=== PATIENT | male | born 1930 | race Caucasian/White ===

== ENCOUNTER 2016-05-01 13:09 | Inpatient (IN) | payer MEDICARE ==
[~2016-05-01] VITALS: Ht 170.2 cm; Wt 75.4 kg
[2016-05-09] MEDS ORDERED: PLAV75TA29 PO (14:13)
[2016-05-09] MEDS ORDERED: ROLLER WALKER1 MI1 (14:13)
[2016-05-09] MEDS ORDERED: LEVO100T5 PO (14:13)
[2016-05-09] MEDS ORDERED: LATA0.002 EACH EYE (14:13)
[2016-05-09] MEDS ORDERED: LISI-515 PO (14:13)
[2016-05-10] MEDS ORDERED: GENTAMICIN SULFATE 80 MG/2 ML VIAL ONE (07:52)
[2016-05-10] MEDS: LACTATED RINGER'S 1000 ML IV SCH (08:00)
[2016-05-10 08:09] VITALS: BP 140/69; PULSE 60; RESP 20; TEMP 97.8; O2SAT 99
[2016-05-10] MEDS ORDERED: ceFAZolin 2 GM PREMIX 50 ML ONE (08:09)
[2016-05-10] MEDS ORDERED: VANCOMYCIN HCL 1000 MG VIAL ONE (08:09)
[2016-05-10] MEDS ORDERED: DEXAMETHASONE SOD PHOS 20 MG/5 ML VIAL ONE (08:09)
[2016-05-10] MEDS ORDERED: SODIUM CHLOR 0.9% 250 ML INJ 250 ML ONE (08:09)
[2016-05-10] MEDS ORDERED: CITA10TA4 PO (08:20)
[2016-05-10] MEDS ORDERED: ROPI5TAB PO (08:20)
[2016-05-10] MEDS ORDERED: VANCOMYCIN 1000 MG/NS 250 ML (for <70 kg) IV SCH ×2 (08:30)
[2016-05-10] MEDS ORDERED: INSULIN HUMAN REGULAR 1,000 UNITS/10 ML VIAL SQ PRN (08:30)
[2016-05-10] MEDS ORDERED: METOPROLOL TARTRATE 25 MG TAB PO PRN (08:30)
[2016-05-10] MEDS: SODIUM CHLORID 0.9% 500 ML IV SCH (08:30)
[2016-05-10] MEDS ORDERED: ceFAZolin 2 GM PREMIX 50 ML IV SCH (08:30)
[2016-05-10] MEDS: POVIDONE IODINE 7.5% SCRUB 118 ML BOTTLE TOP SCH (08:30)
[2016-05-10] MEDS: TRANEXAMIC ACID IV SCH ×2 (09:00→09:52)
[2016-05-10] MEDS ORDERED: DEXAMETHASONE SOD PHOS 20 MG/5 ML VIAL IV ONE (09:00)
[2016-05-10] MEDS: SODIUM CHLORIDE 0.9% IV SCH ×2 (09:00→09:52)
[2016-05-10] MEDS: ROPIVACAINE PERI-ARTICULAR INJECTION. PERIART SCH ×10 (09:00→10:12)
[2016-05-10] MEDS ORDERED: MIDAZOLAM HCL 5 MG/5 ML VIAL ONE (09:17)
[2016-05-10] MEDS ORDERED: ACETAMINOPHEN 1000 MG/100 ML VIAL IV ONE (10:44)
[2016-05-10] MEDS ORDERED: traMADol HCL 50 MG TAB PO PRN (11:15)
[2016-05-10] MEDS ORDERED: NALOXONE HCL 0.4 MG/ML AMP IV PRN (11:15)
[2016-05-10] MEDS ORDERED: ZOLPIDEM TARTRATE 5 MG TAB PO PRN (11:15)
[2016-05-10] MEDS ORDERED: BISACODYL 10 MG SUPP PR PRN (11:15)
[2016-05-10] MEDS ORDERED: ALUMINUM/MAGNESIUM/SIMETH 30 ML CUP PO PRN (11:15)
[2016-05-10] MEDS ORDERED: diphenhydrAMINE HCL 50 MG/ML VIAL IV PRN (11:15)
[2016-05-10] MEDS ORDERED: HYDROmorphone HCL PF 1 MG/ML VIAL IV PRN (11:15)
[2016-05-10] MEDS ORDERED: Post-op Orders (for Pharmacy) MISC XX ONE (11:15)
[2016-05-10] MEDS ORDERED: ONDANSETRON HCL 4 MG/2 ML VIAL IVP PRN (11:15)
[2016-05-10] MEDS ORDERED: SODIUM CHLORIDE 0.9% FLUSH 5 ML FLUSH IVF PRN (11:15)
[2016-05-10] MEDS ORDERED: MAGNESIUM HYDROXIDE SUSP 30 ML CUP PO PRN (11:15)
--- NOTE | 2016-05-10 11:15 | PD.OP ---
cc: Saad Pino MD Operative Report Date of Surgery: May 10, 2016 Preoperative Diagnosis: Left knee severe osteoarthritis Postoperative Diagnosis: Same Procedure: Left total knee arthroplasty Anesthesia: Adductor canal block and spinal Surgeon: Saad Pino Police Artist(s): SHANTAL Cummins The surgical procedure was assisted by my Advanced Registered Nurse Practitioner. My PROCESS MOLD TECHNICIAN presence was necessary throughout this case for the manipulation and positioning of the surgical extremity. My PROCESS MOLD TECHNICIAN was assisting me throughout the duration of this procedure. The skill set of an Advance Registered Nurse Practitioner was medically necessary to complete this procedure. During the surgical case, the surgical garment assembly supervisor was working at the back table and the Advance Registered Nurse Practitioner was directly assisting me. Operation and Findings: IMPLANTS: DePuy Attune: Patella: size 38. Femur, posterior stabilized size 8. Tibia, rotating platform size 7. Tibial insert, rotating platform, posterior stabilized size 10 mm thickness. ESTIMATED BLOOD LOSS: 150 cc TOURNIQUET TIME: 38 minutes at 250 mmHg pressure. JUSTIFICATION FOR PROCEDURE: The patient has end-stage osteoarthritis to the knee. There is an attached conservative measures pathway form in the chart that describes the nonoperative measures that were undertaken prior to consideration of surgical management. The patient understood the risks and benefits of surgical management. See my office notes for further details PROCEDURE: The patient was brought back to the operative theatre. Adequate anesthesia was obtained. The patient received intravenous vancomycin and Ancef. The lower extremity was prepped and draped in the usual sterile fashion.The leg was exsanguinated, the tourniquet was raised. A standard anterior incision was performed followed by medial parapatellar arthrotomy was performed. End-stage arthritis was identified. Osteotomy of the patella was performed. We drilled holes for the patella. We trialed the patella component. We placed an intramedullary guide into the distal femur. We ultimately resected 12 mm off of the distal femur in 5 degrees of valgus. The remnants of the ACL and PCL were resected. Osteotomy of the proximal tibia was performed, resecting 5 mm off of the medial side. This was done with 3 degrees of posterior slope using an extramedullary guide. The distal end of the guide was placed in the mid aspect of the ankle. The femur was sized, and four chamfer cuts were completed in 3 of external rotation. We then cut the central box in the distal femur to replace the PCL. We resected the remnants of the menisci and removed osteophytes off of the femur and tibia. We then trialed the knee. We punched the tibia for the keel, and then used standard technique to cement in components. Excess cement was removed. We trialed the knee again and the final polyethylene thickness was chosen to provide extension to 0 degrees, and flexion of 140 degrees to gravity. The ligaments were appropriately balanced. Lateral release was necessary to obtain excellent patellofemoral tracking. The tourniquet was released and adequate hemostasis was obtained. An intra- articular injection of a ropivacaine cocktail was injected. The posterior knee was inspected for excess cement, which was removed. The final polyethylene was put into position after thorough irrigation. We then closed deep fascia with a #2 Stratafix followed by skin with 2-0 Vicryl followed by jennifer. Postop plan is to weight-bear as tolerated. DVT prophylaxis will be performed with Cely, JOURDAN rodriguez, early mobilization, and Lovenox followed by Plavix. Saad Pino MD May 10, 2016 11:15
[2016-05-10] MEDS ORDERED: ULTR50TA5 PO (11:17)
[2016-05-10] MEDS ORDERED: ENOX40P SQ (11:17)
[2016-05-10] MEDS ORDERED: BUPIVACAINE LIPOSOME PF 1.3% 20 ML VIAL ONE (11:33)
[2016-05-10] MEDS: SODIUM CHLOR 0.9% 1000 ML INJ 1,000 ML IV SCH ×2 (11:48→21:10)
[2016-05-10] MEDS ORDERED: DO NOT ADM ANY ANTICOAGULANT DRUGS XX PRN (12:00)
--- NOTE | 2016-05-10 12:01 | RADRPT ---
EXAM DATE/TIME: 05/10/2016 11:45 [facility] COMPARISON: No previous studies available for comparison. INDICATIONS : Total left knee replacement. MEDICAL HISTORY : Osteoarthritis. SURGICAL HISTORY : ENCOUNTER: Initial ACUITY: 1 day PAIN SCORE: Non-responsive. LOCATION: Left knee FINDINGS: There is placement of total knee prosthesis well seated with anterior dorsal superficial surgical sta ples small amount of air in soft tissues and extensive vascular calcifications. CONCLUSION: Total knee prosthesis well seated Donny Conrad MD on May 10, 2016 at 11:59 Board Certified Radiologist. This report was verified electronically.
[2016-05-10] MEDS ORDERED: SODIUM CHLORIDE 0.9% IV SCH (12:30)
[2016-05-10] MEDS ORDERED: TRANEXAMIC ACID IV SCH (12:30)
[2016-05-10] MEDS ORDERED: *morphine SULFATE 8 MG/ML PERIprocedure ONLY ONE (13:05)
[2016-05-10 13:45] VITALS: BP 115/61; PULSE 76; RESP 16; TEMP 95.5; O2SAT 97
[2016-05-10] MEDS ORDERED: PROPOFOL 200 MG/20 ML AMP IV ONE (14:06)
[2016-05-10] MEDS ORDERED: LACTATED RINGER'S 1000 ML INJ 1,000 ML IV ONE (14:06)
[2016-05-10] MEDS ORDERED: ePHEDrine/NS 25 MG/5 ML SYR IV ONE (14:06)
[2016-05-10] MEDS: traMADol HCL 50 MG TAB PO PRN (14:11)
--- NOTE | 2016-05-10 14:12 | PD.CONS ---
HPI Service [facility] Hospitalists Consult Requested By Dr. Pino Reason for Consult Medical management Primary Care Physician Brendan Valdovinos DO Diagnoses: (1) Knee pain, chronic (2) Hypothyroidism (3) Hypertension History of Present Illness The patient is an 85-year-old male seen following left total knee arthroplasty. Hospitalist consultation was requested for medical management. Patient has history of hypertension and hypothyroidism. States that he is starting to have some pain in the left knee. No cough, shortness of breath, or chest pain. He states that his blood pressure has been well controlled with lisinopril. Review of Systems Constitutional: DENIES: Fever, Chills, Night Sweats Eyes: DENIES: Blurred vision, Vision loss Ears, nose, mouth, throat: DENIES: Hearing loss Respiratory: DENIES: Cough, Wheezing, Sputum production, Shortness of breath Cardiovascular: DENIES: Chest pain, Palpitations, Dyspnea on Exertion, Lower Extremity Edema Gastrointestinal: DENIES: Abdominal pain, Constipation, Diarrhea, Nausea, Vomiting Genitourinary: DENIES: Urinary frequency, Urinary incontinence, Urgency, Hematuria, Dysuria, Nocturia Musculoskeletal: COMPLAINS OF: Joint pain, DENIES: Muscle aches Integumentary: DENIES: Pruritus, Rash Hematologic/lymphatic: DENIES: Bruising Neurologic: DENIES: Headache Past Family Social History Allergies: Coded Allergies: Lortab (Verified Adverse Reaction, Unknown, Irritability/Anxiety, 05/10/16) Morphine (Verified Adverse Reaction, Unknown, Irritability/Anxiety, ) Past Medical History Osteoarthritis Hypertension Hypothyroidism History of CVA Spinal stenosis Past Surgical History Thoracic and cervical spine surgery Tonsillectomy Bilateral cataract surgery Cardiac catheterization (no stent placement per patient report) Reported Medications Lisinopril 20 mg daily Requip 25 mg daily at bedtime as needed Plavix 75 mg daily Latanoprost eyedrops daily at bedtime Levothyroxine 100 g daily Family History Denies significant family history. States that his father at 96 and his mother at 91. Social History Quit smoking in 1964. Denies alcohol or illicit drug use. Physical Exam Vital Signs Vital Signs Date Time Temp Pulse Resp B/P Pulse Ox O2 Delivery O2 Flow Rate FiO2 05/10/16 13:15 97.8 72 16 125/71 97 Room Air 05/10/16 13:00 74 14 119/73 97 Room Air 05/10/16 12:45 72 16 118/64 99 Room Air 05/10/16 12:30 69 16 117/65 99 Room Air 05/10/16 12:15 74 16 111/59 99 Nasal Cannula 2 05/10/16 12:00 74 16 110/60 100 Nasal Cannula 2 05/10/16 11:45 81 16 107/41 99 Nasal Cannula 2 05/10/16 11:36 96.4 87 16 110/63 98 Nasal Cannula 2 05/10/16 08:09 97.8 60 20 140/69 99 Physical Exam GENERAL: Elderly male in no acute distress. HEENT: Normocephalic, atraumatic. Pupils equal, round and reactive. Extraocular movements intact. No scleral icterus. No injection or drainage. CARDIOVASCULAR: Regular rate and rhythm without murmurs, gallops, or rubs. RESPIRATORY: Clear to auscultation. No wheezes, rales, or rhonchi. Breathing is non-labored. GASTROINTESTINAL: Abdomen soft, non-tender, nondistended. EXTREMITIES: No lower extremity edema. No calf tenderness. SCDs. LLE in CPM machine. PSYCH: Alert and oriented x 3. Laboratory Laboratory Tests Test 05/10/16 08:00 Blood Type A POSITIVE Antibody Screen NEGATIVE Imaging Last Impressions Knee X-Ray 05/10/16 1110 Signed Impressions: Service Date/Time: Tuesday, May 10, 2016 11:45 - CONCLUSION: Total knee prosthesis well seated Donny Conrad MD Assessment and Plan Assessment and Plan 1. Osteoarthritis, left knee: Status post left total knee arthroplasty, POD #0. Management per orthopedic surgery. Continue physical therapy, pain control, bowel regimen. 2. Hypertension: Blood pressure is well controlled. Continue lisinopril. 3. Hypothyroidism: Continue Synthroid. 4. DVT prophylaxis: Lovenox. Jamel Michel MD May 10, 2016 14:12
--- NOTE | 2016-05-10 14:59 | HHI.DCPOC ---
Discharge Care Plan Diagnosis: (1) Primary localized osteoarthrosis, lower leg (2) Status post total knee replacement, left Your Health Problems Are: Difficulty with ADL Goals to Promote Your Health * To prevent worsening of your condition and complications * To maintain your health at the optimal level Directions to Meet Your Goals Take your medications as prescribed Follow your dietary instruction Follow activity as directed Keep your appointments as scheduled Take your immunizations and boosters as scheduled If your symptoms worsen call your PCP, if no PCP go to Urgent Care Center or Emergency Room Smoking is Dangerous to Your Health. Avoid second hand smoke Call the 24-hour hour crisis hotline for domestic abuse at Kalpesh Kumar May 10, 2016 14:58
--- NOTE | 2016-05-10 15:00 | HHI.FF ---
Face to Face Verification Diagnosis: (1) Primary localized osteoarthrosis, lower leg (2) Status post total knee replacement, left Physical Therapy Gait training, Transfer training, bed to chair Knee: Total knee Left LE Weight Bearing: WB as tolerated Left LE Range of Motion: Active ROM Nursing Nursing: Fannie teaching, Dressing changes Dressing Changes: Daily dressing change I have seen patient Dallin Ball on 05/10/16. My clinical findings support the need for the requested home health care services because: Limited ability to care for self High risk of falls I certify that my clinical findings support that this patient is homebound because: Post-op weakness Unsteady gait/balance Kalpesh Kumar May 10, 2016 15:00
[2016-05-10] MEDS ORDERED: CPMMACHINE (15:02)
[2016-05-10] MEDS ORDERED: WALKER WHEELS/F1 MIS (15:02)
[2016-05-10] MEDS ORDERED: COMMODE 3-IN-11 MIS (15:02)
[2016-05-10 20:06] VITALS: BP 94/50; PULSE 66; RESP 18; TEMP 96.1; O2SAT 98
[2016-05-10] MEDS: SODIUM CHLORIDE 0.9% FLUSH 5 ML FLUSH IVF SCH (21:00)
[2016-05-10] MEDS: LATANOPROST 0.005% OPHT SOLN 2.5 ML BTL EACH EYE SCH (22:59)
[2016-05-11] VITALS (7 sets, daily range): BP systolic 115–129; BP diastolic 56–62; PULSE 57–71; RESP 16–22; TEMP 95.6–97.4; O2SAT 96–99
[2016-05-11] MEDS: SODIUM CHLOR 0.9% 1000 ML INJ 1,000 ML IV SCH ×2 (00:58→17:10)
[2016-05-11] MEDS: SODIUM CHLORID 0.9% 500 ML IV SCH (00:59)
[2016-05-11 07:01] LABS: HEMATOCRIT 31.5 % (39.0-51.0); MEAN CELL VOLUME 95.1 FL (80.0-100.0); MEAN CORPUSCULAR HEMOGLOBIN 33.1 PG (27.0-34.0); MEAN CORPUSCULAR HGB CONC 34.8 % (32.0-36.0); PLATELET COUNT 214 TH/MM3 (150-450); RED BLOOD COUNT 3.31 MIL/MM3 (4.50-5.90); RED CELL DISTRIBUTION WIDTH 12.5 % (11.6-17.2); REVIEW FLAG FINAL; WHITE BLOOD COUNT 16.8 TH/MM3 (4.0-11.0)
[2016-05-11] MEDS ORDERED: DEXAMETHASONE SOD PHOS 20 MG/5 ML VIAL IV ONE (07:45)
[2016-05-11] MEDS: CITALOPRAM HYDROBROMIDE 20 MG TAB PO SCH (08:15)
[2016-05-11] MEDS: LEVOTHYROXINE SODIUM 100 MCG TAB PO SCH (08:15)
[2016-05-11] MEDS: LISINOPRIL 20 MG TAB PO SCH (08:15)
[2016-05-11] MEDS: LACTATED RINGER'S 1000 ML IV SCH (08:30)
[2016-05-11] MEDS: POVIDONE IODINE 7.5% SCRUB 118 ML BOTTLE TOP SCH (08:30)
[2016-05-11] MEDS: traMADol HCL 50 MG TAB PO PRN ×3 (08:54→20:37)
[2016-05-11] MEDS: SODIUM CHLORIDE 0.9% FLUSH 5 ML FLUSH IVF SCH ×2 (09:00→20:37)
[2016-05-11] MEDS ORDERED: PNEUMOCOCCAL POLYVALENT INJ 25 MCG/0.5 ML SYR IM ONE (10:00)
[2016-05-11] MEDS: ENOXAPARIN SODIUM 40 MG/0.4 ML SYRINGE SQ SCH (12:03)
--- NOTE | 2016-05-11 12:38 | PD.ORT.PN ---
Subjective Post Op Day #: 1 Subjective Remarks The patient is OOB in chair with no pain. The patient is voiding and ambulatory. Objective Vitals Vital Signs Date Time Temp Pulse Resp B/P Pulse Ox O2 Delivery O2 Flow Rate FiO2 05/11/16 08:00 95.6 63 18 128/60 99 05/11/16 04:01 95.6 57 19 129/62 97 05/11/16 00:01 96.2 64 19 121/58 99 05/10/16 20:06 96.1 66 18 94/50 98 05/10/16 19:24 Room Air 05/10/16 13:45 95.5 76 16 115/61 97 05/10/16 13:15 97.8 72 16 125/71 97 Room Air 05/10/16 13:00 74 14 119/73 97 Room Air 05/10/16 12:45 72 16 118/64 99 Room Air 05/10/16 12:30 69 16 117/65 99 Room Air I/O 05/10/16 05/10/16 05/10/16 05/11/16 05/11/16 05/11/16 07:00 15:00 23:00 07:00 15:00 23:00 Intake Total 1170 ml 890 ml 1022 ml Output Total 850 ml 250 ml 350 ml Balance 320 ml 640 ml 672 ml Intake Oral 30 ml 480 ml 240 ml IV Total 240 ml 410 ml 782 ml Other 900 ml Output Urine Total 750 ml 250 ml 350 ml Estimated Blood Loss 100 ml # Bowel Movements 0 0 Result Diagram: 05/11/16 0614 Procedures Left TKA Objective Remarks The patient's dressing is C/D/I. No calf tenderness or swelling. + SILT. EHL/ TA/G intact. 2+ pedal pulse. Assessment & Plan Ortho Post Op Day #: 1 Problem List: Assessment and Plan POD #1: Left TKA 1. WBAT LLE 2. Lovenox followed by Plavix for DVT prophylaxis 3. Ice to the left knee PRN 4. Anticipatory discharge to SNF on Sunday. Kalpesh Kumar May 11, 2016 12:38
[2016-05-11] MEDS: MAGNESIUM HYDROXIDE SUSP 30 ML CUP PO SCH ×2 (16:16→20:37)
[2016-05-11] MEDS: MULTIVITAMINS/MINERALS THERAPEUTIC TAB PO SCH (20:37)
[2016-05-11] MEDS: SENNOSIDES 8.6 MG TAB PO SCH (20:37)
[2016-05-11] MEDS: DOCUSATE SODIUM 100 MG CAP PO SCH (20:37)
[2016-05-11] MEDS: LATANOPROST 0.005% OPHT SOLN 2.5 ML BTL EACH EYE SCH (20:38)
[2016-05-12] VITALS (8 sets, daily range): BP systolic 101–121; BP diastolic 52–63; PULSE 63–79; RESP 16–20; TEMP 96.1–98; O2SAT 95–99
[2016-05-12] MEDS: SODIUM CHLOR 0.9% 1000 ML INJ 1,000 ML IV SCH ×2 (03:10→23:10)
[2016-05-12] MEDS: traMADol HCL 50 MG TAB PO PRN ×4 (05:25→20:02)
[2016-05-12 06:07] LABS: AUTOMATED NEUTROPHIL # 10.1 TH/MM3 (1.8-7.7); BASOPHIL % 0.2 % (0.0-2.0); EOSINOPHIL % 0.1 % (0.0-4.0); HEMATOCRIT 30.8 % (39.0-51.0); HEMO FLAGS DIFF FINAL; LYMPH % 13.1 % (9.0-44.0); LYMPHOCYTE # 1.8 TH/MM3 (1.0-4.8); MEAN CELL VOLUME 95.9 FL (80.0-100.0); MEAN CORPUSCULAR HEMOGLOBIN 32.1 PG (27.0-34.0); MEAN CORPUSCULAR HGB CONC 33.5 % (32.0-36.0); NEUT % 75.6 % (16.0-70.0); PLATELET COUNT 212 TH/MM3 (150-450); RED BLOOD COUNT 3.21 MIL/MM3 (4.50-5.90); RED CELL DISTRIBUTION WIDTH 12.9 % (11.6-17.2); WHITE BLOOD COUNT 13.4 TH/MM3 (4.0-11.0)
[2016-05-12 06:27] LABS: BICARBONATE 25.5 MEQ/L (21.0-32.0); POTASSIUM 4.5 MEQ/L (3.5-5.1)
[2016-05-12] MEDS: POVIDONE IODINE 7.5% SCRUB 118 ML BOTTLE TOP SCH (08:30)
[2016-05-12] MEDS: LACTATED RINGER'S 1000 ML IV SCH (08:30)
[2016-05-12] MEDS: SODIUM CHLORIDE 0.9% FLUSH 5 ML FLUSH IVF SCH ×2 (09:00→20:00)
[2016-05-12] MEDS: MAGNESIUM HYDROXIDE SUSP 30 ML CUP PO SCH ×2 (09:15→20:00)
[2016-05-12] MEDS: DOCUSATE SODIUM 100 MG CAP PO SCH ×2 (09:15→20:00)
[2016-05-12] MEDS: CITALOPRAM HYDROBROMIDE 20 MG TAB PO SCH (09:16)
[2016-05-12] MEDS: LEVOTHYROXINE SODIUM 100 MCG TAB PO SCH (09:16)
[2016-05-12] MEDS: MULTIVITAMINS/MINERALS THERAPEUTIC TAB PO SCH ×2 (09:16→20:00)
[2016-05-12] MEDS: LISINOPRIL 20 MG TAB PO SCH (09:16)
[2016-05-12] MEDS: ENOXAPARIN SODIUM 40 MG/0.4 ML SYRINGE SQ SCH (10:35)
--- NOTE | 2016-05-12 13:30 | PD.ORT.PN ---
Subjective Subjective Remarks no pain Objective Vitals Vital Signs Date Time Temp Pulse Resp B/P Pulse Ox O2 Delivery O2 Flow Rate FiO2 05/12/16 08:00 96.2 63 16 110/57 99 05/12/16 04:00 96.1 67 18 121/63 95 05/12/16 00:00 96.3 65 20 114/60 96 05/11/16 20:00 96.2 71 22 117/56 97 05/11/16 20:00 97 Room Air 05/11/16 16:05 97.4 67 16 115/58 99 I/O 05/11/16 05/11/16 05/11/16 05/12/16 05/12/16 05/12/16 07:00 15:00 23:00 07:00 15:00 23:00 Intake Total 1022 ml 240 ml 720 ml 240 ml Output Total 350 ml 500 ml Balance 672 ml 240 ml 720 ml -260 ml Intake Oral 240 ml 240 ml 720 ml 240 ml IV Total 782 ml Output Urine Total 350 ml 500 ml # Voids 0 2 # Bowel Movements 0 0 0 0 Result Diagram: 05/12/16 0532 05/12/16 0532 Procedures Left TKA Objective Remarks The patient's incision is C/D/I. min hyperemia lateral wound. No calf tenderness or swelling. + SILT. EHL/TA/G intact. 2+ pedal pulse. Assessment & Plan Assessment and Plan POD #2: Left TKA 1. WBAT LLE 2. Lovenox (10 days) followed by Plavix (as outpt) for DVT prophylaxis 3. Ice to the left knee PRN 4. Anticipatory discharge to SNF on Sunday. Saad Pino MD May 12, 2016 13:30
--- NOTE | 2016-05-12 16:58 | HHI.PR ---
Subjective Remarks Doing well no acute wing, afebrile no chest pain or short of breath Objective Vitals Vital Signs Date Time Temp Pulse Resp B/P Pulse Ox O2 Delivery O2 Flow Rate FiO2 05/12/16 14:24 96 21 05/12/16 12:00 97.0 67 16 101/52 99 05/12/16 08:00 96.2 63 16 110/57 99 05/12/16 04:00 96.1 67 18 121/63 95 05/12/16 00:00 96.3 65 20 114/60 96 05/11/16 20:00 96.2 71 22 117/56 97 05/11/16 20:00 97 Room Air I/O 05/11/16 05/11/16 05/11/16 05/12/16 05/12/16 05/12/16 07:00 15:00 23:00 07:00 15:00 23:00 Intake Total 1022 ml 240 ml 720 ml 240 ml Output Total 350 ml 500 ml Balance 672 ml 240 ml 720 ml -260 ml Intake Oral 240 ml 240 ml 720 ml 240 ml IV Total 782 ml Output Urine Total 350 ml 500 ml # Voids 0 2 # Bowel Movements 0 0 0 0 Result Diagram: 05/12/16 0532 05/12/16 0532 Objective Remarks GENERAL: This is a well-nourished, well-developed patient, in no apparent distress. SKIN: No rashes, warm and dry HEAD: Atraumatic. Normocephalic. EYES: Pupils equal round and reactive. Extraocular motions intact. No scleral icterus. ENT: Nose without bleeding, or drainage, Airway patent. NECK: Trachea midline. Supple CARDIOVASCULAR: Regular rate and rhythm without murmurs, gallops, or rubs. RESPIRATORY: Fair air entry bilaterally. No wheezes, rales, or rhonchi. GASTROINTESTINAL: Abdomen soft, non-tender, nondistended. Positive bowel sounds MUSCULOSKELETAL: Extremities without clubbing, cyanosis, or edema. Pedal pulses appreciated NEUROLOGICAL: Awake and alert. Moves all extremity. Normal speech.no focal neurological deficit A/P Problem List: (1) Knee pain, chronic ICD Code: G89.29 Status: Chronic (2) Hypothyroidism ICD Code: E03.9 Status: Chronic (3) Hypertension ICD Code: I10 Status: Chronic Assessment and Plan 1. Osteoarthritis, left knee: Status post left total knee arthroplasty, . Management per orthopedic surgery. Continue physical therapy, pain control, bowel regimen. 2. Hypertension: Blood pressure is well controlled. Continue lisinopril. 3. Hypothyroidism: Continue Synthroid. 4. DVT prophylaxis: Lovenox. BMP reviewed within normal limits CBC showed trending down leukocytosis most likely postop Cain Torres MD May 12, 2016 16:58
[2016-05-12] MEDS: SENNOSIDES 8.6 MG TAB PO SCH (20:00)
[2016-05-12] MEDS: LATANOPROST 0.005% OPHT SOLN 2.5 ML BTL EACH EYE SCH (20:02)
[2016-05-13] VITALS: BP 103/56; PULSE 79; RESP 20; TEMP 97.3; O2SAT 95
[2016-05-13] MEDS: traMADol HCL 50 MG TAB PO PRN ×3 (00:32→17:05)
[2016-05-13 05:50] LABS: HEMATOCRIT 28.3 % (39.0-51.0); MEAN CELL VOLUME 95.6 FL (80.0-100.0); MEAN CORPUSCULAR HEMOGLOBIN 32.4 PG (27.0-34.0); MEAN CORPUSCULAR HGB CONC 33.9 % (32.0-36.0); PLATELET COUNT 201 TH/MM3 (150-450); RED BLOOD COUNT 2.96 MIL/MM3 (4.50-5.90); RED CELL DISTRIBUTION WIDTH 12.7 % (11.6-17.2); REVIEW FLAG FINAL; WHITE BLOOD COUNT 11.1 TH/MM3 (4.0-11.0)
[2016-05-13 08:00] VITALS: BP 115/56; PULSE 74; RESP 19; TEMP 96.6; O2SAT 99
[2016-05-13] MEDS: LACTATED RINGER'S 1000 ML IV SCH (08:30)
[2016-05-13] MEDS: SODIUM CHLORIDE 0.9% FLUSH 5 ML FLUSH IVF SCH (08:35)
[2016-05-13] MEDS: LEVOTHYROXINE SODIUM 100 MCG TAB PO SCH (08:36)
[2016-05-13] MEDS: MAGNESIUM HYDROXIDE SUSP 30 ML CUP PO SCH (08:36)
[2016-05-13] MEDS: DOCUSATE SODIUM 100 MG CAP PO SCH (08:36)
[2016-05-13] MEDS: MULTIVITAMINS/MINERALS THERAPEUTIC TAB PO SCH (08:36)
[2016-05-13] MEDS: LISINOPRIL 20 MG TAB PO SCH (08:36)
[2016-05-13] MEDS: CITALOPRAM HYDROBROMIDE 20 MG TAB PO SCH (08:36)
[2016-05-13] MEDS: SODIUM CHLOR 0.9% 1000 ML INJ 1,000 ML IV SCH (08:37)
--- NOTE | 2016-05-13 08:51 | PD.ORT.PN ---
Subjective Subjective Remarks Patient comfortable. Pain controlled. Objective Vitals Vital Signs Date Time Temp Pulse Resp B/P Pulse Ox O2 Delivery O2 Flow Rate FiO2 05/13/16 00:00 97.3 79 20 103/56 95 05/12/16 20:00 97.3 79 20 116/62 96 05/12/16 20:00 96 Room Air 05/12/16 18:17 97 21 05/12/16 16:00 98.0 73 16 112/60 97 05/12/16 14:24 96 21 05/12/16 12:00 97.0 67 16 101/52 99 I/O 05/12/16 05/12/16 05/12/16 05/13/16 05/13/16 05/13/16 07:00 15:00 23:00 07:00 15:00 23:00 Intake Total 240 ml 960 ml 240 ml Output Total 500 ml 150 ml 400 ml Balance -260 ml 810 ml -160 ml Intake Oral 240 ml 960 ml 240 ml Output Urine Total 500 ml 150 ml 400 ml # Voids 4 # Bowel Movements 0 0 0 Result Diagram: 05/13/16 0440 05/12/16 0532 Procedures Left TKA Objective Remarks Dressing minimal drainage No calf tenderness or swelling 2+ pedal pulse. Negative Homans NVI Assessment & Plan Assessment and Plan POD #3: Left TKA 1. WBAT LLE 2. Lovenox (10 days) followed by Plavix (as outpt) for DVT prophylaxis 3. Ice to the left knee PRN 4. Anticipatory discharge to SNF on Sunday. Orthopedically stable for discharge. 5. F/U in [address] Pino in office Dr. Lloyd present during the assessment of patient. Marv Trejo May 13, 2016 08:51
--- NOTE | 2016-05-13 10:00 | HHI.PR ---
Subjective Remarks in no acute distress. complaining of some pain to the left hand which he relates to his arthritis. pain to the left knee is fairly controlled. Objective Vitals Vital Signs Date Time Temp Pulse Resp B/P Pulse Ox O2 Delivery O2 Flow Rate FiO2 05/13/16 08:45 Nasal Cannula 2.00 05/13/16 08:00 96.6 74 19 115/56 99 05/13/16 00:00 97.3 79 20 103/56 95 05/12/16 20:00 97.3 79 20 116/62 96 05/12/16 20:00 96 Room Air 05/12/16 18:17 97 21 05/12/16 16:00 98.0 73 16 112/60 97 05/12/16 14:24 96 21 05/12/16 12:00 97.0 67 16 101/52 99 I/O 05/12/16 05/12/16 05/12/16 05/13/16 05/13/16 05/13/16 07:00 15:00 23:00 07:00 15:00 23:00 Intake Total 240 ml 960 ml 240 ml Output Total 500 ml 150 ml 400 ml Balance -260 ml 810 ml -160 ml Intake Oral 240 ml 960 ml 240 ml Output Urine Total 500 ml 150 ml 400 ml # Voids 4 # Bowel Movements 0 0 0 Result Diagram: 05/13/16 0440 05/12/16 0532 Imaging Last Impressions Knee X-Ray 05/10/16 1110 Signed Impressions: Service Date/Time: Tuesday, May 10, 2016 11:45 - CONCLUSION: Total knee prosthesis well seated Donny Conrad MD Objective Remarks GENERAL: This is a well-nourished, well-developed patient, in no apparent distress. CARDIOVASCULAR: Regular rate and regular rhythm without murmurs, gallops, or rubs. RESPIRATORY: Clear to auscultation. Breath sounds equal bilaterally. No wheezes , rales, or rhonchi. GASTROINTESTINAL: Abdomen soft, non-tender, nondistended. Normal, active bowel sounds MUSCULOSKELETAL:left knee covered with clean dressing. NEURO: Alert & Oriented x4 to person, place, time, situation. Moves all ext x4 Medications and IVs Current Medications Gentamicin Sulfate (Gentamicin Inj) 240 mg STK-MED ONCE .ROUTE Last administered on 05/10/16t 10:12; Start 05/10/16 at 07:52; Stop 05/10/16 at 07:53 ; Status DC Dexamethasone Sodium Phosphate 20 mg 20 mg STK-MED ONCE .ROUTE ; Start 05/10/16 at 08:09; Stop 05/10/16 at 08:10; Status DC Cefazolin Sodium/ Dextrose 50 ml @ As Directed STK-MED ONCE .ROUTE ; Start 05/10 at 08:09; Stop 05/10/16 at 08:10; Status DC Sodium Chloride (NS 250 ml Inj) 250 ml @ As Directed STK-MED ONCE .ROUTE ; Start 05/10/16 at 08:09; Stop 05/10/16 at 08:10; Status DC Vancomycin HCl (Vancomycin Inj) 1,000 mg STK-MED ONCE .ROUTE ; Start 05/10/16 at 08:09; Stop 05/10/16 at 08:10; Status DC Povidone Iodine 1 applic 1 applic ONCE TOP ; Start 05/10/16 at 08:30; Stop 05/13 at 08:29; Status DC Cefazolin Sodium/ Dextrose 50 ml @ 100 mls/hr CELLAR WORKER IV Last administered on 05/10/16 08:18; Start 05/10/16 at 08:30; Stop 05/13/16 at 08:29; Status DC Vancomycin HCl 1000 mg/Sodium Chloride 250 ml @ 250 mls/hr CELLAR WORKER IV Last administered on 05/10/16 08:25; Start 05/10/16 at 08:30; Stop 05/13/16 at 08:29 ; Status DC Tranexamic Acid 693 mg/Sodium Chloride 106.93 ml @ 200 mls/ hr ONCE IV Last administered on 05/10/16 09:52; Start 05/10/16 at 09:00; Stop 05/10/16 at 13:00 ; Status DC Ropivacaine/ Ketorolac Tromethamine/ Epinephrine HCl/ Clonidine/Sodium Chloride (Naropin 0.5% Pf Inj/Toradol Inj/ Adrenalin (1:1000) Inj/ Duraclon Inj/NS Inj) 100 ml @ 200 mls/hr ONCE PERIART Last administered on 05/10/16 10:12; Start 05/10/16 at 09:00; Stop 05/10/16 at 13:00; Status DC Dexamethasone Sodium Phosphate 10 mg 10 mg ONCE ONCE IV Last administered on 08:15; Start 05/10/16 at 09:00; Stop 05/10/16 at 09:01; Status DC Lactated Ringer's 1,000 ml @ 30 mls/hr Q24H IV Last administered on 05/10/16 08:00; Start 05/10/16 at 08:30 Sodium Chloride (NS 500 ml Inj) 500 ml @ 30 mls/hr [id number] IV ; Start 05/10/16 at 08:30; Stop 05/11/16 at 08:29; Status DC Insulin Human Regular (NovoLIN R INJ) See Protocol Table ... UNSCH X1 PRN SQ SEE PROTOCOL; Start 05/10/16 at 08:30; Stop 05/11/16 at 08:29; Status DC Metoprolol Tartrate (Lopressor) 25 mg UNSCH X1 PRN PO SEE LABEL COMMENTS; Start 05/10/16 at 08:30; Stop 05/11/16 at 08:29; Status DC Midazolam HCl (Versed Inj) 5 mg STK-MED ONCE .ROUTE Last administered on 09:19; Start 05/10/16 at 09:17; Stop 05/10/16 at 09:18; Status DC Acetaminophen (Ofirmev Inj) 1,000 mg STK-MED ONCE IV ; Start 05/10/16 at 10:44; Stop 05/10/16 at 10:45; Status DC Citalopram Hydrobromide (CeleXA) 10 mg DAILY PO Last administered on 05/13/16 08:36; Start 05/11/16 at 09:00 Latanoprost (Xalatan 0.005% Opt Soln) 1 drop HS EACH EYE Last administered on 05/12/16 20:02; Start 05/10/16 at 21:00 Levothyroxine Sodium (Synthroid) 100 mcg DAILY PO Last administered on 08:36; Start 05/11/16 at 09:00 Lisinopril (Prinivil) 20 mg DAILY PO Last administered on 05/13/16 08:36; Start 05/11/16 at 09:00 Ropinirole HCl 25 mg 25 mg HS PRN PO RESTLESSNESS; Start 05/10/16 at 11:15; Status Cancel Sodium Chloride (NS 1000 ml Inj) 1,000 ml @ 100 mls/hr Q10H IV Last administered on 05/11/16 00:58; Start 05/10/16 at 11:10 IV Flush (NS Flush) 2 ml UNSCH PRN IVF FLUSH AFTER USING IV ACCESS; Start 05/10 at 11:15 IV Flush 2 ml 2 ml BID IVF Last administered on 05/13/16 08:35; Start at 21:00 Cefazolin Sodium/ Sodium Chloride (Ancef Inj/NS Inj) 100 ml @ 200 mls/hr Q6H IV Last administered on 05/11/16 00:59; Start 05/10/16 at 13:00; Stop at 01:29; Status DC Miscellaneous Information (Post-op Orders (for Pharmacy)) STAT ONCE XX ; Start 05/10/16 at 11:15; Stop 05/10/16 at 12:20; Status DC Dexamethasone Sodium Phosphate (Decadron Inj) 10 mg ONCE ONCE IV Last administered on 05/11/16 07:45; Start 05/11/16 at 07:45; Stop 05/11/16 at 07:46 ; Status DC Enoxaparin Sodium (Lovenox Inj) 40 mg Q24H SQ Last administered on 05/12/16 10 :35; Start 05/11/16 at 11:00; Stop 05/20/16 at 11:01 Tramadol HCl (Ultram) 50 mg Q4H PRN PO PAIN LESS THAN 5 ON SCALE Last administered on 05/13/16 05:16; Start 05/10/16 at 11:15 Tramadol HCl 100 mg 100 mg Q4H PRN PO PAIN SCALE 5 TO 10; Start 05/10/16 at 11: 15 Tranexamic Acid/ Sodium Chloride (Cyklokapron Inj/ NS Inj) 106.93 ml @ 200 mls / hr UNSCH IV Last administered on 05/10/16 12:45; Start 05/10/16 at 12:30; Stop 05/10/16 at 18:30; Status DC Multivitamins/ Minerals Therapeutic (Theragran M Tab) 1 tab BID PO Last administered on 05/13/16 08:36; Start 05/11/16 at 21:00; Stop 07/10/16 at 20:59 Ondansetron HCl (Zofran Inj) 4 mg Q6H PRN IVP NAUSEA OR VOMITING; Start at 11:15 Docusate Sodium (Colace) 100 mg BID PO Last administered on 05/13/16t 08:36; Start 05/11/16 at 21:00 Al Hydrox/Mg Hydrox/Simethicone (Mag-Al Plus Susp Liq) 30 ml Q6H PRN PO INDIGESTION; Start 05/10/16 at 11:15 Zolpidem Tartrate (Ambien) 5 mg HS PRN PO SLEEP; Start 05/10/16 at 11:15 Bisacodyl (Dulcolax Supp) 10 mg DAILY PRN WI CONSTIPATION; Start 05/10/16 at 11 :15 Magnesium Hydroxide (Milk Of Magnesia Liq) 30 ml DAILY PRN PO CONSTIPATION; Start 05/10/16 at 11:15; Stop 05/11/16 at 09:51; Status DC Naloxone HCl (Narcan Inj) 0.4 mg UNSCH PRN IV RESPIRATORY RATE LESS THAN 10; Start 05/10/16 at 11:15 Diphenhydramine HCl (Benadryl Inj) 25 mg Q6H PRN IV ITCHING; Start 05/10/16 at 11:15 Hydromorphone HCl (Dilaudid Pf Inj) 1 mg Q3H PRN IV BREAKTHROUGH PAIN; Start at 11:15 Bupivacaine Liposome (Exparel Pf 1.3% Inj) 20 ml STK-MED ONCE .XX ; Start at 11:33; Stop 05/10/16 at 11:34; Status DC Miscellaneous Information ALL NURSING DEPARTME... UNSCH PRN XX SEE LABEL COMMENTS; Start 05/10/16 at 12:00; Stop 05/11/16 at 11:59; Status DC Morphine Sulfate (*morphine INJ PERIprocedure ONLY) 8 mg STK-MED ONCE .ROUTE ; Start 05/10/16 at 13:05; Stop 05/10/16 at 13:06; Status DC Pneumococcal Polyvalent Vaccine (Pneumovax-23 Inj) 25 mcg ONCE ONCE IM Last administered on 05/11/16t 08:56; Start 05/11/16 at 10:00; Stop 05/11/16 at 10:01 ; Status DC Ropinirole HCl (Requip) 2.5 mg HS PRN PO RESTLESS LEG SYNDROME; Start 05/10/16 at 21:30 Magnesium Hydroxide (Milk Of Magnloy Liq) 30 ml BID PO Last administered on 08:36; Start 05/11/16 at 10:00 Sennosides (Senokot) 17.2 mg HS PO Last administered on 05/12/16 20:00; Start 05/11/16 at 21:00 Propofol (Diprivan 200 Mg/20 ml Inj) 600 mg STK-MED ONCE IV ; Start 05/10/16 at 14:06; Stop 05/11/16 at 14:07; Status DC Ephedrine Sulfate 25 mg 25 mg STK-MED ONCE IV ; Start 05/10/16 at 14:06; Stop at 14:07; Status DC Lactated Ringer's (Lr 1000 ml Inj) 1,000 ml @ As Directed STK-MED ONCE IV ; Start 05/10/16 at 14:06; Stop 05/11/16 at 14:07; Status DC A/P Assessment and Plan A/P 1. Osteoarthritis, left knee: Status post left total knee arthroplasty, . Management per orthopedic surgery. Continue physical therapy, pain control, bowel regimen. 2. Hypertension: Blood pressure is well controlled. Continue lisinopril. 3. Hypothyroidism: Continue Synthroid. 4. DVT prophylaxis: Lovenox. Discharge Planning dc planning per ortho. Alan Choi MD May 13, 2016 10:00
[2016-05-13] MEDS: ENOXAPARIN SODIUM 40 MG/0.4 ML SYRINGE SQ SCH (11:30)
[2016-05-13 12:00] VITALS: BP 90/52; PULSE 80; RESP 17; TEMP 97.2; O2SAT 99
[2016-05-13 14:00] VITALS: BP 115/55; PULSE 80
[2016-05-13 16:00] VITALS: BP 125/61; PULSE 78; RESP 18; TEMP 96.2; O2SAT 100
--- NOTE | 2016-05-14 21:27 | HHI.DS ---
Discharge Summary Admission Date May 10, 2016 at 07:04 Discharge Date: May 13, 2016 Admitting Diagnosis Primary localized OA, lower leg Status post total knee arthroplasty, left Diagnosis: (1) Primary localized osteoarthrosis, lower leg Diagnosis: Principal (2) Status post total knee replacement, left Diagnosis: Principal Procedures Left TKA Brief History This is a 85 year old male patient with severe OA of the left knee CBC/BMP: 05/13/16 0440 05/12/16 0532 Significant Findings Laboratory Tests Test 05/12/16 05/13/16 05:32 04:40 White Blood Count 13.4 TH/MM3 11.1 TH/MM3 (4.0-11.0) (4.0-11.0) Red Blood Count 3.21 MIL/MM3 2.96 MIL/MM3 (4.50-5.90) (4.50-5.90) Hemoglobin 10.3 GM/DL 9.6 GM/DL (13.0-17.0) (13.0-17.0) Hematocrit 30.8 % 28.3 % (39.0-51.0) (39.0-51.0) Neutrophils (%) (Auto) 75.6 % (16.0-70.0) Monocytes (%) (Auto) 11.0 % (0.0-8.0) Neutrophils # (Auto) 10.1 TH/MM3 (1.8-7.7) Monocytes # (Auto) 1.5 TH/MM3 (0-0.9) Blood Urea Nitrogen 24 MG/DL (7-18) Estimat Glomerular Filtration 64 ML/MIN (>89) Rate PE at Discharge Dressing minimal drainage No calf tenderness or swelling 2+ pedal pulse. Negative [facility] Hospital Course The patient was admitted to the hospital for severe OA of the left knee to have a left total knee arthroplasty. The patient's surgery went well without complication. The patient had good pain management with oral medication. The patient was WBAT. The patient tolerated a normal diet. The patient was discharged to a SNF and will f/u with Dr. Pino in 1-2 weeks. Pt Condition on Discharge: Stable Discharge Disposition: Discharge to SNF Discharge Instructions Diet Instructions: As Tolerated, No Restrictions Activities You Can Perform: Weight Bearing as Disha Activities to Avoid: Strenuous Activity Follow up Referrals: Orthopedics with Saad Pino MD New Medications: Commode 3-in-1 (Commode 3-in-1) 1 Mis Mis 1 EA .ROUTE DIRECTED #1 Ref 0 EA CPM-Continuous Passive Motion Machine (CPM-Continuous Passive Motion Machine) 1 Ea Device 1 EA .ROUTE DIRECTED #1 Ref 0 EA Enoxaparin Inj (Lovenox Inj) 40 Mg/0.4 Ml Syr 40 MG SQ DAILY Start Plavix (per outpt dose) after Lovenox is completed. Blood Clot Prevention #8 Ref 0 SYRINGE Tramadol (Ultram) 50 Mg Tab 50 MG PO Q4H Ok to take 1 or 2 pills every four hours as needed for pain PRN PAIN #60 Ref 0 TAB Walker with Front Wheels (Walker with Front Wheels) 1 Mis Mis 1 EA .ROUTE DIRECTED #1 Ref 0 EA Continued Medications: Citalopram (Citalopram) 10 Mg Tab 10 MG PO DAILY Control Depression #30 Ref 0 TAB Latanoprost Opth Drops (Latanoprost Opth Drops) 0.005% Drops 1 DROP EACH EYE HS Refrigerate until opened. Glaucoma #2.5 Ref 0 ML Levothyroxine (Levothyroxine) 100 Mcg Tab 100 MCG PO DAILY Thyroid #30 Ref 0 TAB Lisinopril (Lisinopril) 20 Mg Tab 20 MG PO DAILY #30 Ref 0 TAB Ropinirole (Ropinirole) 5 Mg Tab 25 MG PO HS PRN RESTLESSNESS #30 Ref 0 TAB Discontinued Medications: Clopidogrel (Plavix) 75 Mg Tab 75 MG PO DAILY Blood Clot Prevention #30 Ref 0 TAB Kalpesh Kumar May 14, 2016 21:27
== END 2016-05-13 17:15 | DRG 470 ==
LOC: HSDI 05-10 07:04 → N06B 05-10 13:49
PROVIDERS: ADMIT Orthopaedic Surgery; ATTEND Orthopaedic Surgery
PROC: 0QRF0JZ Replacement of Left Patella with Synthetic Substitute, Open Approach (ICD-10-PCS; 2016-05-10)
PROC: 3E0T3CZ (ICD-10-PCS; 2016-05-10)
PROC: 0SRD0J9 Replacement of Left Knee Joint with Synthetic Substitute, Cemented, Open Approach (ICD-10-PCS; principal; 2016-05-10 09:27)
DX: M17.12 Unilateral primary osteoarthritis, left knee (principal); I12.9 Hypertensive chronic kidney disease with stage 1 through stage 4 chronic kidney disease, or unspecified chronic kidney disease; E03.9 Hypothyroidism, unspecified; M48.00 Spinal stenosis, site unspecified; N18.9 Chronic kidney disease, unspecified; F32.9 Major depressive disorder, single episode, unspecified; Z87.891 Personal history of nicotine dependence; Z88.5 Allergy status to narcotic agent; Z98.1 Arthrodesis status
CPT/HCPCS: 73560; 80048; 85025; 85027; 86850; 86900; 86901; 90471; 90732; 94150; C1776; C9290; G0009; J0131; J0171; J0690; J0735; J1100; J1580; J1650; J1885; J2250; J2270; J2795; J3370; J7030; J7050; J7120; L1830

== ENCOUNTER 2017-04-11 01:15 | Inpatient (IN) | payer MEDICARE ==
[~2017-04-11] VITALS: Ht 175.3 cm; Wt 79.3 kg
[~2017-04-11 01:15] MED LIST: CITA10TA4 PO; COMMODE 3-IN-11 MIS; CPMMACHINE; ENOX40P SQ; LATA0.002 EACH EYE; LEVO100T5 PO; LISI-515 PO; ROLLER WALKER1 MI1; ROPI5TAB PO; TRAM50 PO; WALKER WHEELS/F1 MIS
[2017-04-11 02:15] VITALS: BP 113/61; PULSE 86; RESP 18; TEMP 96.4; O2SAT 97
[2017-04-11] MEDS ORDERED: LACTATED RINGER'S 1000 ML INJ 1,000 ML IV SCH (02:45)
[2017-04-11] MEDS ORDERED: MORPHINE SULFATE 4 MG/ML INJ IV PUSH PRN (02:45)
[2017-04-11] MEDS ORDERED: POVIDONE IODINE 5% (ANTISEPSIS KIT) 4 APPLICATIONS EACH NARE PRN (03:00)
[2017-04-11] MEDS ORDERED: LACTATED RINGER'S 1000 ML IV PRN (03:00)
[2017-04-11] MEDS ORDERED: SODIUM CHLORID 0.9% 500 ML IV PRN (03:00)
[2017-04-11] MEDS ORDERED: INSULIN HUMAN REGULAR 1,000 UNITS/10 ML VIAL SQ PRN (03:00)
[2017-04-11] MEDS ORDERED: CHLORHEXIDINE GLUCONATE 2 % 1 PACK (2 CLOTHS) TOPICAL PRN (03:00)
[2017-04-11] MEDS ORDERED: METOPROLOL TARTRATE 25 MG TAB PO PRN (03:00)
[2017-04-11 03:59] VITALS: BP 117/62; PULSE 89; RESP 18; TEMP 96.7; O2SAT 96
[2017-04-11 05:34] LABS: AUTOMATED NEUTROPHIL # 8.8 TH/MM3 (1.8-7.7); BASOPHIL % 0.4 % (0.0-2.0); EOSINOPHIL # 0.1 TH/MM3 (0-0.4); EOSINOPHIL % 0.6 % (0.0-4.0); HEMATOCRIT 35.4 % (39.0-51.0); HEMOGLOBIN 11.7 GM/DL (13.0-17.0); LYMPH % 13.2 % (9.0-44.0); LYMPHOCYTE # 1.5 TH/MM3 (1.0-4.8); MEAN CELL VOLUME 95.7 FL (80.0-100.0); MEAN CORPUSCULAR HEMOGLOBIN 31.7 PG (27.0-34.0); MEAN CORPUSCULAR HGB CONC 33.1 % (32.0-36.0); MEAN PLATELET VOLUME 8.3 FL (7.0-11.0); MONO % 8.1 % (0.0-8.0); MONOCYTE # 0.9 TH/MM3 (0-0.9); NEUT % 77.7 % (16.0-70.0); PLATELET COUNT 274 TH/MM3 (150-450); RED BLOOD COUNT 3.69 MIL/MM3 (4.50-5.90); RED CELL DISTRIBUTION WIDTH 13.4 % (11.6-17.2); WHITE BLOOD COUNT 11.3 TH/MM3 (4.0-11.0)
[2017-04-11 05:39] LABS: PROTHROMBIN TIME - PATIENT 10.5 SEC (9.8-11.6)
[2017-04-11 05:55] LABS: ALBUMIN 3.2 GM/DL (3.4-5.0); ALT (GPT) 25 U/L (12-78); AST (GOT) 30 U/L (15-37); BICARBONATE 24.1 MEQ/L (21.0-32.0); BLOOD UREA NITROGEN 31 MG/DL (7-18); CALCIUM 9.1 MG/DL (8.5-10.1); CHLORIDE 107 MEQ/L (98-107); CREATININE 1.65 MG/DL (0.60-1.30); GLOMERULAR FILTRATION RATE 40 ML/MIN (>89); GLUCOSE,RANDOM 117 MG/DL (74-106); SODIUM (NA) 138 MEQ/L (136-145)
[2017-04-11 05:57] LABS: ALKALINE PHOSPHATASE 76 U/L (45-117); TOTAL BILIRUBIN ADULT 0.4 MG/DL (0.2-1.0); TOTAL PROTEIN 6.4 GM/DL (6.4-8.2); TROPONIN I 0.18 NG/ML (0.02-0.05)
--- NOTE | 2017-04-11 06:56 | PD.ORT.PN ---
Subjective Subjective Remarks s/p fall at home left knee pain. history of left knee replacement last year by Dr Pino transferred from [facility] Objective Vitals Vital Signs Date Time Temp Pulse Resp B/P (MAP) Pulse Ox O2 Delivery O2 Flow Rate FiO2 04/11/17 03:59 96.7 89 18 117/62 (80) 96 04/11/17 02:15 96.4 86 18 113/61 (78) 97 I/O 04/10/17 04/10/17 04/10/17 04/11/17 04/11/17 04/11/17 07:00 15:00 23:00 07:00 15:00 23:00 Intake Total 0 ml Balance 0 ml Intake Oral 0 ml # Voids 0 # Bowel Movements 0 Result Diagram: 04/11/17 0456 04/11/17 0456 Other Results Laboratory Tests Test 04/11/17 04:56 Prothromb Time International Ratio 1.0 RATIO Prothrombin Time 10.5 SEC (9.8-11.6) Objective Remarks LLE: +knee brace. it is on backwards. nvi distally Assessment & Plan Assessment and Plan 1) Left Periprosthetic Distal Femur Fx -npo -sign consents -awaiting medical clearance -possible surgery today Lyndon Copeland/Resident Services Coordinator PA Apr 11, 2017 06:56
[2017-04-11] MEDS ORDERED: traMADol HCL 50 MG TAB PO PRN (07:00)
[2017-04-11 08:00] VITALS: BP 121/61; PULSE 68; RESP 18; TEMP 96.5; O2SAT 97
--- NOTE | 2017-04-11 11:59 | EKG ---
Date Performed: 04/11/2017 Time Performed: 05:41:36 PTAGE: 86 years EKG: Sinus rhythm with 1st degree A-V block. Left axis deviation RBBB with left anterior fascicular block Possible ext ensive infarct - age undetermined Abnormal ECG PREVIOUS TRACING : 09/28/2015 02.12 Since the prior tracing, there has been no significant laurent DOCTOR: Faina Boswell Interpretating Date/Time 04/11/2017 11:59:31
[2017-04-11 12:00] VITALS: BP 97/54; PULSE 70; RESP 18; TEMP 96.6; O2SAT 96
[2017-04-11 16:00] VITALS: BP 135/65; PULSE 73; RESP 18; TEMP 96.2; O2SAT 96
--- NOTE | 2017-04-11 16:27 | MB ---
cc: FAINA BOSWELL DATE OF CONSULTATION 04/11/2017 HISTORY An 86-year-old white male with a history of coronary artery disease, fell and broke his femur. He is supposed to undergo left surgery for left periprosthetic distal femur fracture. He has not had any chest pain or shortness of breath. He had cardiac catheterization last year at [facility] which showed 65% stenosis. No coronary intervention was felt to be necessary at that time. PAST MEDICAL HISTORY Positive for: 1. Coronary artery disease as above. 2. Hypertension. 3. Hypothyroidism. 4. Cerebrovascular accident. 5. Spinal stenosis. 6. Chronic gait disorder. 7. History of thoracic and cervical spine surgery. 8. Tonsillectomy. MEDICATIONS Include: 1. Lovenox. 2. Lisinopril. 3. Tramadol. 4. Citalopram. 5. Ropinerol. 6. Latanoprost. 7. Levothyroxine. 8. Requip. 9. Plavix. ALLERGIES LORTAB, MORPHINE, TYLENOL, HYDROCODONE. SOCIAL HISTORY The patient quit smoking in 1964. He does not drink alcohol. FAMILY HISTORY Negative for heart disease. REVIEW OF SYSTEMS Otherwise negative. PHYSICAL EXAMINATION VITAL SIGNS: Blood pressure 97/54, pulse 70 and regular. HEENT: Negative. 2+ carotid upstrokes. No bruits. LUNGS: Clear. HEART: Regular with 1/6 systolic murmur. No gallop. ABDOMEN: Soft. No bruits. EXTREMITIES: Without edema. 1-2+ distal pulses. NEUROLOGIC: Grossly nonfocal. EKG was reviewed and showed sinus rhythm, first-degree AV block, left axis, right bundle-branch block, left anterior fascicular block, abnormal R-wave progression in pericardial leads. LABORATORY DATA Hemoglobin 11.7. Potassium 4.6, creatinine 1.65. AST and ALT normal. DIAGNOSES 1. Left femur fracture. 2. Moderate coronary artery disease. 3. Hypertension. 4. History of cerebrovascular accident. 5. Hypothyroidism. PHYSICIAN Mr. Ball has had no angina or heart failure symptoms. We will obtain echocardiogram to evaluate his left ventricular systolic function. We will obtain his cardiac catheterization records from [facility] from last year. His risk of cardiac perioperative complications is increased. This was discussed with the patient and his family. They understand the risks are increased due to his comorbidities, coronary artery disease and advanced age. I will follow him for cardiology during his hospitalization. ADDENDUM: Echo shows overall preserved LV systolic function. The patient currently has no angina or CHF symptoms. RECORDS FROM [facility] HOSPITALIZATIONS REVIEWED. THE PATIENT HAS SIGNIFICANTLY INCREASED RISK OF PERIOPERATIVE CARDIAC COMPLICATIONS. THE RISK IS NOT PROHIBITIVE, IT IS UNLIKELY THE PATIENT WILL HAVE SUCCESSFUL RECOVERY WITHOUT SURGERY. THIS WAS DISCUSSED WITH THE PATIENT AND HIS FAMILY EARLIER; THEY UNDERSTAND THE SITUATION. I RECOMMEND TO PROCEED WITH THE SURGERY PLANNED. Faina Boswell MD OQ/KK /2:35 PM /3:42 PM MTDRoyal
--- NOTE | 2017-04-11 17:56 | ECHRPT ---
Indication: Pre op clearance CONCLUSIONS The left ventricular systolic function is normal with an estimated ejection fraction in the range of 55-60%. There is mild tricuspid valve regurgitation. The estimated pulmonary arterial pressure is 34 mmHg. BP: 121 / 61 HR: 68 Rhythm: Other MEASUREMENTS (Male / Female) Normal Values Technical Quality:Fair 2D ECHO LV Diastolic Diameter PLAX 3.9 cm 4.2 - 5.9 / 3.9 - 5.3 cm LV Systolic Diameter PLAX 3.0 cm IVS Diastolic Thickness 1.4 cm 0.6 - 1.0 / 0.6 - 0.9 cm LVPW Diastolic Thickness 1.4 cm 0.6 - 1.0 / 0.6 - 0.9 cm LV Relative Wall Thickness 0.7 LVOT Diameter 2.0 cm M-MODE Aortic Root Diameter MM 3.3 cm LA Systolic Diameter MM 3.7 cm LA Ao Ratio MM 1.1 AV Cusp Separation MM 1.6 cm DOPPLER AV Peak Velocity 164.0 cm/s AV Peak Gradient 10.8 mmHg LVOT Peak Velocity 98.2 cm/s LVOT Peak Gradient 3.9 mmHg AV Area Cont Eq pk 1.9 cm Mitral E Point Velocity 99.2 cm/s Mitral A Point Velocity 121.0 cm/s Mitral E to A Ratio 0.8 TR Peak Velocity 243.0 cm/s TR Peak Gradient 23.6 mmHg Right Atrial Pressure 10.0 mmHg Pulmonary Artery Systolic Pressu 33.6 mmHg Right Ventricular Systolic Press 33.6 mmHg PV Peak Velocity 95.0 cm/s PV Peak Gradient 3.6 mmHg FINDINGS LEFT VENTRICLE The left ventricular systolic function is normal with an estimated ejection fraction in the range of 55-60%. RIGHT VENTRICLE Normal right ventricular size and systolic function. LEFT ATRIUM The left atrial size is normal. RIGHT ATRIUM The right atrial size is normal. ATRIAL SEPTUM Normal atrial septal thickness without atrial level shunting by limited color doppler interrogation. AORTA The aortic root and proximal ascending aorta are normal in size on limited imaging. MITRAL VALVE Structurally normal mitral valve. No mitral valve stenosis or regurgitation. AORTIC VALVE Trileaflet aortic valve. No aortic valve stenosis or regurgitation. TRICUSPID VALVE There is mild tricuspid valve regurgitation. The estimated pulmonary arterial pressure is 33.6 mmHg. PULMONARY VALVE No pulmonary valve regurgitation or stenosis. VESSELS The inferior vena cava is normal in size. PERICARDIUM No pericardial effusion. Faina Boswell MD, FACC (Electronically Signed) Final Date:11 April 2017 17:55
[2017-04-11 20:00] VITALS: BP 158/81; PULSE 102; RESP 15; TEMP 98.6; O2SAT 97
[2017-04-12] VITALS (9 sets, daily range): BP systolic 87–146; BP diastolic 51–80; PULSE 87–103; RESP 16–24; TEMP 96–98.7; O2SAT 95–97
[2017-04-12] MEDS ORDERED: PILL SPLITTER OTHER PRN (03:00)
[2017-04-12] MEDS ORDERED: ROPI5TAB PO (03:36)
--- NOTE | 2017-04-12 04:26 | PD.CONS ---
HPI Service [facility] Hospitalists . Consult Requested By SHANTAL Oshea . Reason for Consult Medical management for patient hospitalized with left periprosthetic femur fracture . Primary Care Physician Brendan Valdovinos DO Diagnoses: (1) Rosa-prosthetic femoral shaft fracture History of Present Illness Mr. 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 He was transferred to [facility] for management by Dr. Pino, his orthopedic surgeon. [facility] were consulted to manage the patient's medical problems and we were notified of the consultation at 3 a.m. on 04/12. The patient is to have ORIF in a.m. with Dr. Bowen. The patient is seen in his room. He is fixated on his need to urinate and says he cannot use the urinal. He attempts to get out of bed several times during my visit and requires multiple reminders about his fractured leg and need for bedrest. He is able to recall some of his medical history but denies any history of cardiac disease. According to Dr. Boswell's consultation note, he had a cardiac catheterization last year at [facility] and has a 65% stenosis requiring medical management and no coronary intervention was deemed necessary at the time of the catheterization. The patient reports that he is a and lives at home alone. He states that he was in his usual state of health when he tripped and fell at his home. He denies syncope, LOC, or head injury with fall. He had immediate left leg pain and went to the ER. He reports pain relief with medications provided here. Review of records suggest BPH and I have discussed with the charge nurse that he may need bladder scan. I suspect he may have some urinary retention given his perseveration with urge to urinate at the time of my visit. He denies any recent fever, chills, cold or flu symptoms, nausea, vomiting, or diarrhea. Review of Systems Except as stated in HPI: all other systems reviewed are Neg Past Family Social History Allergies: Coded Allergies: acetaminophen (Unverified Adverse Reaction, Unknown, Irritability/Anxiety , 11/01/16) hydrocodone (Unverified Adverse Reaction, Unknown, Irritability/Anxiety, ) morphine (Unverified Adverse Reaction, Unknown, Irritability/Anxiety, 11/01) Past Medical History Coronary artery disease Hypertension Hypothyroidism CVA with left residual weakness Spinal stenosis Chronic gait disorder BPH . Past Surgical History Thoracic and cervical spine surgery Tonsillectomy Cataract surgery . Reported Medications Reported Meds & Active Scripts Active Walker with Front Wheels (Device) 1 Mis Mis 1 Ea .ROUTE DIRECTED CPM-Continuous Passive Motion Machine 1 Ea Device 1 Ea .ROUTE DIRECTED Commode 3-in-1 (Device) 1 Mis Mis 1 Ea .ROUTE DIRECTED Lovenox Inj (Enoxaparin Sodium) 40 Mg/0.4 Ml Syr 40 Mg SQ DAILY Start Plavix (per outpt dose) after Lovenox is completed. Ultram (Tramadol HCl) 50 Mg Tab 50 Mg PO Q4H PRN Ok to take 1 or 2 pills every four hours as needed for pain Reported Ropinirole 5 Mg Tab 2.5 Mg PO HS PRN Citalopram (Citalopram Hydrobromide) 10 Mg Tab 10 Mg PO DAILY Roller Walker (Misc. Devices) 1 Mis Mis 1 Ea .ROUTE NOW Levothyroxine (Levothyroxine Sodium) 100 Mcg Tab 100 Mcg PO DAILY Latanoprost Opth Drops (Latanoprost) 0.005% Drops 1 Drop EACH EYE HS Refrigerate until opened. Lisinopril 20 Mg Tab 20 Mg PO DAILY . Active Ordered Medications Current Medications Lactated Ringer's 1,000 ml @ 50 mls/hr Q20H IV Last administered on 04/11/17at 02:45; Start 04/11/17 at 02:45 Morphine Sulfate (Morphine Inj) 2 mg Q4H PRN IV PUSH PAIN; Start 04/11/17 at 02 :45; Stop 04/11/17 at 06:53; Status DC Lactated Ringer's 1,000 ml @ 30 mls/hr Q24H PRN IV SEE LABEL COMMENTS; Start at 03:00; Stop 04/14/17 at 02:59 Sodium Chloride 500 ml @ 30 mls/hr [id number] PRN IV SEE LABEL COMMENTS; Start at 03:00; Stop 04/14/17 at 02:59 Metoprolol Tartrate (Lopressor) 25 mg KENNEL HAND PRN PO SEE LABEL COMMENTS; Start 04/11/17 at 03:00; Stop 04/14/17 at 02:59 Povidone Iodine (Betadine 5% Antisepsis Kit) 1 applic KENNEL HAND PRN EACH NARE SEE LABEL COMMENTS; Start 04/11/17 at 03:00; Stop 04/14/17 at 02:59 Chlorhexidine Gluconate (Chlorhexidine 2% Cloth) 3 pack KENNEL HAND PRN TOPICAL SEE LABEL COMMENTS; Start 04/11/17 at 03:00; Stop 04/14/17 at 02:59 Insulin Human Regular (NovoLIN R INJ) See Protocol Table ... KENNEL HAND PRN SQ SEE PROTOCOL TABLE; Start 04/11/17 at 03:00; Stop 04/14/17 at 02:59 Tramadol HCl (Ultram) 50 mg Q6H PRN PO PAIN 1-10 Last administered on at 01:13; Start 04/11/17 at 07:00 Lisinopril (Prinivil) 20 mg DAILY PO ; Start 04/12/17 at 09:00 Citalopram Hydrobromide (CeleXA) 10 mg DAILY PO ; Start 04/12/17 at 09:00 Miscellaneous (Pill Splitter) 1 ea UNSCH PRN OTHER SEE LABEL COMMENTS; Start at 03:00 Ropinirole HCl (Requip) 2 MG GIVE WITH 0.5MG TAB HS PRN PO RESTLESSNESS; Start 04/12/17 at 03:15 Ropinirole HCl (Requip) 0.5MG [ GIVE WITH 2MG TAB] HS PRN PO RESTLESSNESS Last administered on 04/12/17at 03:16; Start 04/12/17 at 03:15 Citalopram Hydrobromide (CeleXA) 10 mg DAILY PO ; Start 04/12/17 at 09:00 Latanoprost (Xalatan 0.005% Opt Soln) 1 drop HS EACH EYE ; Start 04/12/17 at 21 :00 Levothyroxine Sodium (Synthroid) 100 mcg DAILY@0600 PO ; Start 04/12/17 at 06:00 Ropinirole HCl (Requip) 2.5 mg HS PRN PO RESTLESSNESS; Start 04/12/17 at 04:00 . Family History Denies any family history of anesthesia adverse reactions / Social History Tobacco: Quit smoking 1965 Alcohol: Denies . Physical Exam Vital Signs Vital Signs Date Time Temp Pulse Resp B/P (MAP) Pulse Ox O2 Delivery O2 Flow Rate FiO2 04/11/17 20:00 98.6 102 15 158/81 (106) 97 04/11/17 16:00 96.2 73 18 135/65 (88) 96 04/11/17 12:00 96.6 70 18 97/54 (68) 96 04/11/17 08:00 96.5 68 18 121/61 (81) 97 Physical Exam TEMPLATE: GENERAL: This is a well-nourished, well-developed patient, in no apparent distress. SKIN: No rashes, ecchymoses or lesions. Cool and dry. HEAD: Atraumatic. Normocephalic. EYES: No scleral icterus. No injection or drainage. ENT: Nose without bleeding, purulent drainage. NECK: Trachea midline. No JVD or lymphadenopathy. CARDIOVASCULAR: Regular rate and rhythm without murmurs, gallops, or rubs. RESPIRATORY: Clear to auscultation. Breath sounds equal bilaterally. No wheezes , rales, or rhonchi. GASTROINTESTINAL: Abdomen soft, non-tender, nondistended. No guarding. MUSCULOSKELETAL: Extremities without clubbing, cyanosis, or edema. No calf tenderness. NEUROLOGICAL: Awake and alert. Motor and sensory grossly within normal limits. Normal speech. . Laboratory Laboratory Tests Test 04/11/17 04:56 White Blood Count 11.3 Red Blood Count 3.69 Hemoglobin 11.7 Hematocrit 35.4 Mean Corpuscular Volume 95.7 Mean Corpuscular Hemoglobin 31.7 Mean Corpuscular Hemoglobin Concent 33.1 Red Cell Distribution Width 13.4 Platelet Count 274 Mean Platelet Volume 8.3 Neutrophils (%) (Auto) 77.7 Lymphocytes (%) (Auto) 13.2 Monocytes (%) (Auto) 8.1 Eosinophils (%) (Auto) 0.6 Basophils (%) (Auto) 0.4 Neutrophils # (Auto) 8.8 Lymphocytes # (Auto) 1.5 Monocytes # (Auto) 0.9 Eosinophils # (Auto) 0.1 Basophils # (Auto) 0.0 CBC Comment DIFF FINAL Differential Comment Prothrombin Time 10.5 Prothromb Time International Ratio 1.0 Activated Partial Thromboplast Time 25.5 Blood Urea Nitrogen 31 Creatinine 1.65 Random Glucose 117 Total Protein 6.4 Albumin 3.2 Calcium Level 9.1 Alkaline Phosphatase 76 Aspartate Amino Transf (AST/SGOT) 30 Alanine Aminotransferase (ALT/SGPT) 25 Total Bilirubin 0.4 Sodium Level 138 Potassium Level 4.6 Chloride Level 107 Carbon Dioxide Level 24.1 Anion Gap 7 Estimat Glomerular Filtration Rate 40 Troponin I 0.18 Result Diagram: 04/11/17 0456 04/11/17 0456 Assessment and Plan Problem List: (1) Rosa-prosthetic femoral shaft fracture ICD Code: M97.8XXA - Periprosthetic fracture around other internal prosthetic joint, initial encounter; Z96.649 - Presence of unspecified artificial hip joint (2) Hypothyroidism ICD Code: E03.9 - Hypothyroidism Status: Chronic (3) BPH (benign prostatic hyperplasia) ICD Code: N40.0 - BPH (benign prostatic hyperplasia) Status: Chronic (4) Hypertension ICD Code: I10 - Hypertension Status: Chronic (5) Restless leg syndrome ICD Code: G25.81 - Restless legs syndrome Status: Chronic (6) CAD (coronary artery disease) ICD Code: I25.10 - Atherosclerotic heart disease of [place] coronary artery without angina pectoris Status: Chronic Assessment and Plan Mr. 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 He was transferred to [facility] for management by Dr. Pino, his orthopedic surgeon. [facility] were consulted to manage the patient's medical problems and we were notified of the consultation at 3 a.m. on 04/12. The patient is to have ORIF in a.m. with Dr. Bowen. Periprosthetic femoral shaft fracture - management per orthopedic surgeon Acute on chronic renal insufficiency - BUN 31, Creatinine 1.65, eGFR 40 - avoid nephrotoxins - receiving IVF hydration at the time of my visit - recheck BMP and follow results in renal indices CAD - Cardiology clearance per Dr. Boswell - echocardiogram 04/11/2017 shows preserved left ventricular systolic function with an EF estimated at 55-60%, mild tricuspid valve regurgitation, and PA peak pressure of 34 mmHg. - continuous cardiac telemetry ordered to monitor for cardiac arrhythmias Hypertension - hold lisinopril due to kidney function - add PRN clonidine for BP > 160/100 BPH - bladder scan PRN - catheterize if needed Hypothyroidism - resume home Synthroid Restless leg syndrome - resume home Requip I placed the patient on fall precautions for high risk as he was trying to get out of bed during my visit and discussed this with the chargeback specialist. DVT prophylaxis - SCDs/TEDs Discussed Condition With RN, charge nurse, patient, and Dr. Mary . Leslye Wise Apr 12, 2017 04:26
[2017-04-12] MEDS ORDERED: cloNIDine HCL 0.1 MG TAB PO PRN (04:30)
[2017-04-12] MEDS: LEVOTHYROXINE SODIUM 100 MCG TAB PO SCH (06:00)
[2017-04-12 06:12] LABS: AUTOMATED NEUTROPHIL # 23.7 TH/MM3 (1.8-7.7); BASOPHIL % 0.2 % (0.0-2.0); HEMATOCRIT 38.2 % (39.0-51.0); HEMOGLOBIN 13.1 GM/DL (13.0-17.0); LYMPHOCYTE # 0.8 TH/MM3 (1.0-4.8); MEAN CELL VOLUME 94.6 FL (80.0-100.0); MEAN CORPUSCULAR HEMOGLOBIN 32.4 PG (27.0-34.0); MEAN CORPUSCULAR HGB CONC 34.3 % (32.0-36.0); MEAN PLATELET VOLUME 8.4 FL (7.0-11.0); MONO % 6.5 % (0.0-8.0); MONOCYTE # 1.7 TH/MM3 (0-0.9); NEUT % 90.3 % (16.0-70.0); PLATELET COUNT 264 TH/MM3 (150-450); RED BLOOD COUNT 4.04 MIL/MM3 (4.50-5.90); RED CELL DISTRIBUTION WIDTH 13.3 % (11.6-17.2); WHITE BLOOD COUNT 26.2 TH/MM3 (4.0-11.0)
[2017-04-12 06:33] LABS: BICARBONATE 21.8 MEQ/L (21.0-32.0); CALCIUM 9.4 MG/DL (8.5-10.1); CREATININE 1.4 MG/DL (0.60-1.30)
--- NOTE | 2017-04-12 06:36 | PD.ORT.PN ---
Subjective Subjective Remarks pain controlled Objective Vitals Vital Signs Date Time Temp Pulse Resp B/P (MAP) Pulse Ox O2 Delivery O2 Flow Rate FiO2 04/11/17 20:00 98.6 102 15 158/81 (106) 97 04/11/17 16:00 96.2 73 18 135/65 (88) 96 04/11/17 12:00 96.6 70 18 97/54 (68) 96 04/11/17 08:00 96.5 68 18 121/61 (81) 97 I/O 04/11/17 04/11/17 04/11/17 04/12/17 04/12/17 04/12/17 07:00 15:00 23:00 07:00 15:00 23:00 Intake Total 0 ml 960 ml Balance 0 ml 960 ml Intake Oral 0 ml 960 ml # Voids 0 4 # Bowel Movements 0 1 Result Diagram: 04/12/17 0550 04/12/17 0550 Objective Remarks LLE: +knee brace. reapplied. nvi distally Assessment & Plan Assessment and Plan 1) Left Periprosthetic Distal Femur Fx -npo -sign consents - surgery today Gilmer Steen Jr. Apr 12, 2017 06:35
[2017-04-12] MEDS ORDERED: ceFAZolin 2 GM PREMIX 50 ML ONE (07:06)
[2017-04-12] MEDS ORDERED: VANCOMYCIN HCL 1000 MG VIAL ONE (07:06)
[2017-04-12] MEDS ORDERED: GENTAMICIN SULFATE 80 MG/2 ML VIAL ONE (07:07)
[2017-04-12] MEDS ORDERED: METOPROLOL TARTRATE 25 MG TAB PO PRN (08:15)
[2017-04-12] MEDS ORDERED: LACTATED RINGER'S 1000 ML IV PRN (08:15)
[2017-04-12] MEDS ORDERED: SODIUM CHLORID 0.9% 500 ML IV PRN (08:15)
[2017-04-12] MEDS ORDERED: POVIDONE IODINE 5% (ANTISEPSIS KIT) 4 APPLICATIONS EACH NARE PRN (08:15)
[2017-04-12] MEDS ORDERED: CHLORHEXIDINE GLUCONATE 2 % 1 PACK (2 CLOTHS) TOPICAL PRN (08:15)
[2017-04-12] MEDS ORDERED: LISINOPRIL 20 MG TAB PO SCH (09:00)
[2017-04-12] MEDS: CITALOPRAM HYDROBROMIDE 20 MG TAB PO SCH (09:00)
[2017-04-12] MEDS ORDERED: CITALOPRAM HYDROBROMIDE 20 MG TAB PO SCH (09:00)
--- NOTE | 2017-04-12 09:11 | MH ---
cc: DIANNE WHALEN DATE OF ADMISSION: 04/11/2017 REASON FOR ADMISSION Left distal femur periprosthetic fracture. HISTORY Mr. Ball is an 86-year-old male who has multiple medical problems including coronary artery disease, hypothyroidism, hypertension, spinal stenosis, osteoarthritis and history of CVA. The patient had a total knee replacement done by Dr. Saad Pino approximately one year ago. The patient had a fall on 04/10/2017. Initially he presented to [facility]. The patient had x-rays revealing a left distal femur fracture. He was transferred to [place] for definitive treatment. He is currently awake and alert. He describes mechanical fall. He denies dizziness, syncope or loss of consciousness. He states that he has had previous cardiac workup within the last year. The pain is worse with movement and is improved with rest. PAST MEDICAL HISTORY ILLNESSES 1. Coronary artery disease. 2. Hypertension. 3. Hypothyroidism. 4. History of CVA. 5. Spinal stenosis. 6. BPH. SURGERIES 1. Cervical and thoracic spine surgery. 2. Tonsillectomy. 3. Left total knee replacement. 4. Cataract surgery. MEDICATIONS 1. Ultram. 2. Citalopram. 3. Levothyroxine. 4. Latanoprost. 5. Lisinopril. SOCIAL HISTORY The patient denies alcohol, tobacco or drug use. FAMILY HISTORY Noncontributory. He denies any previous problems with anesthesia. He denies any familial history of blood clots.. REVIEW OF SYSTEMS The patient denies headache, visual changes, neck pain, chest pain, shortness of breath, abdominal pain, nausea, vomiting or recent weight loss, fevers, chills, numbness or tingling of extremities or bowel or bladder incontinence. He complains of left thigh and knee pain. PHYSICAL EXAMINATION GENERAL: The patient is a pleasant 86-year-old male. He is awake and alert. He is alert and oriented x3. He appears well-developed, well-nourished. VITAL SIGNS: Temperature 98.5, pulse 102, respirations 16, blood pressure 138/74, O2 sat 97% on room air. HEAD: The patient is normocephalic. EYES: Pupils are equal. NECK: Soft, nontender. Trachea is midline. ABDOMEN: Soft, nontender, nondistended. EXTREMITIES: Examination of bilateral upper extremities reveals no significant pain with shoulder, elbow or wrist motion. He has intact sensation in all fingers. Radial pulses are palpable bilaterally. Skin is intact to both hands. Examination of the right leg reveals no pain with hip, knee or ankle motion. Skin is intact. Dorsalis pedis pulse is palpable. Sensation is intact. Examination of the left leg reveals no tenderness around his hip or ankle. He is diffusely tender around the knee and distal femur. He has pain with any motion. Skin is intact. Calf and thigh compartments are soft. X-RAYS X-rays of left knee were reviewed. X-rays reveal a mildly displaced left distal femur periprosthetic fracture. LABORATORY DATA The patient's INR is 1.0. White blood cell count is 11.3, hematocrit is 35.4 and hemoglobin is 11.7. BUN is 31 and creatinine is 1.65. IMPRESSION 1. Coronary artery disease. 2. Hypothyroidism. 3. Hypertension. 4. Left distal femur periprosthetic fracture. PLAN The treatment options were discussed with the patient. At this point the patient will need open reduction, internal fixation of left distal femur. The risks of surgery include bleeding, infection, injury to arteries, nerves, blood vessels, nonunion, malunion, painful hardware as well as medical complications including blood clot, stroke, heart attack and . The patient's x-rays were independently reviewed and the lab results were also reviewed. I will plan on surgery once the patient has been medically cleared. All of his questions were answered. A mid-level provider in my office, nurse practitioner or PA, may see this patient on a follow-up basis and continue to implement the objective of this plan including: Starting or adjusting medications, injections of muscle, tendon, bursa or joints, cast application, orthotic or brace application, physical therapy, further radiographic studies including x-ray, MRI, CT, ultrasounds or bone scan, vascular studies, neurologic studies, or other specialist consultations, and proceeding with surgical management as appropriate. MD RIVAS Wallace/WERO /8:46 AM 8:55 AM
[2017-04-12] MEDS ORDERED: NALOXONE HCL 0.4 MG/ML AMP IV PUSH PRN (10:15)
[2017-04-12] MEDS ORDERED: Post-op Orders (for Pharmacy) XX ONE (10:15)
[2017-04-12] MEDS ORDERED: MISCELLANEOUS NURSING INFORMATION XX PRN (10:15)
--- NOTE | 2017-04-12 10:23 | PD.OP ---
cc: Devon Millan MD Operative Report Date of Surgery: Apr 12, 2017 Preoperative Diagnosis: Displaced left distal femur periprosthetic fracture Postoperative Diagnosis: Procedure: Open reduction total fixation left distal femur Anesthesia: Gen. Surgeon: Devon Millan Legal Records Clerk(s): VILLA Maldonado PA-C The surgical procedure was assisted by my physician endodontic assistant. My P.A. presence was necessary throughout this case for the manipulation and positioning of the surgical extremity. My P.A. was assisting me throughout the duration of this procedure. The skill set of a physician endodontic assistant was medically necessary to complete this procedure. During the surgical case the surgical assist was working at the back table and the physician endodontic assistant was directly assisting me. Operation and Findings: Plan of activity: Nonweightbearing Implants used: TYREE Zamarripa was seen and evaluated preoperatively. Informed consent was obtained for open reduction total fixation of left distal femur. Patient was cleared by cardiology for surgery. Operative site was marked. Patient was brought to the OR, placed on OR table, and given IV sedation with GETA. IV antibiotics were administered and timeout procedure was performed. The operative leg was prepped with alcohol, followed with Hibiclens, draped in usual sterile fashion. A timeout procedure was performed. The procedure began with a 4-inch incision over the lateral aspect of the distal femur. Subcutaneous tissue was dissected with Bovie. Iliotibial band was split in line with fibers. At this point the fracture was visualized. Traction was applied. Fracture was manipulated. The fracture reduced into excellent alignment. Steinmann pins were used to hold provisional fixation. At this point attention was turned to plate placement. A ITS lateral condylar plate was selected and attached to the insertion handle jig. The plate was placed underneath the vastus lateralis. Steinmann pins were used to hold the plate to bone. Multiplanar fluoroscopy confirmed appropriate placement of plate. Multiple 4.5 cortical screws were now placed in percutaneous fashion through the plate. The plate was compressed to bone. Multiple locking screws were now placed in the distal segment of the distal femur. Additional locking screws were placed into the femoral shaft. All screws were predrilled and premeasured for appropriate length. Final fluoroscopy revealed excellent alignment of fracture with well-placed hardware. Wound was thoroughly irrigated. Fascia was closed with #1 Vicryl. Subcutaneous tissue was closed with 3-0 Vicryl. Skin was closed with jennifer. Sterile dressings were applied. The patient was placed into a knee immobilizer and transferred to recovery in stable condition. Needle and sponge counts were correct. Devon Millan MD Apr 12, 2017 10:23
[2017-04-12] MEDS ORDERED: DO NOT ADM ANY ANTICOAGULANT DRUGS PRN (10:33)
[2017-04-12] MEDS ORDERED: *MEPERIDINE 25 MG INJ VIAL PERIprocedural Use ONLY ONE (10:38)
[2017-04-12] MEDS: LACTATED RINGER'S 1000 ML INJ 1,000 ML IV SCH ×2 (11:00→21:10)
[2017-04-12] MEDS ORDERED: LIDOCAINE HCL 1% PF 5 ML SYRINGE OTHER ONE (12:00)
[2017-04-12] MEDS ORDERED: ONDANSETRON HCL 4 MG/2 ML VIAL IV ONE (12:00)
[2017-04-12] MEDS ORDERED: PROPOFOL 200 MG/20 ML AMP IV ONE (12:00)
[2017-04-12] MEDS ORDERED: PHENYLEPH/NS 1000 MCG/10 ML SYR IV ONE (12:00)
[2017-04-12] MEDS ORDERED: SUCCINYLCHOLINE CHLORIDE 200 MG/10 ML VIAL IV ONE (12:00)
[2017-04-12] MEDS ORDERED: PHENYLEPHRINE HCL 10 MG/ML VIAL IV ONE (12:00)
--- NOTE | 2017-04-12 13:51 | PD.CARD.PN ---
Subjective Subjective Remarks No CP or SOB, tolerated surgery well, just waking up from anesthesia Objective Medications Current Medications Medications (Trade) Dose Ordered Sig/[place] Route Start Time Stop Time Status Last Admin Lactated Ringer's 1,000 ml @ 30 mls/hr Q24H PRN IV 04/11/17 03:00 04/14/17 02:59 Sodium Chloride 500 ml @ 30 mls/hr [id number] PRN IV 04/11/17 03:00 04/14/17 02:59 (Lopressor) 25 mg LITHODUPLICATOR OPERATOR PRN PO 04/11/17 03:00 04/14/17 02:59 (Betadine 5% Antisepsis Kit) 1 applic LITHODUPLICATOR OPERATOR PRN EACH NARE 04/11/17 03:00 04/14/17 02:59 (Chlorhexidine 2% Cloth) 3 pack LITHODUPLICATOR OPERATOR PRN TOPICAL 04/11/17 03:00 04/14/17 02:59 (NovoLIN R INJ) See Protocol Table ... LITHODUPLICATOR OPERATOR PRN SQ 04/11/17 03:00 04/14/17 02:59 (Prinivil) 20 mg DAILY PO 04/12/17 09:00 Future Hold (Pill Splitter) 1 ea UNSCH PRN OTHER 04/12/17 03:00 (CeleXA) 10 mg DAILY PO 04/12/17 09:00 (Xalatan 0.005% Opth Soln) 1 drop HS EACH EYE 04/12/17 21:00 (Synthroid) 100 mcg DAILY@0600 PO 04/12/17 06:00 (Requip) 2.5 mg HS PRN PO 04/12/17 04:00 (Catapres) 0.1 mg Q6H PRN PO 04/12/17 04:30 Lactated Ringer's 1,000 ml @ 30 mls/hr Q24H PRN IV 04/12/17 08:15 04/15/17 08:14 Sodium Chloride 500 ml @ 30 mls/hr [id number] PRN IV 04/12/17 08:15 04/15/17 08:14 (Lopressor) 25 mg LITHODUPLICATOR OPERATOR PRN PO 04/12/17 08:15 04/15/17 08:14 (Betadine 5% Antisepsis Kit) 1 applic LITHODUPLICATOR OPERATOR PRN EACH NARE 04/12/17 08:15 04/15/17 08:14 (Chlorhexidine 2% Cloth) 3 pack LITHODUPLICATOR OPERATOR PRN TOPICAL 04/12/17 08:15 04/15/17 08:14 Lactated Ringer's 1,000 ml @ 80 mls/hr [id number] IV 04/12/17 10:13 04/12/17 11:00 (Lovenox Inj) 30 mg Q24H SQ 04/13/17 09:30 (Rosa-Colace) 1 tab BID PO 04/12/17 21:00 Cefazolin Sodium/ Dextrose 50 ml @ 100 mls/hr Q8H IV 04/12/17 17:00 04/14/17 09:29 Vancomycin HCl 1000 mg/Sodium Chloride 250 ml @ 250 mls/hr Q12H IV 04/12/17 21:00 04/13/17 21:59 Miscellaneous Information UNSCH PRN XX 04/12/17 10:15 (Oscal-D 250-125) 250 mg TID PO 04/12/17 13:00 (Benadryl) 25 mg Q6H PRN PO 04/12/17 10:15 (Narcan Inj) 0.4 mg UNSCH PRN IV PUSH 04/12/17 10:15 (Vitamin D3) 1,000 units DAILY PO 04/13/17 09:00 (Drisdol) 50,000 units Q7D PO 04/12/17 11:00 (Tylenol) 500 mg Q6H PRN PO 04/12/17 10:30 Miscellaneous Information ALL NURSING DEPARTME... UNSCH PRN .XX 04/12/17 10:33 04/13/17 10:32 (Dilaudid Pf Inj) 0.5 mg Q3H PRN IV 04/12/17 11:15 Vital Signs / I&O Vital Signs Date Time Temp Pulse Resp B/P (MAP) Pulse Ox O2 Delivery O2 Flow Rate FiO2 04/12/17 12:00 98.7 97 18 87/51 (63) 96 04/12/17 08:00 96.0 97 24 146/72 (96) 96 04/12/17 04:00 98.5 102 16 138/74 (95) 97 04/12/17 00:00 98.5 103 16 141/77 (98) 96 1/24/18 20:00 98.6 102 15 158/81 (106) 97 04/11/17 16:00 96.2 73 18 135/65 (88) 96 I/O 04/11/17 04/11/17 04/11/17 04/12/17 04/12/17 04/12/17 07:00 15:00 23:00 07:00 15:00 23:00 Intake Total 0 ml 1560 ml 1200 ml Output Total 400 ml 1380 ml Balance 0 ml 1160 ml -180 ml Intake Oral 0 ml 1560 ml Other 1200 ml Output Urine Total 400 ml 1130 ml Estimated Blood Loss 250 ml # Voids 0 4 # Bowel Movements 0 1 Physical Exam GENERAL: In NAD SKIN: Warm and dry. HEAD: Normocephalic. EYES: No scleral icterus. No injection or drainage. NECK: Supple, trachea midline. No JVD or lymphadenopathy. CARDIOVASCULAR: Regular rate and rhythm without murmurs, gallops, or rubs. RESPIRATORY: Breath sounds equal bilaterally. No accessory muscle use. GASTROINTESTINAL: Abdomen soft, non-tender, nondistended. MUSCULOSKELETAL: No cyanosis, or edema. Laboratory Laboratory Tests Test 04/12/17 05:50 04/12/17 11:45 White Blood Count 26.2 TH/MM3 Red Blood Count 4.04 MIL/MM3 Hemoglobin 13.1 GM/DL Hematocrit 38.2 % Mean Corpuscular Volume 94.6 FL Mean Corpuscular Hemoglobin 32.4 PG Mean Corpuscular Hemoglobin Concent 34.3 % Red Cell Distribution Width 13.3 % Platelet Count 264 TH/MM3 Mean Platelet Volume 8.4 FL Neutrophils (%) (Auto) 90.3 % Lymphocytes (%) (Auto) 3.0 % Monocytes (%) (Auto) 6.5 % Eosinophils (%) (Auto) 0.0 % Basophils (%) (Auto) 0.2 % Neutrophils # (Auto) 23.7 TH/MM3 Lymphocytes # (Auto) 0.8 TH/MM3 Monocytes # (Auto) 1.7 TH/MM3 Eosinophils # (Auto) 0.0 TH/MM3 Basophils # (Auto) 0.0 TH/MM3 CBC Comment DIFF FINAL Differential Comment Blood Urea Nitrogen 22 MG/DL Creatinine 1.40 MG/DL Random Glucose 130 MG/DL Calcium Level 9.4 MG/DL Sodium Level 134 MEQ/L Potassium Level 4.1 MEQ/L Chloride Level 104 MEQ/L Carbon Dioxide Level 21.8 MEQ/L Anion Gap 8 MEQ/L Estimat Glomerular Filtration Rate 48 ML/MIN Assessment and Plan Problem List: (1) femur fx (2) CAD (coronary artery disease) ICD Codes: I25.10 - Atherosclerotic heart disease of [place] coronary artery without angina pectoris Status: Chronic (3) HTN (hypertension) ICD Codes: I10 - Essential (primary) hypertension Status: Acute (4) Hx-TIA (transient ischemic attack) ICD Codes: Z86.73 - Hx-TIA (transient ischemic attack) Status: Chronic Assessment and Plan Tolerated surgery well. No ischemia or arrhythmias. Continue close monitoring on tele. Continue current program with aggressive risk factor modification. Increase activity. D/w pt's family. Faina Boswell MD Apr 12, 2017 13:51
[2017-04-12] MEDS: ERGOCALCIFEROL (VIT D2) 50,000 UNIT CAP PO SCH (14:01)
[2017-04-12] MEDS: CALCIUM/VITAMIN D 250 MG/125 U TAB PO SCH ×2 (14:01→17:40)
--- NOTE | 2017-04-12 15:54 | HHI.PR ---
Subjective Remarks Follow-up renal insufficiency, hypertension. The patient had surgery today. He is still quite drowsy. He states that his pain is well controlled. Objective Vitals Vital Signs Date Time Temp Pulse Resp B/P (MAP) Pulse Ox O2 Delivery O2 Flow Rate FiO2 04/12/17 15:00 130/80 (97) 04/12/17 12:00 98.7 97 18 87/51 (63) 96 04/12/17 08:00 96.0 97 24 146/72 (96) 96 04/12/17 04:00 98.5 102 16 138/74 (95) 97 04/12/17 00:00 98.5 103 16 141/77 (98) 96 04/11/17 20:00 98.6 102 15 158/81 (106) 97 04/11/17 16:00 96.2 73 18 135/65 (88) 96 I/O 04/11/17 04/11/17 04/11/17 04/12/17 04/12/17 04/12/17 07:00 15:00 23:00 07:00 15:00 23:00 Intake Total 0 ml 1560 ml 1456 ml Output Total 400 ml 1380 ml Balance 0 ml 1160 ml 76 ml Intake Oral 0 ml 1560 ml IV Total 256 ml Other 1200 ml Output Urine Total 400 ml 1130 ml Estimated Blood Loss 250 ml # Voids 0 4 # Bowel Movements 0 1 Result Diagram: 04/12/17 0550 04/12/17 0550 Objective Remarks General: Elderly male in no acute distress. Heart: Regular rate and rhythm. No murmur. Lungs: Clear to auscultation bilaterally. No wheezes, rales, or rhonchi. Breathing is nonlabored. Abdomen: Soft, nontender, nondistended. Extremities: No lower extremity edema. JOURDAN hose. Psych: Alert, drowsy, somewhat confused. Vascular Central Line Catheter: No A/P Problem List: (1) Rosa-prosthetic femoral shaft fracture ICD Code: M97.8XXA - Periprosthetic fracture around other internal prosthetic joint, initial encounter; Z96.649 - Presence of unspecified artificial hip joint (2) Hypothyroidism ICD Code: E03.9 - Hypothyroidism Status: Chronic (3) BPH (benign prostatic hyperplasia) ICD Code: N40.0 - BPH (benign prostatic hyperplasia) Status: Chronic (4) Hypertension ICD Code: I10 - Hypertension Status: Chronic (5) Restless leg syndrome ICD Code: G25.81 - Restless legs syndrome Status: Chronic (6) CAD (coronary artery disease) ICD Code: I25.10 - Atherosclerotic heart disease of [place] coronary artery without angina pectoris Status: Chronic Assessment and Plan 1. Periprosthetic femoral shaft fracture: Status post surgical repair. Management per orthopedic surgery. Continue pain control. 2. Acute on chronic renal insufficiency: Avoid nephrotoxins. Monitor labs. 3. Coronary artery disease: Appreciate cardiology recommendations. Echocardiogram 04/11/17 shows preserved left ventricular systolic function with an EF estimated at 55-60%. Monitor on telemetry. 4. Hypertension: Lisinopril on hold secondary to renal insufficiency. Clonidine as needed. 5. Hypothyroidism: Continue Synthroid. 6. Restless leg syndrome: Continue Requip. 7. DVT prophylaxis: Lovenox, SCDs, JOURDAN hose. 8. Hypotension: Patient had low blood pressure following surgery. On recheck blood pressure was 130/80. Jamel Michel MD Apr 12, 2017 15:54
--- NOTE | 2017-04-12 16:13 | RADRPT ---
EXAM DATE/TIME: 04/12/2017 09:58 [facility] COMPARISON: No previous studies available for comparison. INDICATIONS : Left femur open reduction internal fixation. MEDICAL HISTORY : Osteoarthritis. SURGICAL HISTORY : None. ENCOUNTER: Initial ACUITY: 1 day PAIN SCORE: Non-responsive. LOCATION: Left femur FINDINGS: 10 magnified C-arm spot views are centered over the distal femur and labeled left. These show a total knee prosthesis in good position. A lateral cortical orthopedic plate is seen extending from the pro ximal diaphysis through the metaphyseal level. Multiple anchoring screws throughout. A solitary threa ded orthopedic screw involving the distal metadiaphysis traversing in an anterior to posterior dimens ion. Good alignment of the fracture sites. CONCLUSION: Images as detailed above. Domingo Salinas Jr., MD on April 12, 2017 at 16:10 Board Certified Radiologist. This report was verified electronically.
[2017-04-12] MEDS ORDERED: LACTULOSE SYRUP 20 GM/30 ML CUP PO PRN (16:45)
[2017-04-12] MEDS ORDERED: MAGNESIUM HYDROXIDE SUSP 30 ML CUP PO PRN (16:45)
[2017-04-12] MEDS ORDERED: SENNOSIDES 8.6 MG TAB PO PRN (16:45)
[2017-04-12] MEDS ORDERED: BISACODYL 10 MG SUPP RECTAL PRN (16:45)
[2017-04-12] MEDS: ceFAZolin 2 GM PREMIX 50 ML IV SCH (17:40)
[2017-04-12] MEDS: VANCOMYCIN INJ 1,000 MG in SODIUM CHLOR 0.9% 250 ML INJ 250 ML IV SCH (21:12)
[2017-04-12] MEDS: DOCUSATE SODIUM 50 MG/SENNA 8.6 MG TAB PO SCH (21:12)
[2017-04-12] MEDS: LATANOPROST 0.005% OPHT SOLN 2.5 ML BTL EACH EYE SCH (21:12)
[2017-04-12] MEDS: ACETAMINOPHEN 500 MG CPLT PO PRN (21:24)
[2017-04-13] MEDS: ceFAZolin 2 GM PREMIX 50 ML IV SCH ×3 (00:51→17:50)
[2017-04-13] MEDS: HYDROmorphone HCL PF 2 MG/ML VIAL IV PRN (02:23)
[2017-04-13 04:17] LABS: BILIRUBIN, URINE NEG (NEG); BLOOD, URINE LARGE (NEG); GLUCOSE,URINE NEG (NEG); KETONE, URINE NEG (NEG); NITRITE,URINE NEG (NEG); PH, URINE 5.5 (5.0-8.5); URINE LEUKOCYTE ESTERASE LARGE (NEG); WHITE BLOOD CELL CLUMPS MANY
[2017-04-13 04:18] LABS: URINE COLOR RED (YELLW/STRAW)
[2017-04-13] MEDS: LEVOTHYROXINE SODIUM 100 MCG TAB PO SCH (05:19)
[2017-04-13] MEDS: ACETAMINOPHEN 500 MG CPLT PO PRN ×3 (05:19→21:48)
[2017-04-13 05:53] LABS: BICARBONATE 21.5 MEQ/L (21.0-32.0); CALCIUM 8.2 MG/DL (8.5-10.1); CREATININE 1.59 MG/DL (0.60-1.30)
[2017-04-13 06:15] LABS: AUTOMATED NEUTROPHIL # 20.3 TH/MM3 (1.8-7.7); BASOPHIL # 0.1 TH/MM3 (0-0.2); BASOPHIL % 0.2 % (0.0-2.0); EOSINOPHIL % 0.1 % (0.0-4.0); HEMATOCRIT 29.7 % (39.0-51.0); HEMOGLOBIN 9.9 GM/DL (13.0-17.0); LYMPH % 2.5 % (9.0-44.0); LYMPHOCYTE # 0.6 TH/MM3 (1.0-4.8); MEAN CELL VOLUME 95.5 FL (80.0-100.0); MEAN CORPUSCULAR HEMOGLOBIN 31.9 PG (27.0-34.0); MEAN CORPUSCULAR HGB CONC 33.4 % (32.0-36.0); MEAN PLATELET VOLUME 9.2 FL (7.0-11.0); MONO % 6.3 % (0.0-8.0); MONOCYTE # 1.4 TH/MM3 (0-0.9); NEUT % 90.9 % (16.0-70.0); PLATELET COUNT 188 TH/MM3 (150-450); RED BLOOD COUNT 3.11 MIL/MM3 (4.50-5.90); RED CELL DISTRIBUTION WIDTH 13.7 % (11.6-17.2); WHITE BLOOD COUNT 22.4 TH/MM3 (4.0-11.0)
--- NOTE | 2017-04-13 06:35 | PD.ORT.PN ---
Subjective Subjective Remarks POD 1 s/p ORIF left periprosthetic distal femur fx doing well. slightly confused. pain controlled Objective Vitals Vital Signs Date Time Temp Pulse Resp B/P (MAP) Pulse Ox O2 Delivery O2 Flow Rate FiO2 04/12/17 21:19 95 Nasal Cannula 3.00 04/12/17 19:51 98.3 93 16 118/60 (79) 97 04/12/17 19:12 Nasal Cannula 3.00 04/12/17 17:59 92 04/12/17 16:00 98.7 87 18 97/53 (68) 97 04/12/17 15:00 130/80 (97) 04/12/17 12:00 98.7 97 18 87/51 (63) 96 04/12/17 08:00 96.0 97 24 146/72 (96) 96 I/O 04/12/17 04/12/17 04/12/17 04/13/17 04/13/17 04/13/17 07:00 15:00 23:00 07:00 15:00 23:00 Intake Total 1576 ml 1510 ml Output Total 1380 ml Balance 196 ml 1510 ml Intake Oral 120 ml IV Total 256 ml 1510 ml Other 1200 ml Output Urine Total 1130 ml Estimated Blood Loss 250 ml # Bowel Movements 1 Result Diagram: 04/13/17 0339 04/13/17 0339 Objective Remarks LLE: +knee brace. dressings intact. clean and dry. nvi Assessment & Plan Assessment and Plan 1) Left Periprosthetic Distal Femur Fx s/p ORIF - POD 1 -NWB -daily dressing changes POD 2 -CKS except for passive motion -no quad sets or leg lifts -CM for rehab placement -plan for rehab tomorrow -f/u wt Andrés or ADARSH in 2 weeks Lyndon Copeland/Armament Repairer PA Apr 13, 2017 06:35
[2017-04-13] MEDS ORDERED: XARE10TA PO (06:37)
[2017-04-13] MEDS ORDERED: HYDR-3583 PO (06:37)
[2017-04-13] MEDS ORDERED: VITA2000 PO (06:37)
[2017-04-13] MEDS ORDERED: VITA500012 PO (06:37)
[2017-04-13] MEDS ORDERED: CALCTAB19 PO (06:37)
[2017-04-13] MEDS ORDERED: WHEEMIS3 (06:38)
[2017-04-13] MEDS ORDERED: WALKER/ADULT/FO1 MIS (06:38)
[2017-04-13 08:00] VITALS: BP 99/55; PULSE 95; RESP 18; TEMP 97.5; O2SAT 98
[2017-04-13 08:12] LABS: BANDS 13 % (0-6); LYMPHOCYTES 6 % (9-44); MONOCYTES 7 % (0-8); NEUTROPHIL # MANUAL DIFF 19.5 TH/MM3 (1.8-7.7); POLYS (SEG NEUTROPHILS) 74 % (16-70)
[2017-04-13] MEDS: CITALOPRAM HYDROBROMIDE 20 MG TAB PO SCH (10:10)
[2017-04-13] MEDS: ENOXAPARIN SODIUM 30 MG/0.3 ML SYRINGE SQ SCH (10:10)
[2017-04-13] MEDS: CHOLECALCIFEROL (VIT D3) 1000 UNIT TAB PO SCH (10:10)
[2017-04-13] MEDS: CALCIUM/VITAMIN D 250 MG/125 U TAB PO SCH ×3 (10:10→17:50)
[2017-04-13] MEDS: DOCUSATE SODIUM 50 MG/SENNA 8.6 MG TAB PO SCH ×2 (10:10→21:48)
[2017-04-13] MEDS: VANCOMYCIN INJ 1,000 MG in SODIUM CHLOR 0.9% 250 ML INJ 250 ML IV SCH ×2 (10:11→21:49)
--- NOTE | 2017-04-13 10:12 | HHI.PR ---
Subjective Remarks Follow up UTI, confusion. Patient states "get this morphine out of my system". He is confused. Denies pain, but states that he needs help. Objective Vitals Vital Signs Date Time Temp Pulse Resp B/P (MAP) Pulse Ox O2 Delivery O2 Flow Rate FiO2 04/12/17 21:19 95 Nasal Cannula 3.00 04/12/17 19:51 98.3 93 16 118/60 (79) 97 04/12/17 19:12 Nasal Cannula 3.00 04/12/17 17:59 92 04/12/17 16:00 98.7 87 18 97/53 (68) 97 04/12/17 15:00 130/80 (97) 04/12/17 12:00 98.7 97 18 87/51 (63) 96 I/O 04/12/17 04/12/17 04/12/17 04/13/17 04/13/17 04/13/17 07:00 15:00 23:00 07:00 15:00 23:00 Intake Total 1576 ml 1510 ml Output Total 1380 ml Balance 196 ml 1510 ml Intake Oral 120 ml IV Total 256 ml 1510 ml Other 1200 ml Output Urine Total 1130 ml Estimated Blood Loss 250 ml # Bowel Movements 1 Result Diagram: 04/13/17 0339 04/13/17 0339 Imaging Last Impressions Femur X-Ray 04/12/17 0000 Signed Impressions: Service Date/Time: March 09:58 - CONCLUSION: Images as detailed above. Domingo Salinas Jr., MD Objective Remarks General: Elderly male in no acute distress. Heart: Regular rate and rhythm. No murmur. Lungs: Clear to auscultation bilaterally. No wheezes, rales, or rhonchi. Breathing is nonlabored. Abdomen: Soft, nontender, nondistended. Extremities: No lower extremity edema. JOURDAN rodriguez. Psych: Alert, confused. Oriented only to self, year. Procedures 04/12/17 ORIF left distal femur Urinary Catheter: Yes Assessment to: Remove Vascular Central Line Catheter: No A/P Problem List: (1) Rosa-prosthetic femoral shaft fracture ICD Code: M97.8XXA - Periprosthetic fracture around other internal prosthetic joint, initial encounter; Z96.649 - Presence of unspecified artificial hip joint (2) Hypothyroidism ICD Code: E03.9 - Hypothyroidism Status: Chronic (3) BPH (benign prostatic hyperplasia) ICD Code: N40.0 - BPH (benign prostatic hyperplasia) Status: Chronic (4) Hypertension ICD Code: I10 - Hypertension Status: Chronic (5) Restless leg syndrome ICD Code: G25.81 - Restless legs syndrome Status: Chronic (6) CAD (coronary artery disease) ICD Code: I25.10 - Atherosclerotic heart disease of [place] coronary artery without angina pectoris Status: Chronic Assessment and Plan 1. Periprosthetic femoral shaft fracture: Status post ORIF. Management per orthopedic surgery. Continue pain control. 2. Acute on chronic renal insufficiency: Avoid nephrotoxins. Monitor labs. 3. Coronary artery disease: Appreciate cardiology recommendations. Echocardiogram 04/11/17 shows preserved left ventricular systolic function with an EF estimated at 55-60%. Monitor on telemetry. 4. Hypertension: Lisinopril on hold secondary to renal insufficiency. Clonidine as needed. 5. Hypothyroidism: Continue Synthroid. 6. Restless leg syndrome: Continue Requip. 7. DVT prophylaxis: Lovenox, SCDs, JOURDAN hose. 8. Hypotension: Patient had low blood pressure following surgery. BP now improved. 9. Postoperative confusion: May be related to anesthesia vs UTI. 10. UTI: Continue antibiotics. Urine culture is pending. Remove Colvin catheter. Jamel Michel MD Apr 13, 2017 10:12
[2017-04-13] MEDS: SODIUM CHLOR 0.9% 1000 ML INJ 1,000 ML IV SCH (10:23)
[2017-04-13 11:45] VITALS: O2SAT 98
[2017-04-13 12:00] VITALS: BP 102/54; PULSE 90; RESP 18; TEMP 97; O2SAT 95
--- NOTE | 2017-04-13 19:04 | PD.CARD.PN ---
Subjective Subjective Remarks No CP or SOB, confused Objective Medications Current Medications Medications (Trade) Dose Ordered Sig/[place] Route Start Time Stop Time Status Last Admin (Lopressor) 25 mg BERRY PLANTER PRN PO 04/11/17 03:00 04/14/17 02:59 (Betadine 5% Antisepsis Kit) 1 applic BERRY PLANTER PRN EACH NARE 04/11/17 03:00 04/14/17 02:59 (Chlorhexidine 2% Cloth) 3 pack BERRY PLANTER PRN TOPICAL 04/11/17 03:00 04/14/17 02:59 (NovoLIN R INJ) See Protocol Table ... BERRY PLANTER PRN SQ 04/11/17 03:00 04/14/17 02:59 (Prinivil) 20 mg DAILY PO 04/12/17 09:00 Future Hold (Pill Splitter) 1 ea UNSCH PRN OTHER 04/12/17 03:00 (CeleXA) 10 mg DAILY PO 04/12/17 09:00 04/13/17 10:10 (Xalatan 0.005% Opth Soln) 1 drop HS EACH EYE 04/12/17 21:00 04/12/17 21:12 (Synthroid) 100 mcg DAILY@0600 PO 04/12/17 06:00 04/13/17 05:19 (Requip) 2.5 mg HS PRN PO 04/12/17 04:00 (Catapres) 0.1 mg Q6H PRN PO 04/12/17 04:30 (Lopressor) 25 mg BERRY PLANTER PRN PO 04/12/17 08:15 04/15/17 08:14 (Betadine 5% Antisepsis Kit) 1 applic BERRY PLANTER PRN EACH NARE 04/12/17 08:15 04/15/17 08:14 (Chlorhexidine 2% Cloth) 3 pack BERRY PLANTER PRN TOPICAL 04/12/17 08:15 04/15/17 08:14 (Lovenox Inj) 30 mg Q24H SQ 04/13/17 09:30 04/13/17 10:10 (Rosa-Colace) 1 tab BID PO 04/12/17 21:00 04/13/17 10:10 Cefazolin Sodium/ Dextrose 50 ml @ 100 mls/hr Q8H IV 04/12/17 17:00 04/14/17 09:29 04/13/17 17:50 Vancomycin HCl 1000 mg/Sodium Chloride 250 ml @ 250 mls/hr Q12H IV 04/12/17 21:00 04/13/17 21:59 04/13/17 10:11 Miscellaneous Information UNSCH PRN XX 04/12/17 10:15 (Oscal-D 250-125) 250 mg TID PO 04/12/17 13:00 04/13/17 17:50 (Benadryl) 25 mg Q6H PRN PO 04/12/17 10:15 (Narcan Inj) 0.4 mg UNSCH PRN IV PUSH 04/12/17 10:15 (Vitamin D3) 1,000 units DAILY PO 04/13/17 09:00 04/13/17 10:10 (Drisdol) 50,000 units Q7D PO 04/12/17 11:00 04/12/17 14:01 (Tylenol) 500 mg Q6H PRN PO 04/12/17 10:30 04/13/17 13:50 (Dilaudid Pf Inj) 0.5 mg Q3H PRN IV 04/12/17 11:15 04/13/17 02:23 (Milk Of Magnesia Liq) 30 ml Q12H PRN PO 04/12/17 16:45 (Senokot) 17.2 mg Q12H PRN PO 04/12/17 16:45 (Dulcolax Supp) 10 mg DAILY PRN RECTAL 04/12/17 16:45 (Lactulose Liq) 30 ml DAILY PRN PO 04/12/17 16:45 Sodium Chloride 1,000 ml @ 70 mls/hr [id number] IV 04/13/17 10:00 04/13/17 10:23 Vital Signs / I&O Vital Signs Date Time Temp Pulse Resp B/P (MAP) Pulse Ox O2 Delivery O2 Flow Rate FiO2 04/13/17 14:50 16 04/13/17 12:00 97.0 90 18 102/54 (70) 95 04/13/17 11:45 98 Nasal Cannula 3.00 04/13/17 08:00 97.5 95 18 99/55 (70) 98 04/12/17 21:19 95 Nasal Cannula 3.00 04/12/17 19:51 98.3 93 16 118/60 (79) 97 04/12/17 19:12 Nasal Cannula 3.00 I/O 04/12/17 04/12/17 04/12/17 04/13/17 04/13/17 04/13/17 07:00 15:00 23:00 07:00 15:00 23:00 Intake Total 1576 ml 1510 ml Output Total 1380 ml Balance 196 ml 1510 ml Intake Oral 120 ml IV Total 256 ml 1510 ml Other 1200 ml Output Urine Total 1130 ml Estimated Blood Loss 250 ml # Bowel Movements 1 Physical Exam GENERAL: In NAD SKIN: Warm and dry. HEAD: Normocephalic. EYES: No scleral icterus. No injection or drainage. NECK: Supple, trachea midline. No JVD or lymphadenopathy. CARDIOVASCULAR: Regular rate and rhythm without murmurs, gallops, or rubs. RESPIRATORY: Breath sounds equal bilaterally. No accessory muscle use. GASTROINTESTINAL: Abdomen soft, non-tender, nondistended. MUSCULOSKELETAL: No cyanosis, or edema. Laboratory Laboratory Tests Test 04/13/17 03:05 04/13/17 03:39 Urine Color RED Urine Turbidity CLOUDY Urine pH 5.5 Urine Specific [place] 1.020 Urine Protein 30 mg/dL Urine Glucose (UA) NEG mg/dL Urine Ketones NEG mg/dL Urine Occult Blood LARGE Urine Nitrite NEG Urine Bilirubin NEG Urine Urobilinogen LESS THAN 2.0 MG/DL Urine Leukocyte Esterase LARGE Urine RBC /hpf Urine WBC /hpf Urine WBC Clumps MANY Microscopic Urinalysis Comment CULTURE INDICATED White Blood Count 22.4 TH/MM3 Red Blood Count 3.11 MIL/MM3 Hemoglobin 9.9 GM/DL Hematocrit 29.7 % Mean Corpuscular Volume 95.5 FL Mean Corpuscular Hemoglobin 31.9 PG Mean Corpuscular Hemoglobin Concent 33.4 % Red Cell Distribution Width 13.7 % Platelet Count 188 TH/MM3 Mean Platelet Volume 9.2 FL Neutrophils (%) (Auto) 90.9 % Lymphocytes (%) (Auto) 2.5 % Monocytes (%) (Auto) 6.3 % Eosinophils (%) (Auto) 0.1 % Basophils (%) (Auto) 0.2 % Neutrophils # (Auto) 20.3 TH/MM3 Lymphocytes # (Auto) 0.6 TH/MM3 Monocytes # (Auto) 1.4 TH/MM3 Eosinophils # (Auto) 0.0 TH/MM3 Basophils # (Auto) 0.1 TH/MM3 CBC Comment AUTO DIFF Differential Total Cells Counted 100 Neutrophils % (Manual) 74 % Band Neutrophils % 13 % Lymphocytes % 6 % Monocytes % 7 % Neutrophils # (Manual) 19.5 TH/MM3 Differential Comment FINAL DIFF MANUAL Platelet Estimate NORMAL Platelet Morphology Comment NORMAL Basophilic Stippling FAINT Blood Urea Nitrogen 28 MG/DL Creatinine 1.59 MG/DL Random Glucose 128 MG/DL Calcium Level 8.2 MG/DL Sodium Level 136 MEQ/L Potassium Level 4.6 MEQ/L Chloride Level 105 MEQ/L Carbon Dioxide Level 21.5 MEQ/L Anion Gap 10 MEQ/L Estimat Glomerular Filtration Rate 41 ML/MIN Assessment and Plan Problem List: (1) femur fx (2) CAD (coronary artery disease) ICD Codes: I25.10 - Atherosclerotic heart disease of [place] coronary artery without angina pectoris Status: Chronic (3) HTN (hypertension) ICD Codes: I10 - Essential (primary) hypertension Status: Acute (4) Hx-TIA (transient ischemic attack) ICD Codes: Z86.73 - Hx-TIA (transient ischemic attack) Status: Chronic Assessment and Plan No new cardiac issues. Mildly confused. No ischemia or arrhythmias. Continue close monitoring on tele. Continue current program with aggressive risk factor modification. Increase activity, PT. Faina Boswell MD Apr 13, 2017 19:04
[2017-04-13 20:00] VITALS: BP 118/59; PULSE 97; RESP 18; TEMP 97.8; O2SAT 96
[2017-04-13 20:25] VITALS: O2SAT 95
[2017-04-13] MEDS: LATANOPROST 0.005% OPHT SOLN 2.5 ML BTL EACH EYE SCH (21:48)
[2017-04-14] VITALS (8 sets, daily range): BP systolic 108–120; BP diastolic 50–69; PULSE 88–102; RESP 17–18; TEMP 97–99; O2SAT 92–97
[2017-04-14] MEDS: HYDROmorphone HCL PF 2 MG/ML VIAL IV PRN (00:08)
[2017-04-14] MEDS: ceFAZolin 2 GM PREMIX 50 ML IV SCH ×2 (00:08→08:46)
[2017-04-14] MEDS: SODIUM CHLOR 0.9% 1000 ML INJ 1,000 ML IV SCH ×2 (00:18→14:36)
[2017-04-14] MEDS: LEVOTHYROXINE SODIUM 100 MCG TAB PO SCH (05:53)
[2017-04-14] MEDS: ACETAMINOPHEN 500 MG CPLT PO PRN ×3 (05:54→23:36)
--- NOTE | 2017-04-14 06:34 | PD.ORT.PN ---
Subjective Subjective Remarks Patient is awake but confused. Appears to be comfortable. Urinary analysis positive for UTI. Objective Vitals Vital Signs Date Time Temp Pulse Resp B/P (MAP) Pulse Ox O2 Delivery O2 Flow Rate FiO2 04/14/17 04:00 98.4 95 18 111/50 (70) 95 04/14/17 00:00 98.1 88 17 108/56 (73) 95 04/13/17 20:25 95 21 04/13/17 20:00 97.8 97 18 118/59 (78) 96 04/13/17 19:21 Nasal Cannula 2.00 04/13/17 14:50 16 04/13/17 12:00 97.0 90 18 102/54 (70) 95 04/13/17 11:45 98 Nasal Cannula 3.00 04/13/17 08:00 97.5 95 18 99/55 (70) 98 I/O 04/13/17 04/13/17 04/13/17 04/14/17 04/14/17 04/14/17 07:00 15:00 23:00 07:00 15:00 23:00 Intake Total 1510 ml 770 ml 540 ml Output Total 650 ml 300 ml Balance 1510 ml 120 ml 240 ml Intake Oral 720 ml 240 ml IV Total 1510 ml 50 ml 300 ml Output Urine Total 650 ml 300 ml Result Diagram: 04/13/17 0339 04/13/17 0339 Objective Remarks Patient is awake but confused., No acute distress LLE: +knee brace. dressings intact. clean and dry. nvi Assessment & Plan Assessment and Plan 1) Left Periprosthetic Distal Femur Fx s/p ORIF - POD 2 -NWB-- -daily dressing changes -CKS except for passive motion -no quad sets or leg lifts -CM for rehab placement -plan for rehab tomorrow -f/u wtih Andrés or ADARSH in 2 weeks 2) UTI--culture pending, continue antibiotics Devon Bowen MD Apr 14, 2017 06:34
[2017-04-14 08:31] LABS: AUTOMATED NEUTROPHIL # 21.4 TH/MM3 (1.8-7.7); BASOPHIL # 0.1 TH/MM3 (0-0.2); BASOPHIL % 0.3 % (0.0-2.0); EOSINOPHIL % 0.2 % (0.0-4.0); HEMATOCRIT 26.4 % (39.0-51.0); HEMOGLOBIN 9.1 GM/DL (13.0-17.0); LYMPH % 2.9 % (9.0-44.0); LYMPHOCYTE # 0.7 TH/MM3 (1.0-4.8); MEAN CORPUSCULAR HEMOGLOBIN 32.3 PG (27.0-34.0); MEAN CORPUSCULAR HGB CONC 34.4 % (32.0-36.0); MEAN PLATELET VOLUME 9.4 FL (7.0-11.0); MONO % 6.1 % (0.0-8.0); MONOCYTE # 1.4 TH/MM3 (0-0.9); NEUT % 90.5 % (16.0-70.0); PLATELET COUNT 166 TH/MM3 (150-450); RED BLOOD COUNT 2.81 MIL/MM3 (4.50-5.90); RED CELL DISTRIBUTION WIDTH 13.3 % (11.6-17.2); WHITE BLOOD COUNT 23.6 TH/MM3 (4.0-11.0)
[2017-04-14 08:38] LABS: BICARBONATE 22.1 MEQ/L (21.0-32.0); CALCIUM 8.9 MG/DL (8.5-10.1); CREATININE 1.25 MG/DL (0.60-1.30)
[2017-04-14] MEDS: CALCIUM/VITAMIN D 250 MG/125 U TAB PO SCH ×3 (08:46→18:18)
[2017-04-14] MEDS: DOCUSATE SODIUM 50 MG/SENNA 8.6 MG TAB PO SCH ×2 (08:46→19:54)
[2017-04-14] MEDS: ENOXAPARIN SODIUM 30 MG/0.3 ML SYRINGE SQ SCH (08:46)
[2017-04-14] MEDS: CHOLECALCIFEROL (VIT D3) 1000 UNIT TAB PO SCH (08:46)
[2017-04-14] MEDS: CITALOPRAM HYDROBROMIDE 20 MG TAB PO SCH (08:46)
[2017-04-14] MEDS: CIPROFLOXACIN 400 MG PREMIX 200 ML IV SCH ×2 (08:47→19:55)
[2017-04-14] MEDS: BACITRACIN TOP OINT 15 GM TUBE TOPICAL SCH (09:00)
--- NOTE | 2017-04-14 10:32 | HHI.PR ---
Subjective Remarks Follow-up confusion, urinary tract infection. The patient remains confused. He reports that he is in a lot of pain and that we need to "get this morphine out of my system". Objective Vitals Vital Signs Date Time Temp Pulse Resp B/P (MAP) Pulse Ox O2 Delivery O2 Flow Rate FiO2 04/14/17 08:00 97.0 88 18 111/69 (83) 92 04/14/17 04:00 98.4 95 18 111/50 (70) 95 04/14/17 00:00 98.1 88 17 108/56 (73) 95 04/13/17 20:25 95 21 04/13/17 20:00 97.8 97 18 118/59 (78) 96 04/13/17 19:21 Nasal Cannula 2.00 04/13/17 14:50 16 04/13/17 12:00 97.0 90 18 102/54 (70) 95 04/13/17 11:45 98 Nasal Cannula 3.00 I/O 04/13/17 04/13/17 04/13/17 04/14/17 04/14/17 04/14/17 07:00 15:00 23:00 07:00 15:00 23:00 Intake Total 1510 ml 770 ml 1500 ml Output Total 650 ml 300 ml Balance 1510 ml 120 ml 1200 ml Intake Oral 720 ml 240 ml IV Total 1510 ml 50 ml 1260 ml Output Urine Total 650 ml 300 ml Result Diagram: 04/14/17 0750 04/14/17 0750 Imaging Last Impressions Femur X-Ray 04/12/17 0000 Signed Impressions: Service Date/Time: March 09:58 - CONCLUSION: Images as detailed above. Domingo Salinas Jr., MD Objective Remarks General: Elderly male in no acute distress. Heart: Regular rate and rhythm. No murmur. Lungs: Clear to auscultation bilaterally. No wheezes, rales, or rhonchi. Breathing is nonlabored. Abdomen: Soft, nontender, nondistended. Extremities: No lower extremity edema. JOURDAN hose. Psych: Alert, confused. Oriented to year, city. Not oriented to month. Procedures 04/12/17 ORIF left distal femur Urinary Catheter: Yes Assessment to: Continue Colvin insert reason: Obstruction/Retention Vascular Central Line Catheter: No A/P Problem List: (1) Rosa-prosthetic femoral shaft fracture ICD Code: M97.8XXA - Periprosthetic fracture around other internal prosthetic joint, initial encounter; Z96.649 - Presence of unspecified artificial hip joint (2) Hypothyroidism ICD Code: E03.9 - Hypothyroidism Status: Chronic (3) BPH (benign prostatic hyperplasia) ICD Code: N40.0 - BPH (benign prostatic hyperplasia) Status: Chronic (4) Hypertension ICD Code: I10 - Hypertension Status: Chronic (5) Restless leg syndrome ICD Code: G25.81 - Restless legs syndrome Status: Chronic (6) CAD (coronary artery disease) ICD Code: I25.10 - Atherosclerotic heart disease of [place] coronary artery without angina pectoris Status: Chronic Assessment and Plan 1. Periprosthetic femoral shaft fracture: Status post ORIF. Management per orthopedic surgery. Continue pain control, avoiding narcotics. 2. Acute on chronic renal insufficiency: Avoid nephrotoxins. Monitor labs. 3. Coronary artery disease: Appreciate cardiology recommendations. Echocardiogram 04/11/17 shows preserved left ventricular systolic function with an EF estimated at 55-60%. Monitor on telemetry. 4. Hypertension: Lisinopril on hold secondary to renal insufficiency. Clonidine as needed. 5. Hypothyroidism: Continue Synthroid. 6. Restless leg syndrome: Continue Requip. 7. DVT prophylaxis: Lovenox, SCDs, JOURDAN hose. 8. Hypotension: Patient had low blood pressure following surgery. BP now improved. 9. Postoperative confusion: May be related to anesthesia vs UTI. We'll avoid narcotic pain medications as much as possible. 10. UTI: Continue antibiotics. Urine culture is pending. 11. Urinary obstruction: Patient is reportedly scheduled for a procedure with urology as an outpatient on Sunday. Urinary catheter was placed in the OR. Urology consult is pending. Remove Colvin catheter if okay with urology. Jamel Michel MD Apr 14, 2017 10:32
[2017-04-14] MEDS: TAMSULOSIN HCL 0.4 MG CAP PO SCH (14:09)
--- NOTE | 2017-04-14 15:51 | PD.CARD.PN ---
Subjective Subjective Remarks No CP or SOB, remains confused Objective Medications Current Medications Medications (Trade) Dose Ordered Sig/[place] Route Start Time Stop Time Status Last Admin (Prinivil) 20 mg DAILY PO 04/12/17 09:00 Future Hold (Pill Splitter) 1 ea UNSCH PRN OTHER 04/12/17 03:00 (CeleXA) 10 mg DAILY PO 04/12/17 09:00 04/14/17 08:46 (Xalatan 0.005% Opth Soln) 1 drop HS EACH EYE 04/12/17 21:00 04/13/17 21:48 (Synthroid) 100 mcg DAILY@0600 PO 04/12/17 06:00 04/14/17 05:53 (Requip) 2.5 mg HS PRN PO 04/12/17 04:00 (Catapres) 0.1 mg Q6H PRN PO 04/12/17 04:30 (Lopressor) 25 mg [employer]ES [employer] MARKETING MANAGER PRN PO 04/12/17 08:15 04/15/17 08:14 (Betadine 5% Antisepsis Kit) 1 applic [employer]ES [employer] MARKETING MANAGER PRN EACH NARE 04/12/17 08:15 04/15/17 08:14 (Chlorhexidine 2% Cloth) 3 pack [employer]ES [employer] MARKETING MANAGER PRN TOPICAL 04/12/17 08:15 04/15/17 08:14 (Lovenox Inj) 30 mg Q24H SQ 04/13/17 09:30 04/14/17 08:46 (Rosa-Colace) 1 tab BID PO 04/12/17 21:00 04/14/17 08:46 Miscellaneous Information UNSCH PRN XX 04/12/17 10:15 (Oscal-D 250-125) 250 mg TID PO 04/12/17 13:00 04/14/17 14:10 (Benadryl) 25 mg Q6H PRN PO 04/12/17 10:15 (Narcan Inj) 0.4 mg UNSCH PRN IV PUSH 04/12/17 10:15 (Vitamin D3) 1,000 units DAILY PO 04/13/17 09:00 04/14/17 08:46 (Drisdol) 50,000 units Q7D PO 04/12/17 11:00 04/12/17 14:01 (Tylenol) 500 mg Q6H PRN PO 04/12/17 10:30 04/14/17 14:09 (Milk Of Magnesia Liq) 30 ml Q12H PRN PO 04/12/17 16:45 (Senokot) 17.2 mg Q12H PRN PO 04/12/17 16:45 (Dulcolax Supp) 10 mg DAILY PRN RECTAL 04/12/17 16:45 (Lactulose Liq) 30 ml DAILY PRN PO 04/12/17 16:45 Sodium Chloride 1,000 ml @ 70 mls/hr [id number] IV 04/13/17 10:00 04/13/17 10:23 (Baciguent Oint) 1 applic DAILY TOPICAL 04/14/17 09:00 Ciprofloxacin/ Dextrose 200 ml @ 200 mls/hr Q12H IV 04/14/17 08:00 04/14/17 08:47 (Flomax) 0.4 mg DAILY PO 04/14/17 14:00 04/14/17 14:09 Vital Signs / I&O Vital Signs Date Time Temp Pulse Resp B/P (MAP) Pulse Ox O2 Delivery O2 Flow Rate FiO2 04/14/17 12:51 94 04/14/17 12:00 99.0 102 17 120/64 (82) 94 04/14/17 08:00 97.0 88 18 111/69 (83) 92 04/14/17 04:00 98.4 95 18 111/50 (70) 95 04/14/17 00:00 98.1 88 17 108/56 (73) 95 04/13/17 20:25 95 21 04/13/17 20:00 97.8 97 18 118/59 (78) 96 04/13/17 19:21 Nasal Cannula 2.00 I/O 04/13/17 04/13/17 04/13/17 04/14/17 04/14/17 04/14/17 07:00 15:00 23:00 07:00 15:00 23:00 Intake Total 1510 ml 770 ml 1500 ml Output Total 650 ml 300 ml Balance 1510 ml 120 ml 1200 ml Intake Oral 720 ml 240 ml IV Total 1510 ml 50 ml 1260 ml Output Urine Total 650 ml 300 ml Physical Exam GENERAL: In NAD SKIN: Warm and dry. HEAD: Normocephalic. EYES: No scleral icterus. No injection or drainage. NECK: Supple, trachea midline. No JVD or lymphadenopathy. CARDIOVASCULAR: Regular rate and rhythm without murmurs, gallops, or rubs. RESPIRATORY: Breath sounds equal bilaterally. No accessory muscle use. GASTROINTESTINAL: Abdomen soft, non-tender, nondistended. MUSCULOSKELETAL: No cyanosis, or edema. Laboratory Laboratory Tests Test 04/14/17 07:41 04/14/17 07:50 Ammonia 20 MCMOL/L White Blood Count 23.6 TH/MM3 Red Blood Count 2.81 MIL/MM3 Hemoglobin 9.1 GM/DL Hematocrit 26.4 % Mean Corpuscular Volume 94.0 FL Mean Corpuscular Hemoglobin 32.3 PG Mean Corpuscular Hemoglobin Concent 34.4 % Red Cell Distribution Width 13.3 % Platelet Count 166 TH/MM3 Mean Platelet Volume 9.4 FL Neutrophils (%) (Auto) 90.5 % Lymphocytes (%) (Auto) 2.9 % Monocytes (%) (Auto) 6.1 % Eosinophils (%) (Auto) 0.2 % Basophils (%) (Auto) 0.3 % Neutrophils # (Auto) 21.4 TH/MM3 Lymphocytes # (Auto) 0.7 TH/MM3 Monocytes # (Auto) 1.4 TH/MM3 Eosinophils # (Auto) 0.0 TH/MM3 Basophils # (Auto) 0.1 TH/MM3 CBC Comment DIFF FINAL Differential Comment Hematology Comments Blood Urea Nitrogen 26 MG/DL Creatinine 1.25 MG/DL Random Glucose 109 MG/DL Calcium Level 8.9 MG/DL Sodium Level 135 MEQ/L Potassium Level 4.2 MEQ/L Chloride Level 104 MEQ/L Carbon Dioxide Level 22.1 MEQ/L Anion Gap 9 MEQ/L Estimat Glomerular Filtration Rate 55 ML/MIN Assessment and Plan Problem List: (1) femur fx (2) CAD (coronary artery disease) ICD Codes: I25.10 - Atherosclerotic heart disease of [place] coronary artery without angina pectoris Status: Chronic (3) HTN (hypertension) ICD Codes: I10 - Essential (primary) hypertension Status: Acute (4) 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 Tele w NSVT. No angina or CHF. Continue close monitoring on tele. Continue current program with aggressive risk factor modification. Increase activity, PT. D/w pt's family. Faina Boswell MD Apr 14, 2017 15:50
--- NOTE | 2017-04-14 18:00 | MB ---
cc: CLEM SCHREIBER DATE OF CONSULTATION: 04/14/2017. REASON FOR CONSULTATION: HISTORY OF PRESENT ILLNESS: Mr. Ball is a pleasant 86-year-old male who fell and sustained a fracture to his left femur requiring surgical repair by Dr. Bowen. He does have a history of benign prostate hypertrophy and he is followed by Dr. Barnett. According to the patient's relative, she stated that he was scheduled for a recent TURP but due to his fall he was unable to undergo that surgery. He does have a history of incomplete emptying with benign prostate hypertrophy with obstruction with nocturia x2. He recently had a urinary tract infection with sepsis requiring hospitalization and IV antibiotic therapy, which is the decision for him to undergo a TURP by Dr. Barnett. He failed his void trial recently and required replacement of the Colvin catheter during his admission. The patient is somewhat confused and this history and physical is taken from the chart. ALLERGIES: He is allergic to: 1. TYLENOL. 2. HYDROCODONE. 3. MORPHINE. PAST MEDICAL HISTORY: 1. Coronary artery disease. 2. Hypertension. 3. Hypothyroidism. 4. CVA. 5. Spinal stenosis. 6. Benign prostate hypertrophy with obstruction. PAST SURGICAL HISTORY: 1. Thoracic and cervical spine surgery. 2. Recent left femur surgery. 3. Tonsillectomy. 4. Cataract surgery. MEDICATIONS: For medications please refer to the chart. FAMILY HISTORY: No history of prostate cancer. SOCIAL HISTORY: Prior smoker, quit in 1964. Denies any alcohol usage. REVIEW OF SYSTEMS: Unable obtain a review of systems due to his confusion. PHYSICAL EXAMINATION: VITAL SIGNS: Temperature is 99, heart rate 102, respiratory rate is 17, blood pressure 120/64. 02 saturation is 94%. GENERAL: He is a well-developed well-nourished 86-year-old male alert but not oriented times three. HEAD, EYES, EARS, NOSE, THROAT: Normocephalic and atraumatic. Pupils equal, round and regular and reactive to light. Extraocular movements intact. NECK: The neck is supple. HEART: Regular rate and rhythm. LUNGS: Clear. ABDOMEN: The abdomen is soft, nontender and nondistended. GENITOURINARY: Normal phallus. Testes are descended. EXTREMITIES: Left lower extremity with stent in place. There has been no evidence of cyanosis, clubbing or edema. NEUROLOGIC: Cranial nerves II through XII are intact. PSYCHIATRIC: Generalized mood. LABORATORY STUDIES: White count 23.6, hemoglobin 9.1, hematocrit 26.4, platelet count of 166,000. Sodium 135, potassium 4.2, chloride 104, carbon dioxide 22.1, BUN of 26, creatinine 1.25, glucose of 109. PT is 10.5, INR 1.0, PTT is 25.5. Urinalysis shows large leukocyte esterase with numerous red and white cells. Urine culture is presently pending. ASSESSMENT: An 86-year-old male status post fall with left femur fracture status post repair with urinary retention and recent urinary tract infection with sepsis with a history of benign prostate hypertrophy and obstruction. 1. Would maintain the Colvin catheter. 2. Will check urine culture results. 3. Will start Flomax 0.4 milligrams p.o. at bedtime and after one week go to two pills at night and then in the future once he is up and ambulating, would recommend a void trial. 4. Avoid constipation and treat as appropriate. 5. Wean from narcotics as appropriate. Thank you for the consult, and for allowing me to participate in the care of this patient. Clem ALEXANDER /1:23 PM /5:40 PM
[2017-04-14] MEDS: LATANOPROST 0.005% OPHT SOLN 2.5 ML BTL EACH EYE SCH (19:54)
[2017-04-15] VITALS (7 sets, daily range): BP systolic 102–117; BP diastolic 53–76; PULSE 72–90; RESP 16–18; TEMP 96–98; O2SAT 96–100
[2017-04-15] MEDS: SODIUM CHLOR 0.9% 1000 ML INJ 1,000 ML IV SCH ×2 (04:35→19:12)
[2017-04-15] MEDS: ACETAMINOPHEN 500 MG CPLT PO PRN ×2 (05:45→17:43)
[2017-04-15] MEDS: LEVOTHYROXINE SODIUM 100 MCG TAB PO SCH (05:45)
--- NOTE | 2017-04-15 07:06 | PD.ORT.PN ---
Subjective Subjective Remarks POD 3 s/p ORIF left periprosthetic distal femur fx doing well. slightly confused. pain controlled Objective Vitals Vital Signs Date Time Temp Pulse Resp B/P (MAP) Pulse Ox O2 Delivery O2 Flow Rate FiO2 04/15/17 03:48 98.0 88 18 107/56 (73) 98 04/15/17 00:00 97.9 90 16 103/76 (85) 98 04/14/17 20:51 92 04/14/17 20:00 97.6 95 18 113/68 (83) 97 04/14/17 16:00 98.7 90 17 108/63 (78) 95 04/14/17 15:09 18 04/14/17 12:51 94 04/14/17 12:00 99.0 102 17 120/64 (82) 94 04/14/17 08:00 97.0 88 18 111/69 (83) 92 I/O 04/14/17 04/14/17 04/14/17 04/15/17 04/15/17 04/15/17 07:00 15:00 23:00 07:00 15:00 23:00 Intake Total 1500 ml 480 ml 360 ml 560 ml Output Total 300 ml 550 ml 800 ml 1200 ml Balance 1200 ml -70 ml -440 ml -640 ml Intake Oral 240 ml 480 ml 360 ml 360 ml IV Total 1260 ml 200 ml Output Urine Total 300 ml 550 ml 800 ml 1200 ml # Bowel Movements 1 2 1 Result Diagram: 04/14/17 0750 04/14/17 0750 Objective Remarks Patient is awake but confused., No acute distress LLE: +knee brace. dressings intact. clean and dry. nvi Assessment & Plan Assessment and Plan 1) Left Periprosthetic Distal Femur Fx s/p ORIF - POD 3 -NWB-- -daily dressing changes -CKS except for passive motion -no quad sets or leg lifts -CM for rehab placement -plan for rehab -f/u wtih Andrés or ADARSH in 2 weeks 2) UTI--culture pending, continue antibiotics Lyndon Copeland/Logistics And Planning Manager ADARSH Apr 15, 2017 07:06
[2017-04-15 07:26] LABS: AUTOMATED NEUTROPHIL # 18.1 TH/MM3 (1.8-7.7); BASOPHIL % 0.2 % (0.0-2.0); EOSINOPHIL # 0.1 TH/MM3 (0-0.4); EOSINOPHIL % 0.5 % (0.0-4.0); HEMATOCRIT 26.2 % (39.0-51.0); HEMOGLOBIN 8.9 GM/DL (13.0-17.0); LYMPH % 4.8 % (9.0-44.0); MEAN CORPUSCULAR HEMOGLOBIN 32.4 PG (27.0-34.0); MEAN CORPUSCULAR HGB CONC 34.1 % (32.0-36.0); MEAN PLATELET VOLUME 8.9 FL (7.0-11.0); MONO % 5.7 % (0.0-8.0); MONOCYTE # 1.2 TH/MM3 (0-0.9); NEUT % 88.8 % (16.0-70.0); PLATELET COUNT 226 TH/MM3 (150-450); RED BLOOD COUNT 2.75 MIL/MM3 (4.50-5.90); RED CELL DISTRIBUTION WIDTH 13.2 % (11.6-17.2); WHITE BLOOD COUNT 20.4 TH/MM3 (4.0-11.0)
[2017-04-15 07:46] LABS: BICARBONATE 23.5 MEQ/L (21.0-32.0); CALCIUM 8.6 MG/DL (8.5-10.1); CREATININE 1.18 MG/DL (0.60-1.30)
[2017-04-15] MEDS: CHOLECALCIFEROL (VIT D3) 1000 UNIT TAB PO SCH (08:27)
[2017-04-15] MEDS: CIPROFLOXACIN 400 MG PREMIX 200 ML IV SCH (08:27)
[2017-04-15] MEDS: ENOXAPARIN SODIUM 30 MG/0.3 ML SYRINGE SQ SCH (08:27)
[2017-04-15] MEDS: BACITRACIN TOP OINT 15 GM TUBE TOPICAL SCH (08:28)
[2017-04-15] MEDS: TAMSULOSIN HCL 0.4 MG CAP PO SCH (08:28)
[2017-04-15] MEDS: CITALOPRAM HYDROBROMIDE 20 MG TAB PO SCH (08:28)
[2017-04-15] MEDS: CALCIUM/VITAMIN D 250 MG/125 U TAB PO SCH ×3 (08:28→17:42)
[2017-04-15] MEDS: DOCUSATE SODIUM 50 MG/SENNA 8.6 MG TAB PO SCH ×2 (08:28→19:39)
--- NOTE | 2017-04-15 10:03 | HHI.PR ---
Subjective Remarks Follow-up encephalopathy, UTI. The patient's confusion is improving. He denies pain currently. No complaints at this time. Objective Vitals Vital Signs Date Time Temp Pulse Resp B/P (MAP) Pulse Ox O2 Delivery O2 Flow Rate FiO2 04/15/17 08:00 96.0 78 18 102/53 (69) 100 04/15/17 03:48 98.0 88 18 107/56 (73) 98 04/15/17 00:00 97.9 90 16 103/76 (85) 98 04/14/17 20:51 92 04/14/17 20:00 97.6 95 18 113/68 (83) 97 04/14/17 16:00 98.7 90 17 108/63 (78) 95 04/14/17 15:09 18 04/14/17 12:51 94 04/14/17 12:00 99.0 102 17 120/64 (82) 94 I/O 04/14/17 04/14/17 04/14/17 04/15/17 04/15/17 04/15/17 07:00 15:00 23:00 07:00 15:00 23:00 Intake Total 1500 ml 480 ml 360 ml 560 ml Output Total 300 ml 550 ml 800 ml 1200 ml Balance 1200 ml -70 ml -440 ml -640 ml Intake Oral 240 ml 480 ml 360 ml 360 ml IV Total 1260 ml 200 ml Output Urine Total 300 ml 550 ml 800 ml 1200 ml # Bowel Movements 1 2 1 Result Diagram: 04/15/17 0657 04/15/17 0657 Imaging Last Impressions Femur X-Ray 04/12/17 0000 Signed Impressions: Service Date/Time: March 09:58 - CONCLUSION: Images as detailed above. Domingo Salinas Jr., MD Objective Remarks General: Elderly male in no acute distress. Heart: Regular rate and rhythm. No murmur. Lungs: Clear to auscultation bilaterally. No wheezes, rales, or rhonchi. Breathing is nonlabored. Abdomen: Soft, nontender, nondistended. Extremities: No lower extremity edema. JOURDAN rodriguez. Psych: Alert, mildly confused. Oriented to self, city, year. Procedures 04/12/17 ORIF left distal femur Urinary Catheter: Yes Assessment to: Continue Colvin insert reason: Obstruction/Retention Vascular Central Line Catheter: No A/P Problem List: (1) Rosa-prosthetic femoral shaft fracture ICD Code: M97.8XXA - Periprosthetic fracture around other internal prosthetic joint, initial encounter; Z96.649 - Presence of unspecified artificial hip joint (2) Hypothyroidism ICD Code: E03.9 - Hypothyroidism Status: Chronic (3) BPH (benign prostatic hyperplasia) ICD Code: N40.0 - BPH (benign prostatic hyperplasia) Status: Chronic (4) Hypertension ICD Code: I10 - Hypertension Status: Chronic (5) Restless leg syndrome ICD Code: G25.81 - Restless legs syndrome Status: Chronic (6) CAD (coronary artery disease) ICD Code: I25.10 - Atherosclerotic heart disease of [place] coronary artery without angina pectoris Status: Chronic Assessment and Plan 1. Periprosthetic femoral shaft fracture: Status post ORIF. Management per orthopedic surgery. Continue pain control, avoiding narcotics. Cleared for discharge by orthopedic surgery. 2. Acute on chronic renal insufficiency: Avoid nephrotoxins. Monitor labs. 3. Coronary artery disease: Appreciate cardiology recommendations. Echocardiogram 04/11/17 shows preserved left ventricular systolic function with an EF estimated at 55-60%. Monitor on telemetry. 4. Hypertension: Lisinopril on hold secondary to renal insufficiency. Clonidine as needed. 5. Hypothyroidism: Continue Synthroid. 6. Restless leg syndrome: Continue Requip. 7. DVT prophylaxis: Lovenox, SCDs, JOURDAN jennifer. 8. Hypotension: Patient had low blood pressure following surgery. BP now improved. 9. Encephalopathy: May be related to anesthesia vs UTI. We'll avoid narcotic pain medications as much as possible. Confusion has improved. 10. UTI: Continue antibiotics. Urine culture is growing Pseudomonas. 11. Urinary obstruction: Patient is reportedly scheduled for a procedure with urology as an outpatient tomorrow. Urinary catheter was placed in the OR. Appreciate urology recommendations. Colvin catheter to remain in place at discharge. Will replace Colvin today due to UTI. Jamel Michel MD Apr 15, 2017 10:03
[2017-04-15] MEDS ORDERED: TAMS5CAP PO (10:04)
--- NOTE | 2017-04-15 17:20 | PD.CARD.PN ---
Subjective Subjective Remarks No CP or SOB, still confused Objective Medications Current Medications Medications (Trade) Dose Ordered Sig/[place] Route Start Time Stop Time Status Last Admin (Prinivil) 20 mg DAILY PO 04/12/17 09:00 Future Hold (Pill Splitter) 1 ea UNSCH PRN OTHER 04/12/17 03:00 (CeleXA) 10 mg DAILY PO 04/12/17 09:00 04/15/17 08:28 (Xalatan 0.005% Opth Soln) 1 drop HS EACH EYE 04/12/17 21:00 04/14/17 19:54 (Synthroid) 100 mcg DAILY@0600 PO 04/12/17 06:00 04/15/17 05:45 (Requip) 2.5 mg HS PRN PO 04/12/17 04:00 (Catapres) 0.1 mg Q6H PRN PO 04/12/17 04:30 (Lovenox Inj) 30 mg Q24H SQ 04/13/17 09:30 04/15/17 08:27 (Rosa-Colace) 1 tab BID PO 04/12/17 21:00 04/14/17 19:54 Miscellaneous Information UNSCH PRN XX 04/12/17 10:15 (Oscal-D 250-125) 250 mg TID PO 04/12/17 13:00 04/15/17 12:34 (Benadryl) 25 mg Q6H PRN PO 04/12/17 10:15 (Narcan Inj) 0.4 mg UNSCH PRN IV PUSH 04/12/17 10:15 (Vitamin D3) 1,000 units DAILY PO 04/13/17 09:00 04/15/17 08:27 (Drisdol) 50,000 units Q7D PO 04/12/17 11:00 04/12/17 14:01 (Tylenol) 500 mg Q6H PRN PO 04/12/17 10:30 04/15/17 05:45 (Milk Of Magnesia Liq) 30 ml Q12H PRN PO 04/12/17 16:45 (Senokot) 17.2 mg Q12H PRN PO 04/12/17 16:45 (Dulcolax Supp) 10 mg DAILY PRN RECTAL 04/12/17 16:45 (Lactulose Liq) 30 ml DAILY PRN PO 04/12/17 16:45 Sodium Chloride 1,000 ml @ 70 mls/hr [id number] IV 04/13/17 10:00 04/15/17 04:35 (Baciguent Oint) 1 applic DAILY TOPICAL 04/14/17 09:00 04/15/17 08:28 (Flomax) 0.4 mg DAILY PO 04/14/17 14:00 04/15/17 08:28 (Cipro) 750 mg Q12HR PO 04/15/17 21:00 Vital Signs / I&O Vital Signs Date Time Temp Pulse Resp B/P (MAP) Pulse Ox O2 Delivery O2 Flow Rate FiO2 04/15/17 12:00 96.5 73 18 107/58 (74) 98 04/15/17 08:00 96.0 78 18 102/53 (69) 100 04/15/17 03:48 98.0 88 18 107/56 (73) 98 04/15/17 00:00 97.9 90 16 103/76 (85) 98 04/14/17 20:51 92 04/14/17 20:00 97.6 95 18 113/68 (83) 97 I/O 04/14/17 04/14/17 04/14/17 04/15/17 04/15/17 04/15/17 06:59 14:59 22:59 06:59 14:59 22:59 Intake Total 1500 ml 480 ml 360 ml 560 ml Output Total 300 ml 550 ml 800 ml 1200 ml Balance 1200 ml -70 ml -440 ml -640 ml Intake Oral 240 ml 480 ml 360 ml 360 ml IV Total 1260 ml 200 ml Output Urine Total 300 ml 550 ml 800 ml 1200 ml # Bowel Movements 1 2 1 Physical Exam GENERAL: In NAD SKIN: Warm and dry. HEAD: Normocephalic. EYES: No scleral icterus. No injection or drainage. NECK: Supple, trachea midline. No JVD or lymphadenopathy. CARDIOVASCULAR: Regular rate and rhythm without murmurs, gallops, or rubs. RESPIRATORY: Breath sounds equal bilaterally. No accessory muscle use. GASTROINTESTINAL: Abdomen soft, non-tender, nondistended. MUSCULOSKELETAL: No cyanosis, or edema. Laboratory Laboratory Tests Test 04/15/17 06:57 White Blood Count 20.4 TH/MM3 Red Blood Count 2.75 MIL/MM3 Hemoglobin 8.9 GM/DL Hematocrit 26.2 % Mean Corpuscular Volume 95.0 FL Mean Corpuscular Hemoglobin 32.4 PG Mean Corpuscular Hemoglobin Concent 34.1 % Red Cell Distribution Width 13.2 % Platelet Count 226 TH/MM3 Mean Platelet Volume 8.9 FL Neutrophils (%) (Auto) 88.8 % Lymphocytes (%) (Auto) 4.8 % Monocytes (%) (Auto) 5.7 % Eosinophils (%) (Auto) 0.5 % Basophils (%) (Auto) 0.2 % Neutrophils # (Auto) 18.1 TH/MM3 Lymphocytes # (Auto) 1.0 TH/MM3 Monocytes # (Auto) 1.2 TH/MM3 Eosinophils # (Auto) 0.1 TH/MM3 Basophils # (Auto) 0.0 TH/MM3 CBC Comment DIFF FINAL Differential Comment Blood Urea Nitrogen 24 MG/DL Creatinine 1.18 MG/DL Random Glucose 105 MG/DL Calcium Level 8.6 MG/DL Sodium Level 137 MEQ/L Potassium Level 4.0 MEQ/L Chloride Level 106 MEQ/L Carbon Dioxide Level 23.5 MEQ/L Anion Gap 8 MEQ/L Estimat Glomerular Filtration Rate 58 ML/MIN Assessment and Plan Problem List: (1) femur fx (2) CAD (coronary artery disease) ICD Codes: I25.10 - Atherosclerotic heart disease of [place] coronary artery without angina pectoris Status: Chronic (3) HTN (hypertension) ICD Codes: I10 - Essential (primary) hypertension Status: Acute (4) Hx-TIA (transient ischemic attack) ICD Codes: Z86.73 - Hx-TIA (transient ischemic attack) Status: Chronic Assessment and Plan Remains confused, but denies any symptoms. No angina or CHF. Continue close monitoring on tele. Continue current program with aggressive risk factor modification. Increase activity, PT. QuadratFaina MD Apr 15, 2017 17:20
[2017-04-15] MEDS: CIPROFLOXACIN 750 MG TAB PO SCH (19:47)
[2017-04-15] MEDS: LATANOPROST 0.005% OPHT SOLN 2.5 ML BTL EACH EYE SCH (20:45)
[2017-04-16] VITALS (7 sets, daily range): BP systolic 133–153; BP diastolic 75–84; PULSE 81–101; RESP 17–19; TEMP 96.7–98.2; O2SAT 93–99
[2017-04-16] MEDS: LEVOTHYROXINE SODIUM 100 MCG TAB PO SCH (06:05)
[2017-04-16] MEDS: ACETAMINOPHEN 500 MG CPLT PO PRN ×2 (06:05→14:45)
--- NOTE | 2017-04-16 06:49 | PD.ORT.PN ---
Subjective Subjective Remarks Patient is confused and is trying to get out of bed. He thinks he is at a hotel. Objective Vitals Vital Signs Date Time Temp Pulse Resp B/P (MAP) Pulse Ox O2 Delivery O2 Flow Rate FiO2 04/15/17 23:35 97.9 88 17 114/64 (81) 97 04/15/17 21:05 Room Air 04/15/17 19:41 97.9 87 18 112/62 (79) 96 04/15/17 17:27 2.00 04/15/17 16:00 82 04/15/17 16:00 97.6 78 18 117/66 (83) 97 04/15/17 12:00 96.5 73 18 107/58 (74) 98 04/15/17 08:00 96.0 78 18 102/53 (69) 100 04/15/17 08:00 72 I/O 04/15/17 04/15/17 04/15/17 04/16/17 04/16/17 04/16/17 07:00 15:00 23:00 07:00 15:00 23:00 Intake Total 560 ml 600 ml 360 ml 480 ml Output Total 1200 ml 1350 ml 450 ml 800 ml Balance -640 ml -750 ml -90 ml -320 ml Intake Oral 360 ml 600 ml 360 ml 480 ml IV Total 200 ml Output Urine Total 1200 ml 1350 ml 450 ml 800 ml # Bowel Movements 1 2 2 Result Diagram: 04/15/17 0657 04/15/17 0657 Objective Remarks Patient is awake but confused., No acute distress LLE: +knee brace. dressings intact. clean and dry. nvi Assessment & Plan Assessment and Plan 1) Left Periprosthetic Distal Femur Fx s/p ORIF - POD 4 -NWB-- -daily dressing changes -CKS except for passive motion -no quad sets or leg lifts -CM for rehab placement -plan for rehab - orthopedically cleared for discharge -f/u wtdeniz Bowen or ADARSH in 2 weeks 2) UTI--culture pending, continue antibiotics Gilmer Steen Jr. Apr 16, 2017 06:49
[2017-04-16] MEDS: BACITRACIN TOP OINT 15 GM TUBE TOPICAL SCH (09:00)
[2017-04-16] MEDS: RESP: ALBUTEROL 2.5 MG/3 ML NEB (PRN) NEB ×3 (09:32→20:24)
--- NOTE | 2017-04-16 10:00 | HHI.PR ---
Subjective Remarks Follow up UTI, encephalopathy. Patient has been short of breath this morning. Denies chest pain. Has continued to have tachycardia intermittently. Objective Vitals Vital Signs Date Time Temp Pulse Resp B/P (MAP) Pulse Ox O2 Delivery O2 Flow Rate FiO2 04/16/17 09:34 97 Nasal Cannula 2.00 04/16/17 08:45 Nasal Cannula 2.00 04/16/17 08:00 96.9 96 17 133/83 (100) 93 04/15/17 23:35 97.9 88 17 114/64 (81) 97 04/15/17 21:05 Room Air 04/15/17 19:41 97.9 87 18 112/62 (79) 96 04/15/17 17:27 2.00 04/15/17 16:00 82 04/15/17 16:00 97.6 78 18 117/66 (83) 97 04/15/17 12:00 96.5 73 18 107/58 (74) 98 I/O 04/15/17 04/15/17 04/15/17 04/16/17 04/16/17 04/16/17 07:00 15:00 23:00 07:00 15:00 23:00 Intake Total 560 ml 600 ml 360 ml 480 ml Output Total 1200 ml 1350 ml 450 ml 800 ml Balance -640 ml -750 ml -90 ml -320 ml Intake Oral 360 ml 600 ml 360 ml 480 ml IV Total 200 ml Output Urine Total 1200 ml 1350 ml 450 ml 800 ml # Bowel Movements 1 2 2 Result Diagram: 04/15/17 0657 04/15/17 0657 Imaging Last Impressions Femur X-Ray 04/12/17 0000 Signed Impressions: Service Date/Time: March 09:58 - CONCLUSION: Images as detailed above. Domingo Salinas Jr., MD Objective Remarks General: Elderly male in no acute distress. Heart: Tachycardic. No murmur. Lungs: Clear to auscultation bilaterally. No wheezes, rales, or rhonchi. Breathing is nonlabored. Abdomen: Soft, nontender, nondistended. Extremities: No lower extremity edema. JOURDAN hose. Psych: Alert, mildly confused. Oriented to self, city, year. Procedures 04/12/17 ORIF left distal femur Urinary Catheter: Yes Assessment to: Continue Colvin insert reason: Obstruction/Retention Vascular Central Line Catheter: No A/P Problem List: (1) Rosa-prosthetic femoral shaft fracture ICD Code: M97.8XXA - Periprosthetic fracture around other internal prosthetic joint, initial encounter; Z96.649 - Presence of unspecified artificial hip joint (2) Hypothyroidism ICD Code: E03.9 - Hypothyroidism Status: Chronic (3) BPH (benign prostatic hyperplasia) ICD Code: N40.0 - BPH (benign prostatic hyperplasia) Status: Chronic (4) Hypertension ICD Code: I10 - Hypertension Status: Chronic (5) Restless leg syndrome ICD Code: G25.81 - Restless legs syndrome Status: Chronic (6) CAD (coronary artery disease) ICD Code: I25.10 - Atherosclerotic heart disease of [place] coronary artery without angina pectoris Status: Chronic Assessment and Plan 1. Periprosthetic femoral shaft fracture: Status post ORIF. Management per orthopedic surgery. Continue pain control, avoiding narcotics. Cleared for discharge by orthopedic surgery. 2. Acute on chronic renal insufficiency: Avoid nephrotoxins. Monitor labs. 3. Coronary artery disease: Appreciate cardiology recommendations. Echocardiogram 04/11/17 shows preserved left ventricular systolic function with an EF estimated at 55-60%. Monitor on telemetry. 4. Hypertension: Lisinopril on hold secondary to renal insufficiency. Clonidine as needed. 5. Hypothyroidism: Continue Synthroid. 6. Restless leg syndrome: Continue Requip. 7. DVT prophylaxis: Lovenox, SCDs, JOURDAN hose. 8. Hypotension: Patient had low blood pressure following surgery. BP now improved. 9. Encephalopathy: May be related to anesthesia vs UTI. We'll avoid narcotic pain medications as much as possible. Confusion has improved. 10. UTI: Continue antibiotics. Urine culture is growing Pseudomonas. 11. Urinary obstruction: Patient is reportedly scheduled for a procedure with urology as an outpatient tomorrow. Urinary catheter was placed in the OR. Appreciate urology recommendations. Colvin catheter to remain in place at discharge. 12. Dyspnea: Add albuterol nebs. Discharge Planning Per orthopedic surgery. Planning for discharge to SNF. I would recommend holding discharge today as patient is having increased dyspnea and continues to have tachycardia. Jamel Michel MD Apr 16, 2017 10:00
[2017-04-16] MEDS: CHOLECALCIFEROL (VIT D3) 1000 UNIT TAB PO SCH (10:19)
[2017-04-16] MEDS: CITALOPRAM HYDROBROMIDE 20 MG TAB PO SCH (10:19)
[2017-04-16] MEDS: CALCIUM/VITAMIN D 250 MG/125 U TAB PO SCH ×3 (10:19→17:42)
[2017-04-16] MEDS: ENOXAPARIN SODIUM 30 MG/0.3 ML SYRINGE SQ SCH (10:19)
[2017-04-16] MEDS: TAMSULOSIN HCL 0.4 MG CAP PO SCH (10:19)
[2017-04-16] MEDS: CIPROFLOXACIN 750 MG TAB PO SCH ×2 (10:19→20:24)
[2017-04-16] MEDS: DOCUSATE SODIUM 50 MG/SENNA 8.6 MG TAB PO SCH ×2 (10:19→20:24)
[2017-04-16] MEDS: SODIUM CHLOR 0.9% 1000 ML INJ 1,000 ML IV SCH (10:20)
--- NOTE | 2017-04-16 13:22 | PD.CARD.PN ---
Subjective Subjective Remarks No CP or SOB, c/o cough, still confused Objective Medications Current Medications Medications (Trade) Dose Ordered Sig/[place] Route Start Time Stop Time Status Last Admin (Prinivil) 20 mg DAILY PO 04/12/17 09:00 Future Hold (Pill Splitter) 1 ea UNSCH PRN OTHER 04/12/17 03:00 04/15/17 23:41 (CeleXA) 10 mg DAILY PO 04/12/17 09:00 04/16/17 10:19 (Xalatan 0.005% Opth Soln) 1 drop HS EACH EYE 04/12/17 21:00 04/15/17 20:45 (Synthroid) 100 mcg DAILY@0600 PO 04/12/17 06:00 04/16/17 06:05 (Requip) 2.5 mg HS PRN PO 04/12/17 04:00 04/15/17 23:40 (Catapres) 0.1 mg Q6H PRN PO 04/12/17 04:30 (Lovenox Inj) 30 mg Q24H SQ 04/13/17 09:30 04/16/17 10:19 (Rosa-Colace) 1 tab BID PO 04/12/17 21:00 04/16/17 10:19 Miscellaneous Information UNSCH PRN XX 04/12/17 10:15 (Oscal-D 250-125) 250 mg TID PO 04/12/17 13:00 04/16/17 10:19 (Benadryl) 25 mg Q6H PRN PO 04/12/17 10:15 (Narcan Inj) 0.4 mg UNSCH PRN IV PUSH 04/12/17 10:15 (Vitamin D3) 1,000 units DAILY PO 04/13/17 09:00 04/16/17 10:19 (Drisdol) 50,000 units Q7D PO 04/12/17 11:00 04/12/17 14:01 (Tylenol) 500 mg Q6H PRN PO 04/12/17 10:30 04/16/17 06:05 (Milk Of Magnesia Liq) 30 ml Q12H PRN PO 04/12/17 16:45 (Senokot) 17.2 mg Q12H PRN PO 04/12/17 16:45 (Dulcolax Supp) 10 mg DAILY PRN RECTAL 04/12/17 16:45 (Lactulose Liq) 30 ml DAILY PRN PO 04/12/17 16:45 Sodium Chloride 1,000 ml @ 70 mls/hr [id number] IV 04/13/17 10:00 04/16/17 10:20 (Baciguent Oint) 1 applic DAILY TOPICAL 04/14/17 09:00 04/15/17 08:28 (Flomax) 0.4 mg DAILY PO 04/14/17 14:00 04/16/17 10:19 (Cipro) 750 mg Q12HR PO 04/15/17 21:00 04/16/17 10:19 (Albuterol Neb) 2.5 mg Q2HR NEB PRN NEB 04/16/17 09:00 04/16/17 09:32 Vital Signs / I&O Vital Signs Date Time Temp Pulse Resp B/P (MAP) Pulse Ox O2 Delivery O2 Flow Rate FiO2 04/16/17 12:00 96.7 81 17 139/75 (96) 96 04/16/17 09:34 97 Nasal Cannula 2.00 04/16/17 08:45 Nasal Cannula 2.00 04/16/17 08:00 96.9 96 17 133/83 (100) 93 04/15/17 23:35 97.9 88 17 114/64 (81) 97 04/15/17 21:05 Room Air 04/15/17 19:41 97.9 87 18 112/62 (79) 96 04/15/17 17:27 2.00 04/15/17 16:00 82 04/15/17 16:00 97.6 78 18 117/66 (83) 97 I/O 04/15/17 04/15/17 04/15/17 04/16/17 04/16/17 04/16/17 07:00 15:00 23:00 07:00 15:00 23:00 Intake Total 560 ml 600 ml 360 ml 480 ml Output Total 1200 ml 1350 ml 450 ml 800 ml Balance -640 ml -750 ml -90 ml -320 ml Intake Oral 360 ml 600 ml 360 ml 480 ml IV Total 200 ml Output Urine Total 1200 ml 1350 ml 450 ml 800 ml # Bowel Movements 1 2 2 Physical Exam GENERAL: In NAD SKIN: Warm and dry. HEAD: Normocephalic. EYES: No scleral icterus. No injection or drainage. NECK: Supple, trachea midline. No JVD or lymphadenopathy. CARDIOVASCULAR: Regular rate and rhythm without murmurs, gallops, or rubs. RESPIRATORY: Breath sounds equal bilaterally. No accessory muscle use. GASTROINTESTINAL: Abdomen soft, non-tender, nondistended. MUSCULOSKELETAL: No cyanosis, or edema. Assessment and Plan Problem List: (1) femur fx (2) CAD (coronary artery disease) ICD Codes: I25.10 - Atherosclerotic heart disease of [place] coronary artery without angina pectoris Status: Chronic (3) HTN (hypertension) ICD Codes: I10 - Essential (primary) hypertension Status: Acute (4) 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 No new cardiac issues. No angina or CHF. Continue close monitoring on tele. Continue current program with aggressive risk factor modification. Increase activity, PT. D/w pt's . Faina Boswell MD Apr 16, 2017 13:22
[2017-04-16 16:54] LABS: AUTOMATED NEUTROPHIL # 13.8 TH/MM3 (1.8-7.7); BASOPHIL % 0.2 % (0.0-2.0); EOSINOPHIL # 0.2 TH/MM3 (0-0.4); EOSINOPHIL % 1.4 % (0.0-4.0); HEMATOCRIT 27.1 % (39.0-51.0); HEMOGLOBIN 9.1 GM/DL (13.0-17.0); LYMPH % 5.8 % (9.0-44.0); LYMPHOCYTE # 0.9 TH/MM3 (1.0-4.8); MEAN CORPUSCULAR HEMOGLOBIN 31.8 PG (27.0-34.0); MEAN CORPUSCULAR HGB CONC 33.5 % (32.0-36.0); MEAN PLATELET VOLUME 8.1 FL (7.0-11.0); MONO % 7.7 % (0.0-8.0); MONOCYTE # 1.2 TH/MM3 (0-0.9); NEUT % 84.9 % (16.0-70.0); PLATELET COUNT 309 TH/MM3 (150-450); RED BLOOD COUNT 2.85 MIL/MM3 (4.50-5.90); RED CELL DISTRIBUTION WIDTH 13.7 % (11.6-17.2); WHITE BLOOD COUNT 16.2 TH/MM3 (4.0-11.0)
[2017-04-16] MEDS: LATANOPROST 0.005% OPHT SOLN 2.5 ML BTL EACH EYE SCH (20:33)
[2017-04-17] VITALS (16 sets, daily range): BP systolic 109–146; BP diastolic 61–80; PULSE 84–122; RESP 21–36; TEMP 95.5–98.9; O2SAT 93–100
[2017-04-17] MEDS: SODIUM CHLOR 0.9% 1000 ML INJ 1,000 ML IV SCH (01:25)
[2017-04-17] MEDS: RESP: ALBUTEROL 2.5 MG/3 ML NEB (PRN) NEB ×3 (01:27→12:22)
[2017-04-17] MEDS ORDERED: LORazepam 2 MG/ML VIAL IV PUSH ONE (01:30)
[2017-04-17] MEDS ORDERED: METOPROLOL TARTRATE 25 MG TAB PO ONE (04:00)
[2017-04-17] MEDS: LEVOTHYROXINE SODIUM 100 MCG TAB PO SCH (04:47)
--- NOTE | 2017-04-17 06:29 | PD.ORT.PN ---
Subjective Subjective Remarks POD 5 s/p ORIF left periprosthetic distal femur fx confused. does not answer questions appropriately Objective Vitals Vital Signs Date Time Temp Pulse Resp B/P (MAP) Pulse Ox O2 Delivery O2 Flow Rate FiO2 04/17/17 04:45 98.6 112 27 132/77 (95) 97 04/17/17 01:27 93 Nasal Cannula 2.50 04/17/17 01:04 98.9 122 25 135/76 (95) 95 04/16/17 21:08 98.2 101 19 153/84 (107) 98 04/16/17 20:25 95 Nasal Cannula 3.00 04/16/17 15:20 82 04/16/17 14:50 97.1 87 17 133/76 (95) 99 04/16/17 12:00 96.7 81 17 139/75 (96) 96 04/16/17 09:34 97 Nasal Cannula 2.00 04/16/17 08:45 Nasal Cannula 2.00 04/16/17 08:00 96.9 96 17 133/83 (100) 93 I/O 04/16/17 04/16/17 04/16/17 04/17/17 04/17/17 04/17/17 07:00 15:00 23:00 07:00 15:00 23:00 Intake Total 480 ml 350 ml 240 ml Output Total 800 ml 775 ml 475 ml Balance -320 ml -425 ml -235 ml Intake Oral 480 ml 350 ml 240 ml Output Urine Total 800 ml 775 ml 475 ml # Bowel Movements 2 0 2 Result Diagram: 04/16/17 1629 04/15/17 0657 Objective Remarks Patient is awake but confused., No acute distress LLE: +knee brace. dressings intact. clean and dry. nvi Assessment & Plan Assessment and Plan 1) Left Periprosthetic Distal Femur Fx s/p ORIF - POD 5 -NWB-- -daily dressing changes -CKS except for passive motion -no quad sets or leg lifts -CM for rehab placement -plan for rehab - orthopedically cleared for discharge -f/u wtih Andrés or [facility]ARSH in 2 weeks 2) UTI--culture pending, continue antibiotics Lyndon Copeland/Transfer Engineer PA Apr 17, 2017 06:29
[2017-04-17 07:13] LABS: AUTOMATED NEUTROPHIL # 16.3 TH/MM3 (1.8-7.7); BASOPHIL # 0.1 TH/MM3 (0-0.2); BASOPHIL % 0.4 % (0.0-2.0); EOSINOPHIL % 0.1 % (0.0-4.0); HEMATOCRIT 26.3 % (39.0-51.0); HEMOGLOBIN 8.8 GM/DL (13.0-17.0); LYMPH % 4.7 % (9.0-44.0); LYMPHOCYTE # 0.9 TH/MM3 (1.0-4.8); MEAN CELL VOLUME 95.7 FL (80.0-100.0); MEAN CORPUSCULAR HEMOGLOBIN 32.1 PG (27.0-34.0); MEAN CORPUSCULAR HGB CONC 33.6 % (32.0-36.0); MEAN PLATELET VOLUME 8.3 FL (7.0-11.0); MONOCYTE # 1.5 TH/MM3 (0-0.9); NEUT % 86.8 % (16.0-70.0); PLATELET COUNT 332 TH/MM3 (150-450); RED BLOOD COUNT 2.75 MIL/MM3 (4.50-5.90); WHITE BLOOD COUNT 18.8 TH/MM3 (4.0-11.0)
[2017-04-17 07:35] LABS: BICARBONATE 21.3 MEQ/L (21.0-32.0); CALCIUM 9.1 MG/DL (8.5-10.1); CREATININE 1.25 MG/DL (0.60-1.30)
--- NOTE | 2017-04-17 08:03 | PD.CARD.PN ---
Subjective Subjective Remarks No CP, mild SOB, cough, less confused Objective Medications Current Medications Medications (Trade) Dose Ordered Sig/[place] Route Start Time Stop Time Status Last Admin (Prinivil) 20 mg DAILY PO 04/12/17 09:00 Future Hold (Pill Splitter) 1 ea UNSCH PRN OTHER 04/12/17 03:00 04/15/17 23:41 (CeleXA) 10 mg DAILY PO 04/12/17 09:00 04/16/17 10:19 (Xalatan 0.005% Opth Soln) 1 drop HS EACH EYE 04/12/17 21:00 04/16/17 20:33 (Synthroid) 100 mcg DAILY@0600 PO 04/12/17 06:00 04/17/17 04:47 (Requip) 2.5 mg HS PRN PO 04/12/17 04:00 04/15/17 23:40 (Catapres) 0.1 mg Q6H PRN PO 04/12/17 04:30 (Lovenox Inj) 30 mg Q24H SQ 04/13/17 09:30 04/16/17 10:19 (Rosa-Colace) 1 tab BID PO 04/12/17 21:00 04/16/17 20:24 Miscellaneous Information UNSCH PRN XX 04/12/17 10:15 (Oscal-D 250-125) 250 mg TID PO 04/12/17 13:00 04/16/17 14:45 (Benadryl) 25 mg Q6H PRN PO 04/12/17 10:15 (Narcan Inj) 0.4 mg UNSCH PRN IV PUSH 04/12/17 10:15 (Vitamin D3) 1,000 units DAILY PO 04/13/17 09:00 04/16/17 10:19 (Drisdol) 50,000 units Q7D PO 04/12/17 11:00 04/12/17 14:01 (Tylenol) 500 mg Q6H PRN PO 04/12/17 10:30 04/16/17 14:45 (Milk Of Magnesia Liq) 30 ml Q12H PRN PO 04/12/17 16:45 (Senokot) 17.2 mg Q12H PRN PO 04/12/17 16:45 (Dulcolax Supp) 10 mg DAILY PRN RECTAL 04/12/17 16:45 (Lactulose Liq) 30 ml DAILY PRN PO 04/12/17 16:45 Sodium Chloride 1,000 ml @ 70 mls/hr [id number] IV 04/13/17 10:00 04/17/17 01:25 (Baciguent Oint) 1 applic DAILY TOPICAL 04/14/17 09:00 04/15/17 08:28 (Flomax) 0.4 mg DAILY PO 04/14/17 14:00 04/16/17 10:19 (Cipro) 750 mg Q12HR PO 04/15/17 21:00 04/16/17 20:24 (Albuterol Neb) 2.5 mg Q2HR NEB PRN NEB 04/16/17 09:00 04/17/17 01:27 Vital Signs / I&O Vital Signs Date Time Temp Pulse Resp B/P (MAP) Pulse Ox O2 Delivery O2 Flow Rate FiO2 04/17/17 07:50 95.9 99 21 109/61 (77) 94 04/17/17 07:15 Nasal Cannula 2.00 04/17/17 07:15 89 04/17/17 04:45 98.6 112 27 132/77 (95) 97 04/17/17 01:27 93 Nasal Cannula 2.50 04/17/17 01:04 98.9 122 25 135/76 (95) 95 04/16/17 21:08 98.2 101 19 153/84 (107) 98 04/16/17 20:25 95 Nasal Cannula 3.00 04/16/17 15:20 82 04/16/17 14:50 97.1 87 17 133/76 (95) 99 04/16/17 12:00 96.7 81 17 139/75 (96) 96 04/16/17 09:34 97 Nasal Cannula 2.00 04/16/17 08:45 Nasal Cannula 2.00 I/O 04/16/17 04/16/17 04/16/17 04/17/17 04/17/17 04/17/17 07:00 15:00 23:00 07:00 15:00 23:00 Intake Total 480 ml 350 ml 240 ml 240 ml Output Total 800 ml 775 ml 475 ml 350 ml Balance -320 ml -425 ml -235 ml -110 ml Intake Oral 480 ml 350 ml 240 ml 240 ml Output Urine Total 800 ml 775 ml 475 ml 350 ml # Bowel Movements 2 0 2 1 Physical Exam GENERAL: In NAD SKIN: Warm and dry. HEAD: Normocephalic. EYES: No scleral icterus. No injection or drainage. NECK: Supple, trachea midline. No JVD or lymphadenopathy. CARDIOVASCULAR: Regular rate and rhythm without murmurs, gallops, or rubs. RESPIRATORY: Breath sounds equal bilaterally. No accessory muscle use. GASTROINTESTINAL: Abdomen soft, non-tender, nondistended. MUSCULOSKELETAL: No cyanosis, or edema. Laboratory Laboratory Tests Test 04/16/17 16:29 04/17/17 06:50 White Blood Count 16.2 TH/MM3 18.8 TH/MM3 Red Blood Count 2.85 MIL/MM3 2.75 MIL/MM3 Hemoglobin 9.1 GM/DL 8.8 GM/DL Hematocrit 27.1 % 26.3 % Mean Corpuscular Volume 95.0 FL 95.7 FL Mean Corpuscular Hemoglobin 31.8 PG 32.1 PG Mean Corpuscular Hemoglobin Concent 33.5 % 33.6 % Red Cell Distribution Width 13.7 % 14.0 % Platelet Count 309 TH/MM3 332 TH/MM3 Mean Platelet Volume 8.1 FL 8.3 FL Neutrophils (%) (Auto) 84.9 % 86.8 % Lymphocytes (%) (Auto) 5.8 % 4.7 % Monocytes (%) (Auto) 7.7 % 8.0 % Eosinophils (%) (Auto) 1.4 % 0.1 % Basophils (%) (Auto) 0.2 % 0.4 % Neutrophils # (Auto) 13.8 TH/MM3 16.3 TH/MM3 Lymphocytes # (Auto) 0.9 TH/MM3 0.9 TH/MM3 Monocytes # (Auto) 1.2 TH/MM3 1.5 TH/MM3 Eosinophils # (Auto) 0.2 TH/MM3 0.0 TH/MM3 Basophils # (Auto) 0.0 TH/MM3 0.1 TH/MM3 CBC Comment DIFF FINAL DIFF FINAL Differential Comment Blood Urea Nitrogen 23 MG/DL Creatinine 1.25 MG/DL Random Glucose 140 MG/DL Calcium Level 9.1 MG/DL Sodium Level 136 MEQ/L Potassium Level 4.1 MEQ/L Chloride Level 105 MEQ/L Carbon Dioxide Level 21.3 MEQ/L Anion Gap 10 MEQ/L Estimat Glomerular Filtration Rate 55 ML/MIN Assessment and Plan Problem List: (1) femur fx (2) CAD (coronary artery disease) ICD Codes: I25.10 - Atherosclerotic heart disease of [place] coronary artery without angina pectoris Status: Chronic (3) HTN (hypertension) ICD Codes: I10 - Essential (primary) hypertension Status: Acute (4) Hx-TIA (transient ischemic attack) ICD Codes: Z86.73 - Hx-TIA (transient ischemic attack) Status: Chronic Assessment and Plan No new cardiac issues. MS improving. No angina or CHF. Continue close monitoring on tele, no recent arrhythmias. Continue current program with aggressive risk factor modification. Increase activity, PT. Quadrat,Faina ALMEIDA Apr 17, 2017 08:03
[2017-04-17] MEDS: BACITRACIN TOP OINT 15 GM TUBE TOPICAL SCH (09:00)
[2017-04-17] MEDS: DOCUSATE SODIUM 50 MG/SENNA 8.6 MG TAB PO SCH ×2 (09:00→21:56)
[2017-04-17] MEDS: CITALOPRAM HYDROBROMIDE 20 MG TAB PO SCH (09:17)
[2017-04-17] MEDS: TAMSULOSIN HCL 0.4 MG CAP PO SCH (09:17)
[2017-04-17] MEDS: CALCIUM/VITAMIN D 250 MG/125 U TAB PO SCH ×3 (09:17→18:00)
[2017-04-17] MEDS: CHOLECALCIFEROL (VIT D3) 1000 UNIT TAB PO SCH (09:17)
[2017-04-17] MEDS: CIPROFLOXACIN 750 MG TAB PO SCH ×2 (09:17→21:56)
[2017-04-17] MEDS: ENOXAPARIN SODIUM 30 MG/0.3 ML SYRINGE SQ SCH (09:18)
--- NOTE | 2017-04-17 12:59 | HHI.PR ---
Subjective Remarks Follow-up UTI/encephalopathy/dyspnea with respiratory failure 04/17/17-patient seen and examined, although oriented to self however not oriented to place and date. +Short of breath however afebrile Objective Vitals Vital Signs Date Time Temp Pulse Resp B/P (MAP) Pulse Ox O2 Delivery O2 Flow Rate FiO2 04/17/17 11:49 96.7 100 21 131/76 (94) 98 04/17/17 09:48 93 Nasal Cannula 3.00 04/17/17 07:50 95.9 99 21 109/61 (77) 94 04/17/17 07:15 Nasal Cannula 2.00 04/17/17 07:15 89 04/17/17 04:45 98.6 112 27 132/77 (95) 97 04/17/17 01:27 93 Nasal Cannula 2.50 04/17/17 01:04 98.9 122 25 135/76 (95) 95 04/16/17 21:08 98.2 101 19 153/84 (107) 98 04/16/17 20:25 95 Nasal Cannula 3.00 04/16/17 15:20 82 04/16/17 14:50 97.1 87 17 133/76 (95) 99 I/O 04/16/17 04/16/17 04/16/17 04/17/17 04/17/17 04/17/17 07:00 15:00 23:00 07:00 15:00 23:00 Intake Total 480 ml 350 ml 240 ml 240 ml Output Total 800 ml 775 ml 475 ml 350 ml Balance -320 ml -425 ml -235 ml -110 ml Intake Oral 480 ml 350 ml 240 ml 240 ml Output Urine Total 800 ml 775 ml 475 ml 350 ml # Bowel Movements 2 0 2 1 Result Diagram: 04/17/17 0650 04/17/17 0650 Imaging Last Impressions Femur X-Ray 04/12/17 0000 Signed Impressions: Service Date/Time: March 09:58 - CONCLUSION: Images as detailed above. Domingo Salinas Jr., MD Objective Remarks GENERAL: NAD SKIN: Warm and dry. HEAD: Normocephalic. EYES: No scleral icterus. No injection or drainage. NECK: Supple, trachea midline. No JVD or lymphadenopathy. CARDIOVASCULAR: Regular rate and rhythm without murmurs, gallops, or rubs. RESPIRATORY: Breath sounds decrease bilaterally. +wheezing. No accessory muscle use. GASTROINTESTINAL: Abdomen soft, non-tender, nondistended. MUSCULOSKELETAL: No cyanosis, or edema. splint over Left knee-neurovascular intact BACK: Nontender without obvious deformity. No CVA tenderness. Procedures 04/12/17 ORIF left distal femur A/P Problem List: (1) Rosa-prosthetic femoral shaft fracture ICD Code: M97.8XXA - Periprosthetic fracture around other internal prosthetic joint, initial encounter; Z96.649 - Presence of unspecified artificial hip joint (2) Hypothyroidism ICD Code: E03.9 - Hypothyroidism Status: Chronic (3) BPH (benign prostatic hyperplasia) ICD Code: N40.0 - BPH (benign prostatic hyperplasia) Status: Chronic (4) Hypertension ICD Code: I10 - Hypertension Status: Chronic (5) Restless leg syndrome ICD Code: G25.81 - Restless legs syndrome Status: Chronic (6) CAD (coronary artery disease) ICD Code: I25.10 - Atherosclerotic heart disease of [place] coronary artery without angina pectoris Status: Chronic Assessment and Plan 86 year-old man with 1. Periprosthetic femoral shaft fracture: Status post ORIF. Management per orthopedic surgery. Continue pain control, avoiding narcotics. Cleared for discharge by orthopedic surgery. 2. Acute on chronic renal insufficiency-Resolved Avoid nephrotoxins. HLIV 3. Coronary artery disease: Appreciate cardiology recommendations. Echocardiogram 04/11/17 shows preserved left ventricular systolic function with an EF estimated at 55-60%. 4. Hypertension: Lisinopril on hold secondary to renal insufficiency. However may now resume lisinopril as renal function improved Clonidine as needed. 5. Hypothyroidism: Continue Synthroid. 6. Restless leg syndrome: Continue Requip. 7. DVT prophylaxis: Lovenox, SCDs, JOURDAN hose. 8. Hypotension: BP now improved. 9. Encephalopathy: May be related to anesthesia vs UTI. We'll avoid narcotic pain medications as much as possible. 10. UTI-Pseudomonas Currently on Cipro by mouth twice a day 11. Urinary obstruction: Patient is reportedly scheduled for a procedure with urology as an outpatient tomorrow. Urinary catheter was placed in the OR. Appreciate urology recommendations. Colvin catheter to remain in place at discharge. 12. Dyspnea Check chest x-ray, BNP and treat accordingly Start Solu-Medrol IV 40 mg every 12 hours and continue with DuoNeb Start Mucinex scheduled and Tessalon PRN Adam Yu MD Apr 17, 2017 12:58
[2017-04-17] MEDS ORDERED: methylPREDNISolone SOD SUCC 40 MG/1 ML VIAL IV PUSH SCH (13:00)
[2017-04-17] MEDS: BENZONATATE 100 MG CAP PO PRN (13:15)
--- NOTE | 2017-04-17 13:47 | RADRPT ---
EXAM DATE/TIME: 04/17/2017 13:11 [facility] COMPARISON: No previous studies available for comparison. INDICATIONS : Respiratory failure. Patient has a cough and shortness of breath. MEDICAL HISTORY : Osteoarthritis. SURGICAL HISTORY : None. ENCOUNTER: Subsequent ACUITY: 4 - 6 days PAIN SCORE: 0/10 LOCATION: Bilateral chest FINDINGS: The bony structures are intact with normal soft tissues. There is compensated left ventricular cardio megaly with distinct vascularity. There is opacity in the right lung base indeterminate significance whether this represents elevation of the hemidiaphragm with a loop of bowel beneath this or parenchym al infiltrate or consolidation in the left base cannot be distinguished CONCLUSION: Compensated left acute cardiomegaly. Abnormal right lung base as described above which may represe nt parenchymal process infiltrate or atelectasis as opposed to elevation right hemidiaphragm Donny Conrad MD on April 17, 2017 at 13:42 Board Certified Radiologist. This report was verified electronically.
[2017-04-17] MEDS: RESP: ALBUTEROL 2.5 MG/IPRATROPIUM 0.5 MG NEB (SCH) NEB ×2 (16:45→18:26)
[2017-04-17] MEDS ORDERED: FUROSEMIDE 40 MG/4 ML VIAL ONE (19:19)
[2017-04-17] MEDS ORDERED: FUROSEMIDE 40 MG/4 ML VIAL IV PUSH ONE (19:30)
--- NOTE | 2017-04-17 20:10 | RADRPT ---
EXAM DATE/TIME: 04/17/2017 19:49 [facility] COMPARISON: CHEST SINGLE AP, April 17, 2017, 13:11. INDICATIONS : Respiratory distress. MEDICAL HISTORY : None. SURGICAL HISTORY : None. ENCOUNTER: Subsequent ACUITY: 1 day PAIN SCORE: 0/10 LOCATION: Bilateral chest FINDINGS: The heart is enlarged. There is elevation of the right hemidiaphragm. Right basilar atelectasis and/o r infiltrate is noted. Minimal central pulmonary vascular congestion is noted. CONCLUSION: Stable right basilar atelectasis and/or infiltrate. Stable cardiomegaly. Minimal central pulmonary va scular congestion. Persistent elevation of right hemidiaphragm. Manfred Gallego MD on April 17, 2017 at 20:06 Board Certified Radiologist. This report was verified electronically.
--- NOTE | 2017-04-17 20:17 | HHI.FPPN ---
Addendum to progress note ADDENDUM Reason for addendum: Additonal documentation Additional information [facility] called on patient due to development of shortness of breath. RN reported the patient has seemed to be short of breath for much of earlier today until noted to be worsening prior to calling the [facility]. Patient had been on 2L of O2 via NC at the beginning of the day and maintaining O2 sats. Patient had within the past hour been increased to 4L and now to 5L O2 to maintain O2 sats > 93%. Patient also noted to be slightly tachycardic into the low 100s. No fevers or confusion. Patient reports feeling short of breath, but otherwise denies any chest pain, cough, fevers, abdominal pain, pain elsewhere. A portable AP CXR had been ordered earlier in the day by the primary hospitalist at 13:00 which showed cardiomegaly with left basilar congestion and abnormal right lung base. P/E: BP 134/74 HR 107 RR ~20 Temp 96.0 POx 98% on 5L O2 via NC GEN: Appearing in moderate distress secondary to increased WOB, lying in bed HOB to 30 degrees NEURO: Alert. Oriented to self. Normal speech. paint spray tender grossly intact. Motor grossly normal. SKIN: Warm and dry. No rashes or erythema. HEENT: Normocephalic. Atraumatic. EOMI. No scleral icterus. No injection or drainage. Mucous membranes slightly dry. NECK: Supple, trachea midline. No visible JVD. CARDIOVASCULAR: Tachycardic rate, regular rhythm without murmurs, rubs, or gallops. Peripheral pulses 2+. Capillary refill ~ 2 seconds. RESPIRATORY: Bibasilar harsh rales, no rhonchi or significant wheezing, equal breath sounds. Slight increased use of accessory muscles. GASTROINTESTINAL: Abdomen soft, nontender, nondistended, normal BS. No rebound tenderness. No guarding. MUSCULOSKELETAL: 2+ lower extremity edema up to distal tibias bilaterally. A/P: The patient is an 86 year old man with h/o CAD, HTN, previous CVA in 2012 admitted with a left distal femur fracture now POD 5 s/p ORIF by ortho, also found to have pseudomonas UTI and receiving cipro, now with worsening dyspnea, tachycardia, and hypoxia. BNP noted to be 1484 this AM. DDX concerning for pulmonary embolism, CHF exacerbation, pneumonia, pneumothorax. - Lasix 40 mg IV x1 given now - Stat ABG showing respiratory alkalosis with metabolic compensation - Check stat labs to include d-dimer, BNP, CBC, CMP - Ordered stat portable AP cxr - Will transfer the patient to ICU for BiPAP which may help with pulmonary edema Shelton Calle MD Apr 17, 2017 20:17
[2017-04-17] MEDS ORDERED: CHLORHEXIDINE GLUCONATE 2 % 1 PACK (2 CLOTHS)(extra cloths) TOPICAL PRN (20:30)
[2017-04-17] MEDS: BUDESONIDE-FORMOTEROL 160/4.5 MCG INHALER INH SCH (21:00)
[2017-04-17] MEDS: LATANOPROST 0.005% OPHT SOLN 2.5 ML BTL EACH EYE SCH (21:00)
[2017-04-17 21:43] LABS: AUTOMATED NEUTROPHIL # 11.2 TH/MM3 (1.8-7.7); BASOPHIL % 0.3 % (0.0-2.0); HEMATOCRIT 24.5 % (39.0-51.0); HEMOGLOBIN 8.3 GM/DL (13.0-17.0); LYMPH % 3.3 % (9.0-44.0); LYMPHOCYTE # 0.4 TH/MM3 (1.0-4.8); MEAN CELL VOLUME 95.1 FL (80.0-100.0); MEAN CORPUSCULAR HEMOGLOBIN 32.1 PG (27.0-34.0); MEAN CORPUSCULAR HGB CONC 33.7 % (32.0-36.0); MEAN PLATELET VOLUME 7.6 FL (7.0-11.0); MONO % 3.8 % (0.0-8.0); MONOCYTE # 0.5 TH/MM3 (0-0.9); NEUT % 92.6 % (16.0-70.0); PLATELET COUNT 346 TH/MM3 (150-450); RED BLOOD COUNT 2.58 MIL/MM3 (4.50-5.90); RED CELL DISTRIBUTION WIDTH 13.5 % (11.6-17.2)
[2017-04-17] MEDS: guaiFENesin E.R. 600 MG TAB PO SCH (21:56)
[2017-04-17] MEDS: methylPREDNISolone SOD SUCC 40 MG/1 ML VIAL IV PUSH SCH (21:56)
[2017-04-17 21:58] LABS: ALBUMIN 2.5 GM/DL (3.4-5.0); AST (GOT) 46 U/L (15-37); BICARBONATE 22.1 MEQ/L (21.0-32.0); BLOOD UREA NITROGEN 28 MG/DL (7-18); CALCIUM 9.2 MG/DL (8.5-10.1); CHLORIDE 102 MEQ/L (98-107); CREATININE 1.36 MG/DL (0.60-1.30); GLOMERULAR FILTRATION RATE 49 ML/MIN (>89); GLUCOSE,RANDOM 142 MG/DL (74-106); SODIUM (NA) 135 MEQ/L (136-145)
[2017-04-17 21:59] LABS: ALT (GPT) 15 U/L (12-78)
[2017-04-17 22:01] LABS: ALKALINE PHOSPHATASE 66 U/L (45-117); TOTAL BILIRUBIN ADULT 0.7 MG/DL (0.2-1.0); TOTAL PROTEIN 6.3 GM/DL (6.4-8.2)
[2017-04-18] VITALS (17 sets, daily range): BP systolic 107–143; BP diastolic 58–79; PULSE 77–103; RESP 20–35; TEMP 84–98.9; O2SAT 96–100
[2017-04-18] MEDS: CHLORHEXIDINE GLUCONATE 2 % 1 PACK (2 CLOTHS)(taper/protocol) TOPICAL SCH (04:00)
[2017-04-18 06:09] LABS: AUTOMATED NEUTROPHIL # 10.1 TH/MM3 (1.8-7.7); BASOPHIL % 0.3 % (0.0-2.0); HEMATOCRIT 25.5 % (39.0-51.0); HEMOGLOBIN 8.6 GM/DL (13.0-17.0); LYMPHOCYTE # 0.7 TH/MM3 (1.0-4.8); MEAN CELL VOLUME 94.8 FL (80.0-100.0); MEAN CORPUSCULAR HEMOGLOBIN 32.1 PG (27.0-34.0); MEAN CORPUSCULAR HGB CONC 33.8 % (32.0-36.0); MONO % 4.1 % (0.0-8.0); MONOCYTE # 0.5 TH/MM3 (0-0.9); NEUT % 89.6 % (16.0-70.0); PLATELET COUNT 385 TH/MM3 (150-450); RED BLOOD COUNT 2.69 MIL/MM3 (4.50-5.90); RED CELL DISTRIBUTION WIDTH 13.5 % (11.6-17.2); WHITE BLOOD COUNT 11.2 TH/MM3 (4.0-11.0)
[2017-04-18] MEDS: LEVOTHYROXINE SODIUM 100 MCG TAB PO SCH (06:11)
[2017-04-18] MEDS: methylPREDNISolone SOD SUCC 40 MG/1 ML VIAL IV PUSH SCH ×3 (06:11→20:12)
[2017-04-18 06:40] LABS: BICARBONATE 21.2 MEQ/L (21.0-32.0); CALCIUM 8.6 MG/DL (8.5-10.1); CREATININE 1.3 MG/DL (0.60-1.30)
[2017-04-18] MEDS: RESP: ALBUTEROL 2.5 MG/IPRATROPIUM 0.5 MG NEB (SCH) NEB ×4 (07:58→21:33)
[2017-04-18] MEDS: CITALOPRAM HYDROBROMIDE 20 MG TAB PO SCH (08:13)
[2017-04-18] MEDS: DOCUSATE SODIUM 50 MG/SENNA 8.6 MG TAB PO SCH ×2 (08:14→20:12)
[2017-04-18] MEDS: TAMSULOSIN HCL 0.4 MG CAP PO SCH (08:14)
[2017-04-18] MEDS: BACITRACIN TOP OINT 15 GM TUBE TOPICAL SCH (08:15)
[2017-04-18] MEDS: CHOLECALCIFEROL (VIT D3) 1000 UNIT TAB PO SCH (08:15)
[2017-04-18] MEDS: guaiFENesin E.R. 600 MG TAB PO SCH ×2 (08:15→20:12)
[2017-04-18] MEDS: FUROSEMIDE 40 MG/4 ML VIAL IV PUSH SCH ×2 (08:16→17:33)
[2017-04-18] MEDS: BUDESONIDE-FORMOTEROL 160/4.5 MCG INHALER INH SCH ×2 (08:16→20:13)
[2017-04-18] MEDS: CIPROFLOXACIN 750 MG TAB PO SCH ×2 (08:22→20:12)
[2017-04-18] MEDS: POTASSIUM CHLORIDE 20 MEQ CONTROLLED RELEASE TAB PO SCH (08:23)
[2017-04-18] MEDS: CALCIUM/VITAMIN D 250 MG/125 U TAB PO SCH ×3 (08:23→17:33)
[2017-04-18] MEDS: ENOXAPARIN SODIUM 30 MG/0.3 ML SYRINGE SQ SCH (09:39)
--- NOTE | 2017-04-18 10:53 | HHI.PR ---
Subjective Remarks Follow-up UTI/encephalopathy/dyspnea with respiratory failure 04/17/17-patient seen and examined, although oriented to self however not oriented to place and date. +Short of breath however afebrile 04/18/17-patient seen and examined, transferred to [facility] yesterday secondary to severe dyspnea and patient was found to be in congestive heart failure exacerbation. Treated with Lasix IV 40 mg 1. Was placed on BiPAP overnight for several hours. Objective Vitals Vital Signs Date Time Temp Pulse Resp B/P (MAP) Pulse Ox O2 Delivery O2 Flow Rate FiO2 04/18/17 10:00 100 04/18/17 08:11 98 Nasal Cannula 4.00 04/18/17 08:00 84 04/18/17 07:58 100 30 04/18/17 07:00 Bi-Pap 5.00 30 04/18/17 06:00 77 04/18/17 04:06 98 30 04/18/17 04:00 83 04/18/17 04:00 98.1 83 22 137/70 (92) 98 04/18/17 02:01 89 04/18/17 01:08 98 30 04/18/17 00:00 80 04/18/17 00:00 98.0 80 25 107/59 (75) 99 04/17/17 22:00 84 04/17/17 21:15 89 04/17/17 20:00 97.8 97 26 123/63 (83) 100 04/17/17 19:50 100 35 04/17/17 19:21 97.1 106 36 134/74 (94) 98 04/17/17 19:14 Nasal Cannula 5.00 04/17/17 19:14 96.7 113 32 146/80 (102) 93 04/17/17 19:10 96 5.00 04/17/17 18:28 95 Nasal Cannula 4.00 04/17/17 15:36 95.5 102 22 138/69 (92) 97 04/17/17 11:49 96.7 100 21 131/76 (94) 98 I/O 04/17/17 04/17/17 04/17/17 04/18/17 04/18/17 04/18/17 07:00 15:00 23:00 07:00 15:00 23:00 Intake Total 240 ml 450 ml 0 ml 0 ml Output Total 350 ml 250 ml 1650 ml 1250 ml Balance -110 ml 200 ml -1650 ml -1250 ml Intake Oral 240 ml 450 ml 0 ml 0 ml Output Urine Total 350 ml 250 ml 1650 ml 1250 ml # Bowel Movements 1 1 0 0 Result Diagram: 04/18/17 0530 04/18/17 0530 Imaging Last Impressions Chest X-Ray 04/17/17 0000 Signed Impressions: Service Date/Time: Monday, April 17, 2017 19:49 - CONCLUSION: Stable right basilar atelectasis and/or infiltrate. Stable cardiomegaly. Minimal central pulmonary vascular congestion. Persistent elevation of right hemidiaphragm. Manfred Gallego MD Femur X-Ray 04/12/17 0000 Signed Impressions: Service Date/Time: March 09:58 - CONCLUSION: Images as detailed above. Domingo Salinas Jr., MD Objective Remarks GENERAL: NAD SKIN: Warm and dry. HEAD: Normocephalic. EYES: No scleral icterus. No injection or drainage. NECK: Supple, trachea midline. No JVD or lymphadenopathy. CARDIOVASCULAR: Regular rate and rhythm without murmurs, gallops, or rubs. RESPIRATORY: Breath sounds decrease bilaterally. +wheezing. No accessory muscle use. GASTROINTESTINAL: Abdomen soft, non-tender, nondistended. MUSCULOSKELETAL: No cyanosis, or edema. splint over Left knee-neurovascular intact BACK: Nontender without obvious deformity. No CVA tenderness. Procedures 04/12/17 ORIF left distal femur A/P Problem List: (1) Rosa-prosthetic femoral shaft fracture ICD Code: M97.8XXA - Periprosthetic fracture around other internal prosthetic joint, initial encounter; Z96.649 - Presence of unspecified artificial hip joint (2) Hypothyroidism ICD Code: E03.9 - Hypothyroidism Status: Chronic (3) BPH (benign prostatic hyperplasia) ICD Code: N40.0 - BPH (benign prostatic hyperplasia) Status: Chronic (4) Hypertension ICD Code: I10 - Hypertension Status: Chronic (5) Restless leg syndrome ICD Code: G25.81 - Restless legs syndrome Status: Chronic (6) CAD (coronary artery disease) ICD Code: I25.10 - Atherosclerotic heart disease of [place] coronary artery without angina pectoris Status: Chronic Assessment and Plan 86 year-old man with 1. Periprosthetic femoral shaft fracture: Status post ORIF. Management per orthopedic surgery. Continue pain control, avoiding narcotics. Cleared for discharge by orthopedic surgery. 2. Acute on chronic renal insufficiency-Resolved Avoid nephrotoxins. HLIV 3. Coronary artery disease: Appreciate cardiology recommendations. Echocardiogram 04/11/17 shows preserved left ventricular systolic function with an EF estimated at 55-60%. 4. Hypertension: Lisinopril on hold secondary to renal insufficiency. However may now resume lisinopril as renal function improved Clonidine as needed. 5. Hypothyroidism: Continue Synthroid. 6. Restless leg syndrome: Continue Requip. 7. DVT prophylaxis: Lovenox, SCDs, JOURDAN hose. 8. Hypotension: BP now improved. 9. Encephalopathy: Improving. Avoid narcotic pain medications as much as possible. 10. UTI-Pseudomonas Currently on Cipro by mouth twice a day 11. Urinary obstruction: Patient is reportedly scheduled for a procedure with urology as an outpatient tomorrow. Urinary catheter was placed in the OR. Appreciate urology recommendations. Colvin catheter to remain in place at discharge. 12. Congestive heart failure of unknown type Start Lasix 40 mg IV twice a day Check 2-D echo 13. Respiratory failure with hypoxia BIPAP when necessary Continue with Solu-Medrol ,DuoNeb Maintain oxygen saturation above 92% Adam Yu MD Apr 18, 2017 10:53
--- NOTE | 2017-04-18 17:00 | PD.CARD.PN ---
Subjective Subjective Remarks No CP, transferred to ICU due to resp distress yest, less SOB today, still has cough, mild confusion Objective Medications Current Medications Medications (Trade) Dose Ordered Sig/[place] Route Start Time Stop Time Status Last Admin (Prinivil) 20 mg DAILY PO 04/12/17 09:00 Future Hold (Pill Splitter) 1 ea UNSCH PRN OTHER 04/12/17 03:00 04/15/17 23:41 (CeleXA) 10 mg DAILY PO 04/12/17 09:00 04/18/17 08:13 (Xalatan 0.005% Opth Soln) 1 drop HS EACH EYE 04/12/17 21:00 04/16/17 20:33 (Synthroid) 100 mcg DAILY@0600 PO 04/12/17 06:00 04/18/17 06:11 (Requip) 2.5 mg HS PRN PO 04/12/17 04:00 04/15/17 23:40 (Catapres) 0.1 mg Q6H PRN PO 04/12/17 04:30 (Lovenox Inj) 30 mg Q24H SQ 04/13/17 09:30 04/18/17 09:39 (Rosa-Colace) 1 tab BID PO 04/12/17 21:00 04/18/17 08:14 Miscellaneous Information UNSCH PRN XX 04/12/17 10:15 (Oscal-D 250-125) 250 mg TID PO 04/12/17 13:00 04/18/17 12:15 (Benadryl) 25 mg Q6H PRN PO 04/12/17 10:15 (Narcan Inj) 0.4 mg UNSCH PRN IV PUSH 04/12/17 10:15 (Vitamin D3) 1,000 units DAILY PO 04/13/17 09:00 04/18/17 08:15 (Drisdol) 50,000 units Q7D PO 04/12/17 11:00 04/12/17 14:01 (Tylenol) 500 mg Q6H PRN PO 04/12/17 10:30 04/16/17 14:45 (Milk Of Magnesia Liq) 30 ml Q12H PRN PO 04/12/17 16:45 (Senokot) 17.2 mg Q12H PRN PO 04/12/17 16:45 (Dulcolax Supp) 10 mg DAILY PRN RECTAL 04/12/17 16:45 (Lactulose Liq) 30 ml DAILY PRN PO 04/12/17 16:45 (Baciguent Oint) 1 applic DAILY TOPICAL 04/14/17 09:00 04/18/17 08:15 (Flomax) 0.4 mg DAILY PO 04/14/17 14:00 04/18/17 08:14 (Cipro) 750 mg Q12HR PO 04/15/17 21:00 04/18/17 08:22 (Albuterol Neb) 2.5 mg Q2HR NEB PRN NEB 04/16/17 09:00 04/17/17 12:22 (Tessalon) 200 mg Q8H PRN PO 04/17/17 12:30 04/17/17 13:15 (Mucinex Er) 600 mg BID PO 04/17/17 21:00 04/18/17 08:15 (SoluMEDROL INJ) 40 mg Q8H IV PUSH 04/17/17 21:00 04/18/17 12:15 (Duoneb Neb) 1 ampule Q4HR WHILE AWAKE NEB NEB 04/17/17 16:45 04/18/17 15:25 (Symbicort 160-4.5 Mcg Inh) 2 puff Q12HR INH 04/17/17 21:00 04/18/17 08:16 Miscellaneous Information Patient in critical care unit? Ass... Q361D .XX 04/17/17 20:30 04/17/17 20:30 (Chlorhexidine 2% Cloth) 3 pack DAILY@04 TOPICAL 04/18/17 04:00 04/22/17 04:01 04/18/17 04:00 (Chlorhexidine 2% Cloth) 3 pack UNSCH PRN TOPICAL 04/17/17 20:30 04/22/17 20:28 (Lasix Inj) 40 mg BID@ IV PUSH 04/18/17 09:00 04/18/17 08:16 (KCl) 20 meq DAILY PO 04/18/17 09:00 04/18/17 08:23 Vital Signs / I&O Vital Signs Date Time Temp Pulse Resp B/P (MAP) Pulse Ox O2 Delivery O2 Flow Rate FiO2 04/18/17 14:00 96 04/18/17 12:00 96 04/18/17 12:00 98.8 96 35 119/59 (79) 98 04/18/17 10:00 100 04/18/17 08:11 98 Nasal Cannula 4.00 04/18/17 08:00 84.0 84 20 143/79 (100) 100 04/18/17 08:00 84 04/18/17 07:58 100 30 04/18/17 07:00 Bi-Pap 5.00 30 04/18/17 06:00 77 04/18/17 04:06 98 30 04/18/17 04:00 83 04/18/17 04:00 98.1 83 22 137/70 (92) 98 04/18/17 02:01 89 04/18/17 01:08 98 30 04/18/17 00:00 80 04/18/17 00:00 98.0 80 25 107/59 (75) 99 04/17/17 22:00 84 04/17/17 21:15 89 04/17/17 20:00 97.8 97 26 123/63 (83) 100 04/17/17 19:50 100 35 04/17/17 19:21 97.1 106 36 134/74 (94) 98 04/17/17 19:14 Nasal Cannula 5.00 04/17/17 19:14 96.7 113 32 146/80 (102) 93 04/17/17 19:10 96 5.00 04/17/17 18:28 95 Nasal Cannula 4.00 I/O 04/17/17 04/17/17 04/17/17 04/18/17 04/18/17 04/18/17 07:00 15:00 23:00 07:00 15:00 23:00 Intake Total 240 ml 450 ml 0 ml 0 ml Output Total 350 ml 250 ml 1650 ml 1250 ml Balance -110 ml 200 ml -1650 ml -1250 ml Intake Oral 240 ml 450 ml 0 ml 0 ml Output Urine Total 350 ml 250 ml 1650 ml 1250 ml # Bowel Movements 1 1 0 0 Physical Exam GENERAL: In NAD SKIN: Warm and dry. HEAD: Normocephalic. EYES: No scleral icterus. No injection or drainage. NECK: Supple, trachea midline. No JVD or lymphadenopathy. CARDIOVASCULAR: Regular rate and rhythm without murmurs, gallops, or rubs. RESPIRATORY: Breath sounds equal bilaterally. No accessory muscle use. Few rhonchi. GASTROINTESTINAL: Abdomen soft, non-tender, nondistended. MUSCULOSKELETAL: No cyanosis, or edema. Laboratory Laboratory Tests Test 04/17/17 19:16 04/17/17 20:00 04/17/17 21:28 04/18/17 04:58 Blood Gas Puncture Site RT BRACHIAL RT RADIAL Blood Gas Patient Temperature 98.6 98.6 Blood Gas HCO3 16 mmol/L 20 mmol/L Blood Gas Base Excess -7.4 mmol/L -2.6 mmol/L Blood Gas Oxygen Saturation 93 % 96 % Arterial Blood pH 7.43 7.54 Arterial Blood Partial Pressure CO2 24 mmHg 23 mmHg Arterial Blood Partial Pressure O2 80 mmHg 96 mmHg Arterial Blood Oxygen Content 15.5 Vol % 11.8 Vol % Arterial Blood Carboxyhemoglobin 1.4 % 1.2 % Arterial Blood Methemoglobin 0.8 % 1.1 % Blood Gas Hemoglobin 11.8 G/DL 8.7 G/DL Oxygen Delivery Device NASAL CANNULA BiPAP Blood Gas Liter Flow 5 L/M Nasal Screen MRSA (PCR) MRSA NOT DETECTED White Blood Count 12.0 TH/MM3 Red Blood Count 2.58 MIL/MM3 Hemoglobin 8.3 GM/DL Hematocrit 24.5 % Mean Corpuscular Volume 95.1 FL Mean Corpuscular Hemoglobin 32.1 PG Mean Corpuscular Hemoglobin Concent 33.7 % Red Cell Distribution Width 13.5 % Platelet Count 346 TH/MM3 Mean Platelet Volume 7.6 FL Neutrophils (%) (Auto) 92.6 % Lymphocytes (%) (Auto) 3.3 % Monocytes (%) (Auto) 3.8 % Eosinophils (%) (Auto) 0.0 % Basophils (%) (Auto) 0.3 % Neutrophils # (Auto) 11.2 TH/MM3 Lymphocytes # (Auto) 0.4 TH/MM3 Monocytes # (Auto) 0.5 TH/MM3 Eosinophils # (Auto) 0.0 TH/MM3 Basophils # (Auto) 0.0 TH/MM3 CBC Comment AUTO DIFF Differential Comment AUTO DIFF CONFIRMED D-Dimer Quantitative (PE/DVT) 3.74 MG/L FEU Blood Urea Nitrogen 28 MG/DL Creatinine 1.36 MG/DL Random Glucose 142 MG/DL Total Protein 6.3 GM/DL Albumin 2.5 GM/DL Calcium Level 9.2 MG/DL Alkaline Phosphatase 66 U/L Aspartate Amino Transf (AST/SGOT) 46 U/L Alanine Aminotransferase (ALT/SGPT) 15 U/L Total Bilirubin 0.7 MG/DL Sodium Level 135 MEQ/L Potassium Level 4.1 MEQ/L Chloride Level 102 MEQ/L Carbon Dioxide Level 22.1 MEQ/L Anion Gap 11 MEQ/L Estimat Glomerular Filtration Rate 49 ML/MIN B-Type Natriuretic Peptide 1585 PG/ML Blood Gas Ventilator Setting [id number]/[id number] Blood Gas Inspired Oxygen 30 % Test 04/18/17 05:30 White Blood Count 11.2 TH/MM3 Red Blood Count 2.69 MIL/MM3 Hemoglobin 8.6 GM/DL Hematocrit 25.5 % Mean Corpuscular Volume 94.8 FL Mean Corpuscular Hemoglobin 32.1 PG Mean Corpuscular Hemoglobin Concent 33.8 % Red Cell Distribution Width 13.5 % Platelet Count 385 TH/MM3 Mean Platelet Volume 8.0 FL Neutrophils (%) (Auto) 89.6 % Lymphocytes (%) (Auto) 6.0 % Monocytes (%) (Auto) 4.1 % Eosinophils (%) (Auto) 0.0 % Basophils (%) (Auto) 0.3 % Neutrophils # (Auto) 10.1 TH/MM3 Lymphocytes # (Auto) 0.7 TH/MM3 Monocytes # (Auto) 0.5 TH/MM3 Eosinophils # (Auto) 0.0 TH/MM3 Basophils # (Auto) 0.0 TH/MM3 CBC Comment AUTO DIFF Differential Comment AUTO DIFF CONFIRMED Blood Urea Nitrogen 30 MG/DL Creatinine 1.30 MG/DL Random Glucose 144 MG/DL Calcium Level 8.6 MG/DL Sodium Level 138 MEQ/L Potassium Level 3.6 MEQ/L Chloride Level 104 MEQ/L Carbon Dioxide Level 21.2 MEQ/L Anion Gap 13 MEQ/L Estimat Glomerular Filtration Rate 52 ML/MIN Assessment and Plan Problem List: (1) femur fx (2) CAD (coronary artery disease) ICD Codes: I25.10 - Atherosclerotic heart disease of [place] coronary artery without angina pectoris Status: Chronic (3) HTN (hypertension) ICD Codes: I10 - Essential (primary) hypertension Status: Acute (4) Hx-TIA (transient ischemic attack) ICD Codes: Z86.73 - Hx-TIA (transient ischemic attack) Status: Chronic Assessment and Plan No angina or CHF. Resp status improving. OK to transfer out of ICU from card standpoint. Continue close monitoring on tele, no recent arrhythmias. Continue current program with aggressive risk factor modification. Increase activity, PT. Faina Boswell MD Apr 18, 2017 17:00
[2017-04-18] MEDS: LATANOPROST 0.005% OPHT SOLN 2.5 ML BTL EACH EYE SCH (20:12)
[2017-04-19] VITALS (14 sets, daily range): BP systolic 122–136; BP diastolic 62–75; PULSE 89–109; RESP 24–32; TEMP 97.8–99.2; O2SAT 96–100
[2017-04-19] MEDS: BENZONATATE 100 MG CAP PO PRN (01:50)
[2017-04-19] MEDS: CHLORHEXIDINE GLUCONATE 2 % 1 PACK (2 CLOTHS)(taper/protocol) TOPICAL SCH (04:00)
[2017-04-19] MEDS: methylPREDNISolone SOD SUCC 40 MG/1 ML VIAL IV PUSH SCH ×2 (05:26→17:02)
[2017-04-19] MEDS: LEVOTHYROXINE SODIUM 100 MCG TAB PO SCH (05:26)
[2017-04-19 06:11] LABS: AUTOMATED NEUTROPHIL # 18.1 TH/MM3 (1.8-7.7); HEMATOCRIT 26.4 % (39.0-51.0); LYMPH % 3.4 % (9.0-44.0); LYMPHOCYTE # 0.7 TH/MM3 (1.0-4.8); MEAN CELL VOLUME 94.5 FL (80.0-100.0); MEAN CORPUSCULAR HEMOGLOBIN 32.1 PG (27.0-34.0); MEAN PLATELET VOLUME 7.8 FL (7.0-11.0); MONO % 6.6 % (0.0-8.0); MONOCYTE # 1.3 TH/MM3 (0-0.9); PLATELET COUNT 501 TH/MM3 (150-450); RED CELL DISTRIBUTION WIDTH 13.7 % (11.6-17.2); WHITE BLOOD COUNT 20.2 TH/MM3 (4.0-11.0)
[2017-04-19 06:35] LABS: BICARBONATE 23.7 MEQ/L (21.0-32.0); CALCIUM 9.1 MG/DL (8.5-10.1); CREATININE 1.45 MG/DL (0.60-1.30)
[2017-04-19] MEDS: RESP: ALBUTEROL 2.5 MG/IPRATROPIUM 0.5 MG NEB (SCH) NEB ×4 (08:22→21:46)
[2017-04-19] MEDS: POTASSIUM CHLORIDE 20 MEQ CONTROLLED RELEASE TAB PO SCH (08:43)
[2017-04-19] MEDS: CIPROFLOXACIN 750 MG TAB PO SCH (08:44)
[2017-04-19] MEDS: TAMSULOSIN HCL 0.4 MG CAP PO SCH (08:44)
[2017-04-19] MEDS: guaiFENesin E.R. 600 MG TAB PO SCH ×2 (08:44→19:31)
[2017-04-19] MEDS: FUROSEMIDE 40 MG/4 ML VIAL IV PUSH SCH ×2 (08:44→17:02)
[2017-04-19] MEDS: CITALOPRAM HYDROBROMIDE 20 MG TAB PO SCH (08:44)
[2017-04-19] MEDS: CHOLECALCIFEROL (VIT D3) 1000 UNIT TAB PO SCH (08:44)
[2017-04-19] MEDS: CALCIUM/VITAMIN D 250 MG/125 U TAB PO SCH ×3 (08:44→17:02)
[2017-04-19] MEDS: DOCUSATE SODIUM 50 MG/SENNA 8.6 MG TAB PO SCH ×2 (08:44→19:58)
[2017-04-19] MEDS: ENOXAPARIN SODIUM 30 MG/0.3 ML SYRINGE SQ SCH (08:45)
[2017-04-19] MEDS: BACITRACIN TOP OINT 15 GM TUBE TOPICAL SCH (08:45)
[2017-04-19] MEDS: BUDESONIDE-FORMOTEROL 160/4.5 MCG INHALER INH SCH ×2 (08:46→19:32)
[2017-04-19] MEDS: ERGOCALCIFEROL (VIT D2) 50,000 UNIT CAP PO SCH (11:04)
--- NOTE | 2017-04-19 11:18 | ECHRPT ---
Indication: Heart failure, unspecified CONCLUSIONS The left ventricular systolic function is normal with an estimated ejection fraction in the range of 55-60%. Moderate concentric left ventricular hypertrophy. The left atrial size is upper limits of normal. Normal atrial septal thickness. The aortic root and proximal ascending aorta are not well visualized. Trace mitral valve regurgitation. Trace aortic valve regurgitation. Aortic valve sclerosis is present. No tricuspid regurgitation. The pulmonary valve is not well visualized. BP: 143 / 79 HR: 100 Rhythm: MEASUREMENTS (Male / Female) Normal Values Technical Quality: 2D ECHO LV Diastolic Diameter PLAX 4.0 cm 4.2 - 5.9 / 3.9 - 5.3 cm LV Systolic Diameter PLAX 3.0 cm IVS Diastolic Thickness 1.9 cm 0.6 - 1.0 / 0.6 - 0.9 cm LVPW Diastolic Thickness 1.6 cm 0.6 - 1.0 / 0.6 - 0.9 cm LV Relative Wall Thickness 0.9 RV Internal Dim ED PLAX 2.5 cm M-MODE Aortic Root Diameter MM 3.5 cm LA Systolic Diameter MM 4.3 cm LA Ao Ratio MM 1.2 AV Cusp Separation MM 1.9 cm DOPPLER Mitral E Point Velocity 179.0 cm/s Mitral A Point Velocity 68.6 cm/s Mitral E to A Ratio 2.6 FINDINGS LEFT VENTRICLE The left ventricular systolic function is normal with an estimated ejection fraction in the range of 55-60%. Moderate concentric left ventricular hypertrophy. RIGHT VENTRICLE Normal right ventricular size and systolic function. LEFT ATRIUM The left atrial size is upper limits of normal. RIGHT ATRIUM The right atrial size is normal. ATRIAL SEPTUM Normal atrial septal thickness. AORTA The aortic root and proximal ascending aorta are not well visualized. MITRAL VALVE Trace mitral valve regurgitation. AORTIC VALVE Trace aortic valve regurgitation. Aortic valve sclerosis is present. TRICUSPID VALVE Structurally normal tricuspid valve. No tricuspid regurgitation. PULMONARY VALVE The pulmonary valve is not well visualized. VESSELS The inferior vena cava is normal in size. PERICARDIUM No pericardial effusion. Andriy Petersen MD, FACC (Electronically Signed) Final Date:19 April 2017 11:17
--- NOTE | 2017-04-19 12:19 | HHI.PR ---
Subjective Remarks Follow-up UTI/encephalopathy/dyspnea with respiratory failure 04/17/17-patient seen and examined, although oriented to self however not oriented to place and date. +Short of breath however afebrile 04/18/17-patient seen and examined, transferred to [facility] yesterday secondary to severe dyspnea and patient was found to be in congestive heart failure exacerbation. Treated with Lasix IV 40 mg 1. Was placed on BiPAP overnight for several hours. 04/19/17-patient seen and examined, Initially per Nurse report patient was confused, however during my exam he appears alert and oriented x 2 and answered most of my questions appropriately. Afebrile, WBC trending up. Shortness of breath improving. Objective Vitals Vital Signs Date Time Temp Pulse Resp B/P (MAP) Pulse Ox O2 Delivery O2 Flow Rate FiO2 04/19/17 08:22 98 Nasal Cannula 2.00 04/19/17 06:00 106 04/19/17 04:00 92 04/19/17 04:00 98.9 92 24 125/62 (83) 97 04/19/17 02:00 102 04/19/17 00:00 100 04/19/17 00:00 98.6 100 25 129/64 (85) 98 04/18/17 22:00 103 04/18/17 21:33 96 Nasal Cannula 3.00 04/18/17 20:00 98.9 91 26 124/58 (80) 98 04/18/17 20:00 91 04/18/17 19:00 Nasal Cannula 5.00 04/18/17 18:00 96 04/18/17 16:00 95 04/18/17 16:00 98.4 95 25 118/60 (79) 96 04/18/17 14:00 96 I/O 04/18/17 04/18/17 04/18/17 04/19/17 04/19/17 04/19/17 07:00 15:00 23:00 07:00 15:00 23:00 Intake Total 0 ml 960 ml 620 ml Output Total 1250 ml 1875 ml 1550 ml Balance -1250 ml -915 ml -930 ml Intake Oral 0 ml 960 ml 620 ml Output Urine Total 1250 ml 1875 ml 1550 ml # Bowel Movements 0 0 Result Diagram: 04/19/17 0545 04/19/17 0540 Objective Remarks GENERAL: NAD SKIN: Warm and dry. HEAD: Normocephalic. EYES: No scleral icterus. No injection or drainage. NECK: Supple, trachea midline. No JVD or lymphadenopathy. CARDIOVASCULAR: Regular rate and rhythm without murmurs, gallops, or rubs. RESPIRATORY: Breath sounds decrease bilaterally. +wheezing. No accessory muscle use. GASTROINTESTINAL: Abdomen soft, non-tender, nondistended. MUSCULOSKELETAL: No cyanosis, or edema. splint over Left knee-neurovascular intact BACK: Nontender without obvious deformity. No CVA tenderness. Procedures 04/12/17 ORIF left distal femur A/P Problem List: (1) Rosa-prosthetic femoral shaft fracture ICD Code: M97.8XXA - Periprosthetic fracture around other internal prosthetic joint, initial encounter; Z96.649 - Presence of unspecified artificial hip joint (2) Hypothyroidism ICD Code: E03.9 - Hypothyroidism Status: Chronic (3) BPH (benign prostatic hyperplasia) ICD Code: N40.0 - BPH (benign prostatic hyperplasia) Status: Chronic (4) Hypertension ICD Code: I10 - Hypertension Status: Chronic (5) Restless leg syndrome ICD Code: G25.81 - Restless legs syndrome Status: Chronic (6) CAD (coronary artery disease) ICD Code: I25.10 - Atherosclerotic heart disease of [place] coronary artery without angina pectoris Status: Chronic Assessment and Plan 86 year-old man with 1. Periprosthetic femoral shaft fracture: Status post ORIF. Management per orthopedic surgery. Continue pain control, avoiding narcotics. Cleared for discharge by orthopedic surgery. 2. Acute on chronic renal insufficiency-Resolved Avoid nephrotoxins. HLIV 3. Coronary artery disease: Appreciate cardiology recommendations. Echocardiogram 04/11/17 shows preserved left ventricular systolic function with an EF estimated at 55-60%. 4. Hypertension: Lisinopril on hold secondary to renal insufficiency. However may now resume lisinopril as renal function improved Clonidine as needed. 5. Hypothyroidism: Continue Synthroid. 6. Restless leg syndrome: Continue Requip. 7. DVT prophylaxis: Lovenox, SCDs, JOURDAN hose. 8. Hypotension: BP now improved. 9. Encephalopathy: Improving. Avoid narcotic pain medications as much as possible. 10. UTI-Pseudomonas Currently on Cipro by mouth twice a day 11. Urinary obstruction: Patient is reportedly scheduled for a procedure with urology as an outpatient tomorrow. Urinary catheter was placed in the OR. Appreciate urology recommendations. Colvin catheter to remain in place at discharge. 12. Congestive heart failure of unknown type continue Lasix 40 mg IV twice a day Check limited 2-D echo 13. Respiratory failure with hypoxia BIPAP when necessary Continue with Solu-Medrol however decrease to 20mg Q12H,DuoNeb Maintain oxygen saturation above 92% Adam Yu MD Apr 19, 2017 12:19
[2017-04-19] MEDS: POTASSIUM CHLORIDE 10 MEQ CONTROLLED RELEASE TAB PO ONE ×2 (13:11→13:19)
--- NOTE | 2017-04-19 13:13 | PD.CARD.PN ---
Subjective Subjective Remarks No CP, still has cough, also SOB, increased confusion Objective Medications Current Medications Medications (Trade) Dose Ordered Sig/[place] Route Start Time Stop Time Status Last Admin (Prinivil) 20 mg DAILY PO 04/12/17 09:00 Future Hold (Pill Splitter) 1 ea UNSCH PRN OTHER 04/12/17 03:00 04/15/17 23:41 (CeleXA) 10 mg DAILY PO 04/12/17 09:00 04/19/17 08:44 (Xalatan 0.005% Opth Soln) 1 drop HS EACH EYE 04/12/17 21:00 04/18/17 20:12 (Synthroid) 100 mcg DAILY@0600 PO 04/12/17 06:00 04/19/17 05:26 (Requip) 2.5 mg HS PRN PO 04/12/17 04:00 04/19/17 00:59 (Catapres) 0.1 mg Q6H PRN PO 04/12/17 04:30 (Lovenox Inj) 30 mg Q24H SQ 04/13/17 09:30 04/19/17 08:45 (Rosa-Colace) 1 tab BID PO 04/12/17 21:00 04/19/17 08:44 Miscellaneous Information UNSCH PRN XX 04/12/17 10:15 (Oscal-D 250-125) 250 mg TID PO 04/12/17 13:00 04/19/17 12:51 (Benadryl) 25 mg Q6H PRN PO 04/12/17 10:15 (Narcan Inj) 0.4 mg UNSCH PRN IV PUSH 04/12/17 10:15 (Vitamin D3) 1,000 units DAILY PO 04/13/17 09:00 04/19/17 08:44 (Drisdol) 50,000 units Q7D PO 04/12/17 11:00 04/19/17 11:04 (Tylenol) 500 mg Q6H PRN PO 04/12/17 10:30 04/16/17 14:45 (Milk Of Magnesia Liq) 30 ml Q12H PRN PO 04/12/17 16:45 (Senokot) 17.2 mg Q12H PRN PO 04/12/17 16:45 (Dulcolax Supp) 10 mg DAILY PRN RECTAL 04/12/17 16:45 (Lactulose Liq) 30 ml DAILY PRN PO 04/12/17 16:45 (Baciguent Oint) 1 applic DAILY TOPICAL 04/14/17 09:00 04/19/17 08:45 (Flomax) 0.4 mg DAILY PO 04/14/17 14:00 04/19/17 08:44 (Cipro) 750 mg Q12HR PO 04/15/17 21:00 04/19/17 08:44 (Albuterol Neb) 2.5 mg Q2HR NEB PRN NEB 04/16/17 09:00 04/17/17 12:22 (Tessalon) 200 mg Q8H PRN PO 04/17/17 12:30 04/19/17 01:50 (Mucinex Er) 600 mg BID PO 04/17/17 21:00 04/19/17 08:44 (Duoneb Neb) 1 ampule Q4HR WHILE AWAKE NEB NEB 04/17/17 16:45 04/19/17 11:47 (Symbicort 160-4.5 Mcg Inh) 2 puff Q12HR INH 04/17/17 21:00 04/19/17 08:46 Miscellaneous Information Patient in critical care unit? Ass... Q361D .XX 04/17/17 20:30 04/17/17 20:30 (Chlorhexidine 2% Cloth) 3 pack DAILY@04 TOPICAL 04/18/17 04:00 04/22/17 04:01 04/18/17 04:00 (Chlorhexidine 2% Cloth) 3 pack UNSCH PRN TOPICAL 04/17/17 20:30 04/22/17 20:28 (Lasix Inj) 40 mg BID@ IV PUSH 04/18/17 09:00 04/19/17 08:44 (KCl) 20 meq DAILY PO 04/18/17 09:00 04/19/17 08:43 (SoluMEDROL INJ) 20 mg Q12H IV PUSH 04/19/17 17:00 Vital Signs / I&O Vital Signs Date Time Temp Pulse Resp B/P (MAP) Pulse Ox O2 Delivery O2 Flow Rate FiO2 04/19/17 12:00 101 04/19/17 12:00 98.4 101 31 122/63 (82) 100 04/19/17 10:00 109 04/19/17 08:22 98 Nasal Cannula 2.00 04/19/17 08:00 97.8 103 30 136/75 (95) 98 04/19/17 08:00 103 04/19/17 07:00 Nasal Cannula 2.00 04/19/17 06:00 106 04/19/17 04:00 92 04/19/17 04:00 98.9 92 24 125/62 (83) 97 04/19/17 02:00 102 04/19/17 00:00 100 04/19/17 00:00 98.6 100 25 129/64 (85) 98 04/18/17 22:00 103 04/18/17 21:33 96 Nasal Cannula 3.00 04/18/17 20:00 98.9 91 26 124/58 (80) 98 04/18/17 20:00 91 04/18/17 19:00 Nasal Cannula 5.00 04/18/17 18:00 96 04/18/17 16:00 95 04/18/17 16:00 98.4 95 25 118/60 (79) 96 04/18/17 14:00 96 I/O 04/18/17 04/18/17 04/18/17 04/19/17 04/19/17 04/19/17 07:00 15:00 23:00 07:00 15:00 23:00 Intake Total 0 ml 960 ml 620 ml Output Total 1250 ml 1875 ml 1550 ml Balance -1250 ml -915 ml -930 ml Intake Oral 0 ml 960 ml 620 ml Output Urine Total 1250 ml 1875 ml 1550 ml # Bowel Movements 0 0 Physical Exam GENERAL: In NAD, confused SKIN: Warm and dry. HEAD: Normocephalic. EYES: No scleral icterus. No injection or drainage. NECK: Supple, trachea midline. No JVD or lymphadenopathy. CARDIOVASCULAR: Regular rate and rhythm without murmurs, gallops, or rubs. RESPIRATORY: Breath sounds equal bilaterally. No accessory muscle use. Few rhonchi. GASTROINTESTINAL: Abdomen soft, non-tender, nondistended. MUSCULOSKELETAL: No cyanosis, or edema. Laboratory Laboratory Tests Test 04/19/17 05:40 04/19/17 05:45 Blood Urea Nitrogen 40 MG/DL Creatinine 1.45 MG/DL Random Glucose 143 MG/DL Calcium Level 9.1 MG/DL Sodium Level 136 MEQ/L Potassium Level 3.2 MEQ/L Chloride Level 100 MEQ/L Carbon Dioxide Level 23.7 MEQ/L Anion Gap 12 MEQ/L Estimat Glomerular Filtration Rate 46 ML/MIN White Blood Count 20.2 TH/MM3 Red Blood Count 2.80 MIL/MM3 Hemoglobin 9.0 GM/DL Hematocrit 26.4 % Mean Corpuscular Volume 94.5 FL Mean Corpuscular Hemoglobin 32.1 PG Mean Corpuscular Hemoglobin Concent 34.0 % Red Cell Distribution Width 13.7 % Platelet Count 501 TH/MM3 Mean Platelet Volume 7.8 FL Neutrophils (%) (Auto) 90.0 % Lymphocytes (%) (Auto) 3.4 % Monocytes (%) (Auto) 6.6 % Eosinophils (%) (Auto) 0.0 % Basophils (%) (Auto) 0.0 % Neutrophils # (Auto) 18.1 TH/MM3 Lymphocytes # (Auto) 0.7 TH/MM3 Monocytes # (Auto) 1.3 TH/MM3 Eosinophils # (Auto) 0.0 TH/MM3 Basophils # (Auto) 0.0 TH/MM3 CBC Comment DIFF FINAL Differential Comment Assessment and Plan Problem List: (1) femur fx (2) CAD (coronary artery disease) ICD Codes: I25.10 - Atherosclerotic heart disease of [place] coronary artery without angina pectoris Status: Chronic (3) HTN (hypertension) ICD Codes: I10 - Essential (primary) hypertension Status: Acute (4) Hx-TIA (transient ischemic attack) ICD Codes: Z86.73 - Hx-TIA (transient ischemic attack) Status: Chronic Assessment and Plan No angina. Continuing cough and SOB. Increased confusion today. WBC count increased, will obtain cxs. Continue close monitoring on tele, no recent arrhythmias. Continue current program with aggressive risk factor modification. Increase activity, PT. D/w family. Faina Boswell MD Apr 19, 2017 13:13
--- NOTE | 2017-04-19 15:14 | RADRPT ---
EXAM DATE/TIME: 04/19/2017 14:05 [facility] COMPARISON: CHEST SINGLE AP, April 17, 2017, 19:49. INDICATIONS : Cough. MEDICAL HISTORY : Hypertension. Stroke. Arthritis. SURGICAL HISTORY : Fusion, cervical. ENCOUNTER: Subsequent ACUITY: 4 - 6 days PAIN SCORE: 0/10 LOCATION: Bilateral chest FINDINGS: A single AP erect portable view of the chest was obtained and again demonstrates abnormal patchy opac ity at the right lung base with blunting of the costophrenic angle. The heart size remains mildly pro minent with no perihilar edema. The left lung appears clear. The bony thorax is intact with multiple overlying electrocardiogram leads. CONCLUSION: Stable appearance with abnormal opacity and apparent airspace disease remaining at th e right lung base as well as probable small effusion. Gilmer Adkins MD on April 19, 2017 at 15:10 Board Certified Radiologist. This report was verified electronically.
[2017-04-19] MEDS: ACETAMINOPHEN 500 MG CPLT PO PRN (17:02)
[2017-04-19] MEDS: CIPROFLOXACIN 500 MG TAB PO SCH (19:32)
[2017-04-19] MEDS: LATANOPROST 0.005% OPHT SOLN 2.5 ML BTL EACH EYE SCH (19:34)
[2017-04-19] MEDS: diphenhydrAMINE HCL 25 MG CAP PO PRN (22:56)
[2017-04-20] VITALS (12 sets, daily range): BP systolic 124–139; BP diastolic 62–73; PULSE 78–99; RESP 17–33; TEMP 96.3–99.2; O2SAT 96–99
[2017-04-20] MEDS: CHLORHEXIDINE GLUCONATE 2 % 1 PACK (2 CLOTHS)(taper/protocol) TOPICAL SCH ×2 (04:00→20:19)
[2017-04-20] MEDS: LEVOTHYROXINE SODIUM 100 MCG TAB PO SCH (05:11)
[2017-04-20] MEDS: methylPREDNISolone SOD SUCC 40 MG/1 ML VIAL IV PUSH SCH ×2 (05:12→17:00)
[2017-04-20] MEDS: BENZONATATE 100 MG CAP PO PRN ×2 (05:22→20:19)
[2017-04-20 06:11] LABS: AUTOMATED NEUTROPHIL # 18.1 TH/MM3 (1.8-7.7); BASOPHIL % 0.2 % (0.0-2.0); HEMATOCRIT 27.8 % (39.0-51.0); HEMOGLOBIN 9.4 GM/DL (13.0-17.0); LYMPHOCYTE # 0.8 TH/MM3 (1.0-4.8); MEAN CELL VOLUME 94.2 FL (80.0-100.0); MEAN PLATELET VOLUME 7.7 FL (7.0-11.0); MONO % 7.7 % (0.0-8.0); MONOCYTE # 1.6 TH/MM3 (0-0.9); NEUT % 88.1 % (16.0-70.0); PLATELET COUNT 578 TH/MM3 (150-450); RED BLOOD COUNT 2.95 MIL/MM3 (4.50-5.90); RED CELL DISTRIBUTION WIDTH 14.4 % (11.6-17.2); WHITE BLOOD COUNT 20.6 TH/MM3 (4.0-11.0)
[2017-04-20 06:24] LABS: BICARBONATE 24.2 MEQ/L (21.0-32.0); CALCIUM 8.5 MG/DL (8.5-10.1); CREATININE 1.49 MG/DL (0.60-1.30)
[2017-04-20] MEDS: BUDESONIDE-FORMOTEROL 160/4.5 MCG INHALER INH SCH ×2 (08:21→20:19)
[2017-04-20] MEDS: CHOLECALCIFEROL (VIT D3) 1000 UNIT TAB PO SCH (08:23)
[2017-04-20] MEDS: CITALOPRAM HYDROBROMIDE 20 MG TAB PO SCH (08:24)
[2017-04-20] MEDS: guaiFENesin E.R. 600 MG TAB PO SCH ×2 (08:24→20:19)
[2017-04-20] MEDS: POTASSIUM CHLORIDE 20 MEQ CONTROLLED RELEASE TAB PO SCH (08:24)
[2017-04-20] MEDS: CALCIUM/VITAMIN D 250 MG/125 U TAB PO SCH ×3 (08:24→18:00)
[2017-04-20] MEDS: CIPROFLOXACIN 500 MG TAB PO SCH ×2 (08:25→20:19)
[2017-04-20] MEDS: FUROSEMIDE 40 MG/4 ML VIAL IV PUSH SCH ×2 (08:25→18:00)
[2017-04-20] MEDS: TAMSULOSIN HCL 0.4 MG CAP PO SCH (08:26)
[2017-04-20] MEDS: ENOXAPARIN SODIUM 30 MG/0.3 ML SYRINGE SQ SCH (08:26)
[2017-04-20] MEDS: BACITRACIN TOP OINT 15 GM TUBE TOPICAL SCH (08:28)
[2017-04-20] MEDS: DOCUSATE SODIUM 50 MG/SENNA 8.6 MG TAB PO SCH ×2 (08:28→20:20)
[2017-04-20] MEDS: RESP: ALBUTEROL 2.5 MG/IPRATROPIUM 0.5 MG NEB (SCH) NEB ×4 (08:56→19:30)
--- NOTE | 2017-04-20 09:06 | HHI.PR ---
Subjective Remarks Follow-up UTI/encephalopathy/dyspnea with respiratory failure 04/17/17-patient seen and examined, although oriented to self however not oriented to place and date. +Short of breath however afebrile 04/18/17-patient seen and examined, [place] [facility] [place] to severe dyspnea and patient was found to be in congestive heart failure exacerbation. Treated with Lasix IV 40 mg 1. Was placed on BiPAP overnight for several hours. 04/19/17-patient seen and examined, Initially per Nurse report patient was confused, however during my exam he appears alert and oriented x 2 and answered most of my questions appropriately. Afebrile, WBC trending up. Shortness of breath improving. 04/20/17-patient seen and examined, port improvement or shortness of breath and did not use BiPAP overnight sleep. Son by the bedside and reports improvement of patient's condition Objective Vitals Vital Signs Date Time Temp Pulse Resp B/P (MAP) Pulse Ox O2 Delivery O2 Flow Rate FiO2 04/20/17 07:00 97 Nasal Cannula 2.00 04/20/17 06:00 91 04/20/17 04:00 99.1 95 29 124/66 (85) 97 04/20/17 04:00 95 04/20/17 02:00 99 04/20/17 00:00 99.0 93 27 126/62 (83) 96 04/20/17 00:00 93 04/19/17 22:00 102 04/19/17 21:46 97 Nasal Cannula 2.00 04/19/17 20:00 101 04/19/17 20:00 98.8 101 32 135/74 (94) 99 04/19/17 19:00 99 Nasal Cannula 2.00 04/19/17 18:00 93 04/19/17 16:00 99.2 89 28 127/66 (86) 96 04/19/17 16:00 89 04/19/17 14:00 98 04/19/17 12:00 101 04/19/17 12:00 98.4 101 31 122/63 (82) 100 04/19/17 10:00 109 I/O 04/19/17 04/19/17 04/19/17 04/20/17 04/20/17 04/20/17 07:00 15:00 23:00 07:00 15:00 23:00 Intake Total 620 ml 940 ml 480 ml Output Total 1550 ml 2350 ml 1200 ml Balance -930 ml -1410 ml -720 ml Intake Oral 620 ml 940 ml 480 ml Output Urine Total 1550 ml 2350 ml 1200 ml # Voids 1 # Bowel Movements 0 0 Result Diagram: 04/20/17 0440 04/20/17 0440 Imaging Last Impressions Chest X-Ray 04/19/17 0000 Signed Impressions: Service Date/Time: April 14:05 - CONCLUSION: Stable appearance with abnormal opacity and apparent airspace disease remaining at the right lung base as well as probable small effusion. Gilmer Adkins MD Femur X-Ray 04/12/17 0000 Signed Impressions: Service Date/Time: March 09:58 - CONCLUSION: Images as detailed above. Domingo Salinas Jr., MD Objective Remarks GENERAL: NAD SKIN: Warm and dry. HEAD: Normocephalic. EYES: No scleral icterus. No injection or drainage. NECK: Supple, trachea midline. No JVD or lymphadenopathy. CARDIOVASCULAR: Regular rate and rhythm without murmurs, gallops, or rubs. RESPIRATORY: Breath sounds decrease bilaterally. +wheezing. No accessory muscle use. GASTROINTESTINAL: Abdomen soft, non-tender, nondistended. MUSCULOSKELETAL: No cyanosis, or edema. splint over Left knee-neurovascular intact BACK: Nontender without obvious deformity. No CVA tenderness. Procedures 04/12/17 ORIF left distal femur A/P Problem List: (1) Rosa-prosthetic femoral shaft fracture ICD Code: M97.8XXA - Periprosthetic fracture around other internal prosthetic joint, initial encounter; Z96.649 - Presence of unspecified artificial hip joint (2) Hypothyroidism ICD Code: E03.9 - Hypothyroidism Status: Chronic (3) BPH (benign prostatic hyperplasia) ICD Code: N40.0 - BPH (benign prostatic hyperplasia) Status: Chronic (4) Hypertension ICD Code: I10 - Hypertension Status: Chronic (5) Restless leg syndrome ICD Code: G25.81 - Restless legs syndrome Status: Chronic (6) CAD (coronary artery disease) ICD Code: I25.10 - Atherosclerotic heart disease of [place] coronary artery without angina pectoris Status: Chronic Assessment and Plan 86 year-old man with 1. Periprosthetic femoral shaft fracture: Status post ORIF. Management per orthopedic surgery. Continue pain control, avoiding narcotics. Cleared for discharge by orthopedic surgery. 2. Acute on chronic renal insufficiency-Resolved Avoid nephrotoxins. HLIV 3. Coronary artery disease: Appreciate cardiology recommendations. Echocardiogram 04/11/17 shows preserved left ventricular systolic function with an EF estimated at 55-60%. 4. Hypertension: Lisinopril on hold secondary to renal insufficiency. However may now resume lisinopril as renal function improved Clonidine as needed. 5. Hypothyroidism: Continue Synthroid. 6. Restless leg syndrome: Continue Requip. 7. DVT prophylaxis: Lovenox, SCDs, JOURDAN hose. 8. Hypotension: BP now improved. 9. Encephalopathy: Improving. Avoid narcotic pain medications as much as possible. 10. UTI-Pseudomonas Currently on Cipro by mouth twice a day 11. Urinary obstruction: Patient is reportedly scheduled for a procedure with urology as an outpatient tomorrow. Urinary catheter was placed in the OR. Appreciate urology recommendations. Colvin catheter to remain in place at discharge. 12. Acute diastolic Congestive heart failure continue Lasix 40 mg IV twice a day Limited 2-D echo (04/19/17) with EF 55-60% 13. Respiratory failure with hypoxia-resolved BIPAP when necessary Discontinue Solu-Medrol 20mg Q12H and start by mouth prednisone, continue DuoNeb Maintain oxygen saturation above 92% 14. Leukocytosis 2/2 steroid CXR stable, Blood culture pending Adam Yu MD Apr 20, 2017 09:06
[2017-04-20] MEDS: LATANOPROST 0.005% OPHT SOLN 2.5 ML BTL EACH EYE SCH (20:19)
[2017-04-20] MEDS: diphenhydrAMINE HCL 25 MG CAP PO PRN (20:19)
[2017-04-21] VITALS (9 sets, daily range): BP systolic 108–137; BP diastolic 55–71; PULSE 76–98; RESP 17–20; TEMP 95.9–98.1; O2SAT 93–98
[2017-04-21] MEDS: RESP: ALBUTEROL 2.5 MG/3 ML NEB (PRN) NEB (00:39)
[2017-04-21 03:59] LABS: AUTOMATED NEUTROPHIL # 13.9 TH/MM3 (1.8-7.7); BASOPHIL % 0.2 % (0.0-2.0); EOSINOPHIL # 0.2 TH/MM3 (0-0.4); EOSINOPHIL % 0.9 % (0.0-4.0); HEMATOCRIT 30.5 % (39.0-51.0); HEMOGLOBIN 10.1 GM/DL (13.0-17.0); LYMPH % 11.3 % (9.0-44.0); MEAN CELL VOLUME 94.9 FL (80.0-100.0); MEAN CORPUSCULAR HEMOGLOBIN 31.4 PG (27.0-34.0); MEAN CORPUSCULAR HGB CONC 33.1 % (32.0-36.0); MEAN PLATELET VOLUME 7.3 FL (7.0-11.0); MONO % 7.8 % (0.0-8.0); MONOCYTE # 1.4 TH/MM3 (0-0.9); NEUT % 79.8 % (16.0-70.0); PLATELET COUNT 580 TH/MM3 (150-450); RED BLOOD COUNT 3.21 MIL/MM3 (4.50-5.90); RED CELL DISTRIBUTION WIDTH 14.2 % (11.6-17.2); WHITE BLOOD COUNT 17.5 TH/MM3 (4.0-11.0)
[2017-04-21 04:54] LABS: BICARBONATE 28.7 MEQ/L (21.0-32.0); CALCIUM 8.6 MG/DL (8.5-10.1); CREATININE 1.48 MG/DL (0.60-1.30)
[2017-04-21] MEDS: LEVOTHYROXINE SODIUM 100 MCG TAB PO SCH (05:38)
[2017-04-21 06:02] LABS: CORRECTED NUCLEATED RBC 1 /100 WBC (0-0); LYMPHOCYTES 13 % (9-44); MONOCYTES 12 % (0-8); MYELOCYTES 2 % (0-0); NEUTROPHIL # MANUAL DIFF 13.1 TH/MM3 (1.8-7.7); NUCLEATED RED BLOOD CELL 1 (0-0); POLYS (SEG NEUTROPHILS) 73 % (16-70)
[2017-04-21] MEDS: ACETAMINOPHEN 500 MG CPLT PO PRN ×4 (06:48→23:34)
[2017-04-21] MEDS: RESP: ALBUTEROL 2.5 MG/IPRATROPIUM 0.5 MG NEB (SCH) NEB ×3 (08:05→15:43)
[2017-04-21] MEDS: POTASSIUM CHLORIDE 20 MEQ CONTROLLED RELEASE TAB PO SCH (09:00)
[2017-04-21] MEDS: CITALOPRAM HYDROBROMIDE 20 MG TAB PO SCH (09:11)
[2017-04-21] MEDS: CIPROFLOXACIN 500 MG TAB PO SCH ×2 (09:12→20:23)
[2017-04-21] MEDS: CHOLECALCIFEROL (VIT D3) 1000 UNIT TAB PO SCH (09:12)
[2017-04-21] MEDS: predniSONE 20 MG TAB PO SCH (09:12)
[2017-04-21] MEDS: guaiFENesin E.R. 600 MG TAB PO SCH ×2 (09:12→20:23)
[2017-04-21] MEDS: FUROSEMIDE 40 MG/4 ML VIAL IV PUSH SCH (09:12)
[2017-04-21] MEDS: TAMSULOSIN HCL 0.4 MG CAP PO SCH (09:12)
[2017-04-21] MEDS: CALCIUM/VITAMIN D 250 MG/125 U TAB PO SCH ×3 (09:12→17:50)
[2017-04-21] MEDS: DOCUSATE SODIUM 50 MG/SENNA 8.6 MG TAB PO SCH ×2 (09:12→20:23)
[2017-04-21] MEDS: BUDESONIDE-FORMOTEROL 160/4.5 MCG INHALER INH SCH ×2 (09:14→20:18)
[2017-04-21] MEDS: BACITRACIN TOP OINT 15 GM TUBE TOPICAL SCH (09:14)
[2017-04-21] MEDS: ENOXAPARIN SODIUM 30 MG/0.3 ML SYRINGE SQ SCH (09:27)
--- NOTE | 2017-04-21 10:53 | HHI.PR ---
Subjective Remarks Follow-up UTI/encephalopathy/dyspnea with respiratory failure 04/17/17-patient seen and examined, although oriented to self however not oriented to place and date. +Short of breath however afebrile 04/18/17-patient seen and examined, transferred to [facility] yesterday secondary to severe dyspnea and patient was found to be in congestive heart failure exacerbation. Treated with Lasix IV 40 mg 1. Was placed on BiPAP overnight for several hours. 04/19/17-patient seen and examined, Initially per Nurse report patient was confused, however during my exam he appears alert and oriented x 2 and answered most of my questions appropriately. Afebrile, WBC trending up. Shortness of breath improving. 04/20/17-patient seen and examined, port improvement or shortness of breath and did not use BiPAP overnight sleep. Son by the bedside and reports improvement of patient's condition 04/21/17-patient seen and examined, complains of dry cough, Shortness of breath improved Objective Vitals Vital Signs Date Time Temp Pulse Resp B/P (MAP) Pulse Ox O2 Delivery O2 Flow Rate FiO2 04/21/17 08:05 97 Nasal Cannula 2.00 04/21/17 08:00 97.3 80 17 113/64 (80) 93 04/21/17 04:00 98.1 76 18 125/62 (83) 98 04/21/17 00:00 97.3 93 18 125/67 (86) 97 04/20/17 20:10 Nasal Cannula 2.00 04/20/17 20:00 99.2 84 20 132/69 (90) 96 04/20/17 19:30 98 Nasal Cannula 1.00 04/20/17 17:41 96.3 81 17 139/65 (89) 98 04/20/17 16:00 78 04/20/17 14:00 81 04/20/17 12:00 98.2 86 26 138/68 (91) 98 04/20/17 12:00 86 I/O 04/20/17 04/20/17 04/20/17 04/21/17 04/21/17 04/21/17 07:00 15:00 23:00 07:00 15:00 23:00 Intake Total 480 ml 480 ml Output Total 1200 ml 1550 ml Balance -720 ml -1070 ml Intake Oral 480 ml 480 ml Output Urine Total 1200 ml 1550 ml # Voids 1 # Bowel Movements 0 Result Diagram: 04/21/17 0320 04/21/17 0320 Objective Remarks GENERAL: NAD SKIN: Warm and dry. HEAD: Normocephalic. EYES: No scleral icterus. No injection or drainage. NECK: Supple, trachea midline. No JVD or lymphadenopathy. CARDIOVASCULAR: Regular rate and rhythm without murmurs, gallops, or rubs. RESPIRATORY: Breath sounds decrease bilaterally. No accessory muscle use. GASTROINTESTINAL: Abdomen soft, non-tender, nondistended. MUSCULOSKELETAL: No cyanosis, or edema. splint over Left knee-neurovascular intact BACK: Nontender without obvious deformity. No CVA tenderness. Procedures 04/12/17 ORIF left distal femur A/P Problem List: (1) Rosa-prosthetic femoral shaft fracture ICD Code: M97.8XXA - Periprosthetic fracture around other internal prosthetic joint, initial encounter; Z96.649 - Presence of unspecified artificial hip joint (2) Hypothyroidism ICD Code: E03.9 - Hypothyroidism Status: Chronic (3) BPH (benign prostatic hyperplasia) ICD Code: N40.0 - BPH (benign prostatic hyperplasia) Status: Chronic (4) Hypertension ICD Code: I10 - Hypertension Status: Chronic (5) Restless leg syndrome ICD Code: G25.81 - Restless legs syndrome Status: Chronic (6) CAD (coronary artery disease) ICD Code: I25.10 - Atherosclerotic heart disease of [place] coronary artery without angina pectoris Status: Chronic Assessment and Plan 86 year-old man with 1. Periprosthetic femoral shaft fracture: Status post ORIF. Management per orthopedic surgery. Continue pain control, avoiding narcotics. Cleared for discharge by orthopedic surgery. 2. Acute on chronic renal insufficiency-Resolved Avoid nephrotoxins. HLIV 3. Coronary artery disease: Appreciate cardiology recommendations. Echocardiogram 04/11/17 shows preserved left ventricular systolic function with an EF estimated at 55-60%. 4. Hypertension: Lisinopril on hold secondary to renal insufficiency. However may now resume lisinopril as renal function improved Clonidine as needed. 5. Hypothyroidism: Continue Synthroid. 6. Restless leg syndrome: Continue Requip. 7. DVT prophylaxis: Lovenox, SCDs, JOURDAN hose. 8. Hypotension: BP now improved. 9. Encephalopathy: Improving. Avoid narcotic pain medications as much as possible. 10. UTI-Pseudomonas Currently on Cipro by mouth twice a day 11. Urinary obstruction: Patient is reportedly scheduled for a procedure with urology as an outpatient when discharged Urinary catheter was placed in the OR. Appreciate urology recommendations. Colvin catheter to remain in place at discharge. 12. Acute diastolic Congestive heart failure change Lasix to 40 mg PO daily Limited 2-D echo (04/19/17) with EF 55-60% 13. Respiratory failure with hypoxia-resolved s/p Solu-Medrol 20mg Q12H and start by mouth prednisone, continue DuoNeb Maintain oxygen saturation above 92% Acapella and Incentive spirometry 14. Leukocytosis-Improving 2/2 steroid CXR stable, Blood culture pending Adam Yu MD Apr 21, 2017 10:53
[2017-04-21] MEDS: BENZONATATE 100 MG CAP PO PRN ×2 (12:20→20:55)
--- NOTE | 2017-04-21 12:50 | RADRPT ---
EXAM DATE/TIME: 04/21/2017 12:00 [place] COMPARISON: CHEST SINGLE AP, April 19, 2017, 14:05. INDICATIONS : Shortness of breath MEDICAL HISTORY : Hypertension. Stroke. Arthritis SURGICAL HISTORY : Fusion, cervical. ENCOUNTER: Initial ACUITY: 1 day PAIN SCORE: 0/10 LOCATION: Bilateral chest FINDINGS: A single view of the chest demonstrates right basilar density. Elevation right hemidiaphragm again se en. The cardiomediastinal contours are unremarkable. Osseous structures are intact. CONCLUSION: 1. Stable right basilar density and elevation right hemidiaphragm. 2. Left lung remains clear. Adam Griffin MD on April 21, 2017 at 12:45 Board Certified Radiologist. This report was verified electronically.
[2017-04-21] MEDS: LATANOPROST 0.005% OPHT SOLN 2.5 ML BTL EACH EYE SCH (20:20)
[2017-04-22] VITALS (10 sets, daily range): BP systolic 102–135; BP diastolic 56–67; PULSE 77–93; RESP 18; TEMP 96–97.4; O2SAT 93–98
[2017-04-22] MEDS: CHLORHEXIDINE GLUCONATE 2 % 1 PACK (2 CLOTHS)(taper/protocol) TOPICAL SCH (04:00)
[2017-04-22] MEDS: LEVOTHYROXINE SODIUM 100 MCG TAB PO SCH (06:22)
[2017-04-22 07:06] LABS: AUTOMATED NEUTROPHIL # 17.4 TH/MM3 (1.8-7.7); BASOPHIL % 0.1 % (0.0-2.0); EOSINOPHIL # 0.2 TH/MM3 (0-0.4); HEMATOCRIT 32.9 % (39.0-51.0); HEMOGLOBIN 10.9 GM/DL (13.0-17.0); LYMPHOCYTE # 1.8 TH/MM3 (1.0-4.8); MEAN CELL VOLUME 96.1 FL (80.0-100.0); MEAN CORPUSCULAR HEMOGLOBIN 31.8 PG (27.0-34.0); MEAN CORPUSCULAR HGB CONC 33.1 % (32.0-36.0); MEAN PLATELET VOLUME 7.1 FL (7.0-11.0); MONO % 4.3 % (0.0-8.0); MONOCYTE # 0.9 TH/MM3 (0-0.9); NEUT % 85.6 % (16.0-70.0); PLATELET COUNT 518 TH/MM3 (150-450); RED BLOOD COUNT 3.42 MIL/MM3 (4.50-5.90); RED CELL DISTRIBUTION WIDTH 14.2 % (11.6-17.2); WHITE BLOOD COUNT 20.3 TH/MM3 (4.0-11.0)
[2017-04-22 07:25] LABS: BICARBONATE 25.3 MEQ/L (21.0-32.0); CALCIUM 8.5 MG/DL (8.5-10.1); CREATININE 1.24 MG/DL (0.60-1.30)
[2017-04-22] MEDS: predniSONE 20 MG TAB PO SCH ×2 (09:00→09:14)
[2017-04-22] MEDS: BACITRACIN TOP OINT 15 GM TUBE TOPICAL SCH (09:00)
[2017-04-22] MEDS: guaiFENesin E.R. 600 MG TAB PO SCH ×2 (09:11→20:45)
[2017-04-22] MEDS: CITALOPRAM HYDROBROMIDE 20 MG TAB PO SCH (09:12)
[2017-04-22] MEDS: DOCUSATE SODIUM 50 MG/SENNA 8.6 MG TAB PO SCH ×2 (09:12→20:46)
[2017-04-22] MEDS: TAMSULOSIN HCL 0.4 MG CAP PO SCH (09:12)
[2017-04-22] MEDS: FUROSEMIDE 40 MG TAB PO SCH (09:12)
[2017-04-22] MEDS: CIPROFLOXACIN 500 MG TAB PO SCH ×2 (09:12→20:45)
[2017-04-22] MEDS: POTASSIUM CHLORIDE 20 MEQ CONTROLLED RELEASE TAB PO SCH (09:12)
[2017-04-22] MEDS: CALCIUM/VITAMIN D 250 MG/125 U TAB PO SCH ×3 (09:12→18:00)
[2017-04-22] MEDS: CHOLECALCIFEROL (VIT D3) 1000 UNIT TAB PO SCH (09:14)
[2017-04-22] MEDS: BUDESONIDE-FORMOTEROL 160/4.5 MCG INHALER INH SCH ×2 (09:14→20:41)
[2017-04-22] MEDS: ACETAMINOPHEN 500 MG CPLT PO PRN ×2 (09:14→14:59)
[2017-04-22] MEDS: ENOXAPARIN SODIUM 30 MG/0.3 ML SYRINGE SQ SCH (09:15)
[2017-04-22 10:02] LABS: LYMPHOCYTES 11 % (9-44); MONOCYTES 3 % (0-8); MYELOCYTES 2 % (0-0); NEUTROPHIL # MANUAL DIFF 17.1 TH/MM3 (1.8-7.7); POLYS (SEG NEUTROPHILS) 82 % (16-70)
--- NOTE | 2017-04-22 10:41 | HHI.PR ---
Subjective Remarks Follow-up UTI/encephalopathy/dyspnea with respiratory failure 04/17/17-patient seen and examined, although oriented to self however not oriented to place and date. +Short of breath however afebrile 04/18/17-patient seen and examined, transferred to [facility] [place] yesterday secondary to severe dyspnea and patient was found to be in congestive heart failure exacerbation. Treated with Lasix IV 40 mg 1. Was placed on BiPAP overnight for several hours. 04/19/17-patient seen and examined, Initially per Nurse report patient was confused, however during my exam he appears alert and oriented x 2 and answered most of my questions appropriately. Afebrile, WBC trending up. Shortness of breath improving. 04/20/17-patient seen and examined, port improvement or shortness of breath and did not use BiPAP overnight sleep. Son by the bedside and reports improvement of patient's condition 04/21/17-patient seen and examined, complains of dry cough, Shortness of breath improved 04/22/17-patient seen and examined, states he had severe coughing spells overnight however not improved. Afebrile Objective Vitals Vital Signs Date Time Temp Pulse Resp B/P (MAP) Pulse Ox O2 Delivery O2 Flow Rate FiO2 04/22/17 08:00 96.9 77 18 135/67 (89) 97 04/22/17 07:19 95 Nasal Cannula 1.00 04/22/17 04:00 97.4 83 18 124/63 (83) 97 04/22/17 04:00 79 04/22/17 00:05 90 04/21/17 23:56 98.1 88 20 128/69 (88) 98 04/21/17 20:32 Nasal Cannula 2.00 04/21/17 20:08 92 04/21/17 20:00 96.3 93 18 108/55 (72) 98 04/21/17 16:00 96.9 98 17 137/71 (93) 97 04/21/17 12:00 95.9 92 17 111/62 (78) 97 I/O 04/21/17 04/21/17 04/21/17 04/22/17 04/22/17 04/22/17 07:00 15:00 23:00 07:00 15:00 23:00 Intake Total 480 ml 420 ml 720 ml Output Total 1550 ml 1000 ml 1100 ml Balance -1070 ml -580 ml -380 ml Intake Oral 480 ml 420 ml 720 ml Output Urine Total 1550 ml 1000 ml 1100 ml # Bowel Movements 0 0 Result Diagram: 04/22/17 0600 04/22/17 0600 Imaging Last Impressions Chest X-Ray 04/21/17 0000 Signed Impressions: Service Date/Time: Friday, April 21, 2017 12:00 - CONCLUSION: 1. Stable right basilar density and elevation right hemidiaphragm. 2. Left lung remains clear. Adam Griffin MD Femur X-Ray 04/12/17 0000 Signed Impressions: Service Date/Time: March 09:58 - CONCLUSION: Images as detailed above. Domingo Salinas Jr., MD Objective Remarks GENERAL: NAD SKIN: Warm and dry. HEAD: Normocephalic. EYES: No scleral icterus. No injection or drainage. NECK: Supple, trachea midline. No JVD or lymphadenopathy. CARDIOVASCULAR: Regular rate and rhythm without murmurs, gallops, or rubs. RESPIRATORY: Breath sounds decrease bilaterally. No accessory muscle use. GASTROINTESTINAL: Abdomen soft, non-tender, nondistended. MUSCULOSKELETAL: No cyanosis, or edema. splint over Left knee-neurovascular intact BACK: Nontender without obvious deformity. No CVA tenderness. Procedures 04/12/17 ORIF left distal femur A/P Problem List: (1) Rosa-prosthetic femoral shaft fracture ICD Code: M97.8XXA - Periprosthetic fracture around other internal prosthetic joint, initial encounter; Z96.649 - Presence of unspecified artificial hip joint (2) Hypothyroidism ICD Code: E03.9 - Hypothyroidism Status: Chronic (3) BPH (benign prostatic hyperplasia) ICD Code: N40.0 - BPH (benign prostatic hyperplasia) Status: Chronic (4) Hypertension ICD Code: I10 - Hypertension Status: Chronic (5) Restless leg syndrome ICD Code: G25.81 - Restless legs syndrome Status: Chronic (6) CAD (coronary artery disease) ICD Code: I25.10 - Atherosclerotic heart disease of [place] coronary artery without angina pectoris Status: Chronic Assessment and Plan 86 year-old man with 1. Periprosthetic femoral shaft fracture: Status post ORIF. Management per orthopedic surgery. Continue pain control, avoiding narcotics. Cleared for discharge by orthopedic surgery. 2. Acute on chronic renal insufficiency-Resolved Avoid nephrotoxins. HLIV 3. Coronary artery disease: Appreciate cardiology recommendations. Echocardiogram 04/11/17 shows preserved left ventricular systolic function with an EF estimated at 55-60%. 4. Hypertension: Lisinopril on hold secondary to renal insufficiency. However may now resume lisinopril as renal function improved Clonidine as needed. 5. Hypothyroidism: Continue Synthroid. 6. Restless leg syndrome: Continue Requip. 7. DVT prophylaxis: Lovenox, SCDs, JOURDAN hose. 8. Hypotension: BP now improved. 9. Encephalopathy: Improving. Avoid narcotic pain medications as much as possible. 10. UTI-Pseudomonas Currently on Cipro by mouth twice a day 11. Urinary obstruction: Patient is reportedly scheduled for a procedure with urology as an outpatient when discharged Urinary catheter was placed in the OR. Appreciate urology recommendations. Colvin catheter to remain in place at discharge. 12. Acute diastolic Congestive heart failure Continue Lasix 40 mg PO daily Limited 2-D echo (04/19/17) with EF 55-60% 13. Respiratory failure with hypoxia-resolved s/p Solu-Medrol 20mg Q12H and continue prednisone, Mucinex, DuoNeb Maintain oxygen saturation above 92% Acapella and Incentive spirometry 14. Leukocytosis-worsening 2/2 steroid CXR stable, Blood culture negative to date Discharge Planning Likely discharge in 1 day Adam Yu MD Apr 22, 2017 10:41
[2017-04-22] MEDS: LATANOPROST 0.005% OPHT SOLN 2.5 ML BTL EACH EYE SCH (20:43)
[2017-04-22] MEDS: BENZONATATE 100 MG CAP PO PRN (20:45)
[2017-04-23] VITALS (9 sets, daily range): BP systolic 105–133; BP diastolic 61–68; PULSE 84–95; RESP 18–20; TEMP 95.7–97.2; O2SAT 94–97
[2017-04-23] MEDS: diphenhydrAMINE HCL 25 MG CAP PO PRN (00:28)
[2017-04-23] MEDS: ACETAMINOPHEN 500 MG CPLT PO PRN (02:44)
[2017-04-23] MEDS: BENZONATATE 100 MG CAP PO PRN (06:31)
[2017-04-23] MEDS: LEVOTHYROXINE SODIUM 100 MCG TAB PO SCH (06:31)
[2017-04-23 07:42] LABS: AUTOMATED NEUTROPHIL # 24.5 TH/MM3 (1.8-7.7); BASOPHIL % 0.1 % (0.0-2.0); EOSINOPHIL # 0.2 TH/MM3 (0-0.4); EOSINOPHIL % 0.7 % (0.0-4.0); HEMATOCRIT 34.6 % (39.0-51.0); HEMOGLOBIN 11.8 GM/DL (13.0-17.0); LYMPH % 5.8 % (9.0-44.0); LYMPHOCYTE # 1.6 TH/MM3 (1.0-4.8); MEAN CELL VOLUME 94.9 FL (80.0-100.0); MEAN CORPUSCULAR HEMOGLOBIN 32.2 PG (27.0-34.0); MEAN PLATELET VOLUME 7.1 FL (7.0-11.0); MONOCYTE # 1.1 TH/MM3 (0-0.9); NEUT % 89.4 % (16.0-70.0); PLATELET COUNT 560 TH/MM3 (150-450); RED BLOOD COUNT 3.65 MIL/MM3 (4.50-5.90); RED CELL DISTRIBUTION WIDTH 14.3 % (11.6-17.2); WHITE BLOOD COUNT 27.4 TH/MM3 (4.0-11.0)
[2017-04-23] MEDS: CITALOPRAM HYDROBROMIDE 20 MG TAB PO SCH (08:07)
[2017-04-23] MEDS: ENOXAPARIN SODIUM 30 MG/0.3 ML SYRINGE SQ SCH (08:07)
[2017-04-23] MEDS: CIPROFLOXACIN 500 MG TAB PO SCH ×2 (08:07→22:22)
[2017-04-23] MEDS: guaiFENesin E.R. 600 MG TAB PO SCH ×2 (08:07→22:22)
[2017-04-23] MEDS: FUROSEMIDE 40 MG TAB PO SCH (08:07)
[2017-04-23] MEDS: DOCUSATE SODIUM 50 MG/SENNA 8.6 MG TAB PO SCH ×2 (08:07→21:00)
[2017-04-23] MEDS: CHOLECALCIFEROL (VIT D3) 1000 UNIT TAB PO SCH (08:07)
[2017-04-23] MEDS: predniSONE 20 MG TAB PO SCH ×2 (08:07→08:08)
[2017-04-23] MEDS: TAMSULOSIN HCL 0.4 MG CAP PO SCH (08:08)
[2017-04-23] MEDS: POTASSIUM CHLORIDE 20 MEQ CONTROLLED RELEASE TAB PO SCH (08:08)
[2017-04-23] MEDS: BUDESONIDE-FORMOTEROL 160/4.5 MCG INHALER INH SCH ×2 (08:09→22:25)
[2017-04-23] MEDS: CALCIUM/VITAMIN D 250 MG/125 U TAB PO SCH ×3 (08:10→17:38)
[2017-04-23] MEDS: BACITRACIN TOP OINT 15 GM TUBE TOPICAL SCH (08:15)
[2017-04-23 09:02] LABS: BILIRUBIN, URINE NEG (NEG); BLOOD, URINE NEG (NEG); GLUCOSE,URINE NEG (NEG); HYALINE CAST, URINE 1 /lpf (RARE); KETONE, URINE NEG (NEG); NITRITE,URINE NEG (NEG); URINE COLOR YELLOW (YELLW/STRAW); URINE LEUKOCYTE ESTERASE SMALL (NEG)
[2017-04-23] MEDS: RESP: ALBUTEROL 2.5 MG/3 ML NEB (PRN) NEB (09:27)
[2017-04-23] MEDS ORDERED: ALUMINUM/MAGNESIUM/SIMETH 30 ML CUP PO PRN (12:15)
--- NOTE | 2017-04-23 12:24 | HHI.PR ---
Subjective Remarks Follow-up UTI/encephalopathy/dyspnea with respiratory failure 04/17/17-patient seen and examined, although oriented to self however not oriented to place and date. +Short of breath however afebrile 04/18/17-patient seen and examined, transferred to [facility] [place] yesterday secondary to severe dyspnea and patient was found to be in congestive heart failure exacerbation. Treated with Lasix IV 40 mg 1. Was placed on BiPAP overnight for several hours. 04/19/17-patient seen and examined, Initially per Nurse report patient was confused, however during my exam he appears alert and oriented x 2 and answered most of my questions appropriately. Afebrile, WBC trending up. Shortness of breath improving. 04/20/17-patient seen and examined, port improvement or shortness of breath and did not use BiPAP overnight sleep. Son by the bedside and reports improvement of patient's condition 04/21/17-patient seen and examined, complains of dry cough, Shortness of breath improved 04/22/17-patient seen and examined, states he had severe coughing spells overnight however not improved. Afebrile 04/23/17-patient seen and examined, obesity worsening however patient currently afebrile. Reports some improvement of cough Objective Vitals Vital Signs Date Time Temp Pulse Resp B/P (MAP) Pulse Ox O2 Delivery O2 Flow Rate FiO2 04/23/17 11:41 93 04/23/17 11:19 97.2 95 20 118/65 (82) 96 04/23/17 09:31 Nasal Cannula 3.00 04/23/17 08:15 Nasal Cannula 2.00 04/23/17 07:35 96.5 92 20 133/68 (89) 97 04/23/17 03:46 88 04/23/17 00:10 96.9 91 18 105/61 (76) 97 04/22/17 23:50 86 04/22/17 20:45 Nasal Cannula 2.00 04/22/17 20:10 96.8 89 18 106/56 (73) 93 04/22/17 19:54 87 04/22/17 16:21 98 Nasal Cannula 1.00 04/22/17 16:00 96.1 90 18 107/59 (75) 97 I/O 04/22/17 04/22/17 04/22/17 04/23/1718 2/5/18 07:00 15:00 23:00 07:00 15:00 23:00 Intake Total 720 ml 1080 ml 240 ml Output Total 1100 ml 700 ml 1800 ml 350 ml Balance -380 ml -700 ml -720 ml -110 ml Intake Oral 720 ml 1080 ml 240 ml Output Urine Total 1100 ml 700 ml 1800 ml 350 ml # Bowel Movements 0 1 0 Result Diagram: 04/23/17 0655 04/22/17 0600 Objective Remarks GENERAL: NAD SKIN: Warm and dry. HEAD: Normocephalic. EYES: No scleral icterus. No injection or drainage. NECK: Supple, trachea midline. No JVD or lymphadenopathy. CARDIOVASCULAR: Regular rate and rhythm without murmurs, gallops, or rubs. RESPIRATORY: Breath sounds decrease bilaterally. No accessory muscle use. GASTROINTESTINAL: Abdomen soft, non-tender, nondistended. MUSCULOSKELETAL: No cyanosis, or edema. splint over Left knee-neurovascular intact BACK: Nontender without obvious deformity. No CVA tenderness. Procedures 04/12/17 ORIF left distal femur A/P Problem List: (1) Rosa-prosthetic femoral shaft fracture ICD Code: M97.8XXA - Periprosthetic fracture around other internal prosthetic joint, initial encounter; Z96.649 - Presence of unspecified artificial hip joint (2) Hypothyroidism ICD Code: E03.9 - Hypothyroidism Status: Chronic (3) BPH (benign prostatic hyperplasia) ICD Code: N40.0 - BPH (benign prostatic hyperplasia) Status: Chronic (4) Hypertension ICD Code: I10 - Hypertension Status: Chronic (5) Restless leg syndrome ICD Code: G25.81 - Restless legs syndrome Status: Chronic (6) CAD (coronary artery disease) ICD Code: I25.10 - Atherosclerotic heart disease of [place] coronary artery without angina pectoris Status: Chronic Assessment and Plan 86 year-old man with 1. Periprosthetic femoral shaft fracture: Status post ORIF. Management per orthopedic surgery. Continue pain control, avoiding narcotics. Cleared for discharge by orthopedic surgery. 2. Acute on chronic renal insufficiency-Resolved Avoid nephrotoxins. HLIV 3. Coronary artery disease: Appreciate cardiology recommendations. Echocardiogram 04/11/17 shows preserved left ventricular systolic function with an EF estimated at 55-60%. 4. Hypertension: Lisinopril on hold secondary to renal insufficiency. However may now resume lisinopril as renal function improved Clonidine as needed. 5. Hypothyroidism: Continue Synthroid. 6. Restless leg syndrome: Continue Requip. 7. DVT prophylaxis: Lovenox, SCDs, JOURDAN rodriguez. 8. Hypotension: BP now improved. 9. Encephalopathy: Improving. Avoid narcotic pain medications as much as possible. 10. UTI-Pseudomonas Currently on Cipro by mouth twice a day 11. Urinary obstruction: Patient is reportedly scheduled for a procedure with urology as an outpatient when discharged Urinary catheter was placed in the OR. Appreciate urology recommendations. Colvin catheter to remain in place at discharge. Requesting evaluation from Urology 12. Acute diastolic Congestive heart failure Continue Lasix 40 mg PO daily Limited 2-D echo (04/19/17) with EF 55-60% 13. Respiratory failure with hypoxia-resolved s/p Solu-Medrol 20mg Q12H and continue prednisone, Mucinex, DuoNeb Maintain oxygen saturation above 92% Acapella and Incentive spirometry 14. Leukocytosis-worsening Consult infectious disease specialist CXR stable, Blood culture negative to date Repeat UA Discharge Planning Likely discharge in 1 day Adam Yu MD Apr 23, 2017 12:24
--- NOTE | 2017-04-23 14:14 | PD.ID.CON ---
History of Present Illness Service ID Consult Requested By Dr. Yu Reason for Consult Evaluation and Mment of persistent and increasing leucocytosis in patient with PSAE UTI. Primary Care Physician Brendan Valdovinos DO Diagnoses: History of Present Illness Mr. 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 He was transferred to [facility] for management by Dr. Pino, his orthopedic surgeon. The patient reports that he is a and lives at home alone. He states that he was in his usual state of health when he tripped and fell at his home. He denies syncope, LOC, or head injury with fall. He had immediate left leg pain and went to the ER. He reports pain relief with medications provided here. His PMHx is significant for BPH and he is followed by Dr. Barnett. Patient reports he was scheduled for a recent TURP but due to his fall he was unable to undergo that surgery. He does have a history of incomplete emptying with benign prostate hypertrophy with obstruction with nocturia x2. He recently had a urinary tract infection with sepsis requiring hospitalization and IV antibiotic therapy, which is the decision for him to undergo a TURP by Dr. Barnett. He failed his void trial recently and required replacement of the Colvin catheter during his admission. The details of this admission for sepsis are not known at the present time. Patient's daughter could not be reached and the daughter- in-law could not provide any details. He denies any recent fever, chills, cold or flu symptoms, nausea, vomiting, or diarrhea. Infectious disease is consulted for evaluation and management of persistent and increasing leukocytosis in patient with Pseudomonas UTI and BPH. Review of Systems ROS Limitations: Poor Historian Constitutional: DENIES: Diaphoretic episodes, Fatigue, Fever, Weight gain, Weight loss, Chills, Dizziness, Change in appetite, Night Sweats Endocrine: DENIES: Heat/cold intolerance, Polydipsia, Polyuria, Polyphagia Eyes: DENIES: Blurred vision, Diplopia, Eye inflammation, Eye pain, Vision loss , Photosensitivity, Double Vision Ears, nose, mouth, throat: DENIES: Tinnitus, Hearing loss, Vertigo, Nasal discharge, Oral lesions, Throat pain, Hoarseness, Ear Pain, Running Nose, Epistaxis, Sinus Pain, Toothache, Odynophagia Respiratory: DENIES: Apneas, Cough, Snoring, Wheezing, Hemoptysis, Sputum production, Shortness of breath Cardiovascular: DENIES: Chest pain, Palpitations, Syncope, Dyspnea on Exertion , PND, Lower Extremity Edema, Orthopnea, Claudication Gastrointestinal: DENIES: Abdominal pain, Black stools, Bloody stools, Constipation, Diarrhea, Nausea, Vomiting, Difficulty Swallowing, Anorexia Genitourinary: COMPLAINS OF: Urinary frequency, Urgency, Dysuria, DENIES: Sexual dysfunction, Urinary incontinence, Hematuria, Nocturia, Penile Discharge , Testicular Pain, Testicular Swelling Musculoskeletal: COMPLAINS OF: Joint pain, DENIES: Muscle aches, Stiffness, Joint Swelling, Back pain, Neck pain Integumentary: DENIES: Abnormal pigmentation, Nail changes, Pruritus, Rash Hematologic/lymphatic: DENIES: Bruising, Lymphadenopathy Immunologic/allergic: DENIES: Eczema, Urticaria Neurologic: DENIES: Abnormal gait, Headache, Localized weakness, Paresthesias, Seizures, Speech Problems, Tremor, Poor Balance Psychiatric: DENIES: Anxiety, Confusion, Mood changes, Depression, Hallucinations, Agitation, Suicidal Ideation, Homicidal Ideation, Delusions Except as stated in HPI: all other systems reviewed are Neg Past Family Social History Allergies: Coded Allergies: tramadol (Verified Allergy, Severe, anxiety, 04/12/17) hydrocodone (Unverified Adverse Reaction, Unknown, Irritability/Anxiety, ) morphine (Unverified Adverse Reaction, Unknown, Irritability/Anxiety, 11/01) Past Medical History Coronary artery disease Hypertension Hypothyroidism CVA with left residual weakness Spinal stenosis Chronic gait disorder BPH Past Surgical History Thoracic and cervical spine surgery Tonsillectomy Cataract surgery Reported Medications Reported Meds & Active Scripts Active Calcium 600+D 200 (Calcium Carbonate-Vitamin D) 600-200 Mg-Unit Tab 1 Tab PO BID 60 Days Vitamin D3 (Cholecalciferol) 2,000 Unit Cap 2,000 Units PO DAILY Ergocalciferol 50,000 Unit Cap 50,000 Units PO Q7D Xarelto (Rivaroxaban) 10 Mg Tab 10 Mg PO DAILY Hydrocodone-Acetaminophen 10-325 mg Tab 1 Tab PO Q4H PRN Walker with Front Wheels (Device) 1 Mis Mis 1 Ea .ROUTE DIRECTED CPM-Continuous Passive Motion Machine 1 Ea Device 1 Ea .ROUTE DIRECTED Commode 3-in-1 (Device) 1 Mis Mis 1 Ea .ROUTE DIRECTED Lovenox Inj (Enoxaparin Sodium) 40 Mg/0.4 Ml Syr 40 Mg SQ DAILY Start Plavix (per outpt dose) after Lovenox is completed. Ultram (Tramadol HCl) 50 Mg Tab 50 Mg PO Q4H PRN Ok to take 1 or 2 pills every four hours as needed for pain Reported Ropinirole 5 Mg Tab 2.5 Mg PO HS PRN Citalopram (Citalopram Hydrobromide) 10 Mg Tab 10 Mg PO DAILY Roller Walker (Misc. Devices) 1 Mis Mis 1 Ea .ROUTE NOW Levothyroxine (Levothyroxine Sodium) 100 Mcg Tab 100 Mcg PO DAILY Latanoprost Opth Drops (Latanoprost) 0.005% Drops 1 Drop EACH EYE HS Refrigerate until opened. Lisinopril 20 Mg Tab 20 Mg PO DAILY Active Ordered Medications Current Medications Medications (Trade) Dose Ordered Sig/[place] Route Start Time Stop Time Status Last Admin (Prinivil) 20 mg DAILY PO 04/12/17 09:00 Future Hold (Pill Splitter) 1 ea UNSCH PRN OTHER 04/12/17 03:00 04/15/17 23:41 (CeleXA) 10 mg DAILY PO 04/12/17 09:00 04/23/17 08:07 (Xalatan 0.005% Opth Soln) 1 drop HS EACH EYE 04/12/17 21:00 04/22/17 20:43 (Synthroid) 100 mcg DAILY@0600 PO 04/12/17 06:00 04/23/17 06:31 (Requip) 2.5 mg HS PRN PO 04/12/17 04:00 04/22/17 22:20 (Catapres) 0.1 mg Q6H PRN PO 04/12/17 04:30 (Lovenox Inj) 30 mg Q24H SQ 04/13/17 09:30 04/23/17 08:07 (Rosa-Colace) 1 tab BID PO 04/12/17 21:00 04/23/17 08:07 Miscellaneous Information UNSCH PRN XX 04/12/17 10:15 (Oscal-D 250-125) 250 mg TID PO 04/12/17 13:00 04/23/17 12:50 (Benadryl) 25 mg Q6H PRN PO 04/12/17 10:15 04/23/17 00:28 (Narcan Inj) 0.4 mg UNSCH PRN IV PUSH 04/12/17 10:15 (Vitamin D3) 1,000 units DAILY PO 04/13/17 09:00 04/23/17 08:07 (Drisdol) 50,000 units Q7D PO 04/12/17 11:00 04/19/17 11:04 (Tylenol) 500 mg Q6H PRN PO 04/12/17 10:30 04/23/17 02:44 (Milk Of Magnesia Liq) 30 ml Q12H PRN PO 04/12/17 16:45 (Senokot) 17.2 mg Q12H PRN PO 04/12/17 16:45 (Dulcolax Supp) 10 mg DAILY PRN RECTAL 04/12/17 16:45 (Lactulose Liq) 30 ml DAILY PRN PO 04/12/17 16:45 (Baciguent Oint) 1 applic DAILY TOPICAL 04/14/17 09:00 04/22/17 09:00 (Flomax) 0.4 mg DAILY PO 04/14/17 14:00 04/23/17 08:08 (Albuterol Neb) 2.5 mg Q2HR NEB PRN NEB 04/16/17 09:00 04/23/17 09:27 (Tessalon) 200 mg Q8H PRN PO 04/17/17 12:30 04/23/17 06:31 (Symbicort 160-4.5 Mcg Inh) 2 puff Q12HR INH 04/17/17 21:00 04/23/17 08:09 Miscellaneous Information Patient in critical care unit? Ass... Q361D .XX 04/17/17 20:30 04/17/17 20:30 (KCl) 20 meq DAILY PO 04/18/17 09:00 04/23/17 08:08 (Cipro) 500 mg Q12HR PO 04/19/17 21:00 04/23/17 08:07 (Deltasone) 20 mg DAILY PO 04/21/17 09:00 04/23/17 08:07 (Mucinex Er) 600 mg BID PO 04/21/17 09:00 04/23/17 08:07 (Lasix) 40 mg DAILY PO 04/22/17 09:00 04/23/17 08:07 (Deltasone) 20 mg DAILY PO 04/22/17 09:00 (Mag-Al Plus Susp Liq) 30 ml Q6H PRN PO 04/23/17 12:15 Family History Reviewed and noncontributory to age. Social History Tobacco: Quit smoking 1965 Alcohol: Denies Lives alone. Daughter lives in [place] works as a teacher. Son and Daughter in law live in [place]. Uses a walker and commode at home. Physical Exam Vital Signs Vital Signs Date Time Temp Pulse Resp B/P (MAP) Pulse Ox O2 Delivery O2 Flow Rate FiO2 04/23/17 11:41 93 04/23/17 11:19 97.2 95 20 118/65 (82) 96 04/23/17 09:31 Nasal Cannula 3.00 04/23/17 08:15 Nasal Cannula 2.00 04/23/17 07:35 96.5 92 20 133/68 (89) 97 04/23/17 03:46 88 04/23/17 00:10 96.9 91 18 105/61 (76) 97 04/22/17 23:50 86 04/22/17 20:45 Nasal Cannula 2.00 04/22/17 20:10 96.8 89 18 106/56 (73) 93 04/22/17 19:54 87 04/22/17 16:21 98 Nasal Cannula 1.00 04/22/17 16:00 96.1 90 18 107/59 (75) 97 Physical Exam GENERAL: This is a well-nourished, well-developed patient, in no apparent distress. SKIN: No rashes, ecchymoses or lesions. Cool and dry. HEAD: Atraumatic. Normocephalic. No temporal or scalp tenderness. EYES: Pupils equal round and reactive. Extraocular motions intact. No scleral icterus. No injection or drainage. ENT: Nose without bleeding, purulent drainage or septal hematoma. Throat without erythema, tonsillar hypertrophy or exudate. Uvula midline. Airway patent. NECK: Trachea midline. Supple, nontender, no meningeal signs. CARDIOVASCULAR: HS audible. RESPIRATORY: Clear to auscultation. Breath sounds equal bilaterally. No wheezes , rales, or rhonchi. GASTROINTESTINAL: Abdomen soft, non-tender, nondistended. NEUROLOGICAL: Awake and alert. Non focal exam. Limited exam due to left knee surgery. Psych cooperative IV line sites with no e.o infection Laboratory Laboratory Tests Test 04/23/17 06:55 04/23/17 08:34 White Blood Count 27.4 Red Blood Count 3.65 Hemoglobin 11.8 Hematocrit 34.6 Mean Corpuscular Volume 94.9 Mean Corpuscular Hemoglobin 32.2 Mean Corpuscular Hemoglobin Concent 34.0 Red Cell Distribution Width 14.3 Platelet Count 560 Mean Platelet Volume 7.1 Neutrophils (%) (Auto) 89.4 Lymphocytes (%) (Auto) 5.8 Monocytes (%) (Auto) 4.0 Eosinophils (%) (Auto) 0.7 Basophils (%) (Auto) 0.1 Neutrophils # (Auto) 24.5 Lymphocytes # (Auto) 1.6 Monocytes # (Auto) 1.1 Eosinophils # (Auto) 0.2 Basophils # (Auto) 0.0 CBC Comment DIFF FINAL Differential Comment Urine Color YELLOW Urine Turbidity CLEAR Urine pH 6.0 Urine Specific [place] 1.015 Urine Protein NEG Urine Glucose (UA) NEG Urine Ketones NEG Urine Occult Blood NEG Urine Nitrite NEG Urine Bilirubin NEG Urine Urobilinogen LESS THAN 2.0 Urine Leukocyte Esterase SMALL Urine RBC LESS THAN 1 Urine WBC 1 Urine Hyaline Casts 1 Microscopic Urinalysis Comment CULT NOT INDICATED Date/Time Source Procedure Growth Status 04/19/17 15:12 Blood Peripheral Aerobic Blood Culture - Preliminary NO GROWTH IN 4 DAYS Resulted 04/19/17 15:12 Blood Peripheral Anaerobic Blood Culture - Preliminary NO GROWTH IN 4 DAYS Resulted 04/13/17 03:05 Urine Clean Catch Urine Culture - Final Pseudomonas Aeruginosa Complete Result Diagram: 04/23/17 0655 04/22/17 0600 Imaging Last Impressions Chest X-Ray 04/21/17 0000 Signed Impressions: Service Date/Time: Friday, April 21, 2017 12:00 - CONCLUSION: 1. Stable right basilar density and elevation right hemidiaphragm. 2. Left lung remains clear. Adam Griffin MD Femur X-Ray 04/12/17 0000 Signed Impressions: Service Date/Time: March 09:58 - CONCLUSION: Images as detailed above. Domingo Salinas Jr., MD Assessment and Plan Assessment and Plan PSAE UTI possible on admission. Persistent high grade leucocytosis. Infection vs non infectious causes. ORIF of distal femur. CAD Recs: Continue Cipro for now. Patient had an indwelling cath at some point per patients family. At present has a condom cath. Straight cath for UA. If UA positive and reflexes to Culture will change regimen. If UA negative will look for other sources of infection or non infectious causes of leucocytosis like DVT. follow cultures follow clinically. d/w patient and daughter in law in room. Ina Hernandez MD Apr 23, 2017 14:14
--- NOTE | 2017-04-23 16:01 | RADRPT ---
EXAM DATE/TIME: 04/23/2017 14:27 [facility] COMPARISON: CHEST SINGLE AP, April 21, 2017, 12:00. INDICATIONS : Pneumonia. MEDICAL HISTORY : Hypertension. Stroke. Arthritis SURGICAL HISTORY : cervical fusion ENCOUNTER: Initial ACUITY: 4 - 6 days PAIN SCORE: 0/10 LOCATION: Bilateral chest FINDINGS: Bibasilar atelectasis and/or infiltrates are noted. The heart is stable. The pulmonary vascular patte rn is normal. CONCLUSION: Bibasilar atelectasis and/or infiltrate. Manfred Gallego MD on April 23, 2017 at 15:55 Board Certified Radiologist. This report was verified electronically.
[2017-04-23] MEDS: LATANOPROST 0.005% OPHT SOLN 2.5 ML BTL EACH EYE SCH (22:24)
[2017-04-24] VITALS (13 sets, daily range): BP systolic 99–131; BP diastolic 54–76; PULSE 81–97; RESP 18; TEMP 96.1–97.7; O2SAT 90–97
[2017-04-24] MEDS: ACETAMINOPHEN 500 MG CPLT PO PRN ×2 (04:13→19:49)
[2017-04-24] MEDS: LEVOTHYROXINE SODIUM 100 MCG TAB PO SCH (05:52)
[2017-04-24 07:54] LABS: AUTOMATED NEUTROPHIL # 17.7 TH/MM3 (1.8-7.7); BASOPHIL % 0.1 % (0.0-2.0); EOSINOPHIL # 0.2 TH/MM3 (0-0.4); HEMATOCRIT 34.1 % (39.0-51.0); HEMOGLOBIN 11.5 GM/DL (13.0-17.0); LYMPH % 7.8 % (9.0-44.0); LYMPHOCYTE # 1.6 TH/MM3 (1.0-4.8); MEAN CELL VOLUME 94.7 FL (80.0-100.0); MEAN CORPUSCULAR HEMOGLOBIN 32.1 PG (27.0-34.0); MEAN CORPUSCULAR HGB CONC 33.9 % (32.0-36.0); MEAN PLATELET VOLUME 7.3 FL (7.0-11.0); MONO % 3.9 % (0.0-8.0); MONOCYTE # 0.8 TH/MM3 (0-0.9); NEUT % 87.2 % (16.0-70.0); PLATELET COUNT 531 TH/MM3 (150-450); RED CELL DISTRIBUTION WIDTH 14.4 % (11.6-17.2); WHITE BLOOD COUNT 20.3 TH/MM3 (4.0-11.0)
[2017-04-24] MEDS: predniSONE 20 MG TAB PO SCH ×2 (09:00→09:45)
[2017-04-24] MEDS: BACITRACIN TOP OINT 15 GM TUBE TOPICAL SCH (09:00)
[2017-04-24] MEDS: BUDESONIDE-FORMOTEROL 160/4.5 MCG INHALER INH SCH ×2 (09:00→19:50)
[2017-04-24] MEDS: POTASSIUM CHLORIDE 20 MEQ CONTROLLED RELEASE TAB PO SCH (09:45)
[2017-04-24] MEDS: TAMSULOSIN HCL 0.4 MG CAP PO SCH (09:45)
[2017-04-24] MEDS: CHOLECALCIFEROL (VIT D3) 1000 UNIT TAB PO SCH (09:45)
[2017-04-24] MEDS: CALCIUM/VITAMIN D 250 MG/125 U TAB PO SCH ×3 (09:45→18:32)
[2017-04-24] MEDS: guaiFENesin E.R. 600 MG TAB PO SCH ×2 (09:46→19:49)
[2017-04-24] MEDS: FUROSEMIDE 40 MG TAB PO SCH (09:46)
[2017-04-24] MEDS: DOCUSATE SODIUM 50 MG/SENNA 8.6 MG TAB PO SCH ×2 (09:46→19:49)
[2017-04-24] MEDS: CITALOPRAM HYDROBROMIDE 20 MG TAB PO SCH (09:46)
[2017-04-24] MEDS: CIPROFLOXACIN 500 MG TAB PO SCH ×2 (09:46→19:49)
[2017-04-24] MEDS: ENOXAPARIN SODIUM 30 MG/0.3 ML SYRINGE SQ SCH (09:55)
--- NOTE | 2017-04-24 10:41 | HHI.PR ---
Subjective Remarks Follow-up UTI/encephalopathy/dyspnea with respiratory failure 04/17/17-patient seen and examined, although oriented to self however not oriented to place and date. +Short of breath however afebrile 04/18/17-patient seen and examined, transferred to [facility] yesterday secondary to severe dyspnea and patient was found to be in congestive heart failure exacerbation. Treated with Lasix IV 40 mg 1. Was placed on BiPAP overnight for several hours. 04/19/17-patient seen and examined, Initially per Nurse report patient was confused, however during my exam he appears alert and oriented x 2 and answered most of my questions appropriately. Afebrile, WBC trending up. Shortness of breath improving. 04/20/17-patient seen and examined, port improvement or shortness of breath and did not use BiPAP overnight sleep. Son by the bedside and reports improvement of patient's condition 04/21/17-patient seen and examined, complains of dry cough, Shortness of breath improved 04/22/17-patient seen and examined, states he had severe coughing spells overnight however not improved. Afebrile 04/23/17-patient seen and examined, obesity worsening however patient currently afebrile. Reports some improvement of cough 04/24/17-patient seen and examined,WBC trending down, Afebrile, UA however not straight cath but negative. Improving Heartburn. family by the bedside Objective Vitals Vital Signs Date Time Temp Pulse Resp B/P (MAP) Pulse Ox O2 Delivery O2 Flow Rate FiO2 04/24/17 08:00 97.2 81 18 112/65 (81) 97 04/24/17 05:45 97.7 90 18 115/66 (82) 97 04/24/17 00:25 96.5 90 18 131/68 (89) 94 04/24/17 00:00 84 04/23/17 22:52 97 Nasal Cannula 3.00 04/23/17 22:25 Room Air 04/23/17 20:10 96.9 91 18 117/62 (80) 94 04/23/17 19:52 84 04/23/17 15:19 95.7 89 19 125/63 (83) 97 04/23/17 11:41 93 04/23/17 11:19 97.2 95 20 118/65 (82) 96 I/O 04/23/17 04/23/17 04/23/17 04/24/17 04/24/17 04/24/17 07:00 15:00 23:00 07:00 15:00 23:00 Intake Total 240 ml 850 ml 240 ml 120 ml Output Total 350 ml 650 ml 1550 ml 450 ml Balance -110 ml 200 ml -1310 ml -330 ml Intake Oral 240 ml 850 ml 240 ml 120 ml Output Urine Total 350 ml 650 ml 1550 ml 450 ml # Bowel Movements 0 0 0 Result Diagram: 04/24/17 0714 04/22/17 0600 Imaging Last Impressions Chest X-Ray 04/23/17 0000 Signed Impressions: Service Date/Time: Sunday, April 23, 2017 14:27 - CONCLUSION: Bibasilar atelectasis and/or infiltrate. Manfred Gallego MD Femur X-Ray 04/12/17 0000 Signed Impressions: Service Date/Time: March 09:58 - CONCLUSION: Images as detailed above. Domingo Salinas Jr., MD Objective Remarks GENERAL: NAD SKIN: Warm and dry. HEAD: Normocephalic. EYES: No scleral icterus. No injection or drainage. NECK: Supple, trachea midline. No JVD or lymphadenopathy. CARDIOVASCULAR: Regular rate and rhythm without murmurs, gallops, or rubs. RESPIRATORY: Breath sounds decrease bilaterally. No accessory muscle use. GASTROINTESTINAL: Abdomen soft, non-tender, nondistended. MUSCULOSKELETAL: No cyanosis, or edema. splint over Left knee-neurovascular intact BACK: Nontender without obvious deformity. No CVA tenderness. Procedures 04/12/17 ORIF left distal femur A/P Problem List: (1) Rosa-prosthetic femoral shaft fracture ICD Code: M97.8XXA - Periprosthetic fracture around other internal prosthetic joint, initial encounter; Z96.649 - Presence of unspecified artificial hip joint (2) Hypothyroidism ICD Code: E03.9 - Hypothyroidism Status: Chronic (3) BPH (benign prostatic hyperplasia) ICD Code: N40.0 - BPH (benign prostatic hyperplasia) Status: Chronic (4) Hypertension ICD Code: I10 - Hypertension Status: Chronic (5) Restless leg syndrome ICD Code: G25.81 - Restless legs syndrome Status: Chronic (6) CAD (coronary artery disease) ICD Code: I25.10 - Atherosclerotic heart disease of [place] coronary artery without angina pectoris Status: Chronic Assessment and Plan 86 year-old man with 1. Periprosthetic femoral shaft fracture: Status post ORIF. Management per orthopedic surgery. Continue pain control, avoiding narcotics. Cleared for discharge by orthopedic surgery. 2. Acute on chronic renal insufficiency-Resolved Avoid nephrotoxins. HLIV 3. Coronary artery disease: Appreciate cardiology recommendations. Echocardiogram 04/11/17 shows preserved left ventricular systolic function with an EF estimated at 55-60%. 4. Hypertension: Lisinopril on hold secondary to renal insufficiency. However may now resume lisinopril as renal function improved Clonidine as needed. 5. Hypothyroidism: Continue Synthroid. 6. Restless leg syndrome: Continue Requip. 7. DVT prophylaxis: Lovenox, SCDs, JOURDAN hose. 8. Hypotension: BP now improved. 9. Encephalopathy: Improving. Avoid narcotic pain medications as much as possible. 10. UTI-Pseudomonas Currently on Cipro by mouth twice a day 11. Urinary obstruction: Patient is reportedly scheduled for a procedure with urology as an outpatient when discharged Urinary catheter was placed in the OR. Appreciate urology recommendations. Colvin catheter to remain in place at discharge. Requesting evaluation from Urology 12. Acute diastolic Congestive heart failure Continue Lasix 40 mg PO daily Limited 2-D echo (04/19/17) with EF 55-60% 13. Respiratory failure with hypoxia-resolved s/p Solu-Medrol 20mg Q12H and continue prednisone, Mucinex, DuoNeb Maintain oxygen saturation above 92% Acapella and Incentive spirometry 14. Leukocytosis-WBC trending down Appreciate input from Infectious disease specialist CXR stable, Blood culture negative to date Repeat UA negative Okay to discharge patient if WBC trends down to 15-18 and if patient is clinically stable, per discussion with ID specialist Discharge Planning Likely discharge in 1 day Adam Yu MD Apr 24, 2017 10:41
--- NOTE | 2017-04-24 12:19 | HHI.PR ---
Addendum to Inpatient Note Addendum Reason: Additional Documentation Additional Information d/w UA negative (was not a straight cath but still negative) WBC trending down without change of treatment. if WBC trending down ok to discharge home on no antibiotics. Otherwise clinically stable per my discussion and chart review. Will sign off please call back if any change in clinical condition or questions. Ina Hernandez MD Apr 24, 2017 12:19
--- NOTE | 2017-04-24 15:16 | HHI.PR ---
Subjective Patient symptoms today Pt seen and examined. Pt with bag catheter in place. Voiding. Now of Flomax 0.8mg QD Objective Vital Signs Vital Signs Date Time Temp Pulse Resp B/P (MAP) Pulse Ox O2 Delivery O2 Flow Rate FiO2 04/24/17 12:00 96.9 89 18 106/56 (73) 97 04/24/17 08:08 97 21 04/24/17 08:00 97.2 81 18 112/65 (81) 97 04/24/17 05:45 97.7 90 18 115/66 (82) 97 04/24/17 00:25 96.5 90 18 131/68 (89) 94 04/24/17 00:00 84 04/23/17 22:52 97 Nasal Cannula 3.00 04/23/17 22:25 Room Air 04/23/17 20:10 96.9 91 18 117/62 (80) 94 04/23/17 19:52 84 04/23/17 15:19 95.7 89 19 125/63 (83) 97 Intake & Output 04/24/17 04/24/17 07:00 19:00 Intake Total 360 ml Output Total 2000 ml Balance -1640 ml Intake Oral 360 ml Output Urine Total 2000 ml # Bowel Movements 0 Result Diagram: 04/24/17 0714 04/22/17 0600 Objective Remarks Abd:soft,nt,nd Bladder with some fullness Bag catheter in place Medications and IVs Current Medications Medications (Trade) Dose Ordered Sig/[place] Route Start Time Stop Time Status Last Admin (Prinivil) 20 mg DAILY PO 04/12/17 09:00 Future Hold (Pill Splitter) 1 ea UNSCH PRN OTHER 04/12/17 03:00 04/15/17 23:41 (CeleXA) 10 mg DAILY PO 04/12/17 09:00 04/24/17 09:46 (Xalatan 0.005% Opth Soln) 1 drop HS EACH EYE 04/12/17 21:00 04/23/17 22:24 (Synthroid) 100 mcg DAILY@0600 PO 04/12/17 06:00 04/24/17 05:52 (Requip) 2.5 mg HS PRN PO 04/12/17 04:00 04/22/17 22:20 (Catapres) 0.1 mg Q6H PRN PO 04/12/17 04:30 (Lovenox Inj) 30 mg Q24H SQ 04/13/17 09:30 04/24/17 09:55 (Rosa-Colace) 1 tab BID PO 04/12/17 21:00 04/24/17 09:46 Miscellaneous Information UNSCH PRN XX 04/12/17 10:15 (Oscal-D 250-125) 250 mg TID PO 04/12/17 13:00 04/24/17 13:18 (Benadryl) 25 mg Q6H PRN PO 04/12/17 10:15 04/23/17 00:28 (Narcan Inj) 0.4 mg UNSCH PRN IV PUSH 04/12/17 10:15 (Vitamin D3) 1,000 units DAILY PO 04/13/17 09:00 04/24/17 09:45 (Drisdol) 50,000 units Q7D PO 04/12/17 11:00 04/19/17 11:04 (Tylenol) 500 mg Q6H PRN PO 04/12/17 10:30 04/24/17 04:13 (Milk Of Magnesia Liq) 30 ml Q12H PRN PO 04/12/17 16:45 (Senokot) 17.2 mg Q12H PRN PO 04/12/17 16:45 (Dulcolax Supp) 10 mg DAILY PRN RECTAL 04/12/17 16:45 (Lactulose Liq) 30 ml DAILY PRN PO 04/12/17 16:45 (Baciguent Oint) 1 applic DAILY TOPICAL 04/14/17 09:00 04/22/17 09:00 (Albuterol Neb) 2.5 mg Q2HR NEB PRN NEB 04/16/17 09:00 04/23/17 09:27 (Tessalon) 200 mg Q8H PRN PO 04/17/17 12:30 04/23/17 06:31 (Symbicort 160-4.5 Mcg Inh) 2 puff Q12HR INH 04/17/17 21:00 04/24/17 09:00 Miscellaneous Information Patient in critical care unit? Ass... Q361D .XX 04/17/17 20:30 04/17/17 20:30 (KCl) 20 meq DAILY PO 04/18/17 09:00 2/6/18 09:45 (Cipro) 500 mg Q12HR PO 04/19/17 21:00 04/24/17 09:46 (Deltasone) 20 mg DAILY PO 04/21/17 09:00 04/24/17 09:45 (Mucinex Er) 600 mg BID PO 04/21/17 09:00 04/24/17 09:46 (Lasix) 40 mg DAILY PO 04/22/17 09:00 04/24/17 09:46 (Deltasone) 20 mg DAILY PO 04/22/17 09:00 (Mag-Al Plus Susp Liq) 30 ml Q6H PRN PO 04/23/17 12:15 04/23/17 17:38 (Flomax) 0.8 mg DAILY PO 04/24/17 09:00 04/24/17 09:45 Assessment and Plan Assessment and Plan 86 y.o s/p leg fracture with repair with AUR Continue bag catheter Flomax 0.8mg QD John Lane DO Apr 24, 2017 15:16
[2017-04-24] MEDS: LATANOPROST 0.005% OPHT SOLN 2.5 ML BTL EACH EYE SCH (19:50)
[2017-04-24] MEDS: RESP: ALBUTEROL 2.5 MG/3 ML NEB (PRN) NEB (20:28)
[2017-04-25 01:10] VITALS: BP 113/62; PULSE 86; RESP 18; TEMP 97.1; O2SAT 98
[2017-04-25 04:40] VITALS: BP 132/67; PULSE 90; RESP 18; TEMP 96.7; O2SAT 96
[2017-04-25 05:36] LABS: AUTOMATED NEUTROPHIL # 14.7 TH/MM3 (1.8-7.7); BASOPHIL # 0.1 TH/MM3 (0-0.2); BASOPHIL % 0.3 % (0.0-2.0); EOSINOPHIL # 0.1 TH/MM3 (0-0.4); EOSINOPHIL % 0.4 % (0.0-4.0); HEMATOCRIT 36.5 % (39.0-51.0); HEMOGLOBIN 12.2 GM/DL (13.0-17.0); LYMPH % 9.9 % (9.0-44.0); LYMPHOCYTE # 1.7 TH/MM3 (1.0-4.8); MEAN CELL VOLUME 95.6 FL (80.0-100.0); MEAN CORPUSCULAR HEMOGLOBIN 31.9 PG (27.0-34.0); MEAN CORPUSCULAR HGB CONC 33.4 % (32.0-36.0); MEAN PLATELET VOLUME 7.4 FL (7.0-11.0); MONO % 5.4 % (0.0-8.0); PLATELET COUNT 501 TH/MM3 (150-450); RED BLOOD COUNT 3.82 MIL/MM3 (4.50-5.90); RED CELL DISTRIBUTION WIDTH 14.6 % (11.6-17.2); WHITE BLOOD COUNT 17.5 TH/MM3 (4.0-11.0)
[2017-04-25] MEDS: LEVOTHYROXINE SODIUM 100 MCG TAB PO SCH (05:41)
[2017-04-25 06:05] LABS: BICARBONATE 24.5 MEQ/L (21.0-32.0); CALCIUM 9.4 MG/DL (8.5-10.1); CREATININE 1.34 MG/DL (0.60-1.30)
[2017-04-25] MEDS: ACETAMINOPHEN 500 MG CPLT PO PRN ×2 (07:22→13:16)
[2017-04-25 08:00] VITALS: BP 109/62; PULSE 77; PULSE 80; RESP 19; TEMP 96.8; O2SAT 100
[2017-04-25] MEDS: DOCUSATE SODIUM 50 MG/SENNA 8.6 MG TAB PO SCH (08:50)
[2017-04-25] MEDS: TAMSULOSIN HCL 0.4 MG CAP PO SCH (08:50)
[2017-04-25] MEDS: CITALOPRAM HYDROBROMIDE 20 MG TAB PO SCH (08:50)
[2017-04-25] MEDS: CALCIUM/VITAMIN D 250 MG/125 U TAB PO SCH ×2 (08:50→13:16)
[2017-04-25] MEDS: guaiFENesin E.R. 600 MG TAB PO SCH (08:50)
[2017-04-25] MEDS: FUROSEMIDE 40 MG TAB PO SCH (08:51)
[2017-04-25] MEDS: ENOXAPARIN SODIUM 30 MG/0.3 ML SYRINGE SQ SCH (08:51)
[2017-04-25] MEDS: POTASSIUM CHLORIDE 20 MEQ CONTROLLED RELEASE TAB PO SCH (08:51)
[2017-04-25] MEDS: CIPROFLOXACIN 500 MG TAB PO SCH (08:51)
[2017-04-25] MEDS: CHOLECALCIFEROL (VIT D3) 1000 UNIT TAB PO SCH (08:51)
[2017-04-25] MEDS: BUDESONIDE-FORMOTEROL 160/4.5 MCG INHALER INH SCH (08:52)
[2017-04-25] MEDS: BACITRACIN TOP OINT 15 GM TUBE TOPICAL SCH (09:00)
[2017-04-25] MEDS: predniSONE 20 MG TAB PO SCH ×2 (09:00→10:17)
--- NOTE | 2017-04-25 09:38 | RADRPT ---
EXAM DATE/TIME: 04/25/2017 09:16 [facility] COMPARISON: KNEE LEFT LTD (1 OR 2VWS), May 10, 2016, 11:45. INDICATIONS : Post op left knee surgery. MEDICAL HISTORY : Osteoarthritis. SURGICAL HISTORY : orif left femur ENCOUNTER: Subsequent ACUITY: 1 month PAIN SCORE: 1/10 LOCATION: Left knee FINDINGS: A left knee arthroplasty is present in satisfactory position. There is a fracture of the distal left femur with a sideplate present. The alignment is anatomic. CONCLUSION: Postsurgical changes as above. Jeovanny Deras MD on April 25, 2017 at 9:35 Board Certified Radiologist. This report was verified electronically.
--- NOTE | 2017-04-25 11:10 | HHI.PR ---
Subjective Remarks in no acute distress. pain is fairly controlled. no fever. d/w the RN and no acute issues over night. Objective Vitals Vital Signs Date Time Temp Pulse Resp B/P (MAP) Pulse Ox O2 Delivery O2 Flow Rate FiO2 04/25/17 09:11 2.00 04/25/17 08:00 96.8 80 19 109/62 (78) 100 04/25/17 04:40 96.7 90 18 132/67 (88) 96 04/25/17 01:10 97.1 86 18 113/62 (79) 98 04/24/17 22:34 88 04/24/17 21:30 Nasal Cannula 2.00 04/24/17 20:30 93 Nasal Cannula 2.00 04/24/17 19:55 Room Air 2.00 04/24/17 19:40 96.6 97 18 99/54 (69) 96 04/24/17 18:49 87 04/24/17 17:03 90 Nasal Cannula 2.00 04/24/17 16:00 96.1 87 18 131/76 (94) 96 04/24/17 12:00 96.9 89 18 106/56 (73) 97 I/O 04/24/17 04/24/17 04/24/17 04/25/17 04/25/17 04/25/17 07:00 15:00 23:00 07:00 15:00 23:00 Intake Total 120 ml 840 ml 240 ml Output Total 450 ml 2750 ml Balance -330 ml -1910 ml 240 ml Intake Oral 120 ml 840 ml 240 ml Output Urine Total 450 ml 2750 ml # Voids 2 # Bowel Movements 0 0 0 Result Diagram: 04/25/17 0515 04/25/17 0515 Imaging Last Impressions Knee X-Ray 04/25/17 0000 Signed Impressions: Service Date/Time: Tuesday, April 25, 2017 09:16 - CONCLUSION: Postsurgical changes as above. Jeovanny Deras MD Chest X-Ray 04/23/17 0000 Signed Impressions: Service Date/Time: Sunday, April 23, 2017 14:27 - CONCLUSION: Bibasilar atelectasis and/or infiltrate. Manfred Gallego MD Femur X-Ray 04/12/17 0000 Signed Impressions: Service Date/Time: March 09:58 - CONCLUSION: Images as detailed above. Domingo Salinas Jr., MD Objective Remarks GENERAL: This is a well-nourished, well-developed patient, in no apparent distress. CARDIOVASCULAR: Regular rate and regular rhythm without murmurs, gallops, or rubs. RESPIRATORY: Clear to auscultation. Breath sounds equal bilaterally. No wheezes , rales, or rhonchi. GASTROINTESTINAL: Abdomen soft, non-tender, nondistended. Normal, active bowel sounds MUSCULOSKELETAL: left lower extremity covered with clean dressing. NEURO: Alert & Oriented x4 to person, place, time, situation. Moves all ext x4 Procedures 04/12/17 ORIF left distal femur Medications and IVs Inpatient Medications Acetaminophen (Tylenol) 500 mg Q6H PRN PO PAIN SCALE 1 TO 10 Last administered on 04/25/17 07:22; Start 04/12/17 at 10:30 Al Hydrox/Mg Hydrox/Simethicone (Mag-Al Plus Susp Liq) 30 ml Q6H PRN PO DYSPEPSIA OR HEARTBURN Last administered on 04/23/17 17:38; Start 04/23/17 at 12: 15 Albuterol Sulfate (Albuterol Neb) 2.5 mg Q2HR NEB PRN NEB DYSPNEA Last administered on 04/24/17 20:28; Start 04/16/17 at 09:00 Albuterol/ Ipratropium (Duoneb Neb) 1 ampule Q4HR WHILE AWAKE NEB NEB Last administered on 04/21/17 15:43; Start 04/17/17 at 16:45; Stop 04/21/17 at 16:44; Status DC Bacitracin (Baciguent Oint) 1 applic DAILY TOPICAL Last administered on 09:00; Start 04/14/17 at 09:00 Benzonatate (Tessalon) 200 mg Q8H PRN PO COUGH Last administered on 04/23/17 06 :31; Start 04/17/17 at 12:30 Bisacodyl (Dulcolax Supp) 10 mg DAILY PRN RECTAL SEVERE CONSITIPATION; Start at 16:45 Budesonide/ Formoterol Fumarate (Symbicort 160-4.5 Mcg Inh) 2 puff Q12HR INH Last administered on 04/25/17 08:52; Start 04/17/17 at 21:00 Calcium/Vitamin D (Oscal-D 250-125) 250 mg TID PO Last administered on 08:50; Start 04/12/17 at 13:00 Cefazolin Sodium/ Dextrose 50 ml @ 100 mls/hr Q8H IV Last administered on 04/14at 08:46; Start 04/12/17 at 17:00; Stop 04/14/17 at 09:29; Status DC Chlorhexidine Gluconate (Chlorhexidine 2% Cloth) 3 pack UNSCH PRN TOPICAL HYGIENIC CARE; Start 04/17/17 at 20:30; Stop 04/22/17 at 20:28; Status DC Cholecalciferol (Vitamin D3) 1,000 units DAILY PO Last administered on 08:51; Start 04/13/17 at 09:00 Ciprofloxacin (Cipro) 500 mg Q12HR PO Last administered on 04/25/17 08:51; Start 04/19/17 at 21:00 Ciprofloxacin/ Dextrose 200 ml @ 200 mls/hr Q12H IV Last administered on 08:27; Start 04/14/17 at 08:00; Stop 04/15/17 at 09:58; Status DC Citalopram Hydrobromide (CeleXA) 10 mg DAILY PO Last administered on 04/25/17 08:50; Start 04/12/17 at 09:00 Clonidine (Catapres) 0.1 mg Q6H PRN PO BP > 160/100 if HR > 60; Start 04/12/17 at 04:30 Diphenhydramine HCl (Benadryl) 25 mg Q6H PRN PO ITCHING Last administered on 00:28; Start 04/12/17 at 10:15 Enoxaparin Sodium (Lovenox Inj) 30 mg Q24H SQ Last administered on 04/25/17 08: 51; Start 04/13/17 at 09:30 Ergocalciferol (Drisdol) 50,000 units Q7D PO Last administered on 04/19/17at 11: 04; Start 04/12/17 at 11:00 Furosemide (Lasix Inj) 40 mg BID@09,18 IV PUSH Last administered on 04/21/17at 09 :12; Start 04/18/17 at 09:00; Stop 04/21/17 at 10:50; Status DC Furosemide (Lasix) 40 mg DAILY PO Last administered on 04/25/17at 08:51; Start at 09:00 Guaifenesin (Mucinex Er) 600 mg BID PO Last administered on 04/25/17at 08:50; Start 04/21/17 at 09:00 Hydromorphone HCl (Dilaudid Pf Inj) 0.5 mg Q3H PRN IV BREAKTHROUGH PAIN Last administered on 04/14/17at 00:08; Start 04/12/17 at 11:15; Stop 04/14/17 at 10:30 ; Status DC Insulin Human Regular (NovoLIN R INJ) See Protocol Table ... AREA SAFETY MANAGER PRN SQ SEE PROTOCOL TABLE; Start 04/11/17 at 03:00; Stop 04/14/17 at 02:59; Status DC Lactated Ringer's 1,000 ml @ 80 mls/hr [id number] IV Last administered on at 21:10; Start 04/12/17 at 10:13; Stop 04/13/17 at 10:02; Status DC Lactulose (Lactulose Liq) 30 ml DAILY PRN PO SEVERE CONSITIPATION; Start at 16:45 Latanoprost (Xalatan 0.005% Opth Soln) 1 drop HS EACH EYE Last administered on 04/24/17at 19:50; Start 04/12/17 at 21:00 Levothyroxine Sodium (Synthroid) 100 mcg DAILY@0600 PO Last administered on 04/25at 05:41; Start 04/12/17 at 06:00 Lisinopril (Prinivil) 20 mg DAILY PO ; Start 04/12/17 at 09:00; Status Future Hold Lorazepam (Ativan Inj) 0.5 mg ONCE ONCE IV PUSH Last administered on at 01:34; Start 04/17/17 at 01:30; Stop 04/17/17 at 01:31; Status DC Magnesium Hydroxide (Milk Of Magnesia Liq) 30 ml Q12H PRN PO Mild constipation ; Start 04/12/17 at 16:45 Methylprednisolone Sodium Succinate (SoluMEDROL INJ) 20 mg Q12H IV PUSH Last administered on 04/20/17at 17:00; Start 04/19/17 at 17:00; Stop 04/20/17 at 23:00; Status DC Metoprolol Tartrate (Lopressor) 25 mg ONCE ONCE PO Last administered on at 04:47; Start 04/17/17 at 04:00; Stop 04/17/17 at 04:01; Status DC Miscellaneous (Pill Splitter) 1 ea UNSCH PRN OTHER SEE LABEL COMMENTS Last administered on 04/15/17at 23:41; Start 04/12/17 at 03:00 Miscellaneous Information Patient in critical care unit? Ass... [id number] .[id number] Last administered on 04/17/17at 20:30; Start 04/17/17 at 20:30 Miscellaneous Information (Post-op Orders (for Pharmacy)) STAT ONCE XX ; Start 04/12/17 at 10:15; Stop 04/12/17 at 10:56; Status DC Morphine Sulfate (Morphine Inj) 2 mg Q4H PRN IV PUSH PAIN; Start 04/11/17 at 02 :45; Stop 04/11/17 at 06:53; Status DC Naloxone HCl (Narcan Inj) 0.4 mg UNSCH PRN IV PUSH RESPIRATORY RATE LESS THAN 10; Start 04/12/17 at 10:15 Potassium Chloride (KCl) 60 meq ONCE ONCE PO Last administered on 04/19/17at 13: 19; Start 04/19/17 at 13:00; Stop 04/19/17 at 13:01; Status DC Povidone Iodine (Betadine 5% Antisepsis Kit) 1 applic AREA SAFETY MANAGER PRN EACH NARE SEE LABEL COMMENTS; Start 04/12/17 at 08:15; Stop 04/15/17 at 08:14; Status DC Prednisone (Deltasone) 20 mg DAILY PO ; Start 04/22/17 at 09:00 Ropinirole HCl (Requip) 2.5 mg HS PRN PO RESTLESSNESS Last administered on at 22:20; Start 04/12/17 at 04:00 Senna/Docusate Sodium (Rosa-Colace) 1 tab BID PO Last administered on 04/25/17at 08:50; Start 04/12/17 at 21:00 Sennosides (Senokot) 17.2 mg Q12H PRN PO Moderate constipation; Start 04/12/17 at 16:45 Sodium Chloride 1,000 ml @ 70 mls/hr [id number] IV Last administered on at 01:25; Start 04/13/17 at 10:00; Stop 04/17/17 at 12:33; Status DC Tamsulosin HCl (Flomax) 0.8 mg DAILY PO Last administered on 04/25/17at 08:50; Start 04/24/17 at 09:00 Tramadol HCl (Ultram) 50 mg Q6H PRN PO PAIN 1-10 Last administered on at 01:13; Start 04/11/17 at 07:00; Stop 04/12/17 at 10:26; Status DC Vancomycin HCl 1000 mg/Sodium Chloride 250 ml @ 250 mls/hr Q12H IV Last administered on 04/13/17at 21:49; Start 04/12/17 at 21:00; Stop 04/13/17 at 21:59 ; Status DC A/P Problem List: (1) Rosa-prosthetic femoral shaft fracture ICD Code: M97.8XXA - Periprosthetic fracture around other internal prosthetic joint, initial encounter; Z96.649 - Presence of unspecified artificial hip joint (2) Hypothyroidism ICD Code: E03.9 - Hypothyroidism Status: Chronic (3) BPH (benign prostatic hyperplasia) ICD Code: N40.0 - BPH (benign prostatic hyperplasia) Status: Chronic (4) Hypertension ICD Code: I10 - Hypertension Status: Chronic (5) Restless leg syndrome ICD Code: G25.81 - Restless legs syndrome Status: Chronic (6) CAD (coronary artery disease) ICD Code: I25.10 - Atherosclerotic heart disease of [place] coronary artery without angina pectoris Status: Chronic Assessment and Plan 1. Periprosthetic femoral shaft fracture: Status post ORIF. Management per orthopedic surgery. Continue pain control, avoiding narcotics. Cleared for discharge by orthopedic surgery. 2. Acute on chronic renal insufficiency-Resolved Avoid nephrotoxins. HLIV 3. Coronary artery disease: Appreciate cardiology recommendations. Echocardiogram 04/11/17 shows preserved left ventricular systolic function with an EF estimated at 55-60%. 4. Hypertension: Lisinopril on hold secondary to renal insufficiency. However may now resume lisinopril as renal function improved Clonidine as needed. 5. Hypothyroidism: Continue Synthroid. 6. Restless leg syndrome: Continue Requip. 7. DVT prophylaxis: Lovenox, SCDs, JOURDAN rodriguez. 8. Hypotension: BP now improved. 9. Encephalopathy: Improving. Avoid narcotic pain medications as much as possible. 10. UTI-Pseudomonas treated with Cipro. 11. Urinary obstruction: Patient is reportedly scheduled for a procedure with urology as an outpatient when discharged Urinary catheter was placed in the OR. Appreciate urology recommendations. Colvin catheter to remain in place at discharge. 12. Acute diastolic Congestive heart failure Continue Lasix 40 mg PO daily Limited 2-D echo (04/19/17) with EF 55-60% 13. Respiratory failure with hypoxia-resolved s/p Solu-Medrol 20mg Q12H and continue prednisone, Mucinex, DuoNeb Maintain oxygen saturation above 92% Acapella and Incentive spirometry 14. Leukocytosis-WBC trending down Appreciate input from Infectious disease specialist CXR stable, Blood culture negative to date Repeat UA negative Discharge Planning dc to SNF today. f/u; pcp and ortho. see med list. d/w the patient and RN. time spent 35 min. Alan Choi MD Apr 25, 2017 11:09
--- NOTE | 2017-04-25 11:11 | HHI.DS ---
Discharge Summary Admission Date Apr 11, 2017 at 02:25 Discharge Date: Apr 25, 2017 Admitting Diagnosis periprosthetic femoral shaft fracture (1) Rosa-prosthetic femoral shaft fracture ICD Code: M97.8XXA - Periprosthetic fracture around other internal prosthetic joint, initial encounter; Z96.649 - Presence of unspecified artificial hip joint Diagnosis: Principal (2) Hypothyroidism ICD Code: E03.9 - Hypothyroidism Diagnosis: Secondary Status: Chronic (3) BPH (benign prostatic hyperplasia) ICD Code: N40.0 - BPH (benign prostatic hyperplasia) Diagnosis: Secondary Status: Chronic (4) Hypertension ICD Code: I10 - Hypertension Diagnosis: Secondary Status: Chronic (5) Restless leg syndrome ICD Code: G25.81 - Restless legs syndrome Diagnosis: Secondary Status: Chronic (6) CAD (coronary artery disease) ICD Code: I25.10 - Atherosclerotic heart disease of [place] coronary artery without angina pectoris Diagnosis: Secondary Status: Chronic Procedures 04/12/17 ORIF left distal femur Brief History - From Admission Mr. 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 for evaluation of left leg pain following a fall at home on 02/08/18. He was transferred to [facility] for management by Dr. Pino, his orthopedic surgeon. [facility] were consulted to manage the patient's medical problems and we were notified of the consultation at 3 a.m. on 04/12. The patient is to have ORIF in a.m. with Dr. Bowen. The patient is seen in his room. He is fixated on his need to urinate and says he cannot use the urinal. He attempts to get out of bed several times during my visit and requires multiple reminders about his fractured leg and need for bedrest. He is able to recall some of his medical history but denies any history of cardiac disease. According to Dr. Boswell's consultation note, he had a cardiac catheterization last year at [facility] and has a 65% stenosis requiring medical management and no coronary intervention was deemed necessary at the time of the catheterization. The patient reports that he is a and lives at home alone. He states that he was in his usual state of health when he tripped and fell at his home. He denies syncope, LOC, or head injury with fall. He had immediate left leg pain and went to the ER. He reports pain relief with medications provided here. Review of records suggest BPH and I have discussed with the charge nurse that he may need bladder scan. I suspect he may have some urinary retention given his perseveration with urge to urinate at the time of my visit. He denies any recent fever, chills, cold or flu symptoms, nausea, vomiting, or diarrhea. CBC/BMP: 04/25/17 0515 04/25/17 0515 Significant Findings Laboratory Tests Test 04/23/17 06:55 04/23/17 08:34 04/24/17 07:14 04/25/17 05:15 White Blood Count 27.4 TH/MM3 (4.0-11.0) 20.3 TH/MM3 (4.0-11.0) 17.5 TH/MM3 (4.0-11.0) Red Blood Count 3.65 MIL/MM3 (4.50-5.90) 3.60 MIL/MM3 (4.50-5.90) 3.82 MIL/MM3 (4.50-5.90) Hemoglobin 11.8 GM/DL (13.0-17.0) 11.5 GM/DL (13.0-17.0) 12.2 GM/DL (13.0-17.0) Hematocrit 34.6 % (39.0-51.0) 34.1 % (39.0-51.0) 36.5 % (39.0-51.0) Platelet Count 560 TH/MM3 (150-450) 531 TH/MM3 (150-450) 501 TH/MM3 (150-450) Neutrophils (%) (Auto) 89.4 % (16.0-70.0) 87.2 % (16.0-70.0) 84.0 % (16.0-70.0) Lymphocytes (%) (Auto) 5.8 % (9.0-44.0) 7.8 % (9.0-44.0) Neutrophils # (Auto) 24.5 TH/MM3 (1.8-7.7) 17.7 TH/MM3 (1.8-7.7) 14.7 TH/MM3 (1.8-7.7) Monocytes # (Auto) 1.1 TH/MM3 (0-0.9) 1.0 TH/MM3 (0-0.9) Urine Leukocyte Esterase SMALL (NEG) Blood Urea Nitrogen 50 MG/DL (7-18) Creatinine 1.34 MG/DL (0.60-1.30) Sodium Level 135 MEQ/L (136-145) Estimat Glomerular Filtration Rate 50 ML/MIN (>89) PE at Discharge GENERAL: This is a well-nourished, well-developed patient, in no apparent distress. CARDIOVASCULAR: Regular rate and regular rhythm without murmurs, gallops, or rubs. RESPIRATORY: Clear to auscultation. Breath sounds equal bilaterally. No wheezes , rales, or rhonchi. GASTROINTESTINAL: Abdomen soft, non-tender, nondistended. Normal, active bowel sounds MUSCULOSKELETAL: left lower extremity covered with clean dressing. NEURO: Alert & Oriented x4 to person, place, time, situation. Moves all ext x4 Hospital Course 1. Periprosthetic femoral shaft fracture: Status post ORIF. Management per orthopedic surgery. Continue pain control, avoiding narcotics. Cleared for discharge by orthopedic surgery. 2. Acute on chronic renal insufficiency-Resolved Avoid nephrotoxins. HLIV 3. Coronary artery disease: Appreciate cardiology recommendations. Echocardiogram 04/11/17 shows preserved left ventricular systolic function with an EF estimated at 55-60%. 4. Hypertension: Lisinopril on hold secondary to renal insufficiency. However may now resume lisinopril as renal function improved Clonidine as needed. 5. Hypothyroidism: Continue Synthroid. 6. Restless leg syndrome: Continue Requip. 7. DVT prophylaxis: Lovenox, SCDs, JOURDAN karye. 8. Hypotension: BP now improved. 9. Encephalopathy: Improving. Avoid narcotic pain medications as much as possible. 10. UTI-Pseudomonas treated with Cipro. 11. Urinary obstruction: Patient is reportedly scheduled for a procedure with urology as an outpatient when discharged Urinary catheter was placed in the OR. Appreciate urology recommendations. Colvin catheter to remain in place at discharge. 12. Acute diastolic Congestive heart failure Continue Lasix 40 mg PO daily Limited 2-D echo (04/19/17) with EF 55-60% 13. Respiratory failure with hypoxia-resolved s/p Solu-Medrol 20mg Q12H and continue prednisone, Mucinex, DuoNeb Maintain oxygen saturation above 92% Acapella and Incentive spirometry 14. Leukocytosis-WBC trending down Appreciate input from Infectious disease specialist CXR stable, Blood culture negative to date Repeat UA negative Pt Condition on Discharge: Fair Discharge Disposition: Discharge to SNF Discharge Time: > 30 minutes Discharge Instructions DIET: Follow Instructions for: As Tolerated, No Restrictions Activities you can perform: Non Weight Bearing Alan Choi MD Apr 25, 2017 11:11
[2017-04-25] MEDS ORDERED: PRED5TAB PO (11:17)
[2017-04-25 11:46] VITALS: BP 107/58; PULSE 61; RESP 18; TEMP 96.6; O2SAT 97
== END 2017-04-25 16:09 | DRG 480 ==
LOC: N06B 02:25 → N06A 04-14 18:28 → HIME 04-17 19:40 → N06A 04-20 17:14
PROVIDERS: ADMIT Hospitalist; ATTEND Hospitalist
PROC: 0QSC04Z Reposition Left Lower Femur with Internal Fixation Device, Open Approach (ICD-10-PCS; principal; 2017-04-12 08:31)
PROC: 5A09357 Assistance with Respiratory Ventilation, Less than 24 Consecutive Hours, Continuous Positive Airway Pressure (ICD-10-PCS; 2017-04-18)
DX: S72.402A Unspecified fracture of lower end of left femur, initial encounter for closed fracture (principal); I50.31 Acute diastolic (congestive) heart failure; J96.91 Respiratory failure, unspecified with hypoxia; G93.40 Encephalopathy, unspecified; I69.354 Hemiplegia and hemiparesis following cerebral infarction affecting left non-dominant side; N13.8 Other obstructive and reflux uropathy; I13.0 Hypertensive heart and chronic kidney disease with heart failure and stage 1 through stage 4 chronic kidney disease, or unspecified chronic kidney disease; I45.2 Bifascicular block; N39.0 Urinary tract infection, site not specified; I47.2 Ventricular tachycardia; E87.3 Alkalosis; I25.10 Atherosclerotic heart disease of native coronary artery without angina pectoris; Z96.652 Presence of left artificial knee joint; Y93.9 Activity, unspecified; Y92.9 Unspecified place or not applicable; N18.9 Chronic kidney disease, unspecified; M19.90 Unspecified osteoarthritis, unspecified site; W01.0XXA Fall on same level from slipping, tripping and stumbling without subsequent striking against object, initial encounter; Y92.009 Unspecified place in unspecified non-institutional (private) residence as the place of occurrence of the external cause; Z87.891 Personal history of nicotine dependence; N40.1 Benign prostatic hyperplasia with lower urinary tract symptoms; M48.00 Spinal stenosis, site unspecified; E03.9 Hypothyroidism, unspecified; G25.81 Restless legs syndrome; R26.9 Unspecified abnormalities of gait and mobility; I44.0 Atrioventricular block, first degree; I07.1 Rheumatic tricuspid insufficiency; B96.5 Pseudomonas (aeruginosa) (mallei) (pseudomallei) as the cause of diseases classified elsewhere
CPT/HCPCS: 36600; 71045; 73552; 73560; 76000; 80048; 80053; 81001; 82140; 82652; 82805; 83880; 84484; 85007; 85025; 85027; 85379; 85610; 85730; 86850; 86900; 86901; 87040; 87077; 87086; 87186; 87641; 93005; 93306; 93308; 94002; 94003; 94150; 94640; 94664; 94667; 94668; C1713; J0330; J0690; J0744; J1170; J1580; J1650; J1940; J2060; J2175; J2370; J2405; J2920; J3010; J3370; J7030; J7050; J7120; J7512; J7613; L1830

== ENCOUNTER 2017-06-30 18:25 | Inpatient (IN) | payer MEDICARE ==
[2017-06-30] VITALS (7 sets, daily range): BP systolic 111–120; BP diastolic 59–85; PULSE 79–99; RESP 16–19; TEMP 97.6–97.9; O2SAT 96–99
[~2017-06-30] VITALS: Ht 170.2 cm; Wt 67.8 kg
[~2017-06-30 18:25] MED LIST changes: +CALCTAB19 PO; -ENOX40P SQ; +HYDR-3583 PO; +PRED5TAB PO; +TAMS5CAP PO; -TRAM50 PO; +VITA2000 PO; +WALKER/ADULT/FO1 MIS; +WHEEMIS3; +XARE10TA PO
--- NOTE | 2017-06-30 18:53 | PD ---
HPI Chief Complaint: Abnormal Results Time Seen by Provider: 18:50 Travel History International Travel<30 days: No Contact w/Intl Traveler<30days: No Traveled to known affect area: No History of Present Illness HPI 86-year-old male with PMH of femur fracture, currently living in an [facility] presents to the ED for evaluation of abnormal result. According to the patient he has an unresolved cough for "about 3 weeks." Cough is nonproductive. Patient denies fever, chills, chest pain, palpitations, nausea, vomiting, abdominal pain, changes in bowel habits, dysuria, lower extremity edema. Patient's primary care, Dr. Goodwin, called the ED to have the patient admitted for CHF exacerbation. The patient had positive d-dimer on outpatient studies, on Xarelto. Patient is 100% non weight bearing 2/2 recent femur fracture, followed by Dr. Bowen. 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) Diabetes: No Endocrine: Yes Gastrointestinal Disorders: Yes GERD: Yes Genitourinary: Yes (BPH) Hepatitis: No Hiatal Hernia: No Hypertension: Yes Immune Disorder: No Kidney Stones: No Musculoskeletal: Yes (ARTHRITIS, STENOSIS, LEFT KNEE PAIN) Neurologic: Yes (STROKE, NUMBNESS TOES, FINGERS/ KNEES 2013 (r)) Psychiatric: No Reproductive: No Respiratory: No Immunizations Current: Yes Migraines: Yes Renal Failure: No Seizures: No Thyroid Disease: Yes (HYPOTHYROIDISM) Ulcer: No ?: Not Past Surgical History Abdominal Surgery: No AICD: No Body Medical Devices: CERVICAL HARDWARE Cardiac Surgery: Yes (CARDIAC CATH) Ear Surgery: No Endocrine Surgery: No Eye Surgery: Yes (CATARACTS REMOVED) Genitourinary Surgery: No Gynecologic Surgery: No Joint Replacement: No Neurologic Surgery: Yes (CERVICAL FUSION;BACK FUSION) Oral Surgery: Yes (TONSILLECTOMY) Pacemaker: No Thoracic Surgery: No Tonsillectomy: Yes Other Surgery: Yes Social History Alcohol Use: No Tobacco Use: No Substance Use: No Allergies-Medications (Allergen,Severity, Reaction): Coded Allergies: tramadol (Verified Allergy, Severe, anxiety, 06/30/17) hydrocodone (Verified Adverse Reaction, Unknown, Irritability/Anxiety, ) morphine (Verified Adverse Reaction, Unknown, Irritability/Anxiety, ) Reported Meds & Prescriptions Reported Meds & Active Scripts Active Flomax (Tamsulosin HCl) 0.4 Mg Cap 0.8 Mg PO HS Start date 04/23/17 Calcium 600+D 200 (Calcium Carbonate-Vitamin D) 600-200 Mg-Unit Tab 1 Tab PO BID 60 Days Vitamin D3 (Cholecalciferol) 2,000 Unit Cap 2,000 Units PO DAILY Xarelto (Rivaroxaban) 10 Mg Tab 10 Mg PO DAILY Hydrocodone-Acetaminophen 10-325 mg Tab 1 Tab PO Q4H PRN Commode 3-in-1 (Device) 1 Mis Mis 1 Ea .ROUTE DIRECTED Reported Ropinirole 5 Mg Tab 2.5 Mg PO HS PRN Citalopram (Citalopram Hydrobromide) 10 Mg Tab 10 Mg PO DAILY Levothyroxine (Levothyroxine Sodium) 100 Mcg Tab 100 Mcg PO DAILY Latanoprost Opth Drops (Latanoprost) 0.005% Drops 1 Drop EACH EYE HS Refrigerate until opened. Lisinopril 20 Mg Tab 20 Mg PO DAILY Review of Systems Except as stated in HPI: all other systems reviewed are Neg Physical Exam Narrative GENERAL: Well-nourished, well-developed pleasant white male in no acute distress. SKIN: Focused skin assessment warm/dry. Moist, blanchable, excoriated area on the sacrum. No open wound. HEAD: Normocephalic. EYES: No scleral icterus. No injection or drainage. NECK: Supple, trachea midline. No JVD or lymphadenopathy. CARDIOVASCULAR: Regular rate and rhythm without murmurs, gallops, or rubs. RESPIRATORY: Breath sounds clear and equal bilaterally. No accessory muscle use. Wet sounding cough. GASTROINTESTINAL: Abdomen soft, non-tender, nondistended. Active bowel sounds. MUSCULOSKELETAL: No cyanosis, or edema. Well-healed surgical scars of the left knee and hip. BACK: Nontender without obvious deformity. No CVA tenderness. Data Data Last Documented VS Vital Signs Date Time Temp Pulse Resp B/P (MAP) Pulse Ox O2 Delivery O2 Flow Rate FiO2 06/30/17 18:55 97 Room Air 06/30/17 18:50 97.9 96 18 Orders Orders Complete Blood Count With Diff (06/30/17 18:50) Comprehensive Metabolic Panel (06/30/17 18:50) B-Type Natriuretic Peptide (06/30/17 18:50) Act Partial Throm Time (Ptt) (06/30/17 18:50) Prothrombin Time / Inr (Pt) (06/30/17 18:50) Troponin I (06/30/17 18:50) Urinalysis - C+S If Indicated (06/30/17 18:50) Iv Access Insert/Monitor (06/30/17 18:50) Electrocardiogram (06/30/17 18:50) Ecg Monitoring (06/30/17 18:50) Oximetry (06/30/17 18:50) Chest, Single Ap (06/30/17 18:50) Sodium Chloride 0.9% Flush (Ns Flush) (06/30/17 19:00) Ct Pulmonary Angiogram (06/30/17 20:04) Urine Culture (06/30/17 19:45) Ceftriaxone Inj (Rocephin Inj) (06/30/17 20:45) Iohexol 350 Inj (Omnipaque 350 Inj) (06/30/17 20:49) Heparin Inj (Heparin Inj) (06/30/17 21:30) Heparin Inj (Heparin Inj) (07/01/17 03:30) Heparin Inj (Heparin Inj) (07/01/17 03:30) Heparin-D5w 25,000 U/250 Ml (Heparin-D5w (06/30/17 21:30) Consult Orthopedic (06/30/17 ) Consult Cardiology (06/30/17 ) Admit Order (Ed Use Only) (06/30/17 21:31) Labs Laboratory Tests Test 06/30/17 19:20 06/30/17 19:45 White Blood Count 11.4 TH/MM3 Red Blood Count 3.65 MIL/MM3 Hemoglobin 11.0 GM/DL Hematocrit 33.0 % Mean Corpuscular Volume 90.6 FL Mean Corpuscular Hemoglobin 30.1 PG Mean Corpuscular Hemoglobin Concent 33.2 % Red Cell Distribution Width 14.8 % Platelet Count 528 TH/MM3 Mean Platelet Volume 6.9 FL Neutrophils (%) (Auto) 86.8 % Lymphocytes (%) (Auto) 7.6 % Monocytes (%) (Auto) 4.4 % Eosinophils (%) (Auto) 0.7 % Basophils (%) (Auto) 0.5 % Neutrophils # (Auto) 9.9 TH/MM3 Lymphocytes # (Auto) 0.9 TH/MM3 Monocytes # (Auto) 0.5 TH/MM3 Eosinophils # (Auto) 0.1 TH/MM3 Basophils # (Auto) 0.1 TH/MM3 CBC Comment DIFF FINAL Differential Comment Prothrombin Time 10.7 SEC Prothromb Time International Ratio 1.1 RATIO Activated Partial Thromboplast Time 30.6 SEC Blood Urea Nitrogen 20 MG/DL Creatinine 1.18 MG/DL Random Glucose 151 MG/DL Total Protein 7.7 GM/DL Albumin 2.9 GM/DL Calcium Level 9.6 MG/DL Alkaline Phosphatase 85 U/L Aspartate Amino Transf (AST/SGOT) 23 U/L Alanine Aminotransferase (ALT/SGPT) 30 U/L Total Bilirubin 0.3 MG/DL Sodium Level 134 MEQ/L Potassium Level 4.1 MEQ/L Chloride Level 102 MEQ/L Carbon Dioxide Level 26.7 MEQ/L Anion Gap 5 MEQ/L Estimat Glomerular Filtration Rate 58 ML/MIN Troponin I 0.17 NG/ML Urine Color LIGHT-YELLOW Urine Turbidity CLEAR Urine pH 6.0 Urine Specific [place] 1.006 Urine Protein NEG mg/dL Urine Glucose (UA) NEG mg/dL Urine Ketones NEG mg/dL Urine Occult Blood NEG Urine Nitrite NEG Urine Bilirubin NEG Urine Urobilinogen LESS THAN 2.0 MG/DL Urine Leukocyte Esterase MOD Urine RBC 1 /hpf Urine WBC 6 /hpf Urine Bacteria FEW /hpf Urine Hyaline Casts 2 /lpf Microscopic Urinalysis Comment CATH-CULTURE IND [facility] Medical Decision Making Medical Screen Exam Complete: Yes Emergency Medical Condition: Yes Differential Diagnosis CHF exacerbation versus pneumonia versus PE versus other Narrative Course 86-year-old male with PMH of femur fracture, currently living in an [facility] sent to the ED by Dr. Goodwin for admission for CHF exacerbation. According to the patient he has an nonproductive unresolved cough for "about 3 weeks." Denies fever, chest pain, lower extremity edema. The patient had positive d-dimer on outpatient studies, on Xarelto. Patient is 100% non weight bearing 2/2 recent femur fracture, followed by Dr. Bowen. Patient afebrile, pulse 99, BP 113/63 on presentation. On exam this is a pleasant white male in no acute distress. He has some skin breakdown in the sacral region. Chest is CTAB, no lower extremity edema. He does have a wet sounding cough. I reviewed the patient's record, patient had echocardiogram 04/19/17 which revealed EF of 55-60%. EKG rate 90, regular rhythm. Right bundle branch block, no acute ST changes. Reviewed by Dr. Smith. Similar to previous EKG 04/11/17. CXR: Trace right base atelectasis. Otherwise negative. Troponin 0 0.17. CTA: Tiny left lower lobe PE, bibasilar atelectasis, CVD. CBC: WBC 11.4. Hemoglobin 11.1. Platelets 528. INR 1.1. CMP: BUN 20, creatinine 1.18. Albumin 2.9. UA: Moderate leukocyte esterase, 6 WBCs, few bacteria. Culture pending. Patient administered a gram of Rocephin. BNP pending. I spoke with Dr. Drummond, on-call for . He recommends heparin bolus and drip. I discussed the results of the workup with the patient and his family member at bedside. They are agreeable to admission. Consult placed with Dr. Boswell and Dr. Bowen. Discussed the patient with Dr. Beck who agrees to set the patient to the medicine service. Please see medicine notes for disposition. Jaja Meza Jun 30, 2017 18:53
[2017-06-30] MEDS ORDERED: SODIUM CHLORIDE 0.9% FLUSH 10 ML FLUSH IVF PRN (19:00)
--- NOTE | 2017-06-30 19:35 | RADRPT ---
EXAM DATE/TIME: 06/30/2017 19:10 [facility] COMPARISON: CHEST SINGLE AP, April 23, 2017, 14:27. INDICATIONS : Shortness of breath. MEDICAL HISTORY : Hypertension. Stroke. Arthritis SURGICAL HISTORY : Cervical fusion. ENCOUNTER: Initial ACUITY: 3 days PAIN SCORE: 0/10 LOCATION: Bilateral chest FINDINGS: Mild elevation of the right hemidiaphragm again noted. There is trace right base atelectasis. Left snow ng is clear. No pleural effusion or pneumothorax demonstrated. Normal, stable heart size. Mediastinal silhouette within normal limits. CONCLUSION: Trace right base atelectasis. Otherwise negative. Kumar Jacinto MD on June 30, 2017 at 19:33 Board Certified Radiologist. This report was verified electronically.
[2017-06-30 19:39] LABS: AUTOMATED NEUTROPHIL # 9.9 TH/MM3 (1.8-7.7); BASOPHIL # 0.1 TH/MM3 (0-0.2); BASOPHIL % 0.5 % (0.0-2.0); EOSINOPHIL # 0.1 TH/MM3 (0-0.4); EOSINOPHIL % 0.7 % (0.0-4.0); LYMPH % 7.6 % (9.0-44.0); LYMPHOCYTE # 0.9 TH/MM3 (1.0-4.8); MEAN CELL VOLUME 90.6 FL (80.0-100.0); MEAN CORPUSCULAR HEMOGLOBIN 30.1 PG (27.0-34.0); MEAN CORPUSCULAR HGB CONC 33.2 % (32.0-36.0); MEAN PLATELET VOLUME 6.9 FL (7.0-11.0); MONO % 4.4 % (0.0-8.0); MONOCYTE # 0.5 TH/MM3 (0-0.9); NEUT % 86.8 % (16.0-70.0); PLATELET COUNT 528 TH/MM3 (150-450); RED BLOOD COUNT 3.65 MIL/MM3 (4.50-5.90); RED CELL DISTRIBUTION WIDTH 14.8 % (11.6-17.2); WHITE BLOOD COUNT 11.4 TH/MM3 (4.0-11.0)
[2017-06-30 19:52] LABS: INTERNATIONAL NORMALIZED RATIO 1.1 RATIO; PROTHROMBIN TIME - PATIENT 10.7 SEC (9.8-11.6)
[2017-06-30 19:53] LABS: ALBUMIN 2.9 GM/DL (3.4-5.0); AST (GOT) 23 U/L (15-37); BICARBONATE 26.7 MEQ/L (21.0-32.0); BLOOD UREA NITROGEN 20 MG/DL (7-18); CALCIUM 9.6 MG/DL (8.5-10.1); CHLORIDE 102 MEQ/L (98-107); CREATININE 1.18 MG/DL (0.60-1.30); GLOMERULAR FILTRATION RATE 58 ML/MIN (>89); GLUCOSE,RANDOM 151 MG/DL (74-106); SODIUM (NA) 134 MEQ/L (136-145)
[2017-06-30 19:54] LABS: ALT (GPT) 30 U/L (12-78)
[2017-06-30 19:57] LABS: ALKALINE PHOSPHATASE 85 U/L (45-117); TOTAL BILIRUBIN ADULT 0.3 MG/DL (0.2-1.0); TOTAL PROTEIN 7.7 GM/DL (6.4-8.2); TROPONIN I 0.17 NG/ML (0.02-0.05)
[2017-06-30 20:15] LABS: BACTERIA, URINE FEW /hpf; BILIRUBIN, URINE NEG (NEG); BLOOD, URINE NEG (NEG); GLUCOSE,URINE NEG (NEG); HYALINE CAST, URINE 2 /lpf (RARE); KETONE, URINE NEG (NEG); NITRITE,URINE NEG (NEG); URINE COLOR LIGHT-YELLOW (YELLW/STRAW); URINE LEUKOCYTE ESTERASE MOD (NEG)
[2017-06-30] MEDS ORDERED: cefTRIAXone INJ 1,000 MG in SODIUM CHLORIDE 0.9% INJ 100 ML IV ONE (20:45)
[2017-06-30] MEDS ORDERED: IOHEXOL 350 MG/ML 10 ML VIAL (for RAD DIAG) IVCONTRAST ONE (20:49)
--- NOTE | 2017-06-30 21:07 | RADRPT ---
EXAM DATE/TIME: 06/30/2017 20:42 [facility] COMPARISON: CHEST SINGLE AP, June 30, 2017, 19:10. INDICATIONS : Cough. Pneumonia per chest x-ray. Rule out pulmonary embolus. IV CONTRAST: 74 cc Omnipaque 350 (iohexol) IV RADIATION DOSE: 18.91 CTDIvol (mGy) MEDICAL HISTORY : Cardiovascular disease. Cerebrovascular disease. Hypertension. SURGICAL HISTORY : Tonsillectomy. ENCOUNTER: Initial ACUITY: 2 months PAIN SCALE: 4/10 LOCATION: chest TECHNIQUE: Volumetric scanning of the chest was performed using a pulmonary embolism protocol MIP images were re constructed. Using automated exposure control and adjustment of the mA and/or kV according to patien t size, radiation dose was kept as low as reasonably achievable to obtain optimal diagnostic quality images. DICOM format image data is available electronically for review and comparison. Follow-up recommendations for detected pulmonary nodules are based at a minimum on nodule size and pa tient risk factors according to Fleischner Society Guidelines. FINDINGS: PULMONARY ARTERIES: Tiny filling defect seen in posteromedial left lower lobe pulmonary artery branch, series 4 image 68. No other emboli are demonstrated. LUNGS: There is mild bibasilar atelectasis, right worse than left. There is elevation of the right hemidiaph ragm. PLEURAE: There is no pleural thickening or pleural effusion. MEDIASTINUM: There is good visualization of the great vessels of the middle mediastinum. No evidence of mediastin al or hilar adenopathy/mass. There is right and left side coronary artery calcification. MUSCULOSKELETAL: Within normal limits for patient age. MISCELLANEOUS: The visualized upper abdominal organs demonstrate no acute abnormality. CONCLUSION: Tiny left lower lobe pulmonary embolus. Bibasilar atelectasis. Coronary artery calcification. Kumar Jacinto MD on June 30, 2017 at 21:01 Board Certified Radiologist. This report was verified electronically.
[2017-06-30] MEDS ORDERED: SODIUM CHLORIDE 0.9% FLUSH 10 ML FLUSH IV FLUSH PRN (21:30)
[2017-06-30] MEDS ORDERED: BISACODYL 10 MG SUPP RECTAL PRN (21:30)
[2017-06-30] MEDS ORDERED: HEPARIN SODIUM - IV 10,000 UNITS/10 ML VIAL IV ONE (21:30)
[2017-06-30] MEDS ORDERED: ACETAMINOPHEN 325 MG TAB PO PRN (21:30)
[2017-06-30] MEDS ORDERED: MAGNESIUM HYDROXIDE SUSP 30 ML CUP PO PRN (21:30)
[2017-06-30] MEDS ORDERED: SENNOSIDES 8.6 MG TAB PO PRN (21:30)
[2017-06-30] MEDS ORDERED: ONDANSETRON HCL 4 MG/2 ML VIAL IVP PRN (21:30)
[2017-06-30] MEDS ORDERED: LACTULOSE SYRUP 20 GM/30 ML CUP PO PRN (21:30)
[2017-06-30] MEDS ORDERED: HYDROmorphone HCL PF 2 MG/ML VIAL IV PUSH PRN (21:30)
--- NOTE | 2017-06-30 21:38 | HHI.HP ---
[facility] Brendan Valdovinos, DO Admission Diagnosis Pulmonary embolus, elevated troponin, UTI Diagnoses: (1) PE (pulmonary thromboembolism) Diagnosis: Principal (2) Elevated troponin Diagnosis: Principal (3) UTI (lower urinary tract infection) Diagnosis: Principal Travel History International Travel<30 Days: No Contact w/Intl Traveler <30 Da: No Traveled to Known Affected Are: No History of Present Illness This is an 86-year-old male with a PMH of HTN, CVA w/ Right-Sided Weakness, CHF (Echo 04/19/17 w/ 55-60%), Spinal Stenosis, BPH and Gait Disorder who was sent to the ER from Rehab secondary to abnormal CXR showing RLL infiltrate. Recent admit 04/11-04/25/17 for Periprosthetic Femur Fx s/p ORIF, on Xarelto. Reports progressive SOB and non-productive cough for approx 2-3 wks. Denies fever, chills or chest pain. On arrival, BP 111/63, HR 99, O2 sat 96% on RA, Afebrile. WBC 11.4. Chemistry unremarkable. Troponin 0 0.17. BNP 310. INR 1.1. UA positive for UTI. CXR trace right base atelectasis. CTA Pulm w/ tiny left lower lobe PE. Currently on Heparin gtt. Follows w/ Dr. Boswell as outpatient, Dr. Drummond consulted, recommendation to continue anticoagulation. Review of Systems Except as stated in HPI: all other systems reviewed are Neg ROS: 14 point review of systems otherwise negative. Past Family Social History Past Medical History PMH: HTN, CVA w/ Right-Sided Weakness, CHF (Echo 04/19/17 w/ 55-60%), Spinal Stenosis, BPH and Gait Disorde Past Surgical History PAST SURGICAL HISTORY: Cervical Hardware, Cataract Surgery, Tonsillectomy Allergies: Coded Allergies: tramadol (Verified Allergy, Severe, anxiety, 06/30/17) hydrocodone (Verified Adverse Reaction, Unknown, Irritability/Anxiety, ) morphine (Verified Adverse Reaction, Unknown, Irritability/Anxiety, ) Family History PAST FAMILY HISTORY: Reviewed. No h/o DM or CAD Social History PAST SOCIAL HISTORY: Negative for alcohol, tobacco or drugs. Physical Exam Vital Signs Vital Signs Date Time Temp Pulse Resp B/P (MAP) Pulse Ox O2 Delivery O2 Flow Rate FiO2 06/30/17 18:55 97 Room Air 06/30/17 18:50 97.9 96 18 111/63 (79) 97 Room Air 06/30/17 18:50 20 97 Room Air 06/30/17 18:46 97.9 99 18 111/63 (79) 96 Physical Exam PE: GENERAL: Pleasant elderly white male in no acute distress. HEENT: PERRLA, EOMI. No scleral icterus or conjunctival pallor. No lid lag or facial droop. CARDIOVASCULAR: Regular rate and rhythm. No obvious murmurs to auscultation. No chest tenderness to palpation. RESPIRATORY: No obvious rhonchi or wheezing. Clear to auscultation. Breath sounds equal bilaterally. GASTROINTESTINAL: Abdomen soft, non-tender, nondistended. BS normal. MUSCULOSKELETAL: Extremities without clubbing, cyanosis, or edema. No obvious deformities. NEUROLOGICAL: Awake, alert and oriented x4. No focal neurologic deficits. Moving both upper and lower extremities spontaneously. Laboratory Laboratory Tests Test 06/30/17 19:20 06/30/17 19:45 White Blood Count 11.4 Red Blood Count 3.65 Hemoglobin 11.0 Hematocrit 33.0 Mean Corpuscular Volume 90.6 Mean Corpuscular Hemoglobin 30.1 Mean Corpuscular Hemoglobin Concent 33.2 Red Cell Distribution Width 14.8 Platelet Count 528 Mean Platelet Volume 6.9 Neutrophils (%) (Auto) 86.8 Lymphocytes (%) (Auto) 7.6 Monocytes (%) (Auto) 4.4 Eosinophils (%) (Auto) 0.7 Basophils (%) (Auto) 0.5 Neutrophils # (Auto) 9.9 Lymphocytes # (Auto) 0.9 Monocytes # (Auto) 0.5 Eosinophils # (Auto) 0.1 Basophils # (Auto) 0.1 CBC Comment DIFF FINAL Differential Comment Prothrombin Time 10.7 Prothromb Time International Ratio 1.1 Activated Partial Thromboplast Time 30.6 Blood Urea Nitrogen 20 Creatinine 1.18 Random Glucose 151 Total Protein 7.7 Albumin 2.9 Calcium Level 9.6 Alkaline Phosphatase 85 Aspartate Amino Transf (AST/SGOT) 23 Alanine Aminotransferase (ALT/SGPT) 30 Total Bilirubin 0.3 Sodium Level 134 Potassium Level 4.1 Chloride Level 102 Carbon Dioxide Level 26.7 Anion Gap 5 Estimat Glomerular Filtration Rate 58 Troponin I 0.17 Urine Color LIGHT-YELLOW Urine Turbidity CLEAR Urine pH 6.0 Urine Specific [place] 1.006 Urine Protein NEG Urine Glucose (UA) NEG Urine Ketones NEG Urine Occult Blood NEG Urine Nitrite NEG Urine Bilirubin NEG Urine Urobilinogen LESS THAN 2.0 Urine Leukocyte Esterase MOD Urine RBC 1 Urine WBC 6 Urine Bacteria FEW Urine Hyaline Casts 2 Microscopic Urinalysis Comment CATH-CULTURE IND Date/Time Source Procedure Growth Status 06/30/17 19:45 Urine Catheterized Urine Urine Culture Pending Received Result Diagram: 06/30/17191906/30/171919 Pa VTE Risk Assessment Pa VTE Risk Assessment: Mod/High Risk (score >= 2) Caprini Risk Assessment Model Point Value = 1 Point Value = 2 Point Value = 3 Point Value = 5 Age 41-60 Minor surgery BMI > 25 kg/m2 Swollen legs Varicose veins or History of unexplained or recurrent spontaneous Oral contraceptives or hormone replacement Sepsis (< 1 month) Serious lung disease, including pneumonia (< 1 month) Abnormal pulmonary function Acute myocardial infarction Congestive heart failure (< 1 month) History of inflammatory bowel disease Medical patient at bed rest Age 61-74 Arthroscopic surgery Major open surgery (> 45 min) Laparoscopic surgery (> 45 min) Malignancy Confined to bed (> 72 hours) Immobilizing plaster cast Central venous access Age >= 75 History of VTE Family history of VTE Factor V Leiden Prothrombin [id number] Lupus anticoagulant Anticardiolipin antibodies Elevated serum homocysteine Heparin-induced thrombocytopenia Other congenital or acquired thrombophilia Stroke (< 1 month) Elective arthroplasty Hip, pelvis, or leg fracture Acute spinal cord injury (< 1 month) Prophylaxis Regimen Total Risk Factor Score Risk Level Prophylaxis Regimen 0-1 Low Early ambulation 2 Moderate Order ONE of the following: *Sequential Compression Device (SCD) *Heparin 5000 units SQ BID 3-4 Higher Order ONE of the following medications: *Heparin 5000 units SQ TID *Enoxaparin/Lovenox 40 mg SQ daily (WT < 150 kg, CrCl > 30 mL/min) *Enoxaparin/Lovenox 30 mg SQ daily (WT < 150 kg, CrCl > 10-29 mL/min) *Enoxaparin/Lovenox 30 mg SQ BID (WT < 150 kg, CrCl > 30 mL/min) AND/OR *Sequential Compression Device (SCD) 5 or more Highest Order ONE of the following medications: *Heparin 5000 units SQ TID (Preferred with Epidurals) *Enoxaparin/Lovenox 40 mg SQ daily (WT < 150 kg, CrCl > 30 mL/min) *Enoxaparin/Lovenox 30 mg SQ daily (WT < 150 kg, CrCl > 10-29 mL/min) *Enoxaparin/Lovenox 30 mg SQ BID (WT < 150 kg, CrCl > 30 mL/min) AND *Sequential Compression Device (SCD) Assessment and Plan Problem List: (1) PE (pulmonary thromboembolism) ICD Code: I26.99 - Other pulmonary embolism without acute cor pulmonale (2) Elevated troponin ICD Code: R74.8 - Abnormal levels of other serum enzymes (3) UTI (lower urinary tract infection) ICD Code: N39.0 - UTI (lower urinary tract infection) Status: Resolved Assessment and Plan A/P: 1. PE: +cough/SOB, recent ORIF Femur Fx on Xarelto. CTA Pulm w/ tiny LLL PE, no previous h/o same. Continue Heparin gtt, Symbicort, DuoNeb prn for bronchospasm. 2. Elevated Trop: Trop 0.17, EKG w/ no acute changes, possibly due to PE, however PE tiny, unlikely to cause significant strain, r/o ACS, admit to [facility], telemetry, check serial cardiac enzymes. Follows w/ Dr. Boswell, Dr. Arnett consulted, recommendation to continue Heparin gtt 3. UTI: U/a w/ UTI, s/p Rocephin in ER, will continue w/ IV Abx, follow up cultures. 4. DVT Prophylaxis: SCD/Teds 5. Social work for d/c planning as needed. 6. Case discussed w/ ER physician at length, labs/records/imaging reviewed by me. Physician Certification 2 Midnight Certification Type: Admission for Inpatient Services Order for Inpatient Services The services are ordered in accordance with Medicare regulations or non- Medicare payer requirements, as applicable. In the case of services not specified as inpatient-only, they are appropriately provided as inpatient services in accordance with the 2-midnight benchmark. Estimated LOS (days): 2 days is the estimated time the patient will need to remain in the hospital, assuming treatment plan goals are met and no additional complications. Post-Hospital Plan: Not yet determined Minda Beck MD Jun 30, 2017 21:37
[2017-06-30] MEDS ORDERED: RESP: ALBUTEROL 2.5 MG/IPRATROPIUM 0.5 MG NEB (PRN) NEB (21:45)
[2017-06-30] MEDS: HEPARIN-D5W 25,000 U/250 ML 250 ML IV PRN (22:09)
[2017-07-01] VITALS: BP 115/71; PULSE 80; PULSE 87; RESP 19; TEMP 97.2; O2SAT 97
[2017-07-01] MEDS: BENZONATATE 100 MG CAP PO PRN ×3 (01:27→20:44)
[2017-07-01] MEDS ORDERED: HEPARIN SODIUM - IV 10,000 UNITS/10 ML VIAL IV PRN ×2 (03:30)
[2017-07-01 03:31] LABS: AUTOMATED NEUTROPHIL # 6.7 TH/MM3 (1.8-7.7); BASOPHIL # 0.1 TH/MM3 (0-0.2); BASOPHIL % 0.7 % (0.0-2.0); EOSINOPHIL # 0.3 TH/MM3 (0-0.4); HEMATOCRIT 30.9 % (39.0-51.0); HEMOGLOBIN 10.3 GM/DL (13.0-17.0); LYMPH % 19.2 % (9.0-44.0); LYMPHOCYTE # 1.9 TH/MM3 (1.0-4.8); MEAN CELL VOLUME 89.9 FL (80.0-100.0); MEAN CORPUSCULAR HGB CONC 33.4 % (32.0-36.0); MONO % 7.9 % (0.0-8.0); MONOCYTE # 0.8 TH/MM3 (0-0.9); NEUT % 69.2 % (16.0-70.0); PLATELET COUNT 477 TH/MM3 (150-450); RED BLOOD COUNT 3.43 MIL/MM3 (4.50-5.90); WHITE BLOOD COUNT 9.6 TH/MM3 (4.0-11.0)
[2017-07-01 03:54] LABS: ALBUMIN 2.6 GM/DL (3.4-5.0); ALT (GPT) 24 U/L (12-78); AST (GOT) 17 U/L (15-37); BLOOD UREA NITROGEN 19 MG/DL (7-18); CALCIUM 9.3 MG/DL (8.5-10.1); CHLORIDE 102 MEQ/L (98-107); CREATININE 0.92 MG/DL (0.60-1.30); GLOMERULAR FILTRATION RATE 78 ML/MIN (>89); GLUCOSE,RANDOM 109 MG/DL (74-106); SODIUM (NA) 136 MEQ/L (136-145)
[2017-07-01 03:58] LABS: ALKALINE PHOSPHATASE 74 U/L (45-117); TOTAL BILIRUBIN ADULT 0.3 MG/DL (0.2-1.0); TOTAL PROTEIN 6.9 GM/DL (6.4-8.2); TROPONIN I 0.21 NG/ML (0.02-0.05)
[2017-07-01 04:00] VITALS: BP 106/58; PULSE 73; PULSE 75; RESP 19; TEMP 97.5; O2SAT 97
[2017-07-01] MEDS: LEVOTHYROXINE SODIUM 100 MCG TAB PO SCH (06:08)
[2017-07-01 08:00] VITALS: BP 116/67; PULSE 81; PULSE 83; RESP 20; TEMP 98.4; O2SAT 97
[2017-07-01] MEDS: SODIUM CHLORIDE 0.9% FLUSH 10 ML FLUSH IV FLUSH SCH ×2 (09:00→20:48)
[2017-07-01] MEDS: DOCUSATE SODIUM 50 MG/SENNA 8.6 MG TAB PO SCH ×2 (09:07→20:44)
[2017-07-01] MEDS: CITALOPRAM HYDROBROMIDE 20 MG TAB PO SCH (09:08)
[2017-07-01 12:00] VITALS: BP 111/56; PULSE 75; PULSE 78; RESP 20; TEMP 98.4; O2SAT 96
--- NOTE | 2017-07-01 12:35 | MB ---
cc: Rolan Drummond MD Quadrat,Faina ALMEIDA DATE: 07/01/2017 REASON FOR CONSULTATION: Nonspecific troponin elevation. HISTORY OF PRESENT ILLNESS: Mr. Ball is a pleasant 86-year-old gentleman with history of moderate coronary artery disease by cardiac catheterization within the last 2 years, according to him. History of hypertension, CVA, was on Plavix for it, right-sided weakness. Echocardiogram in 04/2017 showed normal LV systolic function, no significant valve pathology. Gait disorder. Had a fracture of his femur and this was surgically corrected 2 months ago and he was placed on low-dose Xarelto. He comes in with progressive shortness of breath and a nonproductive cough over the past 2 weeks. Denies chest pain. Denies palpitations, dizziness or syncope. Denies orthopnea, PND or leg swellings. Denies claudications. ALLERGIES: TRAMADOL, HYDROCODONE, MORPHINE, BUT NOT SURE IF THESE ARE TRUE ALLERGIES VERSUS SIDE EFFECTS. PAST MEDICAL AND SURGICAL HISTORY: Includes as mentioned above. History of spinal stenosis. Gait disorder. Spinal surgical intervention in the past. Cataract surgery in the past. History of tonsillectomy. FAMILY HISTORY: Negative for coronary artery disease, cancer, diabetes but positive for hypertension. SOCIAL HISTORY: Negative for smoking, ETOH abuse or recreational drug abuse. REVIEW OF SYSTEMS: A 12-point system review was unremarkable, except as mentioned in the history of present illness. MEDICATIONS: At home includes the following: Flomax 0.4 mg p.o. at bedtime, Xarelto 10 mg p.o. daily, lisinopril 20 mg p.o. daily, hydrocodone/acetaminophen 10/325 mg p.o. q. 4 hours p.r.n. with pain, citalopram 10 mg p.o. daily, ropinirole 2.5 mg p.o. at bedtime, calcium carbonate and vitamin D supplements, latanoprost ophthalmic solutions, levothyroxine 100 mcg p.o. daily, vitamin D3 supplements. REVIEW OF SYSTEMS: A 12-point system review was unremarkable, except as mentioned in the history of present illness. PHYSICAL EXAMINATION: GENERAL: An 86-year-old gentleman lying in bed, in no acute distress, alert and oriented to person and place. VITAL SIGNS: Blood pressure is 116/66 mmHg, pulse of 80 beats per minute and regular, respiration 14 per minute, afebrile. HEENT: Shows head is normocephalic. Pupils equal, reactive. Throat is within normal limits. NECK: Supple. No carotid bruit, no thyromegaly. No jugular venous distention noted. LUNGS: Few crepitations at the bases bilaterally and somewhat diminished air entry, but otherwise clear. CARDIOVASCULAR: S1, S2 are normal with a faint S4 gallop and 1-2/6 systolic murmur at the left sternal border and right second intercostal space. ABDOMEN: Lax, nontender. Normoactive bowel sounds. No organomegaly. No mass felt. EXTREMITIES: No clubbing, cyanosis or edema. Pulses 2+ bilaterally. Dorsalis pedis is 1+ bilaterally. RECTAL: Deferred. SKIN: Intact with no breakdown. LABORATORY DATA: EKG shows sinus rhythm with underlying right bundle branch block and left anterior hemiblock. Echocardiogram done 2 months ago showed normal LV systolic function. No significant valve pathology. The CTA of the lungs showed a tiny left lower lobe PE. The laboratory showed nonspecific troponin elevation at 0.17, 0.22 and 0.21. BNP 310, nonspecific elevation as well. GFR running between 50-78 with IV hydration. He was started on IV heparin and he feels that this has resolved his cough. ASSESSMENT AND RECOMMENDATION: 1. Moderate coronary artery disease by relatively recent catheterization, according to the notes. Nonspecific troponin elevation with no acute ST segment changes and no chest discomfort. At the present time, he is on IV heparin because of the PE and further recommendations will follow with the medical team. Consider switching to full dose Xarelto or Eliquis. Further cardiac workup will leave up to Dr. Boswell, who will be seeing the patient from tomorrow. At this point, I see no need for acute cardiac intervention. 2. Hypertension, controlled. 3. We will check a complete set of electrolytes, TSH, free T4 levels and also lipid panel fasting in a.m. Dr. Boswell to resume his cardiac care from tomorrow. Thank you for the consultation. MD WARNER Hernandez/JUDY/rr , 10:39 AM , 11:13 AM
[2017-07-01] MEDS: BUDESONIDE-FORMOTEROL 160/4.5 MCG INHALER INH SCH ×2 (13:30→20:48)
--- NOTE | 2017-07-01 14:09 | HHI.PR ---
Subjective Remarks Patient in bed. Says he had no chest pain overnight. Some sob, satting well on room air. Feels tired. No n/v/d/c. Objective Vitals Vital Signs Date Time Temp Pulse Resp B/P (MAP) Pulse Ox O2 Delivery O2 Flow Rate FiO2 07/01/17 08:00 98.4 81 20 116/67 (83) 97 07/01/17 04:00 75 07/01/17 04:00 97.5 73 19 106/58 (74) 97 07/01/17 00:00 Room Air 07/01/17 00:00 97.2 87 19 115/71 (86) 97 07/01/17 00:00 80 06/30/17 23:00 Room Air 06/30/17 23:00 79 06/30/17 22:39 97.6 82 19 119/85 (96) 99 06/30/17 22:13 88 16 120/59 (79) 98 Room Air 06/30/17 21:52 97 06/30/17 18:55 97 Room Air 06/30/17 18:50 97.9 96 18 111/63 (79) 97 Room Air 06/30/17 18:50 20 97 Room Air 06/30/17 18:46 97.9 99 18 111/63 (79) 96 I/O 06/30/17 06/30/17 06/30/17 07/01/17 07/01/17 07/01/17 07:00 15:00 23:00 07:00 15:00 23:00 Intake Total 169.4 ml Balance 169.4 ml Intake Oral 0 ml IV Total 169.4 ml # Voids 2 # Bowel Movements 0 Result Diagram: 07/01/17 0303 07/01/17 [address] Angiography 06/30/172003 Signed Impressions: Service Date/Time: Friday, June 30, 2017 20:42 - CONCLUSION: Tiny left lower lobe pulmonary embolus. Bibasilar atelectasis. Coronary artery calcification. Kumar Jacinto MD Chest X-Ray 06/30/171849 Signed Impressions: Service Date/Time: Friday, June 30, 2017 19:10 - CONCLUSION: Trace right base atelectasis. Otherwise negative. Kumar Jacinto MD Objective Remarks GENERAL: Pleasant elderly white male in no acute distress. CARDIOVASCULAR: Regular rate and rhythm. No obvious murmurs to auscultation. No chest tenderness to palpation. RESPIRATORY: No obvious rhonchi or wheezing. Clear to auscultation. Breath sounds equal bilaterally. GASTROINTESTINAL: Abdomen soft, non-tender, nondistended. BS normal. MUSCULOSKELETAL: Extremities without clubbing, cyanosis, or edema. No obvious deformities. NEUROLOGICAL: Awake, alert and oriented x4. No focal neurologic deficits. Moving both upper and lower extremities spontaneously. A/P Problem List: (1) PE (pulmonary thromboembolism) ICD Code: I26.99 - Other pulmonary embolism without acute cor pulmonale (2) Elevated troponin ICD Code: R74.8 - Abnormal levels of other serum enzymes (3) UTI (lower urinary tract infection) ICD Code: N39.0 - UTI (lower urinary tract infection) Status: Resolved Assessment and Plan PE: +cough/SOB, recent ORIF Femur Fx on Xarelto. CTA Pulm w/ tiny LLL PE, no previous h/o same. Continue Heparin gtt, Symbicort, DuoNeb prn for bronchospasm. Elevated Trop: Trop 0.17 trending up however no chest pain at this time EKG reviewed no acute changes, possibly due to PE, however PE is tiny, unlikely to cause significant strain r/o ACS Monitor on telemetry Consult his cardiology Dr. Boswell, Dr[facility] seen the patient , recommendation to continue Heparin gtt Check TSH, free T4 Dr Boswell will evaluate tomorrow per Dr Balderas UTI: U/a w/ UTI, s/p Rocephin in ER, will continue w/ IV Abx, follow up cultures. DVT Prophylaxis: SCD/Teds CM consulted for DC planning Discussed with the patient, nurse Violetta Walker MD Jul 01, 2017 14:09
--- NOTE | 2017-07-01 15:41 | EKG ---
Date Performed: 06/30/2017 Time Performed: 19:45:41 PTAGE: 86 years EKG: AV paced rhythm Compared to previous tracing, the patient now appears to be paced. ABNORMAL ECG PREVIOUS TRACING : 04/11/2017 05.41 DOCTOR: Tiffany Haro Interpretating Date/Time 07/01/2017 15:39:08
[2017-07-01 16:00] VITALS: BP 122/60; PULSE 77; PULSE 82; RESP 20; TEMP 98; O2SAT 97
[2017-07-01 20:00] VITALS: BP 123/65; PULSE 89; PULSE 96; RESP 22; TEMP 98.4; O2SAT 96
[2017-07-01] MEDS: TAMSULOSIN HCL 0.4 MG CAP PO SCH (20:43)
[2017-07-01] MEDS: cefTRIAXone INJ 1,000 MG in SODIUM CHLORIDE 0.9% INJ 100 ML IV SCH (20:44)
[2017-07-01] MEDS: LATANOPROST 0.005% OPHT SOLN 2.5 ML BTL EACH EYE SCH (23:08)
[2017-07-01] MEDS: HEPARIN-D5W 25,000 U/250 ML 250 ML IV PRN (23:13)
[2017-07-02] VITALS (9 sets, daily range): BP systolic 102–128; BP diastolic 56–61; PULSE 68–98; RESP 18–20; TEMP 98–99.1; O2SAT 94–98
[2017-07-02] MEDS ORDERED: guaiFENesin/DEXTROMETHORPHAN 200 MG/20 MG/10 ML CUP PO ONE (01:00)
[2017-07-02] MEDS: BENZONATATE 100 MG CAP PO PRN ×4 (06:32→23:08)
[2017-07-02] MEDS: LEVOTHYROXINE SODIUM 100 MCG TAB PO SCH (06:32)
[2017-07-02] MEDS: BUDESONIDE-FORMOTEROL 160/4.5 MCG INHALER INH SCH ×2 (08:54→20:15)
[2017-07-02] MEDS: SODIUM CHLORIDE 0.9% FLUSH 10 ML FLUSH IV FLUSH SCH ×2 (08:54→20:15)
[2017-07-02] MEDS: DOCUSATE SODIUM 50 MG/SENNA 8.6 MG TAB PO SCH ×2 (08:55→20:14)
[2017-07-02] MEDS: CITALOPRAM HYDROBROMIDE 20 MG TAB PO SCH (08:56)
[2017-07-02 10:11] LABS: AUTOMATED NEUTROPHIL # 6.9 TH/MM3 (1.8-7.7); BASOPHIL # 0.1 TH/MM3 (0-0.2); BASOPHIL % 0.7 % (0.0-2.0); EOSINOPHIL # 0.6 TH/MM3 (0-0.4); HEMATOCRIT 31.7 % (39.0-51.0); HEMOGLOBIN 10.6 GM/DL (13.0-17.0); LYMPH % 15.4 % (9.0-44.0); LYMPHOCYTE # 1.5 TH/MM3 (1.0-4.8); MEAN CELL VOLUME 89.6 FL (80.0-100.0); MEAN CORPUSCULAR HGB CONC 33.5 % (32.0-36.0); MEAN PLATELET VOLUME 7.5 FL (7.0-11.0); MONO % 6.7 % (0.0-8.0); MONOCYTE # 0.6 TH/MM3 (0-0.9); NEUT % 71.2 % (16.0-70.0); PLATELET COUNT 452 TH/MM3 (150-450); RED BLOOD COUNT 3.54 MIL/MM3 (4.50-5.90); WHITE BLOOD COUNT 9.7 TH/MM3 (4.0-11.0)
[2017-07-02 10:15] LABS: BICARBONATE 25.7 MEQ/L (21.0-32.0); CALCIUM 9.5 MG/DL (8.5-10.1); CREATININE 0.99 MG/DL (0.60-1.30)
[2017-07-02 10:25] LABS: FREE T4 1.62 NG/DL (0.76-1.46)
--- NOTE | 2017-07-02 16:22 | HHI.PR ---
Subjective Remarks In bed says he had no chest pain overnight and no sob however he is not moving much. No n/v/d/c. Objective Vitals Vital Signs Date Time Temp Pulse Resp B/P (MAP) Pulse Ox O2 Delivery O2 Flow Rate FiO2 07/02/17 12:06 98.0 72 18 118/61 (80) 97 07/02/17 12:00 68 07/02/17 08:03 98.9 88 18 112/57 (75) 94 07/02/17 08:00 80 07/02/17 08:00 Room Air 07/02/17 04:00 85 07/02/17 04:00 98.2 85 20 128/57 (80) 96 07/02/17 00:00 Room Air 07/02/17 00:00 99.1 78 18 102/56 (71) 94 07/02/17 00:00 98 07/01/17 20:40 Room Air 07/01/17 20:00 96 07/01/17 20:00 98.4 89 22 123/65 (84) 96 I/O 07/01/17 07/01/17 07/01/17 07/02/17 07/02/17 07/02/17 07:00 15:00 23:00 07:00 15:00 23:00 Intake Total 169.4 ml 100 ml 546.8 ml Balance 169.4 ml 100 ml 546.8 ml Intake Oral 0 ml 480 ml IV Total 169.4 ml 100 ml 66.8 ml # Voids 2 2 4 # Bowel Movements 0 1 1 Result Diagram: 07/02/17 0900 07/02/[address] Angiography 06/30/172003 Signed Impressions: Service Date/Time: Friday, June 30, 2017 20:42 - CONCLUSION: Tiny left lower lobe pulmonary embolus. Bibasilar atelectasis. Coronary artery calcification. Kumar Jacinto MD Chest X-Ray 06/30/171849 Signed Impressions: Service Date/Time: Friday, June 30, 2017 19:10 - CONCLUSION: Trace right base atelectasis. Otherwise negative. Kumar Jacinto MD Objective Remarks GENERAL: Pleasant elderly white male in no acute distress. CARDIOVASCULAR: Regular rate and rhythm. No obvious murmurs to auscultation. No chest tenderness to palpation. RESPIRATORY: No obvious rhonchi or wheezing. Clear to auscultation. Breath sounds equal bilaterally. GASTROINTESTINAL: Abdomen soft, non-tender, nondistended. BS normal. MUSCULOSKELETAL: Extremities without clubbing, cyanosis, or edema. No obvious deformities. NEUROLOGICAL: Awake, alert and oriented x4. No focal neurologic deficits. Moving both upper and lower extremities spontaneously. A/P Problem List: (1) PE (pulmonary thromboembolism) ICD Code: I26.99 - Other pulmonary embolism without acute cor pulmonale (2) Elevated troponin ICD Code: R74.8 - Abnormal levels of other serum enzymes (3) UTI (lower urinary tract infection) ICD Code: N39.0 - UTI (lower urinary tract infection) Status: Resolved Assessment and Plan PE: +cough/SOB, recent ORIF Femur Fx on Xarelto. CTA Pulm w/ tiny LLL PE, no previous h/o same. Continue Heparin gtt, Symbicort, DuoNeb PRN for bronchospasm. Elevated Trop: Trop 0.17 trending up however no chest pain at this time EKG reviewed no acute changes, possibly due to PE, however PE is tiny, unlikely to cause significant strain r/o ACS Monitor on telemetry Consult his cardiology Dr. Boswell, Dr. Balderas [facility] seen the patient , recommendation to continue Heparin gtt Check TSH, free T4 Dr Boswell will evaluate tomorrow per Dr Balderas UTI: UA with UTI, s/p Rocephin in ER, will continue w/ IV Abx, follow up cultures. DVT Prophylaxis: SCD/Teds CM consulted for DC planning Discussed with the patient, nurse Violetta Walker MD Jul 02, 2017 16:22
[2017-07-02] MEDS ORDERED: APIX5TAB PO (17:54)
--- NOTE | 2017-07-02 17:55 | HHI.DS ---
Discharge Summary Admission Date Jun 30, 2017 at 21:36 Discharge Date: Jul 04, 2017 Admitting Diagnosis Pulmonary embolus, elevated troponin, UTI (1) PE (pulmonary thromboembolism) ICD Code: I26.99 - Other pulmonary embolism without acute cor pulmonale (2) Elevated troponin ICD Code: R74.8 - Abnormal levels of other serum enzymes (3) UTI (lower urinary tract infection) ICD Code: N39.0 - UTI (lower urinary tract infection) Status: Resolved Procedures none Brief History - From Admission This is an 86-year-old male with a PMH of HTN, CVA w/ Right-Sided Weakness, CHF (Echo 04/19/17 w/ 55-60%), Spinal Stenosis, BPH and Gait Disorder who was sent to the ER from Rehab secondary to abnormal CXR showing RLL infiltrate. Recent admit 04/11-04/25/17 for Periprosthetic Femur Fx s/p ORIF, on Xarelto. Reports progressive SOB and non-productive cough for approx 2-3 wks. Denies fever, chills or chest pain. On arrival, BP 111/63, HR 99, O2 sat 96% on RA, Afebrile. WBC 11.4. Chemistry unremarkable. Troponin 0 0.17. BNP 310. INR 1.1. UA positive for UTI. CXR trace right base atelectasis. CTA Pulm w/ tiny left lower lobe PE. Currently on Heparin gtt. Follows w/ Dr. Boswell as outpatient, Dr. Drummond consulted, recommendation to continue anticoagulation. CBC/BMP: 07/02/17 0900 07/02/17 0900 Significant Findings Laboratory Tests Test 06/30/17 19:20 06/30/17 19:45 07/01/17 00:39 07/01/17 03:03 White Blood Count 11.4 TH/MM3 (4.0-11.0) Red Blood Count 3.65 MIL/MM3 (4.50-5.90) 3.43 MIL/MM3 (4.50-5.90) Hemoglobin 11.0 GM/DL (13.0-17.0) 10.3 GM/DL (13.0-17.0) Hematocrit 33.0 % (39.0-51.0) 30.9 % (39.0-51.0) Platelet Count 528 TH/MM3 (150-450) 477 TH/MM3 (150-450) Mean Platelet Volume 6.9 FL (7.0-11.0) Neutrophils (%) (Auto) 86.8 % (16.0-70.0) Lymphocytes (%) (Auto) 7.6 % (9.0-44.0) Neutrophils # (Auto) 9.9 TH/MM3 (1.8-7.7) Lymphocytes # (Auto) 0.9 TH/MM3 (1.0-4.8) Activated Partial Thromboplast Time 30.6 SEC (24.3-30.1) 75.5 SEC (24.3-30.1) Blood Urea Nitrogen 20 MG/DL (7-18) 19 MG/DL (7-18) Random Glucose 151 MG/DL (74-106) 109 MG/DL (74-106) Albumin 2.9 GM/DL (3.4-5.0) 2.6 GM/DL (3.4-5.0) Sodium Level 134 MEQ/L (136-145) Estimat Glomerular Filtration Rate 58 ML/MIN (>89) 78 ML/MIN (>89) Troponin I 0.17 NG/ML (0.02-0.05) 0.22 NG/ML (0.02-0.05) 0.21 NG/ML (0.02-0.05) B-Type Natriuretic Peptide 310 PG/ML (0-100) Urine Leukocyte Esterase MOD (NEG) Urine WBC 6 /hpf (0-5) Urine Bacteria FEW /hpf (NONE) Test 07/01/17 09:37 07/02/17 09:00 Activated Partial Thromboplast Time 64.8 SEC (24.3-30.1) 46.1 SEC (24.3-30.1) Red Blood Count 3.54 MIL/MM3 (4.50-5.90) Hemoglobin 10.6 GM/DL (13.0-17.0) Hematocrit 31.7 % (39.0-51.0) Platelet Count 452 TH/MM3 (150-450) Neutrophils (%) (Auto) 71.2 % (16.0-70.0) Eosinophils (%) (Auto) 6.0 % (0.0-4.0) Eosinophils # (Auto) 0.6 TH/MM3 (0-0.4) Random Glucose 122 MG/DL (74-106) Potassium Level 3.3 MEQ/L (3.5-5.1) Estimat Glomerular Filtration Rate 71 ML/MIN (>89) Free Thyroxine 1.62 NG/DL (0.76-1.46) Imaging Last Impressions Knee X-Ray 07/03/17 0000 Signed Impressions: Service Date/Time: Monday, July 03, 2017 08:55 - CONCLUSION: Internal fixation with healing fracture of the femur. Adam Griffin MD CT Angiography 06/30/172003 Signed Impressions: Service Date/Time: Friday, June 30, 2017 20:42 - CONCLUSION: Tiny left lower lobe pulmonary embolus. Bibasilar atelectasis. Coronary artery calcification. Kumar Jacinto MD Chest X-Ray 06/30/171849 Signed Impressions: Service Date/Time: Friday, June 30, 2017 19:10 - CONCLUSION: Trace right base atelectasis. Otherwise negative. Kumar Jacinto MD PE at Discharge GENERAL: Pleasant elderly white male in no acute distress. CARDIOVASCULAR: Regular rate and rhythm. No obvious murmurs to auscultation. No chest tenderness to palpation. RESPIRATORY: No obvious rhonchi or wheezing. Clear to auscultation. Breath sounds equal bilaterally. GASTROINTESTINAL: Abdomen soft, non-tender, nondistended. BS normal. MUSCULOSKELETAL: Extremities without clubbing, cyanosis, or edema. No obvious deformities. NEUROLOGICAL: Awake, alert and oriented x4. No focal neurologic deficits. Moving both upper and lower extremities spontaneously. Hospital Course PE: +cough/SOB, recent ORIF Femur Fx on Xarelto. CTA Pulm w/ tiny LLL PE, no previous h/o same. Continue Heparin gtt, Symbicort, DuoNeb PRN for bronchospasm. Elevated Trop: Trop 0.17 trending up however no chest pain at this time EKG reviewed no acute changes, possibly due to PE, however PE is tiny, unlikely to cause significant strain r/o ACS Monitor on telemetry Consult his cardiology Dr. Boswell, Dr. Balderas as seen the patient , recommendation to continue Heparin gtt TSH, free T4 nl Dr Boswell evaluated patient.. For discharge by cardiology. Plan to follow-up as outpatient with cardiology. Can discharge him on Eliquis. Plan discussed with the patient, Dr Boswell , family UTI: UA with UTI, s/p Rocephin. Urine cultures are normal. Discontinue antibiotics. Physical deconditioning patient also has recent knee surgery, he is 50% weightbearing. Consult PT and OT. Recommends rehab. Patient family wants to go to [facility]. DVT Prophylaxis: SCD/Teds CM consulted for DC planning Discussed with the patient, nurse patient's family, case management, [facility]. The patient is accepted to [facility]. Discharge to rehab in stable condition to follow-up with PCP and can consultants as outpatient. Patient to have Eliquis at discharge,. prescription provided. Pt Condition on Discharge: Stable Discharge Disposition: Rehab Inpatient Discharge Time: > 30 minutes Discharge Instructions DIET: Follow Instructions for: Heart Healthy Diet Activities you can perform: Partial Weight Bearing (50 % on affected leg ) Follow up Referrals: Cardiology - 1 Week with Faina Boswell MD Cardiology @ [facility] @ [facility] PCP Follow-up - 2-3 Days PCP Follow-up @ [facility] PCP Follow-up @ [facility] New Medications: Apixaban (Eliquis) 5 Mg Tab 5 MG PO BID for Blood Clot Prevention, #60 TAB 0 Refills Apixaban (Eliquis) 5 Mg Tab 10 MG PO BID for Blood Clot Prevention, #14 TAB 0 Refills Continued Medications: Calcium Carbonate-Vitamin D (Calcium 600+D 200) 600-200 Mg-Unit Tab 1 TAB PO BID for Nutritional Supplement for 60 Days, #120 TAB 0 Refills Cholecalciferol (Vitamin D3) 2,000 Unit Cap 2000 UNITS PO DAILY for Nutritional Supplement, #60 CAP 0 Refills Citalopram (Citalopram) 10 Mg Tab 10 MG PO DAILY for Control Depression, #30 TAB 0 Refills Commode 3-in-1 (Commode 3-in-1) 1 Mis Mis 1 EA .ROUTE DIRECTED, #1 EA 0 Refills Hydrocodone-Acetaminophen (Hydrocodone-Acetaminophen) 10-325 mg Tab 1 TAB PO Q4H PRN for PAIN, #60 TAB 0 Refills Latanoprost Opth Drops (Latanoprost Opth Drops) 0.005% Drops 1 DROP EACH EYE HS for Glaucoma, #2.5 ML 0 Refills Refrigerate until opened. Levothyroxine (Levothyroxine) 100 Mcg Tab 100 MCG PO DAILY for Thyroid, #30 TAB 0 Refills Lisinopril (Lisinopril) 20 Mg Tab 20 MG PO DAILY, #30 TAB 0 Refills Ropinirole (Ropinirole) 5 Mg Tab 2.5 MG PO HS PRN for RESTLESSNESS, #30 TAB 0 Refills Tamsulosin (Flomax) 0.4 Mg Cap 0.8 MG PO HS for Manage Prostate Problems, #60 CAP 0 Refills Start date 04/23/17 Discontinued Medications: Rivaroxaban (Xarelto) 10 Mg Tab 10 MG PO DAILY for Blood Clot Prevention, #14 TAB 0 Refills Violetta Walker MD Jul 02, 2017 17:55
--- NOTE | 2017-07-02 17:56 | PD.CARD.PN ---
Subjective Subjective Remarks No CP, SOB improving, feels better Objective Medications Current Medications Medications (Trade) Dose Ordered Sig/[place] Route Start Time Stop Time Status Last Admin (Heparin Inj) 5,000 units UNSCH PRN IV 07/01/17 03:30 (Heparin Inj) 2,500 units UNSCH PRN IV 07/01/17 03:30 Heparin Sodium/ Dextrose 250 ml @ 9 mls/hr TITRATE PRN IV 06/30/17 21:30 07/01/17 23:13 (NS Flush) 2 ml UNSCH PRN IV FLUSH 06/30/17 21:30 (NS Flush) 2 ml BID IV FLUSH 07/01/17 09:00 07/01/17 09:00 (Zofran Inj) 4 mg Q6H PRN IVP 06/30/17 21:30 (Tylenol) 650 mg Q6H PRN PO 06/30/17 21:30 (Dilaudid Pf Inj) 0.5 mg Q3H PRN IV PUSH 06/30/17 21:30 (Rosa-Colace) 1 tab BID PO 07/01/17 09:00 07/01/17 20:44 (Milk Of Magnesia Liq) 30 ml Q12H PRN PO 06/30/17 21:30 (Senokot) 17.2 mg Q12H PRN PO 06/30/17 21:30 (Dulcolax Supp) 10 mg DAILY PRN RECTAL 06/30/17 21:30 (Lactulose Liq) 30 ml DAILY PRN PO 06/30/17 21:30 (Symbicort 160-4.5 Mcg Inh) 2 puff Q12HR INH 07/01/17 09:00 07/02/17 08:54 (Duoneb Neb) 1 ampule Q2HR NEB PRN NEB 06/30/17 21:45 (CeleXA) 10 mg DAILY PO 07/01/17 09:00 07/02/17 08:56 (Xalatan 0.005% Opth Soln) 1 drop HS EACH EYE 07/01/17 21:00 07/01/17 23:08 (Synthroid) 100 mcg DAILY@0700 PO 07/01/17 07:00 07/02/17 06:32 (Flomax) 0.8 mg HS PO 07/01/17 21:00 07/01/17 20:43 (Requip) 2.5 mg HS PRN PO 06/30/17 21:45 Ceftriaxone Sodium 1000 mg/ Sodium Chloride 100 ml @ 200 mls/hr Q24H IV 07/01/17 21:00 07/01/17 20:44 (Tessalon) 100 mg TID PRN PO 07/01/17 01:15 07/02/17 17:08 Vital Signs / I&O Vital Signs Date Time Temp Pulse Resp B/P (MAP) Pulse Ox O2 Delivery O2 Flow Rate FiO2 07/02/17 16:02 98.2 73 18 120/60 (80) 97 07/02/17 16:00 85 07/02/17 12:06 98.0 72 18 118/61 (80) 97 07/02/17 12:00 68 07/02/17 08:03 98.9 88 18 112/57 (75) 94 07/02/17 08:00 80 07/02/17 08:00 Room Air 07/02/17 04:00 85 07/02/17 04:00 98.2 85 20 128/57 (80) 96 07/02/17 00:00 Room Air 07/02/17 00:00 99.1 78 18 102/56 (71) 94 07/02/17 00:00 98 07/01/17 20:40 Room Air 07/01/17 20:00 96 07/01/17 20:00 98.4 89 22 123/65 (84) 96 I/O 07/01/17 07/01/17 07/01/17 07/02/17 07/02/17 07/02/17 07:00 15:00 23:00 07:00 15:00 23:00 Intake Total 169.4 ml 100 ml 546.8 ml Balance 169.4 ml 100 ml 546.8 ml Intake Oral 0 ml 480 ml IV Total 169.4 ml 100 ml 66.8 ml # Voids 2 2 4 # Bowel Movements 0 1 1 Physical Exam GENERAL: In NAD SKIN: Warm and dry. HEAD: Normocephalic. EYES: No scleral icterus. No injection or drainage. NECK: Supple, trachea midline. No JVD or lymphadenopathy. CARDIOVASCULAR: Regular rate and rhythm without murmurs, gallops, or rubs. RESPIRATORY: Breath sounds equal bilaterally. No accessory muscle use. GASTROINTESTINAL: Abdomen soft, non-tender, nondistended. MUSCULOSKELETAL: No cyanosis, or edema. Laboratory Laboratory Tests Test 07/02/17 09:00 White Blood Count 9.7 TH/MM3 Red Blood Count 3.54 MIL/MM3 Hemoglobin 10.6 GM/DL Hematocrit 31.7 % Mean Corpuscular Volume 89.6 FL Mean Corpuscular Hemoglobin 30.0 PG Mean Corpuscular Hemoglobin Concent 33.5 % Red Cell Distribution Width 15.0 % Platelet Count 452 TH/MM3 Mean Platelet Volume 7.5 FL Neutrophils (%) (Auto) 71.2 % Lymphocytes (%) (Auto) 15.4 % Monocytes (%) (Auto) 6.7 % Eosinophils (%) (Auto) 6.0 % Basophils (%) (Auto) 0.7 % Neutrophils # (Auto) 6.9 TH/MM3 Lymphocytes # (Auto) 1.5 TH/MM3 Monocytes # (Auto) 0.6 TH/MM3 Eosinophils # (Auto) 0.6 TH/MM3 Basophils # (Auto) 0.1 TH/MM3 CBC Comment DIFF FINAL Differential Comment Activated Partial Thromboplast Time 46.1 SEC Blood Urea Nitrogen 16 MG/DL Creatinine 0.99 MG/DL Random Glucose 122 MG/DL Calcium Level 9.5 MG/DL Phosphorus Level 3.0 MG/DL Magnesium Level 2.0 MG/DL Sodium Level 136 MEQ/L Potassium Level 3.3 MEQ/L Chloride Level 103 MEQ/L Carbon Dioxide Level 25.7 MEQ/L Anion Gap 7 MEQ/L Estimat Glomerular Filtration Rate 71 ML/MIN Free Thyroxine 1.62 NG/DL Thyroid Stimulating Hormone 3rd Gen 1.330 uIU/ML Assessment and Plan Problem List: (1) PE (pulmonary thromboembolism) ICD Codes: I26.99 - Other pulmonary embolism without acute cor pulmonale (2) Elevated troponin ICD Codes: R79.89 - Other specified abnormal findings of blood chemistry Status: Acute (3) CAD (coronary artery disease) ICD Codes: I25.10 - Atherosclerotic heart disease of [place] coronary artery without angina pectoris Status: Chronic (4) HTN (hypertension) ICD Codes: I10 - Essential (primary) hypertension Status: Acute Assessment and Plan Continue current program with anticoagulation. Switch to Eliquis as planned. Mildly elevated troponin is not trending and is likely related to PE. OK to discharge home tomorrow if stable. Will schedule f/u with me as outpatient. Faina Boswell MD Jul 02, 2017 17:56
[2017-07-02] MEDS: cefTRIAXone INJ 1,000 MG in SODIUM CHLORIDE 0.9% INJ 100 ML IV SCH (20:15)
[2017-07-02] MEDS: TAMSULOSIN HCL 0.4 MG CAP PO SCH (20:15)
[2017-07-02] MEDS: LATANOPROST 0.005% OPHT SOLN 2.5 ML BTL EACH EYE SCH (20:16)
[2017-07-03] VITALS (10 sets, daily range): BP systolic 100–129; BP diastolic 59–96; PULSE 76–95; RESP 17–20; TEMP 97.2–98.2; O2SAT 94–99
[2017-07-03] MEDS: HEPARIN-D5W 25,000 U/250 ML 250 ML IV PRN (05:01)
[2017-07-03] MEDS: LEVOTHYROXINE SODIUM 100 MCG TAB PO SCH (06:23)
--- NOTE | 2017-07-03 07:57 | PD.ORT.PN ---
Subjective Subjective Remarks 12 weeks post op s/p ORIF left distal femur doing well. pain controlled. no complaints. has been nwb Objective Vitals Vital Signs Date Time Temp Pulse Resp B/P (MAP) Pulse Ox O2 Delivery O2 Flow Rate FiO2 07/03/17 03:54 97.3 82 18 125/63 (83) 94 07/03/17 03:53 Room Air 07/03/17 03:46 76 07/03/17 00:04 83 07/03/17 00:00 98.0 85 20 129/62 (84) 96 07/02/17 20:00 98.3 80 18 128/60 (82) 98 07/02/17 20:00 Room Air 07/02/17 16:02 98.2 73 18 120/60 (80) 97 07/02/17 16:00 85 07/02/17 12:06 98.0 72 18 118/61 (80) 97 07/02/17 12:00 68 07/02/17 08:03 98.9 88 18 112/57 (75) 94 07/02/17 08:00 80 07/02/17 08:00 Room Air I/O 07/02/17 07/02/17 07/02/17 07/03/17 07/03/17 07/03/17 07:00 15:00 23:00 07:00 15:00 23:00 Intake Total 546.8 ml 600 ml 250 ml Balance 546.8 ml 600 ml 250 ml Intake Oral 480 ml 600 ml 250 ml IV Total 66.8 ml # Voids 4 3 6 # Bowel Movements 1 2 2 Result Diagram: 07/02/17 0900 07/02/17 0900 Objective Remarks LLE: incision healed well. PROM 0-90deg. nvi distally Assessment & Plan Assessment and Plan 1) Left Periprosthetic Distal Femur Fx s/p ORIF by Dr Millan (04/12/17) -50%WB -progress to WBAT in 1 week (07/10/17) -XR of knee today -plan for DC to rehab -f/u nikos Millan in 2 months Lyndon Copeland/[employer] PA Jul 03, 2017 07:57
--- NOTE | 2017-07-03 07:58 | HHI.FF ---
Face to Face Verification Diagnosis: (1) Rosa-prosthetic femoral shaft fracture Physical Therapy Gait training Knee: Knee fracture, Protocol: Left Right LE Range of Motion: Active ROM Left LE Weight Bearing: Partial WB 50% (begin WBAT on 07/10/17) I have seen patient Dallin Ball on 07/03/17. My clinical findings support the need for the requested home health care services because: Ltd mobility - disease progression I certify that my clinical findings support that this patient is homebound because: Post-op weakness Lyndon Copeland/[employer] PA Jul 03, 2017 07:58
--- NOTE | 2017-07-03 08:47 | HHI.FF ---
Face to Face Verification Diagnosis: (1) Status post total knee replacement, left (2) Elevated troponin (3) HTN (hypertension) (4) CAD (coronary artery disease) (5) PE (pulmonary thromboembolism) Physical Therapy Order: Evaluate and Treat Home Health Nursing Order: Medical education Signs/symptoms of disease process Medication education-adverse effect Nursing assessment with vital signs I have seen patient Dallin Ball on 07/03/17. My clinical findings support the need for the requested home health care services because: Ltd mobility - disease progression I certify that my clinical findings support that this patient is homebound because: Post-op weakness Violetta Walker MD Jul 03, 2017 08:47
[2017-07-03] MEDS: DOCUSATE SODIUM 50 MG/SENNA 8.6 MG TAB PO SCH ×2 (08:49→21:20)
[2017-07-03] MEDS: BUDESONIDE-FORMOTEROL 160/4.5 MCG INHALER INH SCH ×2 (08:49→21:25)
[2017-07-03] MEDS: SODIUM CHLORIDE 0.9% FLUSH 10 ML FLUSH IV FLUSH SCH ×2 (08:49→21:25)
[2017-07-03] MEDS: CITALOPRAM HYDROBROMIDE 20 MG TAB PO SCH (08:49)
[2017-07-03] MEDS: BENZONATATE 100 MG CAP PO PRN ×2 (08:54→18:18)
--- NOTE | 2017-07-03 09:52 | RADRPT ---
EXAM DATE/TIME: 07/03/2017 08:55 [facility] COMPARISON: KNEE LEFT LTD (1 OR 2VWS), April 25, 2017, 9:16. INDICATIONS : Evaluate fracture. MEDICAL HISTORY : None. SURGICAL HISTORY : Total knee replacement, left. Fusion, cervical. Lumbar laminectomy. ENCOUNTER: Initial ACUITY: 4 - 6 days PAIN SCORE: 0/10 LOCATION: Left knee. FINDINGS: Two view examination of the left knee demonstrates left knee arthroplasty. Plate and screws along the femur fixating a fracture. There are signs of healing with periosteal reaction. Near-anatomic alignm ent. CONCLUSION: Internal fixation with healing fracture of the femur. Adam Griffin MD on July 03, 2017 at 9:49 Board Certified Radiologist. This report was verified electronically.
--- NOTE | 2017-07-03 11:38 | HHI.PR ---
Subjective Remarks In bed says he feels weak. Says he cannot go home with home health. Requesting to go to [facility] rehab. Consult OT and PT recommends rehab. Patient says he did not have any chest pain overnight. Denies any shortness of breath, diaphoresis, nausea. Cleared by cardiology for discharge. He is breathing well on room air. Objective Vitals Vital Signs Date Time Temp Pulse Resp B/P (MAP) Pulse Ox O2 Delivery O2 Flow Rate FiO2 07/03/17 08:00 98.2 95 19 123/96 (105) 96 07/03/17 03:54 97.3 82 18 125/63 (83) 94 07/03/17 03:53 Room Air 07/03/17 03:46 76 07/03/17 00:04 83 07/03/17 00:00 98.0 85 20 129/62 (84) 96 07/02/17 20:00 98.3 80 18 128/60 (82) 98 07/02/17 20:00 Room Air 07/02/17 16:02 98.2 73 18 120/60 (80) 97 07/02/17 16:00 85 07/02/17 12:06 98.0 72 18 118/61 (80) 97 07/02/17 12:00 68 I/O 07/02/17 07/02/17 07/02/17 07/03/17 07/03/17 07/03/17 07:00 15:00 23:00 07:00 15:00 23:00 Intake Total 546.8 ml 600 ml 250 ml Balance 546.8 ml 600 ml 250 ml Intake Oral 480 ml 600 ml 250 ml IV Total 66.8 ml # Voids 4 3 6 # Bowel Movements 1 2 2 Result Diagram: 07/02/17 0900 07/02/17 0900 Imaging Last Impressions Knee X-Ray 07/03/17 0000 Signed Impressions: Service Date/Time: Monday, July 03, 2017 08:55 - CONCLUSION: Internal fixation with healing fracture of the femur. Adam Griffin MD CT Angiography 06/30/172003 Signed Impressions: Service Date/Time: Friday, June 30, 2017 20:42 - CONCLUSION: Tiny left lower lobe pulmonary embolus. Bibasilar atelectasis. Coronary artery calcification. Kumar Jacinto MD Chest X-Ray 06/30/17 1545 Signed Impressions: Service Date/Time: Friday, June 30, 2017 19:10 - CONCLUSION: Trace right base atelectasis. Otherwise negative. Kumar Jacinto MD Objective Remarks GENERAL: Pleasant elderly white male in no acute distress. CARDIOVASCULAR: Regular rate and rhythm. No obvious murmurs to auscultation. No chest tenderness to palpation. RESPIRATORY: No obvious rhonchi or wheezing. Clear to auscultation. Breath sounds equal bilaterally. GASTROINTESTINAL: Abdomen soft, non-tender, nondistended. BS normal. MUSCULOSKELETAL: Extremities without clubbing, cyanosis, or edema. No obvious deformities. NEUROLOGICAL: Awake, alert and oriented x4. No focal neurologic deficits. Moving both upper and lower extremities spontaneously. Procedures none A/P Problem List: (1) PE (pulmonary thromboembolism) ICD Code: I26.99 - Other pulmonary embolism without acute cor pulmonale (2) Elevated troponin ICD Code: R74.8 - Abnormal levels of other serum enzymes (3) UTI (lower urinary tract infection) ICD Code: N39.0 - UTI (lower urinary tract infection) Status: Resolved Assessment and Plan PE: +cough/SOB, recent ORIF Femur Fx on Xarelto. CTA Pulm w/ tiny LLL PE, no previous h/o same. Continue Heparin gtt, Symbicort, DuoNeb PRN for bronchospasm. Elevated Trop: Trop 0.17 trending up however no chest pain at this time EKG reviewed no acute changes, possibly due to PE, however PE is tiny, unlikely to cause significant strain r/o ACS Monitor on telemetry Consult his cardiology Dr. Boswell, Dr. Balderas [facility] seen the patient , recommendation to continue Heparin gtt Check TSH, free T4 Dr Boswell evaluated patient.. For discharge by cardiology. Plan to follow-up as outpatient with cardiology. Can discharge him Eliquis. Plan discussed with the patient. UTI: UA with UTI, s/p Rocephin. Urine cultures are normal. Discontinue antibiotics. Physical deconditioning patient also has recent knee surgery, he is 50% weightbearing. Consult PT and OT. Recommends rehab. [facility] DVT Prophylaxis: SCD/Teds CM consulted for DC planning Discussed with the patient, nurse Discharge to rehab when arrangements done and if approved. Discussed with case management. Violetta Walker MD Jul 03, 2017 11:38
--- NOTE | 2017-07-03 15:00 | PD.CARD.PN ---
Subjective Subjective Remarks No CP or SOB, cough improving Objective Medications Current Medications Medications (Trade) Dose Ordered Sig/[place] Route Start Time Stop Time Status Last Admin (Heparin Inj) 5,000 units UNSCH PRN IV 07/01/17 03:30 (Heparin Inj) 2,500 units UNSCH PRN IV 07/01/17 03:30 Heparin Sodium/ Dextrose 250 ml @ 9 mls/hr TITRATE PRN IV 06/30/17 21:30 07/03/17 05:01 (NS Flush) 2 ml UNSCH PRN IV FLUSH 06/30/17 21:30 (NS Flush) 2 ml BID IV FLUSH 07/01/17 09:00 07/03/17 08:49 (Zofran Inj) 4 mg Q6H PRN IVP 06/30/17 21:30 (Tylenol) 650 mg Q6H PRN PO 06/30/17 21:30 (Dilaudid Pf Inj) 0.5 mg Q3H PRN IV PUSH 06/30/17 21:30 (Rosa-Colace) 1 tab BID PO 07/01/17 09:00 07/03/17 08:49 (Milk Of Magnesia Liq) 30 ml Q12H PRN PO 06/30/17 21:30 (Senokot) 17.2 mg Q12H PRN PO 06/30/17 21:30 (Dulcolax Supp) 10 mg DAILY PRN RECTAL 06/30/17 21:30 (Lactulose Liq) 30 ml DAILY PRN PO 06/30/17 21:30 (Symbicort 160-4.5 Mcg Inh) 2 puff Q12HR INH 07/01/17 09:00 07/03/17 08:49 (Duoneb Neb) 1 ampule Q2HR NEB PRN NEB 06/30/17 21:45 (CeleXA) 10 mg DAILY PO 07/01/17 09:00 07/03/17 08:49 (Xalatan 0.005% Opth Soln) 1 drop HS EACH EYE 07/01/17 21:00 07/02/17 20:16 (Synthroid) 100 mcg DAILY@0700 PO 07/01/17 07:00 07/03/17 06:23 (Flomax) 0.8 mg HS PO 07/01/17 21:00 07/02/17 20:15 (Requip) 2.5 mg HS PRN PO 06/30/17 21:45 Ceftriaxone Sodium 1000 mg/ Sodium Chloride 100 ml @ 200 mls/hr Q24H IV 07/01/17 21:00 07/02/17 20:15 (Tessalon) 100 mg TID PRN PO 07/01/17 01:15 07/03/17 08:54 Vital Signs / I&O Vital Signs Date Time Temp Pulse Resp B/P (MAP) Pulse Ox O2 Delivery O2 Flow Rate FiO2 07/03/17 12:00 Room Air 07/03/17 12:00 97.3 93 18 100/61 (74) 99 07/03/17 08:00 Room Air 07/03/17 08:00 98.2 95 19 123/96 (105) 96 07/03/17 03:54 97.3 82 18 125/63 (83) 94 07/03/17 03:53 Room Air 07/03/17 03:46 76 07/03/17 00:04 83 07/03/17 00:00 98.0 85 20 129/62 (84) 96 07/02/17 20:00 98.3 80 18 128/60 (82) 98 07/02/17 20:00 Room Air 07/02/17 16:02 98.2 73 18 120/60 (80) 97 07/02/17 16:00 85 I/O 07/02/17 07/02/17 07/02/17 07/03/17 07/03/17 07/03/17 07:00 15:00 23:00 07:00 15:00 23:00 Intake Total 546.8 ml 600 ml 250 ml Balance 546.8 ml 600 ml 250 ml Intake Oral 480 ml 600 ml 250 ml IV Total 66.8 ml # Voids 4 3 6 # Bowel Movements 1 2 2 Physical Exam GENERAL: In NAD SKIN: Warm and dry. HEAD: Normocephalic. EYES: No scleral icterus. No injection or drainage. NECK: Supple, trachea midline. No JVD or lymphadenopathy. CARDIOVASCULAR: Regular rate and rhythm without murmurs, gallops, or rubs. RESPIRATORY: Breath sounds equal bilaterally. No accessory muscle use. GASTROINTESTINAL: Abdomen soft, non-tender, nondistended. MUSCULOSKELETAL: No cyanosis, or edema. Laboratory Laboratory Tests Test 07/03/17 07:10 07/03/17 08:35 Activated Partial Thromboplast Time 41.8 SEC 37.4 SEC Imaging Last 24 hours Impressions Knee X-Ray 07/03/17 0000 Signed Impressions: Service Date/Time: Monday, July 03, 2017 08:55 - CONCLUSION: Internal fixation with healing fracture of the femur. Adam Griffin MD Assessment and Plan Problem List: (1) PE (pulmonary thromboembolism) ICD Codes: I26.99 - Other pulmonary embolism without acute cor pulmonale (2) Elevated troponin ICD Codes: R79.89 - Other specified abnormal findings of blood chemistry Status: Acute (3) CAD (coronary artery disease) ICD Codes: I25.10 - Atherosclerotic heart disease of [place] coronary artery without angina pectoris Status: Chronic (4) HTN (hypertension) ICD Codes: I10 - Essential (primary) hypertension Status: Acute Assessment and Plan Overall improvement. Continue current program with full anticoagulation for PE. No evidence of ACS. Mildly elevated troponin is not trending and is likely related to PE. OK to discharge home. Will schedule f/u with me as outpatient. Faina Boswell MD Jul 03, 2017 15:00
[2017-07-03] MEDS: TAMSULOSIN HCL 0.4 MG CAP PO SCH (21:20)
[2017-07-03] MEDS: cefTRIAXone INJ 1,000 MG in SODIUM CHLORIDE 0.9% INJ 100 ML IV SCH (21:21)
[2017-07-03] MEDS: LATANOPROST 0.005% OPHT SOLN 2.5 ML BTL EACH EYE SCH (21:25)
[2017-07-04] VITALS: BP 109/55; PULSE 78; RESP 18; TEMP 97.4; O2SAT 96
[2017-07-04 03:41] VITALS: PULSE 79
[2017-07-04] MEDS: BENZONATATE 100 MG CAP PO PRN (05:24)
[2017-07-04] MEDS: LEVOTHYROXINE SODIUM 100 MCG TAB PO SCH (05:25)
[2017-07-04 06:37] VITALS: BP 102/54; PULSE 76; RESP 18; TEMP 98.1; O2SAT 94
[2017-07-04 08:00] VITALS: BP 114/60; PULSE 80; PULSE 83; RESP 18; TEMP 97.8; O2SAT 94
[2017-07-04] MEDS: CITALOPRAM HYDROBROMIDE 20 MG TAB PO SCH (09:35)
[2017-07-04] MEDS: DOCUSATE SODIUM 50 MG/SENNA 8.6 MG TAB PO SCH (09:35)
[2017-07-04] MEDS: SODIUM CHLORIDE 0.9% FLUSH 10 ML FLUSH IV FLUSH SCH (09:36)
[2017-07-04] MEDS: BUDESONIDE-FORMOTEROL 160/4.5 MCG INHALER INH SCH (09:36)
--- NOTE | 2017-07-04 11:32 | HHI.PR ---
Subjective Remarks Today. Family at bedside. No chest pain overnight no shortness of breath. He is saturating well on room air. He to go to the rehab today. Objective Vitals Vital Signs Date Time Temp Pulse Resp B/P (MAP) Pulse Ox O2 Delivery O2 Flow Rate FiO2 07/04/17 08:00 97.8 83 18 114/60 (78) 94 07/04/17 08:00 80 07/04/17 06:37 98.1 76 18 102/54 (70) 94 07/04/17 03:41 79 07/04/17 00:00 97.4 78 18 109/55 (73) 96 07/03/17 23:43 80 07/03/17 20:00 97.2 78 18 114/59 (77) 95 07/03/17 20:00 Room Air 07/03/17 19:47 78 07/03/17 16:00 78 07/03/17 16:00 Room Air 07/03/17 16:00 98.1 83 17 121/73 (89) 98 07/03/17 12:00 Room Air 07/03/17 12:00 97.3 93 18 100/61 (74) 99 07/03/17 12:00 78 I/O 07/03/17 07/03/17 07/03/17 07/04/17 07/04/17 07/04/17 07:00 15:00 23:00 07:00 15:00 23:00 Intake Total 250 ml 770 ml Balance 250 ml 770 ml Intake Oral 250 ml 770 ml # Voids 6 5 2 # Bowel Movements 2 1 0 Result Diagram: 07/02/17 0907/02/17 0900 Objective Remarks GENERAL: Pleasant elderly white male in no acute distress. CARDIOVASCULAR: Regular rate and rhythm. No obvious murmurs to auscultation. No chest tenderness to palpation. RESPIRATORY: No obvious rhonchi or wheezing. Clear to auscultation. Breath sounds equal bilaterally. GASTROINTESTINAL: Abdomen soft, non-tender, nondistended. BS normal. MUSCULOSKELETAL: Extremities without clubbing, cyanosis, or edema. No obvious deformities. NEUROLOGICAL: Awake, alert and oriented x4. No focal neurologic deficits. Moving both upper and lower extremities spontaneously. Procedures none A/P Problem List: (1) PE (pulmonary thromboembolism) ICD Code: I26.99 - Other pulmonary embolism without acute cor pulmonale (2) Elevated troponin ICD Code: R74.8 - Abnormal levels of other serum enzymes (3) UTI (lower urinary tract infection) ICD Code: N39.0 - UTI (lower urinary tract infection) Status: Resolved Assessment and Plan PE: +cough/SOB, recent ORIF Femur Fx on Xarelto. CTA Pulm w/ tiny LLL PE, no previous h/o same. Continue Heparin gtt, Symbicort, DuoNeb PRN for bronchospasm. Elevated Trop: Trop 0.17 trending up however no chest pain at this time EKG reviewed no acute changes, possibly due to PE, however PE is tiny, unlikely to cause significant strain r/o ACS Monitor on telemetry Consult his cardiology Dr. Boswell, Dr. Balderas [facility] seen the patient , recommendation to continue Heparin gtt Check TSH, free T4 Dr Boswell evaluated patient.. For discharge by cardiology. Plan to follow-up as outpatient with cardiology. Can discharge him Eliquis. Plan discussed with the patient. UTI: UA with UTI, s/p Rocephin. Urine cultures are normal. Discontinue antibiotics. Physical deconditioning patient also has recent knee surgery, he is 50% weightbearing. Consult PT and OT. Recommends rehab. Patient family wants to go to [place] rehab. DVT Prophylaxis: SCD/Teds CM consulted for DC planning Discussed with the patient, nurse Discharge to rehab when arrangements done and if approved. Discussed with case management. Violetta Walker MD Jul 04, 2017 11:32
[2017-07-04 12:00] VITALS: BP 127/68; PULSE 76; PULSE 90; RESP 17; TEMP 97; O2SAT 95
[2017-07-04 16:00] VITALS: PULSE 88
[2017-07-04] MEDS ORDERED: HYDR-3583 PO (17:56)
[2017-07-04] MEDS ORDERED: APIXABAN 5 MG TABLET PO SCH (21:00)
[2017-07-06] MEDS ORDERED: BENZ100 PO (19:07)
[2017-07-06] MEDS ORDERED: Petrolat-Zinc Barrier Oint TOPICAL (19:07)
[2017-07-06] MEDS ORDERED: PANT20 PO (19:07)
[2017-07-06] MEDS ORDERED: APIX5TAB PO (19:07)
[2017-07-06] MEDS ORDERED: ZOSY3.375P IV (19:07)
[2017-07-06] MEDS ORDERED: Albuterol-Ipratropium Neb NEB (19:07)
[2017-07-06] MEDS ORDERED: Budeson-Formot 160-4.5 Mcg Inh INH (19:07)
== END 2017-07-04 16:03 | DRG 176 ==
LOC: NEPC 18:25 → NEDA 21:36 → N04B 22:46
PROVIDERS: ADMIT Hospitalist; ATTEND Hospitalist
DX: I26.99 Other pulmonary embolism without acute cor pulmonale (principal); I69.351 Hemiplegia and hemiparesis following cerebral infarction affecting right dominant side; I45.2 Bifascicular block; J98.11 Atelectasis; E03.9 Hypothyroidism, unspecified; K21.9 Gastro-esophageal reflux disease without esophagitis; N40.0 Benign prostatic hyperplasia without lower urinary tract symptoms; I25.10 Atherosclerotic heart disease of native coronary artery without angina pectoris; I10 Essential (primary) hypertension; R74.8 Abnormal levels of other serum enzymes; J98.01 Acute bronchospasm; S72.402D Unspecified fracture of lower end of left femur, subsequent encounter for closed fracture with routine healing; M19.90 Unspecified osteoarthritis, unspecified site; M97.12XD Periprosthetic fracture around internal prosthetic left knee joint, subsequent encounter; M48.00 Spinal stenosis, site unspecified; Z79.01 Long term (current) use of anticoagulants; Z82.49 Family history of ischemic heart disease and other diseases of the circulatory system; Z85.828 Personal history of other malignant neoplasm of skin; Z88.5 Allergy status to narcotic agent; Z98.1 Arthrodesis status
CPT/HCPCS: 71045; 71275; 73560; 80048; 80053; 81001; 83735; 83880; 84100; 84439; 84443; 84484; 85025; 85610; 85730; 87086; 93005; J0696; J1644; Q9967

== ENCOUNTER 2017-07-06 19:32 | Inpatient (IN) | payer MEDICARE ==
[~2017-07-06] VITALS: Ht 170.2 cm; Wt 67.0 kg
[~2017-07-06 19:32] MED LIST changes: +APIX5TAB PO; +Albuterol-Ipratropium Neb NEB; +BENZ100 PO; +Budeson-Formot 160-4.5 Mcg Inh INH; -CPMMACHINE; +PANT20 PO; -PRED5TAB PO; +Petrolat-Zinc Barrier Oint TOPICAL; -ROLLER WALKER1 MI1; -WALKER WHEELS/F1 MIS; -WALKER/ADULT/FO1 MIS; -WHEEMIS3; -XARE10TA PO; +ZOSY3.375P IV
[2017-07-06 22:00] VITALS: BP 93/54; PULSE 88; RESP 28; O2SAT 96
[2017-07-06 22:15] VITALS: BP 96/53; PULSE 95; RESP 24; O2SAT 95
[2017-07-06] MEDS ORDERED: ONDANSETRON HCL 4 MG/2 ML VIAL IVP PRN (22:15)
[2017-07-06] MEDS ORDERED: BISACODYL 10 MG SUPP RECTAL PRN (22:15)
[2017-07-06] MEDS ORDERED: MAGNESIUM HYDROXIDE SUSP 30 ML CUP PO PRN (22:15)
[2017-07-06] MEDS ORDERED: NALOXONE HCL 0.4 MG/ML AMP IV PUSH PRN (22:15)
[2017-07-06] MEDS ORDERED: ACETAMINOPHEN 325 MG TAB PO PRN (22:15)
[2017-07-06] MEDS ORDERED: SENNOSIDES 8.6 MG TAB PO PRN (22:15)
[2017-07-06] MEDS ORDERED: SODIUM CHLORIDE 0.9% FLUSH 10 ML FLUSH IV FLUSH PRN (22:15)
[2017-07-06] MEDS ORDERED: LACTULOSE SYRUP 20 GM/30 ML CUP PO PRN (22:15)
[2017-07-06] MEDS ORDERED: CHLORHEXIDINE GLUCONATE 2 % 1 PACK (2 CLOTHS)(extra cloths) TOPICAL PRN (22:30)
[2017-07-06] MEDS ORDERED: RESP: ALBUTEROL 2.5 MG/IPRATROPIUM 0.5 MG NEB (PRN) NEB (22:30)
[2017-07-06] MEDS: RESP: BUDESONIDE 0.5 MG/2 ML NEB NEB SCH (22:30)
[2017-07-06] MEDS: CHLORHEXIDINE GLUCONATE 2 % 1 PACK (2 CLOTHS)(taper/protocol) TOPICAL SCH (22:32)
[2017-07-06] MEDS ORDERED: PILL SPLITTER OTHER PRN (23:00)
--- NOTE | 2017-07-06 23:36 | HHI.HP ---
HPI Service [facility] Primary Care Physician No Primary Care Physician Admission Diagnosis Sepsis, UTI . Diagnoses: (1) Sepsis (2) UTI (lower urinary tract infection) (3) Impaired mobility and activities of daily living Chief Complaint: cough Travel History International Travel<30 Days: No Contact w/Intl Traveler <30 Da: No History of Present Illness Mr. 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 Bowen on 04/12/17. He developed a Pseudomonas UTI, acute diastolic CHF, and respiratory failure with hypoxia requiring BiPAP postoperatively. He was d/c to [facility] 04/25. He returned to the hospital on 06/30 from SNF for pulmonary embolism despite treatment with Xarelto. He was switched to Eliquis and discharged to [facility] on 07/04/17 due to significant deconditioning. [facility] to hypotension, tachycardia , and leukocytosis with suspected sepsis secondary to UTI (urine culture 07/05 with Group D Enterococcus). Patient is seen in the ICU. He is somewhat confused and tells me that he has been in the hospital since March due to a knee surgery. 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 He complains about physical deconditioning and chronic cough. He denies pain. He denies any recent fevers or chills. He is a limited historian given his age, the frequent hospital admissions and rehabilitation stays, and the time of night that I visited. Review of Systems Except as stated in HPI: all other systems reviewed are Neg Past Family Social History Past Medical History Pulmonary embolism 06/30/2017 Hypertension CVA with left-sided weakness Diastolic congestive heart failure -echocardiogram 04/19/2017 shows EF 55-60% and moderate concentric left ventricular hypertrophy Spinal stenosis BPH Gait disorder Periprosthetic femur fracture status post R ORIF 04/11/2017 Pseudomonas UTI Hypoxic respiratory failure requiring Bi-pap . Past Surgical History Thoracic and cervical spine surgery Tonsillectomy Cataract surgery Left periprosthetic femoral shaft fracture s/p ORIF by Dr. Bowen on 04/12/17 Left total knee arthroplasty 05/10/16 . Reported Medications Reported Meds & Active Scripts Active Zosyn Inj (Piperacillin Sod/Tazobactam Sod) 3.375 Gram Inj 3.375 Gm IV Q6HR 7 Days Protonix (Pantoprazole Sodium) 20 Mg Tab 20 Mg PO DAILY 30 Days [Budeson-Formot 160-4.5 Mcg Inh] 60 PUFF Aero 2 Puff INH Q12HR 30 Days Tessalon Perles (Benzonatate) 100 Mg Cap 200 Mg PO TID PRN 10 Days [Petrolat-Zinc Barrier Oint] 120 APPLIC/120 GM Oint 1 Applic TOPICAL BID 10 Days [Albuterol-Ipratropium Neb] 1 AMPULE Nebu 1 Ampule NEB Q6HR NEB 1 Days Eliquis (Apixaban) 5 Mg Tab 10 Mg PO BID until 07/12 Eliquis (Apixaban) 5 Mg Tab 5 Mg PO BID To start on 07/13 Flomax (Tamsulosin HCl) 0.4 Mg Cap 0.8 Mg PO HS Start date 04/23/17 Calcium 600+D 200 (Calcium Carbonate-Vitamin D) 600-200 Mg-Unit Tab 1 Tab PO BID 60 Days Vitamin D3 (Cholecalciferol) 2,000 Unit Cap 2,000 Units PO DAILY Commode 3-in-1 (Device) 1 Mis Mis 1 Ea .ROUTE DIRECTED Reported Ropinirole 5 Mg Tab 2.5 Mg PO HS PRN Citalopram (Citalopram Hydrobromide) 10 Mg Tab 10 Mg PO DAILY Levothyroxine (Levothyroxine Sodium) 100 Mcg Tab 100 Mcg PO DAILY Latanoprost Opth Drops (Latanoprost) 0.005% Drops 1 Drop EACH EYE HS Refrigerate until opened. . Allergies: Coded Allergies: tramadol (Verified Allergy, Severe, anxiety, 06/30/17) hydrocodone (Verified Adverse Reaction, Unknown, Irritability/Anxiety, ) morphine (Verified Adverse Reaction, Unknown, Irritability/Anxiety, ) Family History Positive for hypertension . Social History Tobacco: Quit smoking 1965 Alcohol: Denies . Physical Exam Vital Signs Vital Signs Date Time Temp Pulse Resp B/P (MAP) Pulse Ox O2 Delivery O2 Flow Rate FiO2 07/06/17 22:15 95 24 96/53 (67) 95 07/06/17 22:00 96 Nasal Cannula 2.00 07/06/17 22:00 88 07/06/17 22:00 88 28 93/54 (67) 96 Physical Exam CONSTITUTIONAL: This is a pale, chronically ill-appearing elderly male patient, in no apparent distress. INTEGUMENTARY: No rashes. Cool and dry. HEAD: Atraumatic. Normocephalic. EYES: No scleral icterus. No injection or drainage. ENT: Nose without bleeding, purulent drainage. NECK: Trachea midline. No JVD. CARDIOVASCULAR: Tachycardic rate and regular rhythm without murmurs, gallops, or rubs. RESPIRATORY: Breath sounds diminished at bases, equal bilaterally. No wheezes, rales, or rhonchi. GASTROINTESTINAL: Abdomen soft, non-tender, nondistended. No guarding. MUSCULOSKELETAL: Extremities without clubbing, cyanosis, or edema. No calf tenderness. Generalized weakness. NEUROLOGICAL: Awakened for visit. Confused to situation. Normal speech. . Laboratory Laboratory Tests Test 07/06/17 11:05 07/06/17 11:15 07/06/17 15:24 07/06/17 18:12 Blood Urea Nitrogen 22 Creatinine 1.15 Random Glucose 129 Total Protein 7.6 Albumin 2.7 Calcium Level 10.9 Alkaline Phosphatase 78 Aspartate Amino Transf (AST/SGOT) 17 Alanine Aminotransferase (ALT/SGPT) 19 Total Bilirubin 0.4 Sodium Level 133 Potassium Level 4.2 Chloride Level 99 Carbon Dioxide Level 26.4 Anion Gap 8 Estimat Glomerular Filtration Rate 60 Lactic Acid Level 1.8 Troponin I 0.15 0.15 White Blood Count 16.7 Red Blood Count 3.60 Hemoglobin 10.7 Hematocrit 32.4 Mean Corpuscular Volume 89.9 Mean Corpuscular Hemoglobin 29.7 Mean Corpuscular Hemoglobin Concent 33.1 Red Cell Distribution Width 14.7 Platelet Count 421 Mean Platelet Volume 7.9 Neutrophils (%) (Auto) 87.6 Lymphocytes (%) (Auto) 5.8 Monocytes (%) (Auto) 5.8 Eosinophils (%) (Auto) 0.3 Basophils (%) (Auto) 0.5 Neutrophils # (Auto) 14.6 Lymphocytes # (Auto) 1.0 Monocytes # (Auto) 1.0 Eosinophils # (Auto) 0.0 Basophils # (Auto) 0.1 CBC Comment DIFF FINAL Differential Comment Blood Gas Puncture Site RT BRACHIAL Blood Gas Patient Temperature 98.6 Blood Gas HCO3 25 Blood Gas Base Excess 1.5 Blood Gas Oxygen Saturation 94 Arterial Blood pH 7.45 Arterial Blood Partial Pressure CO2 36 Arterial Blood Partial Pressure O2 83 Arterial Blood Oxygen Content 13.4 Arterial Blood Carboxyhemoglobin 1.0 Arterial Blood Methemoglobin 1.3 Blood Gas Hemoglobin 10.1 Oxygen Delivery Device NASAL CANNULA Blood Gas Liter Flow 2 Date/Time Source Procedure Growth Status 07/06/17 11:13 Blood Peripheral Aerobic Blood Culture Pending Received 07/06/17 11:13 Blood Peripheral Anaerobic Blood Culture Pending Received 07/05/17 15:40 Urine Clean Catch Urine Culture - Preliminary Group D Enterococcus Resulted Imaging Last Impressions Chest X-Ray 07/06/17 1101 Signed Impressions: Service Date/Time: Thursday, July 06, 2017 11:13 - CONCLUSION: 1. Right basilar atelectasis/scarring. No change. 2. Cardiomegaly. Adam Griffin MD Chest CT 07/06/17 0000 Signed Impressions: Service Date/Time: Thursday, July 06, 2017 16:06 - CONCLUSION: Minimal airspace disease in both lungs with compensated cardiomegaly. No failure. Brendan Silva MD FACR . Caprini VTE Risk Assessment Caprini VTE Risk Assessment: Mod/High Risk (score >= 2) Caprini Risk Assessment Model Point Value = 1 Point Value = 2 Point Value = 3 Point Value = 5 Age 41-60 Minor surgery BMI > 25 kg/m2 Swollen legs Varicose veins or History of unexplained or recurrent spontaneous Oral contraceptives or hormone replacement Sepsis (< 1 month) Serious lung disease, including pneumonia (< 1 month) Abnormal pulmonary function Acute myocardial infarction Congestive heart failure (< 1 month) History of inflammatory bowel disease Medical patient at bed rest Age 61-74 Arthroscopic surgery Major open surgery (> 45 min) Laparoscopic surgery (> 45 min) Malignancy Confined to bed (> 72 hours) Immobilizing plaster cast Central venous access Age >= 75 History of VTE Family history of VTE Factor V Leiden Prothrombin [id number] Lupus anticoagulant Anticardiolipin antibodies Elevated serum homocysteine Heparin-induced thrombocytopenia Other congenital or acquired thrombophilia Stroke (< 1 month) Elective arthroplasty Hip, pelvis, or leg fracture Acute spinal cord injury (< 1 month) Prophylaxis Regimen Total Risk Factor Score Risk Level Prophylaxis Regimen 0-1 Low Early ambulation 2 Moderate Order ONE of the following: *Sequential Compression Device (SCD) *Heparin 5000 units SQ BID 3-4 Higher Order ONE of the following medications: *Heparin 5000 units SQ TID *Enoxaparin/Lovenox 40 mg SQ daily (WT < 150 kg, CrCl > 30 mL/min) *Enoxaparin/Lovenox 30 mg SQ daily (WT < 150 kg, CrCl > 10-29 mL/min) *Enoxaparin/Lovenox 30 mg SQ BID (WT < 150 kg, CrCl > 30 mL/min) AND/OR *Sequential Compression Device (SCD) 5 or more Highest Order ONE of the following medications: *Heparin 5000 units SQ TID (Preferred with Epidurals) *Enoxaparin/Lovenox 40 mg SQ daily (WT < 150 kg, CrCl > 30 mL/min) *Enoxaparin/Lovenox 30 mg SQ daily (WT < 150 kg, CrCl > 10-29 mL/min) *Enoxaparin/Lovenox 30 mg SQ BID (WT < 150 kg, CrCl > 30 mL/min) AND *Sequential Compression Device (SCD) Assessment and Plan Problem List: (1) Sepsis ICD Code: A41.9 - Sepsis, unspecified organism (2) UTI (lower urinary tract infection) ICD Code: N39.0 - UTI (lower urinary tract infection) Status: Resolved (3) Cough ICD Code: R05 - Cough Status: Acute (4) PE (pulmonary thromboembolism) ICD Code: I26.99 - Other pulmonary embolism without acute cor pulmonale (5) Impaired mobility and activities of daily living ICD Code: Z74.09 - Other reduced mobility Status: Acute Assessment and Plan Mr. 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 Bowen on 04/12/17. He developed a Pseudomonas UTI, acute diastolic CHF, and respiratory failure with hypoxia requiring BiPAP postoperatively. He was d/c to SNF of [facility]. He returned to the hospital on 06/30 from SNF for pulmonary embolism despite treatment with Xarelto. He was switched to Eliquis and discharged to [facility] on 07/04/17 due to significant deconditioning. [facility] hypotension, tachycardia , and leukocytosis with suspected sepsis secondary to UTI. Sepsis with leukocytosis with elevated white count of 16.7 and neutrophilia, tachycardia with heart rate 100 and suspected source of UTI in patient with BPH and high post void residuals on Flomax -ID consulted 07/06 at [facility] - appreciate assistance and will reconsult here -Urine culture 07/05- preliminary result with Group D Enterococcus - await final result -Blood culture pending, await results -IV Daptomycin per ID recommendations -Continue IV Zosyn per ID recommendations -Continuous cardiac telemetry to monitor for arrhythmias Chronic cough -Pulmonology consulted while at [place] on 07/06- suspects airway hyperreactivity - medications adjusted - appreciate assistance -reconsulted Dr. Hammond -Robitussin DM PRN Hypotension Coronary Artery Disease -Echocardiogram 04/19/2017 shows EF 55-60% and moderate concentric left ventricular hypertrophy -evaluated by employee relations consultant, Dr. Boswell, who indicates that the patient's slight troponin elevation is unchanged from prior studies (0.15 on 07/06 and 0.18 on 04/11/17), there is no evidence of ACS and sepsis is more likely cause of hypotension (see management above) -on IVF with IV fluid boluses as needed to maintain MAP > 65 - discussed with HUNTING GUIDE -Heart healthy diet -Monitor intake and output -Holding Lisinopril Small left lower lobe pulmonary embolism diagnosed 06/30 -Continue on Eliquis -Supplemental oxygen to maintain oxygen saturation > 92% History of CVA with residual left sided weakness Recent fall with left periprosthetic femur fracture s/p ORIF 04/05 Physical Deconditioning -Consult PT to continue rehabilitative efforts Anemia, chronic, stable - monitor CBC - most recent Hgb 10.7 and HCT 32.4 on 07/06 Hypothyroidism - continue Synthroid Restless leg syndrome -continue Requip DVT prophylaxis - On Eliquis Discussed Condition With Dr. Beck, Meredith Neal, VIDEO EFFECTS EDITOR, and HUNTING GUIDE . Physician Certification 2 Midnight Certification Type: Admission for Inpatient Services Order for Inpatient Services The services are ordered in accordance with Medicare regulations or non- Medicare payer requirements, as applicable. In the case of services not specified as inpatient-only, they are appropriately provided as inpatient services in accordance with the 2-midnight benchmark. Estimated LOS (days): 4 days is the estimated time the patient will need to remain in the hospital, assuming treatment plan goals are met and no additional complications. Post-Hospital Plan: Not yet determined Leslye Wise Jul 06, 2017 23:36
[2017-07-06] MEDS: SODIUM CHLOR 0.9% 1000 ML INJ 1,000 ML IV SCH (23:38)
[2017-07-06] MEDS: guaiFENesin/DEXTROMETHORPHAN 200 MG/20 MG/10 ML CUP PO PRN (23:38)
[2017-07-06] MEDS: PETROLATUM 49%/ZINC OXIDE 15% 4 OUNCE TUBE TOPICAL SCH (23:38)
[2017-07-06] MEDS: TAMSULOSIN HCL 0.4 MG CAP PO SCH (23:40)
[2017-07-06 23:50] VITALS: O2SAT 100
[2017-07-06] MEDS: DAPTOmycin INJ 400 MG in SODIUM CHLORIDE 0.9% INJ 100 ML IV SCH (23:59)
[2017-07-07] VITALS (20 sets, daily range): BP systolic 87–110; BP diastolic 48–63; PULSE 84–106; RESP 16–30; TEMP 98–99.5; O2SAT 82–99
[2017-07-07] MEDS ORDERED: SODIUM CHLOR 0.9% 1000 ML INJ 1,000 ML IV ONE (00:30)
[2017-07-07] MEDS: PIPERACIL-TAZO 3.375 GM PREMIX 50 ML IV SCH ×4 (01:13→21:32)
[2017-07-07] MEDS ORDERED: SODIUM CHLORID 0.9% 500 ML INJ 500 ML IV ONE ×3 (03:15→08:00)
[2017-07-07 04:02] LABS: AUTOMATED NEUTROPHIL # 12.9 TH/MM3 (1.8-7.7); BASOPHIL # 0.1 TH/MM3 (0-0.2); BASOPHIL % 0.4 % (0.0-2.0); EOSINOPHIL # 0.4 TH/MM3 (0-0.4); EOSINOPHIL % 2.8 % (0.0-4.0); HEMATOCRIT 24.9 % (39.0-51.0); HEMOGLOBIN 8.4 GM/DL (13.0-17.0); LYMPH % 6.2 % (9.0-44.0); LYMPHOCYTE # 0.9 TH/MM3 (1.0-4.8); MEAN CELL VOLUME 90.6 FL (80.0-100.0); MEAN CORPUSCULAR HEMOGLOBIN 30.4 PG (27.0-34.0); MEAN CORPUSCULAR HGB CONC 33.5 % (32.0-36.0); MEAN PLATELET VOLUME 7.2 FL (7.0-11.0); MONO % 6.5 % (0.0-8.0); NEUT % 84.1 % (16.0-70.0); PLATELET COUNT 357 TH/MM3 (150-450); RED BLOOD COUNT 2.75 MIL/MM3 (4.50-5.90); RED CELL DISTRIBUTION WIDTH 14.8 % (11.6-17.2); WHITE BLOOD COUNT 15.3 TH/MM3 (4.0-11.0)
[2017-07-07 04:07] LABS: ALBUMIN 2.1 GM/DL (3.4-5.0); ALT (GPT) 13 U/L (12-78); AST (GOT) 13 U/L (15-37); BICARBONATE 24.7 MEQ/L (21.0-32.0); BLOOD UREA NITROGEN 15 MG/DL (7-18); CALCIUM 9.2 MG/DL (8.5-10.1); CHLORIDE 108 MEQ/L (98-107); CREATININE 0.95 MG/DL (0.60-1.30); GLOMERULAR FILTRATION RATE 75 ML/MIN (>89); GLUCOSE,RANDOM 85 MG/DL (74-106); SODIUM (NA) 138 MEQ/L (136-145)
[2017-07-07 04:09] LABS: ALKALINE PHOSPHATASE 52 U/L (45-117); TOTAL BILIRUBIN ADULT 0.3 MG/DL (0.2-1.0); TOTAL PROTEIN 5.8 GM/DL (6.4-8.2)
[2017-07-07] MEDS: guaiFENesin/DEXTROMETHORPHAN 200 MG/20 MG/10 ML CUP PO PRN ×2 (05:00→10:41)
[2017-07-07] MEDS: LEVOTHYROXINE SODIUM 100 MCG TAB PO SCH (05:00)
--- NOTE | 2017-07-07 07:11 | RADRPT ---
EXAM DATE/TIME: 07/07/2017 06:41 [place] COMPARISON: CT THORAX W/O CONTRAST, July 06, 2017, 16:06. CHEST SINGLE AP, July 06, 2017, 11:13. INDICATIONS : Cough followup mild airspace disease in both lung bases seen on CT. MEDICAL HISTORY : Hypertension. Stroke. Arthritis SURGICAL HISTORY : cervical fusion ENCOUNTER: Subsequent ACUITY: 4 - 6 days PAIN SCORE: 0/10 LOCATION: Bilateral chest FINDINGS: A single AP portable erect view of the chest again demonstrates patchy opacity at both lung bases rig ht greater than left. There is partial obscuration of the left hemidiaphragm is now noted. The heart size remains at the upper limits of normal with no perihilar edema. The bony thorax remain stable and intact. The patient is status post lower cervical fusion with screw-plate fixation device. Overlying large heart and leads and oxygen tubing are present. CONCLUSION: Apparent mild increase in opacity at the left lung base with partial obscuration of t he left hemidiaphragm now noted. The patchy opacity in the right lung base is not significantly posadas ed. Gilmer Adkins MD on July 07, 2017 at 7:06 Board Certified Radiologist. This report was verified electronically.
[2017-07-07] MEDS: RESP: BUDESONIDE 0.5 MG/2 ML NEB NEB SCH ×2 (08:33→20:38)
--- NOTE | 2017-07-07 08:43 | PD.CONS ---
History of Present Illness Service Infectious Disease Consult Requested By Dr Tellez Reason for Consult Evaluate patient for urosepsis Primary Care Physician No Primary Care Physician Diagnoses: History of Present Illness Patient seen and examined. Records reviewed. Patient is an 86-year-old male, transferred to the [facility] hospital for evaluation of tachycardia, leukocytosis, and low blood pressure. Patient has been in and out of the hospital since March. In March he had a periprostatic fracture on the left, and he underwent open reduction internal fixation in March. He was discharged to a rehab facility, and he apparently has had problem with coughing. Chest x-ray was done and there was an infiltrate noted on the chest x -ray. Patient was brought into the hospital and was admitted June 30 - July 04. At that time he was found to have a small pulmonary embolism on the left lower lobe. During his hospitalization in March for the fracture, he had a Colvin catheter in place, and he was treated for Pseudomonas UTI. While at the rehab facility, he was found to have a urinary tract infection, and culture grew enterococcus. He developed tachycardia, leukocytosis, and hypotension, and he was transferred to the [facility] hospital July 06. Patient is afebrile. His white count was 16,000 yesterday, and it is down to 15,000 today. He does not have a Colvin catheter, but has a condom cath. Denies any abdominal pain. He's main complaint is the shortness of breath and a very dry hacking cough. Chest x-ray this morning is showing by basilar opacity, with the increase opacity on the left lower lobe and obscuration of the diaphragm. Patient denies any diarrhea, but states he had some vomiting yesterday. He denies any chest pain. Infectious disease consultation has been requested to evaluate the patient with sepsis Review of Systems Constitutional: DENIES: Fever, Chills Eyes: DENIES: Eye pain Ears, nose, mouth, throat: DENIES: Nasal discharge, Oral lesions, Throat pain, Ear Pain Respiratory: COMPLAINS OF: Cough, Shortness of breath, DENIES: Sputum production Cardiovascular: COMPLAINS OF: Dyspnea on Exertion, DENIES: Chest pain, Orthopnea Gastrointestinal: COMPLAINS OF: Nausea, Vomiting, DENIES: Abdominal pain, Constipation, Diarrhea, Difficulty Swallowing Genitourinary: DENIES: Urgency, Dysuria Musculoskeletal: DENIES: Joint pain, Joint Swelling Integumentary: DENIES: Pruritus, Rash Hematologic/lymphatic: DENIES: Lymphadenopathy Immunologic/allergic: DENIES: Urticaria Neurologic: DENIES: Localized weakness Psychiatric: DENIES: Hallucinations Past Family Social History Allergies: Coded Allergies: tramadol (Verified Allergy, Severe, anxiety, 06/30/17) hydrocodone (Verified Adverse Reaction, Unknown, Irritability/Anxiety, ) morphine (Verified Adverse Reaction, Unknown, Irritability/Anxiety, ) Past Medical History Recent fall with subsequent periprosthetic left distal femur fracture Recurrent UTIs HTN CAD CVA with residual right sided weakness CHF Spinal stenosis BPH Past Surgical History ORIF left femur periprosthetic fracture 04/12/17 Left TKR Tonsillectomy Cervical surgery Active Ordered Medications Current Medications Medications (Trade) Dose Ordered Sig/[place] Route Start Time Stop Time Status Last Admin Sodium Chloride 1,000 ml @ 100 mls/hr Q10H IV 07/06/17 22:11 07/06/17 23:38 (NS Flush) 2 ml UNSCH PRN IV FLUSH 07/06/17 22:15 (NS Flush) 2 ml BID IV FLUSH 07/07/17 09:00 (Tylenol) 650 mg Q4H PRN PO 07/06/17 22:15 (Zofran Inj) 4 mg Q6H PRN IVP 07/06/17 22:15 (Narcan Inj) 0.4 mg UNSCH PRN IV PUSH 07/06/17 22:15 (Rosa-Colace) 1 tab BID PO 07/07/17 09:00 (Milk Of Magnesia Liq) 30 ml Q12H PRN PO 07/06/17 22:15 (Senokot) 17.2 mg Q12H PRN PO 07/06/17 22:15 (Dulcolax Supp) 10 mg DAILY PRN RECTAL 07/06/17 22:15 (Lactulose Liq) 30 ml DAILY PRN PO 07/06/17 22:15 Daptomycin 400 mg/ Sodium Chloride 100 ml @ 200 mls/hr Q24H IV 07/06/17 23:00 07/06/17 23:59 Miscellaneous Information Patient in critical care unit? Ass... [id number] .XX 07/06/17 22:30 07/06/17 22:30 (Chlorhexidine 2% Cloth) 3 pack DAILY@04 TOPICAL 07/07/17 04:00 07/11/17 04:01 07/06/17 22:32 (Chlorhexidine 2% Cloth) 3 pack UNSCH PRN TOPICAL 07/06/17 22:30 07/11/17 22:26 Piperacillin Sod/ Tazobactam Sod 50 ml @ 100 mls/hr Q6H IV 07/07/17 02:00 07/07/17 01:13 (Eliquis) 5 mg BID PO 07/12/17 09:00 (Pulmicort Respule Neb) 0.5 mg Q12HR NEB NEB 07/06/17 22:30 07/06/17 22:30 (Robitussin Dm 200-20 Mg/10 ml Liq) 10 ml Q4H PRN PO 07/06/17 22:30 07/07/17 05:00 (Duoneb Neb) 1 ampule Q4HR NEB PRN NEB 07/06/17 22:30 (CeleXA) 10 mg DAILY PO 07/07/17 09:00 (Protonix) 20 mg DAILY PO 07/07/17 09:00 (Synthroid) 100 mcg DAILY@0600 PO 07/07/17 06:00 07/07/17 05:00 (Xalatan 0.005% Opth Soln) 1 drop HS EACH EYE 07/07/17 21:00 (Flomax) 0.8 mg HS PO 07/06/17 22:30 07/06/17 23:40 (Eliquis) 10 mg BID PO 07/07/17 09:00 07/12/17 08:59 (Requip) 2.5 mg HS PRN PO 07/06/17 23:00 07/06/17 23:38 (Sensi-Care Protective Barrier Oint) 1 applic BID TOPICAL 07/06/17 22:45 07/06/17 23:38 (Pill Splitter) 1 ea UNSCH PRN OTHER 07/06/17 23:00 Family History Noncontributory Social History Patient has very remote hx of tobacco use. Denies any EtOH consumption or illicit drug use. Physical Exam Vital Signs Vital Signs Date Time Temp Pulse Resp B/P (MAP) Pulse Ox O2 Delivery O2 Flow Rate FiO2 07/07/17 06:00 86 07/07/17 04:00 99 07/07/17 04:00 98.0 99 30 89/54 (66) 96 07/07/17 02:00 86 07/07/17 00:00 95 07/07/17 00:00 95 30 103/55 (71) 97 07/06/17 23:50 100 Nasal Cannula 3.00 07/06/17 22:15 95 24 96/53 (67) 95 07/06/17 22:00 96 Nasal Cannula 2.00 07/06/17 22:00 88 07/06/17 22:00 88 28 93/54 (67) 96 Physical Exam GENERAL: Patient is a well-nourished, well-developed male, awake and alert, not in respiratory distress. SKIN: Warm and dry. No generalized rash, no ecchymoses and no evidence of embolic lesions. HEAD: Atraumatic. Normocephalic. No temporal wasting, or tenderness. EYES: [place] conjunctiva. No petechia or hemorrhage. Pupils equal, round and reactive to light. Extraocular movements full and intact. No scleral icterus. No injection or drainage. EARS, NOSE AND THROAT: Nose without bleeding or purulent nasal discharge. No sinus tenderness. Mucous membranes pink and moist. No oral lesions noted. No exudate. No oral thrush. NECK: Trachea midline. Supple and not tender, no meningeal signs CARDIOVASCULAR: Regular rate and rhythm. No murmurs, rubs or gallops heard RESPIRATORY: Breath sounds equal bilaterally. Has scattered rhonchi. ABDOMEN: Soft, non-tender, nondistended. Bowel sounds present and normoactive. No guarding. No rebound. No organomegaly. EXTREMITIES: No clubbing, cyanosis. Mas mild pedal edema. No calf tenderness. Well perfused and warm. No suprapubic fullness or tenderness : Has condom cath in place NEUROLOGICAL: Awake and alert. Cranial nerves grossly intact. Motor grossly within normal limits. PSYCHIATRIC: Normal affect, calm and cooperative. LINE: No evidence of infection Laboratory Laboratory Tests Test 07/06/17 21:45 07/07/17 03:42 07/07/17 06:49 Nasal Screen MRSA (PCR) MRSA NOT DETECTED White Blood Count 15.3 Red Blood Count 2.75 Hemoglobin 8.4 Hematocrit 24.9 Mean Corpuscular Volume 90.6 Mean Corpuscular Hemoglobin 30.4 Mean Corpuscular Hemoglobin Concent 33.5 Red Cell Distribution Width 14.8 Platelet Count 357 Mean Platelet Volume 7.2 Neutrophils (%) (Auto) 84.1 Lymphocytes (%) (Auto) 6.2 Monocytes (%) (Auto) 6.5 Eosinophils (%) (Auto) 2.8 Basophils (%) (Auto) 0.4 Neutrophils # (Auto) 12.9 Lymphocytes # (Auto) 0.9 Monocytes # (Auto) 1.0 Eosinophils # (Auto) 0.4 Basophils # (Auto) 0.1 CBC Comment DIFF FINAL Differential Comment Blood Urea Nitrogen 15 Creatinine 0.95 Random Glucose 85 Total Protein 5.8 Albumin 2.1 Calcium Level 9.2 Alkaline Phosphatase 52 Aspartate Amino Transf (AST/SGOT) 13 Alanine Aminotransferase (ALT/SGPT) 13 Total Bilirubin 0.3 Sodium Level 138 Potassium Level 4.1 Chloride Level 108 Carbon Dioxide Level 24.7 Anion Gap 5 Estimat Glomerular Filtration Rate 75 Lactic Acid Level 1.0 B-Type Natriuretic Peptide 376 Blood Gas Puncture Site RT RADIAL Blood Gas Patient Temperature 98.6 Blood Gas HCO3 20 Blood Gas Base Excess -4.9 Blood Gas Oxygen Saturation 94 Arterial Blood pH 7.36 Arterial Blood Partial Pressure CO2 36 Arterial Blood Partial Pressure O2 90 Arterial Blood Oxygen Content 11.3 Arterial Blood Carboxyhemoglobin 1.1 Arterial Blood Methemoglobin 1.3 Blood Gas Hemoglobin 8.4 Oxygen Delivery Device NASAL CANNULA Blood Gas Liter Flow 2 Result Diagram: 07/07/17 0342 07/07/17 0342 Imaging Last Impressions Chest X-Ray 07/07/17 0000 Signed Impressions: Service Date/Time: Friday, July 07, 2017 06:41 - CONCLUSION: Apparent mild increase in opacity at the left lung base with partial obscuration of the left hemidiaphragm now noted. The patchy opacity in the right lung base is not significantly changed. Gilmer Adkins MD Assessment and Plan Assessment and Plan IMPRESSION Sepsis, with hypotension, leukocytosis and tachycardia UTI, has BPH, has had increased PVR - UC with Enterococcus Small PE L Chronic cough SOB, cough, with increased opacity oly on CXR, ?fluid S/P ORIF L periprosthetic fracture RECOMMENDATION Follow C/S - blood and urine Continue Zosyn Continue Daptomycin Monitor respiratory status Follow BP closely- still borderline but not on pressors currently Pulmonary to evaluate patient Monitor progress I will follow along with you Thank you for this consultation Discussed Condition With D/W Lizabeth Lyn MD Jul 07, 2017 08:43
[2017-07-07] MEDS: SODIUM CHLORIDE 0.9% FLUSH 10 ML FLUSH IV FLUSH SCH ×2 (09:33→21:00)
[2017-07-07] MEDS: PANTOPRAZOLE SOD 20 MG DELAYED RELEASE TAB PO SCH (09:35)
[2017-07-07] MEDS: PETROLATUM 49%/ZINC OXIDE 15% 4 OUNCE TUBE TOPICAL SCH ×2 (09:35→22:13)
[2017-07-07] MEDS: APIXABAN 5 MG TABLET PO SCH ×2 (09:35→21:31)
[2017-07-07] MEDS: CITALOPRAM HYDROBROMIDE 20 MG TAB PO SCH (09:35)
[2017-07-07] MEDS: DOCUSATE SODIUM 50 MG/SENNA 8.6 MG TAB PO SCH ×2 (09:35→21:00)
--- NOTE | 2017-07-07 09:37 | HHI.PR ---
Subjective Remarks Patient is on 2L with good sats. Afebrile, hypotensive with SBP 70-80's despite receiving 5+L crystalloids per nursing staff. Objective Vital Signs Vital Signs Date Time Temp Pulse Resp B/P (MAP) Pulse Ox O2 Delivery O2 Flow Rate FiO2 07/07/17 08:37 98 Nasal Cannula 2.00 07/07/17 06:00 86 07/07/17 04:00 99 07/07/17 04:00 98.0 99 30 89/54 (66) 96 07/07/17 02:00 86 07/07/17 00:00 95 07/07/17 00:00 95 30 103/55 (71) 97 07/06/17 23:50 100 Nasal Cannula 3.00 07/06/17 22:15 95 24 96/53 (67) 95 07/06/17 22:00 96 Nasal Cannula 2.00 07/06/17 22:00 88 07/06/17 22:00 88 28 93/54 (67) 96 I/O 07/06/17 07/06/17 07/06/17 07/07/17 07/07/17 07/07/17 07:00 15:00 23:00 07:00 15:00 23:00 Intake Total 2815 ml Output Total 805 ml Balance 2010 ml Intake Oral 300 ml IV Total 2515 ml Output Urine Total 805 ml # Voids 1 Result Diagram: 07/07/17 0342 07/07/17 0342 Other Results Last Impressions Chest X-Ray 07/07/17 0000 Signed Impressions: Service Date/Time: Friday, July 07, 2017 06:41 - CONCLUSION: Apparent mild increase in opacity at the left lung base with partial obscuration of the left hemidiaphragm now noted. The patchy opacity in the right lung base is not significantly changed. Gilmer Adkins MD Objective Remarks GENERAL: Patient is 86 yo critically ill hypotensive SKIN: Warm and dry. HEAD: Normocephalic. EYES: No scleral icterus. No injection or drainage. NECK: Supple, trachea midline. No JVD or lymphadenopathy. CARDIOVASCULAR: Regular rate and rhythm without murmurs, gallops, or rubs. RESPIRATORY: Breath sounds equal bilaterally. Coarse BS GASTROINTESTINAL: Abdomen soft, non-tender, nondistended. MUSCULOSKELETAL: No cyanosis, or edema. Neuro: Awake and alert A/P Assessment and Plan 1)Resp Insuff 2)Severe sepsis 3)Leukocytosis 4)Anemia 5)UTI, 6)PE 7)Chronic cough 8)S/P ORIF L periprosthetic fractu 9)Small left PE on June 30 CT Plan Continue with oxygen keep sats >92% Bronchodilators ( Duoneb, Pulmicort) CXR: Mild increase opacity left lung base Patient was given 5+ crystalloids start pressors ( Levophed) keep MAP>65mmHg Lactic acid: 1.0 Abx per ID ( Dapto, Zosyn) monitor for signs of infections ( Fever, WBC) Panculture ( Blood, sputum, urine) CCM eval. Discussed with Dr. Heath GI/DVT prophylaxis- On Eliquis 5mg BID Kwadwo Aguirre MD Jul 07, 2017 09:37
[2017-07-07] MEDS: SODIUM CHLOR 0.9% 1000 ML INJ 1,000 ML IV SCH ×3 (09:38→22:41)
[2017-07-07] MEDS ORDERED: NOREPINEPHRINE-DEXTROSE DRIP 250 ML IV PRN (10:15)
[2017-07-07] MEDS ORDERED: TERBUTALINE INJ 1 MG/ML AMP SQ PRN (10:15)
[2017-07-07] MEDS: RESP: ALBUTEROL 2.5 MG/IPRATROPIUM 0.5 MG NEB (SCH) NEB ×4 (11:45→23:46)
[2017-07-07] MEDS ORDERED: BENZOCAINE-MENTHOL (SUGAR FREE) 15 MG-3.6 MG LOZENGE BUCCAL PRN (14:15)
--- NOTE | 2017-07-07 14:20 | HHI.PR ---
Subjective Remarks Patient feeling better. No complaints. Hypotension present overnight. Fluid boluses given in pressures are stable and seen. Objective Vital Signs Date Time Temp Pulse Resp B/P (MAP) Pulse Ox O2 Delivery O2 Flow Rate FiO2 07/07/17 08:37 98 Nasal Cannula 2.00 07/07/17 06:00 86 07/07/17 04:00 99 07/07/17 04:00 98.0 99 30 89/54 (66) 96 07/07/17 02:00 86 07/07/17 00:00 95 07/07/17 00:00 95 30 103/55 (71) 97 07/06/17 23:50 100 Nasal Cannula 3.00 07/06/17 22:15 95 24 96/53 (67) 95 07/06/17 22:00 96 Nasal Cannula 2.00 07/06/17 22:00 88 07/06/17 22:00 88 28 93/54 (67) 96 I/O 07/06/17 07/06/17 07/06/17 07/07/17 07/07/17 07/07/17 07:00 15:00 23:00 07:00 15:00 23:00 Intake Total 2815 ml Output Total 805 ml Balance 2010 ml Intake Oral 300 ml IV Total 2515 ml Output Urine Total 805 ml # Voids 1 Result Diagram: 07/07/17 0342 07/07/17 0342 Objective Remarks GENERAL: NAD, A&Ox3 HEAD: Normocephalic. NECK: Supple, trachea midline. No lymphadenopathy. EYES: No scleral icterus. No injection or drainage. CARDIOVASCULAR: Regular rate and rhythm without murmurs, gallops, or rubs. RESPIRATORY: Breath sounds equal bilaterally. No accessory muscle use. GASTROINTESTINAL: Abdomen soft, non-tender, nondistended. MUSCULOSKELETAL: No cyanosis, or edema. SKIN: Warm and dry. NEURO: No focal neurological deficitis. A/P Problem List: (1) Sepsis ICD Code: A41.9 - Sepsis, unspecified organism (2) Cough ICD Code: R05 - Cough Status: Acute (3) UTI (lower urinary tract infection) ICD Code: N39.0 - UTI (lower urinary tract infection) Status: Resolved (4) Impaired mobility and activities of daily living ICD Code: Z74.09 - Other reduced mobility Status: Acute (5) PE (pulmonary thromboembolism) ICD Code: I26.99 - Other pulmonary embolism without acute cor pulmonale Assessment and Plan 86 year old male admitted with UTI and Sepsis with hypotension UTI BPH Sepsis Continue flow max Follow cultures IV Daptomyxin IV Zosyn Chronic cough Robitussin PRN PRN Cepacol Lisinopril on hold Hypotension Coronary Artery Disease EF 55-60% and moderate concentric left ventricular hypertrophy IV Boluses as needed PRN Levophed Small left lower lobe pulmonary embolism diagnosed 06/30 Continue on Eliquis O2 as needed History of CVA with residual left sided weakness Recent fall with left periprosthetic femur fracture s/p ORIF 04/05 Physical Deconditioning PT continued Anemia, chronic Follow CBC Hypothyroidism Synthroid Restless leg syndrome Requip DVT Prophylaxis Kalpesh Hoang MD Jul 07, 2017 14:20
[2017-07-07 14:37] LABS: BACTERIA, URINE RARE /hpf; BILIRUBIN, URINE NEG (NEG); BLOOD, URINE NEG (NEG); GLUCOSE,URINE NEG (NEG); KETONE, URINE NEG (NEG); MUCUS URINE FEW /lpf (OCC); NITRITE,URINE NEG (NEG); PH, URINE 5.5 (5.0-8.5); URINE COLOR LIGHT-YELLOW (YELLW/STRAW); URINE LEUKOCYTE ESTERASE NEG (NEG)
[2017-07-07] MEDS: TAMSULOSIN HCL 0.4 MG CAP PO SCH (21:00)
[2017-07-07] MEDS: BENZONATATE 100 MG CAP PO PRN (21:23)
[2017-07-07] MEDS: LATANOPROST 0.005% OPHT SOLN 2.5 ML BTL EACH EYE SCH (21:30)
[2017-07-07] MEDS: DAPTOmycin INJ 400 MG in SODIUM CHLORIDE 0.9% INJ 100 ML IV SCH (22:38)
[2017-07-08] VITALS (27 sets, daily range): BP systolic 103–117; BP diastolic 55–71; PULSE 76–108; RESP 18–20; TEMP 97.6–98.8; O2SAT 98–99
[2017-07-08] MEDS: PIPERACIL-TAZO 3.375 GM PREMIX 50 ML IV SCH ×4 (02:08→20:29)
[2017-07-08] MEDS: RESP: ALBUTEROL 2.5 MG/IPRATROPIUM 0.5 MG NEB (SCH) NEB ×6 (03:20→23:51)
[2017-07-08] MEDS: CHLORHEXIDINE GLUCONATE 2 % 1 PACK (2 CLOTHS)(taper/protocol) TOPICAL SCH (04:00)
[2017-07-08] MEDS: BENZONATATE 100 MG CAP PO PRN ×3 (05:21→20:25)
[2017-07-08] MEDS: LEVOTHYROXINE SODIUM 100 MCG TAB PO SCH (05:21)
[2017-07-08 07:19] LABS: BASOPHIL # 0.1 TH/MM3 (0-0.2); BASOPHIL % 0.9 % (0.0-2.0); EOSINOPHIL # 0.3 TH/MM3 (0-0.4); EOSINOPHIL % 3.1 % (0.0-4.0); HEMATOCRIT 23.5 % (39.0-51.0); HEMOGLOBIN 7.9 GM/DL (13.0-17.0); LYMPH % 9.8 % (9.0-44.0); LYMPHOCYTE # 0.9 TH/MM3 (1.0-4.8); MEAN CELL VOLUME 90.7 FL (80.0-100.0); MEAN CORPUSCULAR HEMOGLOBIN 30.6 PG (27.0-34.0); MEAN CORPUSCULAR HGB CONC 33.7 % (32.0-36.0); MEAN PLATELET VOLUME 7.1 FL (7.0-11.0); MONO % 7.6 % (0.0-8.0); MONOCYTE # 0.7 TH/MM3 (0-0.9); NEUT % 78.6 % (16.0-70.0); PLATELET COUNT 322 TH/MM3 (150-450); RED BLOOD COUNT 2.59 MIL/MM3 (4.50-5.90); RED CELL DISTRIBUTION WIDTH 14.7 % (11.6-17.2); WHITE BLOOD COUNT 8.9 TH/MM3 (4.0-11.0)
[2017-07-08 07:50] LABS: ALBUMIN 2.2 GM/DL (3.4-5.0); AST (GOT) 15 U/L (15-37); BICARBONATE 22.1 MEQ/L (21.0-32.0); BLOOD UREA NITROGEN 12 MG/DL (7-18); CALCIUM 9.1 MG/DL (8.5-10.1); CHLORIDE 113 MEQ/L (98-107); CREATININE 1.03 MG/DL (0.60-1.30); GLOMERULAR FILTRATION RATE 68 ML/MIN (>89); GLUCOSE,RANDOM 79 MG/DL (74-106); SODIUM (NA) 141 MEQ/L (136-145)
[2017-07-08 07:54] LABS: ALKALINE PHOSPHATASE 51 U/L (45-117); ALT (GPT) 14 U/L (12-78); TOTAL BILIRUBIN ADULT 0.3 MG/DL (0.2-1.0); TOTAL PROTEIN 6.1 GM/DL (6.4-8.2)
[2017-07-08] MEDS: CITALOPRAM HYDROBROMIDE 20 MG TAB PO SCH (08:20)
[2017-07-08] MEDS: DOCUSATE SODIUM 50 MG/SENNA 8.6 MG TAB PO SCH ×2 (08:20→21:00)
[2017-07-08] MEDS: APIXABAN 5 MG TABLET PO SCH ×2 (08:21→22:19)
[2017-07-08] MEDS: SODIUM CHLORIDE 0.9% FLUSH 10 ML FLUSH IV FLUSH SCH ×2 (08:21→22:29)
[2017-07-08] MEDS: PANTOPRAZOLE SOD 20 MG DELAYED RELEASE TAB PO SCH (08:21)
[2017-07-08] MEDS: PETROLATUM 49%/ZINC OXIDE 15% 4 OUNCE TUBE TOPICAL SCH ×2 (08:21→22:24)
[2017-07-08] MEDS: RESP: BUDESONIDE 0.5 MG/2 ML NEB NEB SCH ×2 (08:52→20:04)
--- NOTE | 2017-07-08 09:28 | HHI.PR ---
Subjective Remarks Patient remains on 2L with good sats. Afebrile, c/o dry cough Objective Vital Signs Vital Signs Date Time Temp Pulse Resp B/P (MAP) Pulse Ox O2 Delivery O2 Flow Rate FiO2 07/08/17 08:52 99 Nasal Cannula 2.00 07/08/17 06:00 84 07/08/17 05:00 76 07/08/17 04:00 80 07/08/17 03:43 85 20 103/63 (76) 99 07/08/17 03:00 77 07/08/17 02:00 80 07/08/17 01:00 100 07/08/17 00:00 100 07/07/17 23:00 91 07/07/17 23:00 91 16 107/53 (71) 95 07/07/17 22:00 101 07/07/17 21:00 106 07/07/17 20:41 Nasal Cannula 2.00 07/07/17 20:00 102 07/07/17 20:00 99 Nasal Cannula 2.00 07/07/17 19:30 98.7 92 20 104/58 (73) 96 07/07/17 19:30 93 07/07/17 18:00 84 30 105/56 (72) 99 07/07/17 18:00 84 07/07/17 17:30 90 07/07/17 17:30 90 25 103/60 (74) 98 07/07/17 17:01 96 28 110/63 (79) 99 07/07/17 17:01 96 07/07/17 16:00 99.5 92 26 92/52 (65) 82 07/07/17 16:00 92 07/07/17 13:00 100 07/07/17 13:00 100 29 89/55 (66) 96 07/07/17 12:46 91 07/07/17 12:46 91 28 88/52 (64) 97 07/07/17 12:00 91 27 98 07/07/17 12:00 91 07/07/17 11:00 92 23 98 07/07/17 11:00 92 I/O 07/07/17 07/07/17 07/07/17 07/08/17 07/08/17 07/08/17 07:00 15:00 23:00 07:00 15:00 23:00 Intake Total 2815 ml 1410 ml 340 ml Output Total 805 ml 600 ml 450 ml Balance 2010 ml 810 ml -110 ml Intake Oral 300 ml 360 ml 240 ml IV Total 2515 ml 1050 ml 100 ml Output Urine Total 805 ml 600 ml 450 ml # Voids 1 # Bowel Movements 0 0 Result Diagram: 07/08/17 0700 07/08/17 0700 Other Results Last Impressions Chest X-Ray 07/07/17 0000 Signed Impressions: Service Date/Time: Friday, July 07, 2017 06:41 - CONCLUSION: Apparent mild increase in opacity at the left lung base with partial obscuration of the left hemidiaphragm now noted. The patchy opacity in the right lung base is not significantly changed. Gilmer Adkins MD Objective Remarks GENERAL: Patient is 86 lying in bed in NAD SKIN: Warm and dry. HEAD: Normocephalic. EYES: No scleral icterus. No injection or drainage. NECK: Supple, trachea midline. No JVD or lymphadenopathy. CARDIOVASCULAR: Regular rate and rhythm without murmurs, gallops, or rubs. RESPIRATORY: Breath sounds equal bilaterally. Few Coarse BS GASTROINTESTINAL: Abdomen soft, non-tender, nondistended. MUSCULOSKELETAL: No cyanosis, or edema. Neuro: Awake and alert A/P Assessment and Plan 1)Resp Insuff 2Chronic cough 3)Leukocytosis- resolved 4)Anemia 5)UTI, 6)Small left PE on June [address] 7)S/P ORIF L periprosthetic fractu Plan Continue with oxygen keep sats >92% Bronchodilators ( Duoneb, Pulmicort) CXR: Mild increase opacity left lung base Short course IV steroids- Solumederol 40mg Q6 x 4 doses Abx per ID ( Dapto, Zosyn) monitor for signs of infections ( Fever, WBC) D/c IVF monitor for signs of fluid overload. Panculture ( Blood, sputum, urine) GI/DVT prophylaxis- On Eliquis 5mg BID Kwadwo Aguirre MD Jul 08, 2017 09:28
[2017-07-08] MEDS: guaiFENesin/DEXTROMETHORPHAN 200 MG/20 MG/10 ML CUP PO PRN ×3 (09:39→22:13)
[2017-07-08] MEDS: methylPREDNISolone SOD SUCC 40 MG/1 ML VIAL IV PUSH SCH ×3 (12:25→23:49)
--- NOTE | 2017-07-08 18:44 | HHI.PR ---
Subjective Remarks Patient states he feels very weak, his cough keeps him up at night and he is unable to produce much phlegm. His daughter is concerned about his recurrent urinary tract infection. Objective Vitals Vital Signs Date Time Temp Pulse Resp B/P (MAP) Pulse Ox O2 Delivery O2 Flow Rate FiO2 07/08/17 18:09 96 07/08/17 17:17 104 07/08/17 16:42 78 07/08/17 15:14 97.6 91 18 114/68 (83) 99 07/08/17 15:14 87 07/08/17 14:25 90 07/08/17 13:25 90 07/08/17 12:00 89 07/08/17 11:50 98.8 90 18 114/62 (79) 98 07/08/17 11:50 78 07/08/17 10:00 84 07/08/17 09:00 78 07/08/17 08:52 99 Nasal Cannula 2.00 07/08/17 08:50 97.8 88 18 105/55 (72) 99 07/08/17 08:50 99 Nasal Cannula 2.00 07/08/17 08:50 77 07/08/17 06:00 84 07/08/17 05:00 76 07/08/17 04:00 80 07/08/17 03:43 85 20 103/63 (76) 99 07/08/17 03:00 77 07/08/17 02:00 80 07/08/17 01:00 100 07/08/17 00:00 100 07/07/17 23:00 91 07/07/17 23:00 91 16 107/53 (71) 95 07/07/17 22:00 101 07/07/17 21:00 106 07/07/17 20:41 Nasal Cannula 2.00 07/07/17 20:00 102 07/07/17 20:00 99 Nasal Cannula 2.00 07/07/17 19:30 98.7 92 20 104/58 (73) 96 07/07/17 19:30 93 I/O 07/07/17 07/07/17 07/07/17 07/08/17 07/08/17 07/08/17 06:59 14:59 22:59 06:59 14:59 22:59 Intake Total 2815 ml 1410 ml 340 ml 200 ml 480 ml Output Total 805 ml 600 ml 450 ml 1850 ml Balance 2010 ml 810 ml -110 ml 200 ml -1370 ml Intake Oral 300 ml 360 ml 240 ml 480 ml IV Total 2515 ml 1050 ml 100 ml 200 ml Output Urine Total 805 ml 600 ml 450 ml 1850 ml # Voids 1 # Bowel Movements 0 0 0 Result Diagram: 07/08/17 0700 07/08/17 0700 Objective Remarks GENERAL: Weak appearing elderly man with a cough SKIN: Warm and dry. HEAD: Normocephalic. EYES: No scleral icterus. No injection or drainage. NECK: Supple, trachea midline. No JVD or lymphadenopathy. CARDIOVASCULAR: Regular rate and rhythm without murmurs, gallops, or rubs. RESPIRATORY: Anterior congestion sounds, no basilar crackles. No accessory muscle use. GASTROINTESTINAL: Abdomen soft, non-tender, nondistended. EXTREMITIES: No cyanosis, or edema. NEUROLOGICAL: Awake, alert, and oriented x 3. Non-focal. A/P Problem List: (1) Sepsis ICD Code: A41.9 - Sepsis, unspecified organism (2) UTI (lower urinary tract infection) ICD Code: N39.0 - UTI (lower urinary tract infection) Status: Resolved (3) Cough ICD Code: R05 - Cough Status: Acute (4) PE (pulmonary thromboembolism) ICD Code: I26.99 - Other pulmonary embolism without acute cor pulmonale (5) Impaired mobility and activities of daily living ICD Code: Z74.09 - Other reduced mobility Status: Acute Assessment and Plan 86 year old male admitted with UTI and Sepsis with hypotension Sepsis, UTI, h/o BPH Continue supportive care with oxygen Culture is pending Continue IV Daptomyxin and IV Zosyn Appreciate infectious disease consult LLL Pulmonary Embolism w/ Chronic cough Embolism diagnosed 06/30, treatment with theraputic Eliquis Continue Robitussin PRN, PRN Cepacol Continue oxygen as needed Appreciate Pulmonology consult Hypotension Coronary Artery Disease EF 55-60% and moderate concentric left ventricular hypertrophy IV Boluses as needed PRN Levophed History of CVA with residual left sided weakness Recent fall with left periprosthetic femur fracture s/p ORIF 04/05 Physical Deconditioning PT continued Anemia, chronic Stable, follow periodic CBC Hypothyroidism Synthroid Restless leg syndrome Home dose Requip DVT Prophylaxis Juan C Hoang MD Jul 08, 2017 18:44
[2017-07-08] MEDS: LATANOPROST 0.005% OPHT SOLN 2.5 ML BTL EACH EYE SCH (22:18)
[2017-07-08] MEDS: TAMSULOSIN HCL 0.4 MG CAP PO SCH (22:22)
[2017-07-08] MEDS: DAPTOmycin INJ 400 MG in SODIUM CHLORIDE 0.9% INJ 100 ML IV SCH (22:26)
[2017-07-09] VITALS (28 sets, daily range): BP systolic 108–124; BP diastolic 63–69; PULSE 84–106; RESP 20–22; TEMP 97.9–98.2; O2SAT 97–99
[2017-07-09] MEDS: CHLORHEXIDINE GLUCONATE 2 % 1 PACK (2 CLOTHS)(taper/protocol) TOPICAL SCH (01:45)
[2017-07-09] MEDS: guaiFENesin/DEXTROMETHORPHAN 200 MG/20 MG/10 ML CUP PO PRN (02:53)
[2017-07-09] MEDS: PIPERACIL-TAZO 3.375 GM PREMIX 50 ML IV SCH ×4 (02:58→20:32)
[2017-07-09] MEDS: RESP: ALBUTEROL 2.5 MG/IPRATROPIUM 0.5 MG NEB (SCH) NEB ×6 (03:19→23:38)
[2017-07-09] MEDS: BENZONATATE 100 MG CAP PO PRN (06:24)
[2017-07-09] MEDS: LEVOTHYROXINE SODIUM 100 MCG TAB PO SCH (06:24)
[2017-07-09 06:25] LABS: HEMATOCRIT 26.1 % (39.0-51.0); HEMOGLOBIN 8.4 GM/DL (13.0-17.0); MEAN CELL VOLUME 89.9 FL (80.0-100.0); MEAN CORPUSCULAR HEMOGLOBIN 29.1 PG (27.0-34.0); MEAN CORPUSCULAR HGB CONC 32.4 % (32.0-36.0); MEAN PLATELET VOLUME 7.8 FL (7.0-11.0); PLATELET COUNT 385 TH/MM3 (150-450); RED CELL DISTRIBUTION WIDTH 14.7 % (11.6-17.2); WHITE BLOOD COUNT 11.5 TH/MM3 (4.0-11.0)
[2017-07-09] MEDS: methylPREDNISolone SOD SUCC 40 MG/1 ML VIAL IV PUSH SCH (06:25)
--- NOTE | 2017-07-09 08:46 | HHI.IDPN ---
Subjective Subjective Remarks PATIENT SEEN AND EXAMINED ON BEHALF OF DR. PIERRE Patient is an 86-year-old male, transferred to the [facility] hospital for evaluation of tachycardia, leukocytosis, and low blood pressure. Patient has been in and out of the hospital since March. In March he had a periprostatic fracture on the left, and he underwent open reduction internal fixation in March. He was discharged to a rehab facility, and he apparently has had problem with coughing. Chest x-ray was done and there was an infiltrate noted on the chest x -ray. Patient was brought into the hospital and was admitted June 30 - July 04. At that time he was found to have a small pulmonary embolism on the left lower lobe. During his hospitalization in March for the fracture, he had a Colvin catheter in place, and he was treated for Pseudomonas UTI. While at the rehab facility, he was found to have a urinary tract infection, and culture grew enterococcus. He developed tachycardia, leukocytosis, and hypotension, and he was transferred to the [facility] hospital July 06. Patient is afebrile. His white count was 16,000 yesterday, and it is down to 15,000 today. He does not have a Colvin catheter, but has a condom cath. Denies any abdominal pain. He's main complaint is the shortness of breath and a very dry hacking cough. Chest x-ray this morning is showing by basilar opacity, with the increase opacity on the left lower lobe and obscuration of the diaphragm. Patient denies any diarrhea, but states he had some vomiting yesterday. He denies any chest pain. Infectious disease consultation has been requested to evaluate the patient with sepsis Notes reviewed Overnight events noted, d/w nursing staff Patient complaining of persistent nonproductive cough + SOB no fever or chills no complaints of pain no dysuria - has not had any catheterizations since being admitted to floor no diarrhea afebrile BP better BCXs with no growth Repeat UCX 07/07 with no growth Antibiotics IV Daptomycin IV Zosyn Current Medications Medications (Trade) Dose Ordered Sig/[place] Route Start Time Stop Time Status Last Admin (NS Flush) 2 ml UNSCH PRN IV FLUSH 07/06/17 22:15 (NS Flush) 2 ml BID IV FLUSH 07/07/17 09:00 07/08/17 22:29 (Tylenol) 650 mg Q4H PRN PO 07/06/17 22:15 (Zofran Inj) 4 mg Q6H PRN IVP 07/06/17 22:15 (Narcan Inj) 0.4 mg UNSCH PRN IV PUSH 07/06/17 22:15 (Rosa-Colace) 1 tab BID PO 07/07/17 09:00 07/08/17 08:20 (Milk Of Magnesia Liq) 30 ml Q12H PRN PO 07/06/17 22:15 (Senokot) 17.2 mg Q12H PRN PO 07/06/17 22:15 (Dulcolax Supp) 10 mg DAILY PRN RECTAL 07/06/17 22:15 (Lactulose Liq) 30 ml DAILY PRN PO 07/06/17 22:15 Daptomycin 400 mg/ Sodium Chloride 100 ml @ 200 mls/hr Q24H IV 07/06/17 23:00 07/08/17 22:26 Miscellaneous Information Patient in critical care unit? Ass... [id number] .XX 07/06/17 22:30 07/06/17 22:30 (Chlorhexidine 2% Cloth) 3 pack DAILY@04 TOPICAL 07/07/17 04:00 07/11/17 04:01 07/06/17 22:32 (Chlorhexidine 2% Cloth) 3 pack UNSCH PRN TOPICAL 07/06/17 22:30 07/11/17 22:26 Piperacillin Sod/ Tazobactam Sod 50 ml @ 100 mls/hr Q6H IV 07/07/17 02:00 07/09/17 02:58 (Eliquis) 5 mg BID PO 07/12/17 09:00 (Pulmicort Respule Neb) 0.5 mg Q12HR NEB NEB 07/06/17 22:30 07/08/17 20:04 (Robitussin Dm 200-20 Mg/10 ml Liq) 10 ml Q4H PRN PO 07/06/17 22:30 07/09/17 02:53 (CeleXA) 10 mg DAILY PO 07/07/17 09:00 07/08/17 08:20 (Protonix) 20 mg DAILY PO 07/07/17 09:00 07/08/17 08:21 (Synthroid) 100 mcg DAILY@0600 PO 07/07/17 06:00 07/09/17 06:24 (Xalatan 0.005% Opth Soln) 1 drop HS EACH EYE 07/07/17 21:00 07/08/17 22:18 (Flomax) 0.8 mg HS PO 07/06/17 22:30 07/08/17 22:22 (Eliquis) 10 mg BID PO 07/07/17 09:00 07/12/17 08:59 07/08/17 22:19 (Sensi-Care Protective Barrier Oint) 1 applic BID TOPICAL 07/06/17 22:45 07/08/17 22:24 (Pill Splitter) 1 ea UNSCH PRN OTHER 07/06/17 23:00 (Duoneb Neb) 1 ampule Q4HR NEB NEB 07/07/17 12:00 07/09/17 03:19 (Duoneb Neb) 1 ampule Q2HR NEB PRN NEB 07/07/17 09:45 Norepinephrine Bitartrate 250 ml @ 7.5 mls/hr TITRATE PRN IV 07/07/17 10:15 (Brethine Inj) 1 mg UNSCH PRN SQ 07/07/17 10:15 (Cepacol Extra Raheel (Sugar Free)) 1 lozenge Q2HR PRN BUCCAL 07/07/17 14:15 07/07/17 18:27 (Requip) 2.5 mg HS PRN PO 07/07/17 16:15 (Tessalon) 200 mg TID PRN PO 07/07/17 21:15 07/09/17 06:24 Lines PIV with no e/o infection Past Medical History Recent fall with subsequent periprosthetic left distal femur fracture Recurrent UTIs HTN CAD CVA with residual right sided weakness CHF Spinal stenosis BPH (Joanne Blancas) Allergies: Coded Allergies: tramadol (Verified Allergy, Severe, anxiety, 06/30/17) hydrocodone (Verified Adverse Reaction, Unknown, Irritability/Anxiety, ) morphine (Verified Adverse Reaction, Unknown, Irritability/Anxiety, ) Objective . Vital Signs Date Time Temp Pulse Resp B/P (MAP) Pulse Ox O2 Delivery O2 Flow Rate FiO2 07/09/17 06:00 94 07/09/17 05:00 88 07/09/17 04:00 102 07/09/17 03:50 102 20 117/66 (83) 98 07/09/17 03:00 101 07/09/17 02:00 90 07/09/17 01:25 98 Nasal Cannula 2.00 07/09/17 01:00 94 07/09/17 00:00 106 07/08/17 23:00 93 20 108/60 (76) 98 07/08/17 23:00 105 07/08/17 22:00 100 07/08/17 21:00 108 07/08/17 20:06 99 Nasal Cannula 2.00 07/08/17 20:00 92 07/08/17 19:50 98.4 91 20 117/71 (86) 98 07/08/17 19:00 103 07/08/17 18:09 96 07/08/17 17:17 104 07/08/17 16:42 78 07/08/17 15:14 97.6 91 18 114/68 (83) 99 07/08/17 15:14 87 07/08/17 14:25 90 07/08/17 13:25 90 07/08/17 12:00 89 07/08/17 11:50 98.8 90 18 114/62 (79) 98 07/08/17 11:50 78 07/08/17 10:00 84 07/08/17 09:00 78 07/08/17 08:52 99 Nasal Cannula 2.00 07/08/17 08:50 97.8 88 18 105/55 (72) 99 07/08/17 08:50 99 Nasal Cannula 2.00 07/08/17 08:50 77 . Laboratory Tests Test 07/08/17 07:00 07/09/17 04:38 White Blood Count 8.9 TH/MM3 11.5 TH/MM3 Red Blood Count 2.59 MIL/MM3 2.90 MIL/MM3 Hemoglobin 7.9 GM/DL 8.4 GM/DL Hematocrit 23.5 % 26.1 % Mean Corpuscular Volume 90.7 FL 89.9 FL Mean Corpuscular Hemoglobin 30.6 PG 29.1 PG Mean Corpuscular Hemoglobin Concent 33.7 % 32.4 % Red Cell Distribution Width 14.7 % 14.7 % Platelet Count 322 TH/MM3 385 TH/MM3 Mean Platelet Volume 7.1 FL 7.8 FL Neutrophils (%) (Auto) 78.6 % Lymphocytes (%) (Auto) 9.8 % Monocytes (%) (Auto) 7.6 % Eosinophils (%) (Auto) 3.1 % Basophils (%) (Auto) 0.9 % Neutrophils # (Auto) 7.0 TH/MM3 Lymphocytes # (Auto) 0.9 TH/MM3 Monocytes # (Auto) 0.7 TH/MM3 Eosinophils # (Auto) 0.3 TH/MM3 Basophils # (Auto) 0.1 TH/MM3 CBC Comment DIFF FINAL Differential Comment Laboratory Tests Test 07/07/17 13:26 07/08/17 07:00 Lactic Acid Level 1.2 mmol/L Blood Urea Nitrogen 12 MG/DL Creatinine 1.03 MG/DL Random Glucose 79 MG/DL Total Protein 6.1 GM/DL Albumin 2.2 GM/DL Calcium Level 9.1 MG/DL Alkaline Phosphatase 51 U/L Aspartate Amino Transf (AST/SGOT) 15 U/L Alanine Aminotransferase (ALT/SGPT) 14 U/L Total Bilirubin 0.3 MG/DL Sodium Level 141 MEQ/L Potassium Level 3.7 MEQ/L Chloride Level 113 MEQ/L Carbon Dioxide Level 22.1 MEQ/L Anion Gap 6 MEQ/L Estimat Glomerular Filtration Rate 68 ML/MIN Microbiology Date/Time Source Procedure Growth Status 07/07/17 12:21 Blood Peripheral Aerobic Blood Culture - Preliminary NO GROWTH IN 1 DAY Resulted 07/07/17 12:21 Blood Peripheral Anaerobic Blood Culture - Preliminary NO GROWTH IN 1 DAY Resulted 07/07/17 12:02 Blood Peripheral Aerobic Blood Culture - Preliminary NO GROWTH IN 1 DAY Resulted 07/07/17 12:02 Blood Peripheral Anaerobic Blood Culture - Preliminary NO GROWTH IN 1 DAY Resulted 07/07/17 13:10 Urine Catheterized Urine Urine Culture - Preliminary NO GROWTH IN 24 HOURS. Resulted Imaging Last Impressions Chest X-Ray 07/07/17 0000 Signed Impressions: Service Date/Time: Friday, July 07, 2017 06:41 - CONCLUSION: Apparent mild increase in opacity at the left lung base with partial obscuration of the left hemidiaphragm now noted. The patchy opacity in the right lung base is not significantly changed. Gilmer Adkins MD Physical Exam GENERAL: Patient is a well-nourished, well-developed elderly male, INAD. Awake and alert. Continuously coughing. SKIN: Warm and dry. No generalized rash, no ecchymoses and no evidence of embolic lesions. HEAD: Atraumatic. Normocephalic. No temporal wasting, or tenderness. EYES: [place] conjunctiva. No petechia or hemorrhage. Pupils equal, round and reactive to light. Extraocular movements full and intact. No scleral icterus. No injection or drainage. EARS, NOSE AND THROAT: Nose without bleeding or purulent nasal discharge. Mucous membranes pink and moist. No oral lesions noted. No exudate. No oral thrush. NECK: Trachea midline. CARDIOVASCULAR: Tachycardic. No murmurs, rubs or gallops heard RESPIRATORY: Coarse BS throughout. Breath sounds equal bilaterally. ABDOMEN: Soft, non-tender, nondistended. Bowel sounds present and normoactive. No guarding. No rebound. No organomegaly. EXTREMITIES: No clubbing, cyanosis or pedal edema. No calf tenderness. Well perfused and warm. : Has condom cath in place. No suprapubic fullness or tenderness NEUROLOGICAL: Awake and alert. Cranial nerves grossly intact. Motor grossly within normal limits. Normal speech. PSYCHIATRIC: Normal affect, calm and cooperative. LINE: No evidence of infection (Joanne Blancas) Assessment & Plan Remarks IMPRESSION Sepsis, with hypotension, leukocytosis and tachycardia -BCXs with no growth -BP improved but still tachycardic UTI, has BPH, has had increased PVR, urinary retention, recurrent UTIs - 07/05 UCX with Enterococcus Faecalis, sensitive to Daptomycin -repeat UCX 07/07 with no growth -currently on Flomax 0.8mg daily Small PE L -currently on Eliquis. Monitor creatinine intermittently. Chronic nonproductive cough SOB, cough, with increased opacity oly on CXR, ?fluid -Pulmonary following, ?bronchoscopy ?swallow evaluation -on IV Solumedrol x 4 doses and scheduled Duonebs -obtain repeat BNP S/P ORIF L periprosthetic fracture Leukocytosis -mild -suspect steroid rxn. Patient without fever. Anemia, chronic -no e/o active bleeding RECOMMENDATION Continue Zosyn for now, likely discontinue soon. Continue Daptomycin. CK 42 on 07/06/17 Monitor respiratory status. Obtain BNP. Follow BP closely- still borderline but not on pressors currently. DW nursing staff implementing PVRs and document in EMR due to above hx Agree with swallow evaluation, ordered, will follow up on results Monitor white count and fevers Follow blood cxs until finalized Monitor clinical progress (Joanne Blancas) Remarks The exam, history, and the medical decision-making described in the above note were completed with the assistance of the mid-level provider. I reviewed and agree with the findings presented. I attest that I had a [id number] encounter with the patient on the same day, and personally performed and documented my assessment and findings in the medical record. Patient complains of cough with no expectoration but is sounds rattling cough. On exam: post tussive rales. No pedal edema A/P CHF BNP elevated. Pulm following. IVF on hold. Acute bronchitis and pneumonia. VRE UTI. Continue Zosyn IV DC Dapto Start Zyvox (covers MRSA in lung) Start Doxy oral for atypical coverage as well as helps reduce inflammation. dw pt and caregiver in room. (Ina Pierre MD) Joanne Blancas Jul 09, 2017 08:46 Ina Pierre MD Jul 09, 2017 15:11
[2017-07-09] MEDS: DOCUSATE SODIUM 50 MG/SENNA 8.6 MG TAB PO SCH ×2 (09:00→21:00)
[2017-07-09] MEDS: RESP: BUDESONIDE 0.5 MG/2 ML NEB NEB SCH ×2 (09:20→19:32)
[2017-07-09] MEDS: CITALOPRAM HYDROBROMIDE 20 MG TAB PO SCH (10:33)
[2017-07-09] MEDS: APIXABAN 5 MG TABLET PO SCH ×2 (10:33→22:12)
[2017-07-09] MEDS: PANTOPRAZOLE SOD 20 MG DELAYED RELEASE TAB PO SCH (10:34)
[2017-07-09] MEDS: PETROLATUM 49%/ZINC OXIDE 15% 4 OUNCE TUBE TOPICAL SCH ×2 (10:34→21:00)
[2017-07-09] MEDS: SODIUM CHLORIDE 0.9% FLUSH 10 ML FLUSH IV FLUSH SCH ×2 (10:34→22:12)
--- NOTE | 2017-07-09 17:53 | HHI.PR ---
Subjective Remarks alert no distree on o2 NC Objective GENERAL: SKIN: Warm and dry. HEAD: Atraumatic. Normocephalic. EYES: Pupils equal and round. No scleral icterus. No injection or drainage. ENT: No nasal bleeding or discharge. Mucous membranes pink and moist. NECK: Trachea midline. No JVD. CARDIOVASCULAR: Regular rate and rhythm. RESPIRATORY: No accessory muscle use. Clear to auscultation. Breath sounds equal bilaterally. GASTROINTESTINAL: Abdomen soft, non-tender, nondistended. Hepatic and splenic margins not palpable. MUSCULOSKELETAL: Extremities without clubbing, cyanosis, or edema. No obvious deformities. NEUROLOGICAL: Awake and alert. No obvious cranial nerve deficits. Motor grossly within normal limits. Five out of 5 muscle strength in the arms and legs. Normal speech. PSYCHIATRIC: Appropriate mood and affect; insight and judgment normal. Vital Signs Date Time Temp Pulse Resp B/P (MAP) Pulse Ox O2 Delivery O2 Flow Rate FiO2 07/09/17 11:00 98.2 98 20 108/63 (78) 98 07/09/17 09:20 97 Nasal Cannula 2.00 07/09/17 07:00 105 07/09/17 07:00 99 Nasal Cannula 2.00 07/09/17 07:00 98.2 93 20 117/69 (85) 99 07/09/17 06:00 94 07/09/17 05:00 88 07/09/17 04:00 102 07/09/17 03:50 102 20 117/66 (83) 98 07/09/17 03:00 101 07/09/17 02:00 90 07/09/17 01:25 98 Nasal Cannula 2.00 07/09/17 01:00 94 07/09/17 00:00 106 07/08/17 23:00 93 20 108/60 (76) 98 07/08/17 23:00 105 07/08/17 22:00 100 07/08/17 21:00 108 07/08/17 20:06 99 Nasal Cannula 2.00 07/08/17 20:00 92 07/08/17 19:50 98.4 91 20 117/71 (86) 98 07/08/17 19:00 103 07/08/17 18:09 96 I/O 07/08/17 07/08/17 07/08/17 07/09/17 07/09/17 07/09/17 07:00 15:00 23:00 07:00 15:00 23:00 Intake Total 340 ml 200 ml 630 ml 240 ml Output Total 450 ml 1850 ml 300 ml Balance -110 ml 200 ml -1220 ml -60 ml Intake Oral 240 ml 480 ml 240 ml IV Total 100 ml 200 ml 150 ml Output Urine Total 450 ml 1850 ml 300 ml # Voids 2 # Bowel Movements 0 0 0 Result Diagram: 07/09/17 0438 07/08/17 0700 Assessment and Plan Assessment and Plan RESPIRATORY FAILURE ATELECTASIS/PNA PLAN O2 NEEDED ANTIBX PER ID F/U CXRAY Manish Hammond MD Jul 09, 2017 17:53
--- NOTE | 2017-07-09 19:15 | HHI.PR ---
Subjective Remarks patient c/o persistent cough Afebrile Denies cp - sob improving Objective Vitals Vital Signs Date Time Temp Pulse Resp B/P (MAP) Pulse Ox O2 Delivery O2 Flow Rate FiO2 07/09/17 11:00 98.2 98 20 108/63 (78) 98 07/09/17 09:20 97 Nasal Cannula 2.00 07/09/17 07:00 105 07/09/17 07:00 99 Nasal Cannula 2.00 07/09/17 07:00 98.2 93 20 117/69 (85) 99 07/09/17 06:00 94 07/09/17 05:00 88 07/09/17 04:00 102 07/09/17 03:50 102 20 117/66 (83) 98 07/09/17 03:00 101 07/09/17 02:00 90 07/09/17 01:25 98 Nasal Cannula 2.00 07/09/17 01:00 94 07/09/17 00:00 106 07/08/17 23:00 93 20 108/60 (76) 98 07/08/17 23:00 105 07/08/17 22:00 100 07/08/17 21:00 108 07/08/17 20:06 99 Nasal Cannula 2.00 07/08/17 20:00 92 07/08/17 19:50 98.4 91 20 117/71 (86) 98 I/O 07/08/17 07/08/17 07/08/17 07/09/17 07/09/17 07/09/17 07:00 15:00 23:00 07:00 15:00 23:00 Intake Total 340 ml 200 ml 630 ml 240 ml Output Total 450 ml 1850 ml 300 ml Balance -110 ml 200 ml -1220 ml -60 ml Intake Oral 240 ml 480 ml 240 ml IV Total 100 ml 200 ml 150 ml Output Urine Total 450 ml 1850 ml 300 ml # Voids 2 # Bowel Movements 0 0 0 Result Diagram: 07/09/17 0438 07/08/17 0700 Imaging Last Impressions Chest X-Ray 07/07/17 0000 Signed Impressions: Service Date/Time: Friday, July 07, 2017 06:41 - CONCLUSION: Apparent mild increase in opacity at the left lung base with partial obscuration of the left hemidiaphragm now noted. The patchy opacity in the right lung base is not significantly changed. Gilmer Adkins MD Objective Remarks GENERAL: Patient is a well-nourished, well-developed elderly male, INAD. Awake and alert. Continuously coughing. SKIN: Warm and dry. No generalized rash, no ecchymoses and no evidence of embolic lesions. HEAD: Atraumatic. Normocephalic. No temporal wasting, or tenderness. EYES: [place] conjunctiva. No petechia or hemorrhage. Pupils equal, round and reactive to light. Extraocular movements full and intact. No scleral icterus. No injection or drainage. EARS, NOSE AND THROAT: Nose without bleeding or purulent nasal discharge. Mucous membranes pink and moist. No oral lesions noted. No exudate. No oral thrush. NECK: Trachea midline. CARDIOVASCULAR: Tachycardic. No murmurs, rubs or gallops heard RESPIRATORY: Coarse BS throughout. Breath sounds equal bilaterally. ABDOMEN: Soft, non-tender, nondistended. Bowel sounds present and normoactive. No guarding. No rebound. No organomegaly. EXTREMITIES: No clubbing, cyanosis or pedal edema. No calf tenderness. Well perfused and warm. : Has condom cath in place. No suprapubic fullness or tenderness NEUROLOGICAL: Awake and alert. Cranial nerves grossly intact. Motor grossly within normal limits. Normal speech. PSYCHIATRIC: Normal affect, calm and cooperative. A/P Problem List: (1) Sepsis ICD Code: A41.9 - Sepsis, unspecified organism (2) UTI (lower urinary tract infection) ICD Code: N39.0 - UTI (lower urinary tract infection) Status: Resolved (3) Cough ICD Code: R05 - Cough Status: Acute (4) PE (pulmonary thromboembolism) ICD Code: I26.99 - Other pulmonary embolism without acute cor pulmonale (5) Impaired mobility and activities of daily living ICD Code: Z74.09 - Other reduced mobility Status: Acute Assessment and Plan 86 year old male admitted with UTI and Sepsis with hypotension Sepsis, UTI, h/o BPH Continue supportive care with oxygen Culture is pending Continue IV Daptomyxin and IV Zosyn Appreciate infectious disease consult 07/09 Antibiotics as per ID. Sepsis clinically resolving. LLL Pulmonary Embolism w/ Chronic cough Embolism diagnosed 06/30, treatment with theraputic Eliquis Continue Robitussin PRN, PRN Cepacol Continue oxygen as needed Appreciate Pulmonology consult Hypotension Coronary Artery Disease EF 55-60% and moderate concentric left ventricular hypertrophy IV Boluses as needed PRN Levophed 07/09 Hypotension resolved. continue to monitor vital signs. History of CVA with residual left sided weakness Recent fall with left periprosthetic femur fracture s/p ORIF 04/05 Physical Deconditioning PT continued Anemia, chronic Stable, follow periodic CBC Hypothyroidism Synthroid Restless leg syndrome Home dose Requip Suspected HCAP CXR with infitrate on left lower lung. Continue IV antibiotics as per ID. DVT Prophylaxis Eliquis Discharge Planning DC pending ID clearance. Anthony Burns MD Jul 09, 2017 19:15
[2017-07-09] MEDS: LATANOPROST 0.005% OPHT SOLN 2.5 ML BTL EACH EYE SCH (22:11)
[2017-07-09] MEDS: TAMSULOSIN HCL 0.4 MG CAP PO SCH (22:12)
[2017-07-09] MEDS: LINEZOLID 600 MG TAB PO SCH (22:13)
[2017-07-09] MEDS: DOXYCYCLINE HYCLATE 100 MG CAP PO SCH (22:13)
[2017-07-10] VITALS (26 sets, daily range): BP systolic 95–141; BP diastolic 57–76; PULSE 80–110; RESP 20–26; TEMP 97.2–98.5; O2SAT 97–100
[2017-07-10] MEDS: PIPERACIL-TAZO 3.375 GM PREMIX 50 ML IV SCH ×4 (02:39→20:13)
[2017-07-10] MEDS: guaiFENesin/DEXTROMETHORPHAN 200 MG/20 MG/10 ML CUP PO PRN (03:01)
[2017-07-10] MEDS: RESP: ALBUTEROL 2.5 MG/IPRATROPIUM 0.5 MG NEB (SCH) NEB ×6 (03:51→23:09)
[2017-07-10] MEDS: CHLORHEXIDINE GLUCONATE 2 % 1 PACK (2 CLOTHS)(taper/protocol) TOPICAL SCH (04:00)
[2017-07-10] MEDS: LEVOTHYROXINE SODIUM 100 MCG TAB PO SCH (06:30)
[2017-07-10] MEDS: RESP: BUDESONIDE 0.5 MG/2 ML NEB NEB SCH ×2 (07:26→19:14)
--- NOTE | 2017-07-10 08:41 | HHI.PR ---
Subjective Remarks alert no distress on o2 NC Objective Vital Signs Date Time Temp Pulse Resp B/P (MAP) Pulse Ox O2 Delivery O2 Flow Rate FiO2 07/10/17 07:27 98 Nasal Cannula 2.00 07/10/17 07:00 97.7 99 26 109/58 (75) 97 07/10/17 06:00 85 07/10/17 05:00 91 07/10/17 04:00 91 07/10/17 03:00 97.9 89 20 141/73 (95) 100 07/10/17 03:00 89 07/10/17 02:00 97 07/10/17 01:00 84 07/10/17 00:00 98.0 93 20 108/64 (79) 98 07/10/17 00:00 90 07/10/17 00:00 98 Nasal Cannula 2.00 07/09/17 23:38 98 Nasal Cannula 2.00 07/09/17 23:00 92 07/09/17 22:00 84 07/09/17 21:00 84 07/09/17 20:00 98.0 91 20 124/69 (87) 99 07/09/17 20:00 99 Nasal Cannula 2.00 07/09/17 20:00 90 07/09/17 19:35 98 Nasal Cannula 2.00 07/09/17 19:00 100 07/09/17 18:00 106 07/09/17 17:00 94 07/09/17 16:00 92 07/09/17 15:00 97.9 100 22 118/65 (82) 98 07/09/17 15:00 96 07/09/17 14:00 100 07/09/17 13:00 90 07/09/17 12:00 96 07/09/17 11:00 102 07/09/17 11:00 98.2 98 20 108/63 (78) 98 07/09/17 10:00 98 07/09/17 09:20 97 Nasal Cannula 2.00 07/09/17 09:00 92 I/O 07/09/17 07/09/17 07/09/17 07/10/17 07/10/17 07/10/17 07:00 15:00 23:00 07:00 15:00 23:00 Intake Total 240 ml 600 ml 340 ml Output Total 300 ml 650 ml 275 ml Balance -60 ml -50 ml 65 ml Intake Oral 240 ml 600 ml 240 ml IV Total 100 ml Output Urine Total 300 ml 650 ml 275 ml # Voids 2 2 # Bowel Movements 0 1 0 Result Diagram: 07/09/17 0438 07/08/17 0700 Objective Remarks GENERAL: SKIN: Warm and dry. HEAD: Atraumatic. Normocephalic. EYES: Pupils equal and round. No scleral icterus. No injection or drainage. ENT: No nasal bleeding or discharge. Mucous membranes pink and moist. NECK: Trachea midline. No JVD. CARDIOVASCULAR: Regular rate and rhythm. RESPIRATORY: No accessory muscle use. Clear to auscultation. Breath sounds equal bilaterally. GASTROINTESTINAL: Abdomen soft, non-tender, nondistended. Hepatic and splenic margins not palpable. MUSCULOSKELETAL: Extremities without clubbing, cyanosis, or edema. No obvious deformities. NEUROLOGICAL: Awake and alert. No obvious cranial nerve deficits. Motor grossly within normal limits. Five out of 5 muscle strength in the arms and legs. Normal speech. PSYCHIATRIC: Appropriate mood and affect; insight and judgment normal. Assessment and Plan Assessment and Plan RESPIRATORY FAILURE ATELECTASIS/PNA PE PLAN O2 NEEDED ANTIBX PER ID F/U CXRAY Manish Hammond MD Jul 10, 2017 08:41
[2017-07-10] MEDS: DOCUSATE SODIUM 50 MG/SENNA 8.6 MG TAB PO SCH ×2 (08:55→21:00)
[2017-07-10] MEDS: CITALOPRAM HYDROBROMIDE 20 MG TAB PO SCH (08:55)
[2017-07-10] MEDS: APIXABAN 5 MG TABLET PO SCH ×2 (08:56→21:51)
[2017-07-10] MEDS: PANTOPRAZOLE SOD 20 MG DELAYED RELEASE TAB PO SCH (08:56)
[2017-07-10] MEDS: BENZONATATE 100 MG CAP PO PRN ×2 (08:57→16:04)
[2017-07-10] MEDS: LINEZOLID 600 MG TAB PO SCH ×2 (08:57→21:51)
[2017-07-10] MEDS: DOXYCYCLINE HYCLATE 100 MG CAP PO SCH ×2 (08:57→21:51)
[2017-07-10] MEDS: PETROLATUM 49%/ZINC OXIDE 15% 4 OUNCE TUBE TOPICAL SCH ×2 (08:58→21:00)
[2017-07-10] MEDS: SODIUM CHLORIDE 0.9% FLUSH 10 ML FLUSH IV FLUSH SCH ×2 (08:58→21:49)
--- NOTE | 2017-07-10 14:00 | HHI.IDPN ---
Subjective Subjective Remarks is an 86-year-old male, transferred to the [facility] hospital for evaluation of tachycardia, leukocytosis, and low blood pressure. Patient has been in and out of the hospital since March. In March he had a periprostatic fracture on the left, and he underwent open reduction internal fixation in March. He was discharged to a rehab facility, and he apparently has had problem with coughing. Chest x-ray was done and there was an infiltrate noted on the chest x-ray. Patient was brought into the hospital and was admitted June 30 - July 04. At that time he was found to have a small pulmonary embolism on the left lower lobe. During his hospitalization in March for the fracture, he had a Colvin catheter in place, and he was treated for Pseudomonas UTI. While at the rehab facility, he was found to have a urinary tract infection, and culture grew enterococcus. He developed tachycardia, leukocytosis, and hypotension, and he was transferred to the [facility] hospital July 06. Patient is afebrile. His white count was 16,000 yesterday, and it is down to 15,000 today. He does not have a Colvin catheter, but has a condom cath. Denies any abdominal pain. He's main complaint is the shortness of breath and a very dry hacking cough. Chest x-ray this morning is showing by basilar opacity, with the increase opacity on the left lower lobe and obscuration of the diaphragm. Patient denies any diarrhea, but states he had some vomiting yesterday. He denies any chest pain. Infectious disease consultation has been requested to evaluate the patient with sepsis Notes reviewed Overnight events noted Patient complaining of persistent nonproductive cough + SOB no fever or chills no complaints of pain no dysuria - has not had any catheterizations since being admitted to floor no diarrhea afebrile BP better BCXs with no growth Repeat UCX 07/07 with no growth Antibiotics IV Zosyn Zyvox Doxy Lines PIV with no e/o infection Past Medical History Recent fall with subsequent periprosthetic left distal femur fracture Recurrent UTIs HTN CAD CVA with residual right sided weakness CHF Spinal stenosis BPH Allergies: Coded Allergies: tramadol (Verified Allergy, Severe, anxiety, 06/30/17) hydrocodone (Verified Adverse Reaction, Unknown, Irritability/Anxiety, ) morphine (Verified Adverse Reaction, Unknown, Irritability/Anxiety, ) Objective . Vital Signs Date Time Temp Pulse Resp B/P (MAP) Pulse Ox O2 Delivery O2 Flow Rate FiO2 07/10/17 11:00 97.7 96 22 95/60 (72) 99 07/10/17 07:27 98 Nasal Cannula 2.00 07/10/17 07:00 97 Nasal Cannula 2.00 07/10/17 07:00 97.7 99 26 109/58 (75) 97 07/10/17 06:00 85 07/10/17 05:00 91 07/10/17 04:00 91 07/10/17 03:00 97.9 89 20 141/73 (95) 100 07/10/17 03:00 89 07/10/17 02:00 97 07/10/17 01:00 84 07/10/17 00:00 98.0 93 20 108/64 (79) 98 07/10/17 00:00 90 07/10/17 00:00 98 Nasal Cannula 2.00 07/09/17 23:38 98 Nasal Cannula 2.00 07/09/17 23:00 92 07/09/17 22:00 84 07/09/17 21:00 84 07/09/17 20:00 98.0 91 20 124/69 (87) 99 07/09/17 20:00 99 Nasal Cannula 2.00 07/09/17 20:00 90 07/09/17 19:35 98 Nasal Cannula 2.00 07/09/17 19:00 100 07/09/17 18:00 106 07/09/17 17:00 94 07/09/17 16:00 92 07/09/17 15:00 97.9 100 22 118/65 (82) 98 07/09/17 15:00 96 07/09/17 14:00 100 07/10/17 07/10/17 07/11/17 15:00 23:00 07:00 Intake Total 50 ml Balance 50 ml IV Total 50 ml . Laboratory Tests Test 07/09/17 04:38 White Blood Count 11.5 TH/MM3 Red Blood Count 2.90 MIL/MM3 Hemoglobin 8.4 GM/DL Hematocrit 26.1 % Mean Corpuscular Volume 89.9 FL Mean Corpuscular Hemoglobin 29.1 PG Mean Corpuscular Hemoglobin Concent 32.4 % Red Cell Distribution Width 14.7 % Platelet Count 385 TH/MM3 Mean Platelet Volume 7.8 FL Laboratory Tests Test 07/09/17 04:38 B-Type Natriuretic Peptide 1066 PG/ML Imaging Last Impressions Chest X-Ray 07/07/17 0000 Signed Impressions: Service Date/Time: Friday, July 07, 2017 06:41 - CONCLUSION: Apparent mild increase in opacity at the left lung base with partial obscuration of the left hemidiaphragm now noted. The patchy opacity in the right lung base is not significantly changed. Gilmer Adkins MD Physical Exam GENERAL: Patient is a well-nourished, well-developed elderly male, INAD. Awake and alert. Continuously coughing. SKIN: Warm and dry. No generalized rash, no ecchymoses and no evidence of embolic lesions. HEAD: Atraumatic. Normocephalic. No temporal wasting, or tenderness. EYES: [place] conjunctiva. No petechia or hemorrhage. Pupils equal, round and reactive to light. Extraocular movements full and intact. No scleral icterus. No injection or drainage. EARS, NOSE AND THROAT: Nose without bleeding or purulent nasal discharge. Mucous membranes pink and moist. No oral lesions noted. No exudate. No oral thrush. NECK: Trachea midline. CARDIOVASCULAR: Tachycardic. No murmurs, rubs or gallops heard RESPIRATORY: Coarse BS throughout. Breath sounds equal bilaterally. ABDOMEN: Soft, non-tender, nondistended. Bowel sounds present and normoactive. No guarding. No rebound. No organomegaly. EXTREMITIES: No clubbing, cyanosis or pedal edema. No calf tenderness. Well perfused and warm. : Has condom cath in place. No suprapubic fullness or tenderness NEUROLOGICAL: Awake and alert. Cranial nerves grossly intact. Motor grossly within normal limits. Normal speech. PSYCHIATRIC: Normal affect, calm and cooperative. LINE: No evidence of infection Assessment & Plan Remarks Sepsis, with hypotension, leukocytosis and tachycardia -BCXs with no growth -BP improved but still tachycardic UTI, has BPH, has had increased PVR, urinary retention, recurrent UTIs - 07/05 UCX with Enterococcus Faecalis, sensitive to Daptomycin -repeat UCX 07/07 with no growth -currently on Flomax 0.8mg daily Small PE L -currently on Eliquis. Monitor creatinine intermittently. Chronic nonproductive cough SOB, cough, with increased opacity oly on CXR, ?fluid -Pulmonary following, ?bronchoscopy ?swallow evaluation -on IV Solumedrol x 4 doses and scheduled Duonebs -obtain repeat BNP S/P ORIF L periprosthetic fracture Leukocytosis -mild -suspect steroid rxn. Patient without fever. Anemia, chronic -no e/o active bleeding CHF BNP elevated. Pulm following. IVF on hold. Acute bronchitis and pneumonia. ? HCAP VRE UTI. Recs: Continue Zosyn IV Continue oral Zyvox (covers MRSA in lung and VRE) Continue Doxy oral for atypical coverage as well as helps reduce inflammation. Repeat CXR today Procalcitonin to trend for antibiotic duration. dw patient and RN Will follow along. Ina Hernandez MD Jul 10, 2017 14:00
--- NOTE | 2017-07-10 15:00 | RADRPT ---
EXAM DATE/TIME: 07/10/2017 14:19 [place] COMPARISON: CHEST SINGLE AP, July 07, 2017, 6:41. INDICATIONS : Difficulty breathing. Pneumonia per order. MEDICAL HISTORY : Hypothyroidism. Cerebrovascular disease. Cardiovascular disease. CHF. Hypertension. Renal disease.Ski n ca. CVA. SURGICAL HISTORY : Eye prosthesis ENCOUNTER: Subsequent ACUITY: 2 days PAIN SCORE: 0/10 LOCATION: Bilateral chest FINDINGS: A single portable frontal view the chest shows basilar consolidation bilaterally but more pronounced on the right. These are stable from the prior exam. Heart is normal in size. Tiny right effusion is s table. Spinal cervical fusion plate. CONCLUSION: Unchanged bibasilar infiltrates and tiny right effusion. Domingo Salinas Jr., MD on July 10, 2017 at 14:57 Board Certified Radiologist. This report was verified electronically.
--- NOTE | 2017-07-10 17:35 | HHI.PR ---
Subjective Remarks Patient states he feels better than previous day. Denies cp, + sob. Afebrile no diarrhea no dysuria bp better Objective Vitals Vital Signs Date Time Temp Pulse Resp B/P (MAP) Pulse Ox O2 Delivery O2 Flow Rate FiO2 07/10/17 11:00 97.7 96 22 95/60 (72) 99 07/10/17 07:27 98 Nasal Cannula 2.00 07/10/17 07:00 97 Nasal Cannula 2.00 07/10/17 07:00 97.7 99 26 109/58 (75) 97 07/10/17 06:00 85 07/10/17 05:00 91 07/10/17 04:00 91 07/10/17 03:00 97.9 89 20 141/73 (95) 100 07/10/17 03:00 89 07/10/17 02:00 97 07/10/17 01:00 84 07/10/17 00:00 98.0 93 20 108/64 (79) 98 07/10/17 00:00 90 07/10/17 00:00 98 Nasal Cannula 2.00 07/09/17 23:38 98 Nasal Cannula 2.00 07/09/17 23:00 92 07/09/17 22:00 84 07/09/17 21:00 84 07/09/17 20:00 98.0 91 20 124/69 (87) 99 07/09/17 20:00 99 Nasal Cannula 2.00 07/09/17 20:00 90 07/09/17 19:35 98 Nasal Cannula 2.00 07/09/17 19:00 100 07/09/17 18:00 106 I/O 07/09/17 07/09/17 07/09/17 07/10/17 07/10/17 07/10/17 07:00 15:00 23:00 07:00 15:00 23:00 Intake Total 240 ml 50 ml 650 ml 340 ml 50 ml Output Total 300 ml 650 ml 275 ml Balance -60 ml 50 ml 0 ml 65 ml 50 ml Intake Oral 240 ml 600 ml 240 ml IV Total 50 ml 50 ml 100 ml 50 ml Output Urine Total 300 ml 650 ml 275 ml # Voids 2 2 # Bowel Movements 0 1 0 Result Diagram: 07/09/17 0438 07/08/17 0700 Objective Remarks GENERAL: Patient is a well-nourished, well-developed elderly male, INAD. Awake and alert. Coughing SKIN: Warm and dry. No generalized rash, no ecchymoses and no evidence of embolic lesions. HEAD: Atraumatic. Normocephalic. No temporal wasting, or tenderness. EYES: [place] conjunctiva. No petechia or hemorrhage. Pupils equal, round and reactive to light. Extraocular movements full and intact. No scleral icterus. No injection or drainage. EARS, NOSE AND THROAT: Nose without bleeding or purulent nasal discharge. Mucous membranes pink and moist. No oral lesions noted. No exudate. No oral thrush. NECK: Trachea midline. CARDIOVASCULAR: Tachycardic. No murmurs, rubs or gallops heard RESPIRATORY: Coarse BS throughout. Breath sounds equal bilaterally. ABDOMEN: Soft, non-tender, nondistended. Bowel sounds present and normoactive. No guarding. No rebound. No organomegaly. EXTREMITIES: No clubbing, cyanosis or pedal edema. No calf tenderness. Well perfused and warm. : Has condom cath in place. No suprapubic fullness or tenderness NEUROLOGICAL: Awake and alert. Cranial nerves grossly intact. Motor grossly within normal limits. Normal speech. PSYCHIATRIC: Normal affect, calm and cooperative. A/P Problem List: (1) Sepsis ICD Code: A41.9 - Sepsis, unspecified organism (2) UTI (lower urinary tract infection) ICD Code: N39.0 - UTI (lower urinary tract infection) Status: Resolved (3) Cough ICD Code: R05 - Cough Status: Acute (4) PE (pulmonary thromboembolism) ICD Code: I26.99 - Other pulmonary embolism without acute cor pulmonale (5) Impaired mobility and activities of daily living ICD Code: Z74.09 - Other reduced mobility Status: Acute Assessment and Plan 86 year old male admitted with UTI and Sepsis with hypotension Sepsis, UTI, h/o BPH Continue supportive care with oxygen Culture is pending Continue IV Daptomyxin and IV Zosyn Appreciate infectious disease consult 07/10 Antibiotics as per ID. Sepsis clinically resolving. Patient currently on Zosyn IV, oral Zyvox. oral doxycycline. LLL Pulmonary Embolism w/ Chronic cough Embolism diagnosed 06/30, treatment with theraputic Eliquis Continue Robitussin PRN, PRN Cepacol Continue oxygen as needed Appreciate Pulmonology consult Hypotension Coronary Artery Disease EF 55-60% and moderate concentric left ventricular hypertrophy IV Boluses as needed PRN Levophed 07/09 Hypotension resolved. continue to monitor vital signs. History of CVA with residual left sided weakness Recent fall with left periprosthetic femur fracture s/p ORIF 04/05 Physical Deconditioning PT continued Anemia, chronic Stable, follow periodic CBC Hypothyroidism Synthroid Restless leg syndrome Home dose Requip Suspected HCAP CXR with infitrate on left lower lung. Continue IV antibiotics as per ID. DVT Prophylaxis Eliquis Discharge Planning DC pending ID clearance. Anthony Burns MD Jul 10, 2017 17:35
[2017-07-10] MEDS: TAMSULOSIN HCL 0.4 MG CAP PO SCH (21:50)
[2017-07-10] MEDS: LATANOPROST 0.005% OPHT SOLN 2.5 ML BTL EACH EYE SCH (21:50)
[2017-07-11] VITALS (22 sets, daily range): BP systolic 111–128; BP diastolic 60–78; PULSE 71–102; RESP 16–22; TEMP 97–98.6; O2SAT 97–99
[2017-07-11] MEDS: PIPERACIL-TAZO 3.375 GM PREMIX 50 ML IV SCH ×2 (01:52→08:43)
[2017-07-11] MEDS: RESP: ALBUTEROL 2.5 MG/IPRATROPIUM 0.5 MG NEB (SCH) NEB ×2 (03:13→07:52)
[2017-07-11] MEDS: CHLORHEXIDINE GLUCONATE 2 % 1 PACK (2 CLOTHS)(taper/protocol) TOPICAL SCH (04:00)
[2017-07-11] MEDS: LEVOTHYROXINE SODIUM 100 MCG TAB PO SCH (06:12)
[2017-07-11] MEDS: RESP: BUDESONIDE 0.5 MG/2 ML NEB NEB SCH ×2 (07:52→19:28)
[2017-07-11] MEDS: PANTOPRAZOLE SOD 20 MG DELAYED RELEASE TAB PO SCH (08:35)
[2017-07-11] MEDS: LINEZOLID 600 MG TAB PO SCH ×2 (08:36→22:13)
[2017-07-11] MEDS: APIXABAN 5 MG TABLET PO SCH ×2 (08:36→22:13)
[2017-07-11] MEDS: PETROLATUM 49%/ZINC OXIDE 15% 4 OUNCE TUBE TOPICAL SCH ×2 (08:43→22:18)
[2017-07-11] MEDS: SODIUM CHLORIDE 0.9% FLUSH 10 ML FLUSH IV FLUSH SCH ×2 (08:43→22:16)
[2017-07-11] MEDS: DOCUSATE SODIUM 50 MG/SENNA 8.6 MG TAB PO SCH ×2 (08:43→21:00)
[2017-07-11] MEDS: DOXYCYCLINE HYCLATE 100 MG CAP PO SCH ×2 (08:43→22:15)
[2017-07-11] MEDS: CITALOPRAM HYDROBROMIDE 20 MG TAB PO SCH (08:43)
--- NOTE | 2017-07-11 09:14 | HHI.IDPN ---
Subjective Subjective Remarks is an 86-year-old male, transferred to the [facility] for evaluation of tachycardia, leukocytosis, and low blood pressure. Patient has been in and out of the hospital since March. In March he had a periprostatic fracture on the left, and he underwent open reduction internal fixation in March. He was discharged to a rehab facility, and he apparently has had problem with coughing. Chest x-ray was done and there was an infiltrate noted on the chest x-ray. Patient was brought into the hospital and was admitted June 30 - July 04. At that time he was found to have a small pulmonary embolism on the left lower lobe. During his hospitalization in March for the fracture, he had a Colvin catheter in place, and he was treated for Pseudomonas UTI. While at the rehab facility, he was found to have a urinary tract infection, and culture grew enterococcus. He developed tachycardia, leukocytosis, and hypotension, and he was transferred to the [facility] July 06. Patient is afebrile. His white count was 16,000 yesterday, and it is down to 15,000 today. He does not have a Colvin catheter, but has a condom cath. Denies any abdominal pain. He's main complaint is the shortness of breath and a very dry hacking cough. Chest x-ray this morning is showing by basilar opacity, with the increase opacity on the left lower lobe and obscuration of the diaphragm. Patient denies any diarrhea, but states he had some vomiting yesterday. He denies any chest pain. Infectious disease consultation has been requested to evaluate the patient with sepsis Notes reviewed Overnight events noted Patient complaining of persistent nonproductive cough no fever or chills no diarrhea afebrile BP better BCXs with no growth Repeat UCX 07/07 with no growth Antibiotics IV Zosyn Zyvox Doxy Lines PIV with no e/o infection Past Medical History Recent fall with subsequent periprosthetic left distal femur fracture Recurrent UTIs HTN CAD CVA with residual right sided weakness CHF Spinal stenosis BPH Allergies: Coded Allergies: tramadol (Verified Allergy, Severe, anxiety, 06/30/17) hydrocodone (Verified Adverse Reaction, Unknown, Irritability/Anxiety, ) morphine (Verified Adverse Reaction, Unknown, Irritability/Anxiety, ) Objective . Vital Signs Date Time Temp Pulse Resp B/P (MAP) Pulse Ox O2 Delivery O2 Flow Rate FiO2 07/11/17 06:00 87 07/11/17 05:00 78 07/11/17 04:00 98.0 86 18 122/70 (87) 99 07/11/17 04:00 86 07/11/17 03:00 82 07/11/17 02:00 71 07/11/17 01:00 76 07/11/17 00:00 80 07/10/17 23:00 84 07/10/17 23:00 98 Nasal Cannula 2.00 07/10/17 23:00 98.5 96 20 107/57 (74) 98 07/10/17 22:00 92 07/10/17 21:00 80 07/10/17 20:00 98 Nasal Cannula 2.00 07/10/17 20:00 97.9 104 20 114/76 (89) 98 07/10/17 20:00 90 07/10/17 19:16 98 Nasal Cannula 2.00 07/10/17 19:00 96 07/10/17 18:00 86 07/10/17 17:00 100 07/10/17 16:00 96 07/10/17 15:00 89 07/10/17 15:00 97.2 97 20 120/66 (84) 99 07/10/17 15:00 94 07/10/17 14:00 86 07/10/17 13:00 96 07/10/17 12:00 98 07/10/17 11:00 106 07/10/17 11:00 106 07/10/17 11:00 97.7 96 22 95/60 (72) 99 07/10/17 10:00 92 . Laboratory Tests Test 07/10/17 14:40 Imaging Last Impressions Chest X-Ray 07/07/17 0000 Signed Impressions: Service Date/Time: Friday, July 07, 2017 06:41 - CONCLUSION: Apparent mild increase in opacity at the left lung base with partial obscuration of the left hemidiaphragm now noted. The patchy opacity in the right lung base is not significantly changed. Gilmer Adkins MD Physical Exam GENERAL: Patient is a well-nourished, well-developed elderly male, INAD. Awake and alert. Continuously coughing. SKIN: Warm and dry. No generalized rash, no ecchymoses and no evidence of embolic lesions. HEAD: Atraumatic. Normocephalic. No temporal wasting, or tenderness. EYES: [place] conjunctiva. No petechia or hemorrhage. Pupils equal, round and reactive to light. Extraocular movements full and intact. No scleral icterus. No injection or drainage. EARS, NOSE AND THROAT: Nose without bleeding or purulent nasal discharge. Mucous membranes pink and moist. No oral lesions noted. No exudate. No oral thrush. NECK: Trachea midline. CARDIOVASCULAR: Tachycardic. No murmurs, rubs or gallops heard RESPIRATORY: Coarse BS throughout. Breath sounds equal bilaterally. ABDOMEN: Soft, non-tender, nondistended. Bowel sounds present and normoactive. No guarding. No rebound. No organomegaly. EXTREMITIES: No clubbing, cyanosis or pedal edema. No calf tenderness. Well perfused and warm. : Has condom cath in place. No suprapubic fullness or tenderness NEUROLOGICAL: Awake and alert. Cranial nerves grossly intact. Motor grossly within normal limits. Normal speech. PSYCHIATRIC: Normal affect, calm and cooperative. LINE: No evidence of infection Assessment & Plan Remarks Sepsis, with hypotension, leukocytosis and tachycardia -BCXs with no growth -BP improved but still tachycardic UTI, has BPH, has had increased PVR, urinary retention, recurrent UTIs - 07/05 UCX with Enterococcus Faecalis, sensitive to Daptomycin -repeat UCX 07/07 with no growth -currently on Flomax 0.8mg daily Small PE L -currently on Eliquis. Monitor creatinine intermittently. Chronic nonproductive cough SOB, cough, with increased opacity oly on CXR, ?fluid -Pulmonary following, ?bronchoscopy ?swallow evaluation -on IV Solumedrol x 4 doses and scheduled Duonebs -obtain repeat BNP S/P ORIF L periprosthetic fracture Leukocytosis -mild -suspect steroid rxn. Patient without fever. Anemia, chronic -no e/o active bleeding CHF BNP elevated. Pulm following. IVF on hold. Acute bronchitis and pneumonia. ? HCAP VRE UTI. Recs: Concern for ongoing micro aspiration as cause for persistent cough in addition to bronchitis. On thickened fluid diet. DC Zosyn IV Start oral levaquin Continue oral Zyvox (covers MRSA in lung and VRE) Continue Doxy oral for atypical coverage as well as helps reduce inflammation. Repeat CXR today Procalcitonin to trend for antibiotic duration. dw patient and RN Will follow along. Ina Hernandez MD Jul 11, 2017 09:14
[2017-07-11] MEDS ORDERED: BENZONATATE 100 MG CAP PO PRN (09:45)
[2017-07-11] MEDS: LEVOFLOXACIN 500 MG TAB PO SCH (10:11)
[2017-07-11] MEDS: guaiFENesin/DEXTROMETHORPHAN 200 MG/20 MG/10 ML CUP PO PRN (15:08)
[2017-07-11] MEDS: RESP: ALBUTEROL 2.5 MG/IPRATROPIUM 0.5 MG NEB (PRN) NEB ×2 (16:28→23:21)
--- NOTE | 2017-07-11 18:56 | HHI.PR ---
Subjective Remarks alert no distress on o2 NC Objective Vital Signs Date Time Temp Pulse Resp B/P (MAP) Pulse Ox O2 Delivery O2 Flow Rate FiO2 07/11/17 18:00 96 07/11/17 15:00 87 07/11/17 15:00 98.6 80 22 128/73 (91) 98 07/11/17 14:00 86 07/11/17 12:00 88 07/11/17 11:00 81 07/11/17 11:00 98.3 87 20 111/60 (77) 98 07/11/17 10:00 86 07/11/17 09:00 87 07/11/17 08:35 98 Nasal Cannula 2.00 07/11/17 08:00 99 Nasal Cannula 2.00 07/11/17 08:00 86 07/11/17 08:00 97.0 86 16 118/65 (82) 99 07/11/17 07:00 77 07/11/17 06:00 87 07/11/17 05:00 78 07/11/17 04:00 98.0 86 18 122/70 (87) 99 07/11/17 04:00 86 07/11/17 03:00 82 07/11/17 02:00 71 07/11/17 01:00 76 07/11/17 00:00 80 07/10/17 23:00 84 07/10/17 23:00 98 Nasal Cannula 2.00 07/10/17 23:00 98.5 96 20 107/57 (74) 98 07/10/17 22:00 92 07/10/17 21:00 80 07/10/17 20:00 98 Nasal Cannula 2.00 07/10/17 20:00 97.9 104 20 114/76 (89) 98 07/10/17 20:00 90 07/10/17 19:16 98 Nasal Cannula 2.00 07/10/17 19:00 96 I/O 07/10/17 07/10/17 07/10/17 07/11/17 07/11/17 07/11/17 07:00 15:00 23:00 07:00 15:00 23:00 Intake Total 340 ml 50 ml 960 ml 400 ml 700 ml Output Total 275 ml 850 ml 400 ml 850 ml Balance 65 ml 50 ml 110 ml 0 ml -150 ml Intake Oral 240 ml 960 ml 300 ml 700 ml IV Total 100 ml 50 ml 100 ml Output Urine Total 275 ml 850 ml 400 ml 850 ml # Voids 2 1 # Bowel Movements 0 0 Result Diagram: 07/09/17 0438 07/08/17 0700 Objective Remarks GENERAL: SKIN: Warm and dry. HEAD: Atraumatic. Normocephalic. EYES: Pupils equal and round. No scleral icterus. No injection or drainage. ENT: No nasal bleeding or discharge. Mucous membranes pink and moist. NECK: Trachea midline. No JVD. CARDIOVASCULAR: Regular rate and rhythm. RESPIRATORY: No accessory muscle use. Clear to auscultation. Breath sounds equal bilaterally. GASTROINTESTINAL: Abdomen soft, non-tender, nondistended. Hepatic and splenic margins not palpable. MUSCULOSKELETAL: Extremities without clubbing, cyanosis, or edema. No obvious deformities. NEUROLOGICAL: Awake and alert. No obvious cranial nerve deficits. Motor grossly within normal limits. Five out of 5 muscle strength in the arms and legs. Normal speech. PSYCHIATRIC: Appropriate mood and affect; insight and judgment normal. Assessment and Plan Assessment and Plan RESPIRATORY FAILURE ATELECTASIS/PNA PE PLAN O2 NEEDED ANTIBX PER ID F/U CXRAY Manish Hammond MD Jul 11, 2017 18:56
[2017-07-11] MEDS: TAMSULOSIN HCL 0.4 MG CAP PO SCH (22:15)
[2017-07-11] MEDS: LATANOPROST 0.005% OPHT SOLN 2.5 ML BTL EACH EYE SCH (22:18)
[2017-07-12] VITALS (27 sets, daily range): BP systolic 111–129; BP diastolic 60–78; PULSE 69–102; RESP 18–20; TEMP 97.7–98.2; O2SAT 97–100
--- NOTE | 2017-07-12 01:35 | HHI.PR ---
Subjective Remarks Deferred entry - patient seen on 07/11/17 Patient still has cough but states improving. Afebrile Objective Vitals Vital Signs Date Time Temp Pulse Resp B/P (MAP) Pulse Ox O2 Delivery O2 Flow Rate FiO2 07/11/17 20:00 89 07/11/17 20:00 Nasal Cannula 2.00 07/11/17 20:00 98.6 97 18 126/78 (94) 99 07/11/17 19:28 97 Nasal Cannula 2.00 07/11/17 18:00 96 07/11/17 15:00 87 07/11/17 15:00 98.6 80 22 128/73 (91) 98 07/11/17 14:00 86 07/11/17 12:00 88 07/11/17 11:00 81 07/11/17 11:00 98.3 87 20 111/60 (77) 98 07/11/17 10:00 86 07/11/17 09:00 87 07/11/17 08:35 98 Nasal Cannula 2.00 07/11/17 08:00 99 Nasal Cannula 2.00 07/11/17 08:00 86 07/11/17 08:00 97.0 86 16 118/65 (82) 99 07/11/17 07:00 77 07/11/17 06:00 87 07/11/17 05:00 78 07/11/17 04:00 98.0 86 18 122/70 (87) 99 07/11/17 04:00 86 07/11/17 03:00 82 07/11/17 02:00 71 I/O 07/11/17 07/11/17 07/11/17 07/12/17 07/12/17 07/12/17 07:00 15:00 23:00 07:00 15:00 23:00 Intake Total 400 ml 700 ml Output Total 400 ml 850 ml Balance 0 ml -150 ml Intake Oral 300 ml 700 ml IV Total 100 ml Output Urine Total 400 ml 850 ml # Voids 1 # Bowel Movements 0 Result Diagram: 07/09/17 0438 07/08/17 0700 Imaging Last Impressions Chest X-Ray 07/10/17 0000 Signed Impressions: Service Date/Time: Monday, July 10, 2017 14:19 - CONCLUSION: Unchanged bibasilar infiltrates and tiny right effusion. Domingo Salinas Jr., MD Objective Remarks GENERAL: Patient is a well-nourished, well-developed elderly male, INAD. Awake and alert. Coughing SKIN: Warm and dry. No generalized rash, no ecchymoses and no evidence of embolic lesions. HEAD: Atraumatic. Normocephalic. No temporal wasting, or tenderness. EYES: [place] conjunctiva. No petechia or hemorrhage. Pupils equal, round and reactive to light. Extraocular movements full and intact. No scleral icterus. No injection or drainage. EARS, NOSE AND THROAT: Nose without bleeding or purulent nasal discharge. Mucous membranes pink and moist. No oral lesions noted. No exudate. No oral thrush. NECK: Trachea midline. CARDIOVASCULAR: Tachycardic. No murmurs, rubs or gallops heard RESPIRATORY: Coarse BS throughout. Breath sounds equal bilaterally. ABDOMEN: Soft, non-tender, nondistended. Bowel sounds present and normoactive. No guarding. No rebound. No organomegaly. EXTREMITIES: No clubbing, cyanosis or pedal edema. No calf tenderness. Well perfused and warm. : Has condom cath in place. No suprapubic fullness or tenderness NEUROLOGICAL: Awake and alert. Cranial nerves grossly intact. Motor grossly within normal limits. Normal speech. PSYCHIATRIC: Normal affect, calm and cooperative. A/P Problem List: (1) Sepsis ICD Code: A41.9 - Sepsis, unspecified organism (2) UTI (lower urinary tract infection) ICD Code: N39.0 - UTI (lower urinary tract infection) Status: Resolved (3) Cough ICD Code: R05 - Cough Status: Acute (4) PE (pulmonary thromboembolism) ICD Code: I26.99 - Other pulmonary embolism without acute cor pulmonale (5) Impaired mobility and activities of daily living ICD Code: Z74.09 - Other reduced mobility Status: Acute Assessment and Plan 86 year old male admitted with UTI and Sepsis with hypotension Sepsis, UTI, h/o BPH Continue supportive care with oxygen Culture is pending Continue IV Daptomyxin and IV Zosyn Appreciate infectious disease consult 07/10 Antibiotics as per ID. Sepsis clinically resolving. Patient currently on Zosyn IV, oral Zyvox. oral doxycycline. LLL Pulmonary Embolism w/ Chronic cough Embolism diagnosed 06/30, treatment with theraputic Eliquis Continue Robitussin PRN, PRN Cepacol Continue oxygen as needed Appreciate Pulmonology consult 07/11 start on mucomyst nebs due to productive cough. Hypotension Coronary Artery Disease EF 55-60% and moderate concentric left ventricular hypertrophy IV Boluses as needed PRN Levophed 07/09 Hypotension resolved. continue to monitor vital signs. History of CVA with residual left sided weakness Recent fall with left periprosthetic femur fracture s/p ORIF 04/05 Physical Deconditioning PT continued Anemia, chronic Stable, follow periodic CBC Hypothyroidism Synthroid Restless leg syndrome Home dose Requip Suspected HCAP CXR with infitrate on left lower lung. Continue IV antibiotics as per ID. DVT Prophylaxis Eliquis Discharge Planning DC pending ID clearance.Poss dc in 1 to 2 days. Anthony Burns MD Jul 12, 2017 01:35
[2017-07-12] MEDS: guaiFENesin/DEXTROMETHORPHAN 200 MG/20 MG/10 ML CUP PO PRN ×2 (03:15→08:37)
[2017-07-12] MEDS: RESP: ACETYLCYSTEINE 10% 30 ML NEB NEB SCH ×4 (03:28→21:52)
[2017-07-12] MEDS: RESP: ALBUTEROL 2.5 MG/IPRATROPIUM 0.5 MG NEB (PRN) NEB ×4 (03:28→21:47)
[2017-07-12] MEDS ORDERED: RESP: ACETYLCYSTEINE 10% 10 ML NEB NEB SCH (04:00)
[2017-07-12] MEDS: LEVOTHYROXINE SODIUM 100 MCG TAB PO SCH (05:54)
[2017-07-12 06:44] LABS: AUTOMATED NEUTROPHIL # 7.6 TH/MM3 (1.8-7.7); BASOPHIL % 0.4 % (0.0-2.0); EOSINOPHIL # 0.2 TH/MM3 (0-0.4); EOSINOPHIL % 2.2 % (0.0-4.0); HEMATOCRIT 28.1 % (39.0-51.0); HEMOGLOBIN 9.4 GM/DL (13.0-17.0); LYMPH % 9.3 % (9.0-44.0); LYMPHOCYTE # 0.9 TH/MM3 (1.0-4.8); MEAN CELL VOLUME 88.8 FL (80.0-100.0); MEAN CORPUSCULAR HEMOGLOBIN 29.8 PG (27.0-34.0); MEAN CORPUSCULAR HGB CONC 33.6 % (32.0-36.0); MEAN PLATELET VOLUME 7.2 FL (7.0-11.0); MONO % 6.8 % (0.0-8.0); MONOCYTE # 0.6 TH/MM3 (0-0.9); NEUT % 81.3 % (16.0-70.0); PLATELET COUNT 445 TH/MM3 (150-450); RED BLOOD COUNT 3.17 MIL/MM3 (4.50-5.90); RED CELL DISTRIBUTION WIDTH 14.7 % (11.6-17.2); WHITE BLOOD COUNT 9.3 TH/MM3 (4.0-11.0)
[2017-07-12 07:03] LABS: ALBUMIN 2.3 GM/DL (3.4-5.0); AST (GOT) 17 U/L (15-37); BICARBONATE 26.1 MEQ/L (21.0-32.0); BLOOD UREA NITROGEN 12 MG/DL (7-18); CALCIUM 9.2 MG/DL (8.5-10.1); CHLORIDE 105 MEQ/L (98-107); CREATININE 0.92 MG/DL (0.60-1.30); GLOMERULAR FILTRATION RATE 78 ML/MIN (>89); GLUCOSE,RANDOM 92 MG/DL (74-106); MAGNESIUM 1.8 MG/DL (1.5-2.5); SODIUM (NA) 139 MEQ/L (136-145)
[2017-07-12 07:06] LABS: ALKALINE PHOSPHATASE 52 U/L (45-117); ALT (GPT) 18 U/L (12-78); PHOSPHORUS 1.7 MG/DL (2.5-4.9); TOTAL BILIRUBIN ADULT 0.3 MG/DL (0.2-1.0); TOTAL PROTEIN 6.3 GM/DL (6.4-8.2)
[2017-07-12] MEDS: RESP: BUDESONIDE 0.5 MG/2 ML NEB NEB SCH ×2 (07:24→21:47)
[2017-07-12] MEDS: FUROSEMIDE 40 MG TAB PO SCH (08:37)
[2017-07-12] MEDS: CITALOPRAM HYDROBROMIDE 20 MG TAB PO SCH (08:37)
[2017-07-12] MEDS: DOCUSATE SODIUM 50 MG/SENNA 8.6 MG TAB PO SCH ×2 (08:37→20:48)
[2017-07-12] MEDS: LEVOFLOXACIN 500 MG TAB PO SCH (08:37)
[2017-07-12] MEDS: guaiFENesin E.R. 600 MG TAB PO SCH ×2 (08:37→20:48)
[2017-07-12] MEDS: DOXYCYCLINE HYCLATE 100 MG CAP PO SCH ×2 (08:37→20:48)
[2017-07-12] MEDS: SODIUM CHLORIDE 0.9% FLUSH 10 ML FLUSH IV FLUSH SCH ×2 (08:38→20:50)
[2017-07-12] MEDS: LINEZOLID 600 MG TAB PO SCH ×2 (08:38→20:49)
[2017-07-12] MEDS: PETROLATUM 49%/ZINC OXIDE 15% 4 OUNCE TUBE TOPICAL SCH ×2 (08:38→20:50)
[2017-07-12] MEDS: APIXABAN 5 MG TABLET PO SCH ×2 (08:38→20:49)
[2017-07-12] MEDS: PANTOPRAZOLE SOD 20 MG DELAYED RELEASE TAB PO SCH (08:38)
--- NOTE | 2017-07-12 08:40 | HHI.PR ---
Subjective Remarks alert no distress on o2 NC Objective Vital Signs Date Time Temp Pulse Resp B/P (MAP) Pulse Ox O2 Delivery O2 Flow Rate FiO2 07/12/17 07:24 99 Nasal Cannula 2.00 07/12/17 06:00 78 07/12/17 05:00 80 07/12/17 04:00 87 07/12/17 04:00 98.0 97 18 129/78 (95) 97 07/12/17 03:00 102 07/12/17 02:00 100 07/12/17 01:00 96 07/12/17 00:00 97.9 99 18 126/75 (92) 99 07/12/17 00:00 88 07/11/17 23:00 102 07/11/17 22:00 98 07/11/17 21:00 92 07/11/17 20:00 89 07/11/17 20:00 Nasal Cannula 2.00 07/11/17 20:00 98.6 97 18 126/78 (94) 99 07/11/17 19:28 97 Nasal Cannula 2.00 07/11/17 18:00 96 07/11/17 15:00 87 07/11/17 15:00 98.6 80 22 128/73 (91) 98 07/11/17 14:00 86 07/11/17 12:00 88 07/11/17 11:00 81 07/11/17 11:00 98.3 87 20 111/60 (77) 98 07/11/17 10:00 86 07/11/17 09:00 87 I/O 07/11/17 07/11/17 07/11/17 07/12/17 07/12/17 07/12/17 07:00 15:00 23:00 07:00 15:00 23:00 Intake Total 400 ml 700 ml 240 ml Output Total 400 ml 850 ml 625 ml Balance 0 ml -150 ml -385 ml Intake Oral 300 ml 700 ml 240 ml IV Total 100 ml Output Urine Total 400 ml 850 ml 625 ml # Voids 1 # Bowel Movements 0 2 Result Diagram: 07/12/17 04507/12/17451 Objective Remarks GENERAL: SKIN: Warm and dry. HEAD: Atraumatic. Normocephalic. EYES: Pupils equal and round. No scleral icterus. No injection or drainage. ENT: No nasal bleeding or discharge. Mucous membranes pink and moist. NECK: Trachea midline. No JVD. CARDIOVASCULAR: Regular rate and rhythm. RESPIRATORY: No accessory muscle use. Clear to auscultation. Breath sounds equal bilaterally. GASTROINTESTINAL: Abdomen soft, non-tender, nondistended. Hepatic and splenic margins not palpable. MUSCULOSKELETAL: Extremities without clubbing, cyanosis, or edema. No obvious deformities. NEUROLOGICAL: Awake and alert. No obvious cranial nerve deficits. Motor grossly within normal limits. Five out of 5 muscle strength in the arms and legs. Normal speech. PSYCHIATRIC: Appropriate mood and affect; insight and judgment normal. Assessment and Plan Assessment and Plan RESPIRATORY FAILURE ATELECTASIS/PNA PE PLAN O2 NEEDED ANTIBX PER ID F/U CXRAY Manish Hammond MD Jul 12, 2017 08:40
[2017-07-12] MEDS ORDERED: POTASSIUM CHLORIDE 10 MEQ CONTROLLED RELEASE TAB PO ONE (09:30)
[2017-07-12] MEDS ORDERED: ACET10SO3 NEB (15:22)
[2017-07-12] MEDS ORDERED: BUDE.5I NEB (15:22)
[2017-07-12] MEDS ORDERED: PERI PO (15:22)
--- NOTE | 2017-07-12 15:29 | HHI.DCPOC ---
Discharge Care Plan Diagnosis: (1) HCAP (healthcare-associated pneumonia) (2) Anemia (3) Sepsis (4) UTI (lower urinary tract infection) (5) BPH (benign prostatic hyperplasia) (6) HTN (hypertension) (7) PE (pulmonary thromboembolism) (8) Impaired mobility and activities of daily living (9) Hypothyroidism Goals to Promote Your Health * To prevent worsening of your condition and complications * To maintain your health at the optimal level Directions to Meet Your Goals Take your medications as prescribed Follow your dietary instruction Follow activity as directed Keep your appointments as scheduled Take your immunizations and boosters as scheduled If your symptoms worsen call your PCP, if no PCP go to Urgent Care Center or Emergency Room Smoking is Dangerous to Your Health. Avoid second hand smoke Call the 24-hour hour crisis hotline for domestic abuse at Anthony Burns MD Jul 12, 2017 15:29
--- NOTE | 2017-07-12 15:33 | HHI.PR ---
Subjective Remarks cough is better Afebrile Objective Vitals Vital Signs Date Time Temp Pulse Resp B/P (MAP) Pulse Ox O2 Delivery O2 Flow Rate FiO2 07/12/17 14:19 82 07/12/17 13:13 78 07/12/17 12:06 82 07/12/17 11:47 97.8 79 18 112/60 (77) 99 07/12/17 11:47 76 07/12/17 11:47 99 Room Air 07/12/17 10:37 76 07/12/17 09:00 77 07/12/17 08:45 99 Room Air 07/12/17 08:45 74 07/12/17 08:45 97.7 85 18 119/72 (88) 99 07/12/17 07:24 99 Nasal Cannula 2.00 07/12/17 06:00 78 07/12/17 05:00 80 07/12/17 04:00 87 07/12/17 04:00 98.0 97 18 129/78 (95) 97 07/12/17 03:00 102 07/12/17 02:00 100 07/12/17 01:00 96 07/12/17 00:00 97.9 99 18 126/75 (92) 99 07/12/17 00:00 88 07/11/17 23:00 102 07/11/17 22:00 98 07/11/17 21:00 92 07/11/17 20:00 89 07/11/17 20:00 Nasal Cannula 2.00 07/11/17 20:00 98.6 97 18 126/78 (94) 99 07/11/17 19:28 97 Nasal Cannula 2.00 07/11/17 18:00 96 I/O 07/11/17 07/11/17 07/11/17 07/12/17 07/12/17 07/12/17 07:00 15:00 23:00 07:00 15:00 23:00 Intake Total 400 ml 700 ml 240 ml Output Total 400 ml 850 ml 625 ml Balance 0 ml -150 ml -385 ml Intake Oral 300 ml 700 ml 240 ml IV Total 100 ml Output Urine Total 400 ml 850 ml 625 ml # Voids 1 # Bowel Movements 0 2 Result Diagram: 07/12/17 0452 07/12/17 0452 Imaging Last Impressions Chest X-Ray 07/10/17 0000 Signed Impressions: Service Date/Time: Monday, July 10, 2017 14:19 - CONCLUSION: Unchanged bibasilar infiltrates and tiny right effusion. Domingo Salinas Jr., MD Objective Remarks GENERAL: Patient is a well-nourished, well-developed elderly male, INAD. Awake and alert. Coughing SKIN: Warm and dry. No generalized rash, no ecchymoses and no evidence of embolic lesions. HEAD: Atraumatic. Normocephalic. No temporal wasting, or tenderness. EYES: [place] conjunctiva. No petechia or hemorrhage. Pupils equal, round and reactive to light. Extraocular movements full and intact. No scleral icterus. No injection or drainage. EARS, NOSE AND THROAT: Nose without bleeding or purulent nasal discharge. Mucous membranes pink and moist. No oral lesions noted. No exudate. No oral thrush. NECK: Trachea midline. CARDIOVASCULAR: Tachycardic. No murmurs, rubs or gallops heard RESPIRATORY: Coarse BS throughout. Breath sounds equal bilaterally. ABDOMEN: Soft, non-tender, nondistended. Bowel sounds present and normoactive. No guarding. No rebound. No organomegaly. EXTREMITIES: No clubbing, cyanosis or pedal edema. No calf tenderness. Well perfused and warm. : Has condom cath in place. No suprapubic fullness or tenderness NEUROLOGICAL: Awake and alert. Cranial nerves grossly intact. Motor grossly within normal limits. Normal speech. PSYCHIATRIC: Normal affect, calm and cooperative. Medications and IVs Current Medications Medications (Trade) Dose Ordered Sig/[place] Route Start Time Stop Time Status Last Admin (NS Flush) 2 ml UNSCH PRN IV FLUSH 07/06/17 22:15 (NS Flush) 2 ml BID IV FLUSH 07/07/17 09:00 07/12/17 20:50 (Tylenol) 650 mg Q4H PRN PO 07/06/17 22:15 (Zofran Inj) 4 mg Q6H PRN IVP 07/06/17 22:15 (Narcan Inj) 0.4 mg UNSCH PRN IV PUSH 07/06/17 22:15 (Rosa-Colace) 1 tab BID PO 07/07/17 09:00 07/12/17 20:48 (Milk Of Magnesia Liq) 30 ml Q12H PRN PO 07/06/17 22:15 (Senokot) 17.2 mg Q12H PRN PO 07/06/17 22:15 (Dulcolax Supp) 10 mg DAILY PRN RECTAL 07/06/17 22:15 (Lactulose Liq) 30 ml DAILY PRN PO 07/06/17 22:15 Miscellaneous Information Patient in critical care unit? Ass... [id number] .XX 07/06/17 22:30 07/06/17 22:30 (Eliquis) 5 mg BID PO 07/12/17 09:00 07/12/17 20:49 (Pulmicort Respule Neb) 0.5 mg Q12HR NEB NEB 07/06/17 22:30 07/12/17 21:47 (Robitussin Dm 200-20 Mg/10 ml Liq) 10 ml Q4H PRN PO 07/06/17 22:30 07/12/17 08:37 (CeleXA) 10 mg DAILY PO 07/07/17 09:00 07/12/17 08:37 (Protonix) 20 mg DAILY PO 07/07/17 09:00 07/12/17 08:38 (Synthroid) 100 mcg DAILY@0600 PO 07/07/17 06:00 07/12/17 05:54 (Xalatan 0.005% Opth Soln) 1 drop HS EACH EYE 07/07/17 21:00 07/12/17 20:50 (Flomax) 0.8 mg HS PO 07/06/17 22:30 07/12/17 20:48 (Sensi-Care Protective Barrier Oint) 1 applic BID TOPICAL 07/06/17 22:45 07/12/17 08:38 (Pill Splitter) 1 ea UNSCH PRN OTHER 07/06/17 23:00 (Duoneb Neb) 1 ampule Q2HR NEB PRN NEB 07/07/17 09:45 07/13/17 03:15 Norepinephrine Bitartrate 250 ml @ 7.5 mls/hr TITRATE PRN IV 07/07/17 10:15 (Brethine Inj) 1 mg UNSCH PRN SQ 07/07/17 10:15 (Cepacol Extra [place] (Sugar Free)) 1 lozenge Q2HR PRN BUCCAL 07/07/17 14:15 07/07/17 18:27 (Requip) 2.5 mg HS PRN PO 07/07/17 16:15 (Vibramycin) 100 mg BID PO 07/09/17 21:00 07/12/17 20:48 (Zyvox) 600 mg Q12HR PO 07/09/17 21:00 07/12/17 20:49 (Levaquin) 500 mg DAILY PO 07/11/17 10:00 07/12/17 08:37 (Tessalon) 200 mg TID PRN PO 07/11/17 09:45 07/11/17 10:11 (Lasix) 40 mg DAILY PO 07/12/17 09:00 07/12/17 08:37 (Mucinex Er) 1,200 mg BID PO 07/12/17 09:00 07/12/17 20:48 (Mucomyst 10% Neb) 2 ml Q6HR NEB NEB 07/12/17 04:00 07/13/17 03:15 A/P Problem List: (1) Sepsis ICD Code: A41.9 - Sepsis, unspecified organism (2) UTI (lower urinary tract infection) ICD Code: N39.0 - UTI (lower urinary tract infection) Status: Resolved (3) Cough ICD Code: R05 - Cough Status: Acute (4) PE (pulmonary thromboembolism) ICD Code: I26.99 - Other pulmonary embolism without acute cor pulmonale (5) Impaired mobility and activities of daily living ICD Code: Z74.09 - Other reduced mobility Status: Acute Assessment and Plan 86 year old male admitted with UTI and Sepsis with hypotension Sepsis, UTI, h/o BPH Continue supportive care with oxygen Culture is pending Continue IV Daptomyxin and IV Zosyn Appreciate infectious disease consult 07/10 Antibiotics as per ID. Sepsis clinically resolving. Patient currently on Zosyn IV, oral Zyvox. oral doxycycline. 07/12 Sepsis clinically resolved. Discussed with ID . Will DC on Doxy x5 days to rehab. LLL Pulmonary Embolism w/ Chronic cough Embolism diagnosed 06/30, treatment with theraputic Eliquis Continue Robitussin PRN, PRN Cepacol Continue oxygen as needed Appreciate Pulmonology consult 07/11 start on mucomyst nebs due to productive cough. Hypotension Coronary Artery Disease EF 55-60% and moderate concentric left ventricular hypertrophy IV Boluses as needed PRN Levophed 07/09 Hypotension resolved. continue to monitor vital signs. History of CVA with residual left sided weakness Recent fall with left periprosthetic femur fracture s/p ORIF 04/05 Physical Deconditioning PT continued Anemia, chronic Stable, follow periodic CBC Hypothyroidism Synthroid Restless leg syndrome Home dose Requip Suspected HCAP CXR with infitrate on left lower lung. Continue antibiotics as per ID 07/12 DC to rehab on Doxy x 5 days.. DVT Prophylaxis Eliquis Discharge Planning Dc to rehab Problem Qualifiers (1) Sepsis: Qualified Codes: A41.9 - Sepsis, unspecified organism Anthony Burns MD Jul 12, 2017 15:33
--- NOTE | 2017-07-12 17:05 | HHI.PR ---
Addendum to Inpatient Note Addendum Reason: Additional Documentation Additional Information Dw : clinically much improved. DC Zyvox and other antibiotics. Just Doxy oral on dc to rehab for another 5 days. Will sign off please call back if any change in clinical condition or questions. Ina Hernandez MD Jul 12, 2017 17:05
[2017-07-12] MEDS: TAMSULOSIN HCL 0.4 MG CAP PO SCH (20:48)
[2017-07-12] MEDS: LATANOPROST 0.005% OPHT SOLN 2.5 ML BTL EACH EYE SCH (20:50)
[2017-07-13] VITALS (31 sets, daily range): BP systolic 109–128; BP diastolic 56–68; PULSE 70–87; RESP 16–20; TEMP 97.1–97.8; O2SAT 97–100
[2017-07-13] MEDS: RESP: ACETYLCYSTEINE 10% 30 ML NEB NEB SCH ×4 (03:15→21:34)
[2017-07-13] MEDS: RESP: ALBUTEROL 2.5 MG/IPRATROPIUM 0.5 MG NEB (PRN) NEB ×3 (03:15→15:27)
[2017-07-13] MEDS: LEVOTHYROXINE SODIUM 100 MCG TAB PO SCH (06:31)
[2017-07-13] MEDS: RESP: BUDESONIDE 0.5 MG/2 ML NEB NEB SCH ×2 (08:12→21:34)
--- NOTE | 2017-07-13 08:50 | HHI.PR ---
Subjective Remarks Patient feels okay. Currently getting a breathing treatment. Denies any chest pain, worsening shortness of breath, nausea or vomiting. Waiting for breakfast. [facility] Objective Vitals Vital Signs Date Time Temp Pulse Resp B/P (MAP) Pulse Ox O2 Delivery O2 Flow Rate FiO2 07/13/17 08:15 100 Nasal Cannula 1.00 07/13/17 07:45 97.7 82 20 121/64 (83) 100 07/13/17 06:00 70 07/13/17 05:00 84 07/13/17 04:00 87 07/13/17 03:20 97.6 79 20 119/68 (85) 99 07/13/17 03:00 Nasal Cannula 2.00 07/13/17 03:00 72 07/13/17 02:00 76 07/13/17 01:00 77 07/13/17 00:00 87 07/12/17 23:28 97.7 78 20 111/63 (79) 98 07/12/17 23:00 Nasal Cannula 2.00 07/12/17 23:00 76 07/12/17 22:12 97 Nasal Cannula 2.00 07/12/17 22:00 80 07/12/17 21:00 78 07/12/17 20:00 100 Nasal Cannula 2.00 07/12/17 20:00 74 07/12/17 19:45 98.0 82 20 120/76 (91) 100 07/12/17 19:00 69 07/12/17 18:14 88 07/12/17 17:11 69 07/12/17 16:24 89 07/12/17 15:36 100 Room Air 07/12/17 15:36 72 07/12/17 15:36 98.2 79 18 112/63 (79) 100 07/12/17 14:19 82 07/12/17 13:13 78 07/12/17 12:06 82 07/12/17 11:47 97.8 79 18 112/60 (77) 99 07/12/17 11:47 76 07/12/17 11:47 99 Room Air 07/12/17 10:37 76 07/12/17 09:00 77 I/O 07/12/17 07/12/17 07/12/17 07/13/17 07/13/1718 07:00 15:00 23:00 07:00 15:00 23:00 Intake Total 240 ml 480 ml 360 ml Output Total 625 ml 1700 ml 750 ml Balance -385 ml -1220 ml -390 ml Intake Oral 240 ml 480 ml 360 ml Output Urine Total 625 ml 1700 ml 750 ml # Bowel Movements 2 1 1 Result Diagram: 07/12/17 0452 07/12/17 0452 Imaging Last Impressions Chest X-Ray 07/10/17 0000 Signed Impressions: Service Date/Time: Monday, July 10, 2017 14:19 - CONCLUSION: Unchanged bibasilar infiltrates and tiny right effusion. Domingo Salinas Jr., MD Objective Remarks GENERAL: Getting breathing treatment. CARDIOVASCULAR: Regular rate and rhythm with no murmurs. RESPIRATORY: Coarse BS throughout. Breath sounds equal bilaterally. No wheezing appreciated. ABDOMEN: Soft, non-tender, nondistended. Bowel sounds present and normoactive. No guarding. No rebound. EXTREMITIES: No edema. NEUROLOGICAL: Awake and alert. Normal speech. PSYCHIATRIC: Normal affect, calm and cooperative. A/P Problem List: (1) Sepsis ICD Code: A41.9 - Sepsis, unspecified organism (2) UTI (lower urinary tract infection) ICD Code: N39.0 - UTI (lower urinary tract infection) Status: Resolved (3) Cough ICD Code: R05 - Cough Status: Acute (4) PE (pulmonary thromboembolism) ICD Code: I26.99 - Other pulmonary embolism without acute cor pulmonale (5) Impaired mobility and activities of daily living ICD Code: Z74.09 - Other reduced mobility Status: Acute Assessment and Plan 86 year old male admitted with UTI and Sepsis with hypotension Sepsis, UTI, h/o BPH Continue supportive care with oxygen Culture thus far negative. s/p IV Daptomyxin and IV Zosyn Appreciate infectious disease consult 07/10 Antibiotics as per ID. Sepsis clinically resolving. Patient currently on Zosyn IV, oral Zyvox. oral doxycycline. 07/12 Sepsis clinically resolved. Discussed with ID . Will DC on Doxy x5 days to rehab. 07/13 awaiting placement at this time. Per ID recommendations continue doxy for a total of 5 days. I have stopped all other antibiotics LLL Pulmonary Embolism w/ Chronic cough Embolism diagnosed 06/30, treatment with theraputic Eliquis Continue Robitussin PRN, PRN Cepacol Continue oxygen as needed Appreciate Pulmonology consult 07/11 start on mucomyst nebs due to productive cough. 07/13 cough is improving Hypotension Coronary Artery Disease EF 55-60% and moderate concentric left ventricular hypertrophy IV Boluses as needed PRN Levophed 07/09 Hypotension resolved. continue to monitor vital signs. 07/13 resolved History of CVA with residual left sided weakness Recent fall with left periprosthetic femur fracture s/p ORIF 04/05 Physical Deconditioning PT continued Anemia, chronic Stable, follow periodic CBC Hypothyroidism Synthroid Restless leg syndrome Home dose Requip Suspected HCAP CXR with infitrate on left lower lung. Continue antibiotics as per ID 07/13 DC to rehab on Doxy x 4 days. DVT Prophylaxis Eliquis Discharge Planning Case management assisting with DC planning. Problem Qualifiers (1) Sepsis: Qualified Codes: A41.9 - Sepsis, unspecified organism Irma Escoto MD Jul 13, 2017 08:50
[2017-07-13] MEDS: DOXYCYCLINE HYCLATE 100 MG CAP PO SCH ×2 (08:57→22:14)
[2017-07-13] MEDS: APIXABAN 5 MG TABLET PO SCH ×2 (08:57→22:12)
[2017-07-13] MEDS: SODIUM CHLORIDE 0.9% FLUSH 10 ML FLUSH IV FLUSH SCH ×2 (08:57→22:14)
[2017-07-13] MEDS: guaiFENesin E.R. 600 MG TAB PO SCH ×2 (08:58→22:13)
[2017-07-13] MEDS: FUROSEMIDE 40 MG TAB PO SCH (08:58)
[2017-07-13] MEDS: DOCUSATE SODIUM 50 MG/SENNA 8.6 MG TAB PO SCH ×2 (08:58→21:00)
[2017-07-13] MEDS: CITALOPRAM HYDROBROMIDE 20 MG TAB PO SCH (08:58)
[2017-07-13] MEDS: PANTOPRAZOLE SOD 20 MG DELAYED RELEASE TAB PO SCH (08:59)
[2017-07-13] MEDS: PETROLATUM 49%/ZINC OXIDE 15% 4 OUNCE TUBE TOPICAL SCH ×2 (09:00→22:11)
--- NOTE | 2017-07-13 15:35 | HHI.PR ---
Subjective Remarks alert no distress on o2 by [place] Objective Vital Signs Date Time Temp Pulse Resp B/P (MAP) Pulse Ox O2 Delivery O2 Flow Rate FiO2 07/13/17 15:27 98 Nasal Cannula 2.00 07/13/17 11:20 97.8 85 18 128/56 (80) 98 07/13/17 11:20 98 Nasal Cannula 2.00 07/13/17 08:15 100 Nasal Cannula 1.00 07/13/17 08:00 100 Nasal Cannula 2.00 07/13/17 07:45 97.7 82 20 121/64 (83) 100 07/13/17 06:00 70 07/13/17 05:00 84 07/13/17 04:00 87 07/13/17 03:20 97.6 79 20 119/68 (85) 99 07/13/17 03:00 Nasal Cannula 2.00 07/13/17 03:00 72 07/13/17 02:00 76 07/13/17 01:00 77 07/13/17 00:00 87 07/12/17 23:28 97.7 78 20 111/63 (79) 98 07/12/17 23:00 Nasal Cannula 2.00 07/12/17 23:00 76 07/12/17 22:12 97 Nasal Cannula 2.00 07/12/17 22:00 80 07/12/17 21:00 78 07/12/17 20:00 100 Nasal Cannula 2.00 07/12/17 20:00 74 07/12/17 19:45 98.0 82 20 120/76 (91) 100 07/12/17 19:00 69 07/12/17 18:14 88 07/12/17 17:11 69 07/12/17 16:24 89 07/12/17 15:36 100 Room Air 07/12/17 15:36 72 07/12/17 15:36 98.2 79 18 112/63 (79) 100 I/O 07/12/17 07/12/17 07/12/17 07/13/17 07/13/17 07/13/17 07:00 15:00 23:00 07:00 15:00 23:00 Intake Total 240 ml 480 ml 360 ml Output Total 625 ml 1700 ml 750 ml Balance -385 ml -1220 ml -390 ml Intake Oral 240 ml 480 ml 360 ml Output Urine Total 625 ml 1700 ml 750 ml # Bowel Movements 2 1 1 Result Diagram: 07/12/1745107/12/17451 Objective Remarks GENERAL: SKIN: Warm and dry. HEAD: Atraumatic. Normocephalic. EYES: Pupils equal and round. No scleral icterus. No injection or drainage. ENT: No nasal bleeding or discharge. Mucous membranes pink and moist. NECK: Trachea midline. No JVD. CARDIOVASCULAR: Regular rate and rhythm. RESPIRATORY: No accessory muscle use. Clear to auscultation. Breath sounds equal bilaterally. GASTROINTESTINAL: Abdomen soft, non-tender, nondistended. Hepatic and splenic margins not palpable. MUSCULOSKELETAL: Extremities without clubbing, cyanosis, or edema. No obvious deformities. NEUROLOGICAL: Awake and alert. No obvious cranial nerve deficits. Motor grossly within normal limits. Five out of 5 muscle strength in the arms and legs. Normal speech. PSYCHIATRIC: Appropriate mood and affect; insight and judgment normal. Assessment and Plan Assessment and Plan RESPIRATORY FAILURE ATELECTASIS/PNA PE cxray stable PLAN O2 NEEDED ANTIBX PER Manish Locke MD Jul 13, 2017 15:35
[2017-07-13] MEDS: LATANOPROST 0.005% OPHT SOLN 2.5 ML BTL EACH EYE SCH (22:08)
[2017-07-13] MEDS: TAMSULOSIN HCL 0.4 MG CAP PO SCH (22:11)
[2017-07-14] VITALS (32 sets, daily range): BP systolic 105–117; BP diastolic 55–63; PULSE 71–92; RESP 16–18; TEMP 97.6–99; O2SAT 92–98
[2017-07-14] MEDS: RESP: ALBUTEROL 2.5 MG/IPRATROPIUM 0.5 MG NEB (PRN) NEB ×3 (03:07→15:22)
[2017-07-14] MEDS: RESP: ACETYLCYSTEINE 10% 30 ML NEB NEB SCH ×4 (03:07→20:58)
[2017-07-14 04:35] LABS: BICARBONATE 28.9 MEQ/L (21.0-32.0); CALCIUM 9.1 MG/DL (8.5-10.1); CREATININE 0.88 MG/DL (0.60-1.30); MAGNESIUM 1.7 MG/DL (1.5-2.5)
[2017-07-14] MEDS: LEVOTHYROXINE SODIUM 100 MCG TAB PO SCH (06:07)
[2017-07-14] MEDS: SODIUM CHLORIDE 0.9% FLUSH 10 ML FLUSH IV FLUSH SCH ×2 (08:31→21:54)
[2017-07-14] MEDS: DOCUSATE SODIUM 50 MG/SENNA 8.6 MG TAB PO SCH ×2 (08:32→21:00)
[2017-07-14] MEDS: guaiFENesin E.R. 600 MG TAB PO SCH ×2 (08:32→21:52)
[2017-07-14] MEDS: PANTOPRAZOLE SOD 20 MG DELAYED RELEASE TAB PO SCH (08:32)
[2017-07-14] MEDS: DOXYCYCLINE HYCLATE 100 MG CAP PO SCH ×2 (08:32→21:53)
[2017-07-14] MEDS: FUROSEMIDE 40 MG TAB PO SCH (08:33)
[2017-07-14] MEDS: APIXABAN 5 MG TABLET PO SCH ×2 (08:33→21:51)
[2017-07-14] MEDS: CITALOPRAM HYDROBROMIDE 20 MG TAB PO SCH (08:33)
[2017-07-14] MEDS: PETROLATUM 49%/ZINC OXIDE 15% 4 OUNCE TUBE TOPICAL SCH ×2 (08:37→21:54)
--- NOTE | 2017-07-14 09:15 | HHI.PR ---
Subjective Remarks Patient seen and examined this am. Vitals stable and afebrile. States he is breathing well. Cough decreased. Tolerated breakfast. Has been using incentive spirometer. Objective Vital Signs Date Time Temp Pulse Resp B/P (MAP) Pulse Ox O2 Delivery O2 Flow Rate FiO2 07/14/17 07:59 97.6 18 113/60 (77) 98 07/14/17 07:59 Nasal Cannula 1.00 07/14/17 06:00 74 07/14/17 05:00 76 07/14/17 04:00 80 07/14/17 03:15 80 16 117/63 (81) 97 07/14/17 03:15 97 Nasal Cannula 2.00 07/14/17 03:10 94 Nasal Cannula 1.00 07/14/17 03:00 80 07/14/17 02:00 72 07/14/17 01:00 76 07/14/17 00:00 86 07/13/17 23:00 87 07/13/17 23:00 81 16 117/65 (82) 97 07/13/17 23:00 97 Nasal Cannula 2.00 07/13/17 22:00 76 07/13/17 21:00 80 07/13/17 20:20 97.8 87 16 109/60 (76) 98 07/13/17 20:20 98 Nasal Cannula 2.00 07/13/17 20:00 86 07/13/17 19:00 80 07/13/17 18:00 80 07/13/17 17:00 82 07/13/17 16:00 82 07/13/17 15:45 98 Nasal Cannula 2.00 07/13/17 15:45 97.1 79 18 115/58 (77) 98 07/13/17 15:27 98 Nasal Cannula 2.00 07/13/17 15:00 77 07/13/17 14:00 82 07/13/17 13:00 84 07/13/17 12:00 74 07/13/17 11:20 97.8 85 18 128/56 (80) 98 07/13/17 11:20 98 Nasal Cannula 2.00 07/13/17 11:00 77 07/13/17 10:00 82 I/O 07/13/17 07/13/17 07/13/17 07/14/17 07/14/17 07/14/17 07:00 15:00 23:00 07:00 15:00 23:00 Intake Total 360 ml 720 ml 240 ml Output Total 750 ml 1150 ml 650 ml Balance -390 ml -430 ml -410 ml Intake Oral 360 ml 720 ml 240 ml Output Urine Total 750 ml 1150 ml 650 ml # Bowel Movements 1 2 1 Result Diagram: 07/12/17 0452 07/14/17 0333 Imaging Last Impressions Chest X-Ray 07/10/17 0000 Signed Impressions: Service Date/Time: Monday, July 10, 2017 14:19 - CONCLUSION: Unchanged bibasilar infiltrates and tiny right effusion. Domingo Salinas Jr., MD Other Results GENERAL: well appearing, sitting up in bed SKIN: Warm and dry. Multiple diffuse ecchymosis. HEAD: Normocephalic. EYES: No scleral icterus. No injection or drainage. NECK: Supple, trachea midline. No JVD or lymphadenopathy. CARDIOVASCULAR: Regular rate and rhythm without murmurs, gallops, or rubs. RESPIRATORY: some anterior coarse breath sounds, no accessory muscle use, no increase work of breathing. GASTROINTESTINAL: Abdomen soft, non-tender, nondistended. MUSCULOSKELETAL: No cyanosis, or edema. A/P Problem List: (1) HTN (hypertension) ICD Code: I10 - Essential (primary) hypertension Status: Acute (2) CAD (coronary artery disease) ICD Code: I25.10 - Atherosclerotic heart disease of [place] coronary artery without angina pectoris Status: Chronic (3) UTI (lower urinary tract infection) ICD Code: N39.0 - UTI (lower urinary tract infection) Status: Resolved (4) Hypothyroidism ICD Code: E03.9 - Hypothyroidism Status: Chronic (5) PE (pulmonary thromboembolism) ICD Code: I26.99 - Other pulmonary embolism without acute cor pulmonale (6) Cough ICD Code: R05 - Cough Status: Acute (7) Sepsis ICD Code: A41.9 - Sepsis, unspecified organism Assessment and Plan 86 year old male admitted with UTI and Sepsis with hypotension Sepsis, UTI, h/o BPH Continue supportive care with oxygen Culture thus far negative. s/p IV Daptomyxin and IV Zosyn Appreciate infectious disease consult 07/10 Antibiotics as per ID. Sepsis clinically resolving. Patient currently on Zosyn IV, oral Zyvox. oral doxycycline. 07/12 Sepsis clinically resolved. Discussed with ID . Will DC on Doxy x5 days to rehab. (abx through 07/17, will need to adjust d/c order when d/c) LLL Pulmonary Embolism w/ Chronic cough Embolism diagnosed 06/30, treatment with theraputic Eliquis Continue Robitussin PRN, PRN Cepacol Continue oxygen as needed Appreciate Pulmonology Hypotension Coronary Artery Disease EF 55-60% and moderate concentric left ventricular hypertrophy IV Boluses as needed PRN Levophed currently stable History of CVA with residual left sided weakness Recent fall with left periprosthetic femur fracture s/p ORIF 04/05 Physical Deconditioning PT continued Anemia, chronic Stable, follow periodic CBC Hypothyroidism Synthroid Restless leg syndrome Home dose Requip Suspected HCAP CXR with infitrate on left lower lung. Continue antibiotics as per ID 07/13 DC to rehab on Doxy x 4 days. DVT Prophylaxis Eliquis Discharge Planning Stable for d/c home, placement pending. Patient & family hopes to go to [place]. Problem Qualifiers (1) Sepsis: Qualified Codes: A41.9 - Sepsis, unspecified organism Anali Wills MD Jul 14, 2017 09:15
[2017-07-14] MEDS ORDERED: DOXY100C PO (09:52)
[2017-07-14] MEDS: RESP: BUDESONIDE 0.5 MG/2 ML NEB NEB SCH ×2 (10:17→20:58)
--- NOTE | 2017-07-14 14:53 | HHI.DS ---
Discharge Summary Admission Date Jul 06, 2017 at 21:30 Discharge Date: Jul 14, 2017 Admitting Diagnosis (1) Sepsis Diagnosis: Principal ICD Codes: A41.9 - Sepsis, unspecified organism (2) UTI (lower urinary tract infection) ICD Codes: N39.0 - UTI (lower urinary tract infection) Status: Resolved (3) Cough ICD Codes: R05 - Cough Status: Acute (4) PE (pulmonary thromboembolism) ICD Codes: I26.99 - Other pulmonary embolism without acute cor pulmonale (5) Impaired mobility and activities of daily living ICD Codes: Z74.09 - Other reduced mobility Status: Acute CBC/BMP: 07/12/17 0452 07/14/17 0333 Significant Findings Laboratory Tests Test 07/12/17 04:52 07/14/17 03:33 Red Blood Count 3.17 MIL/MM3 (4.50-5.90) Hemoglobin 9.4 GM/DL (13.0-17.0) Hematocrit 28.1 % (39.0-51.0) Neutrophils (%) (Auto) 81.3 % (16.0-70.0) Lymphocytes # (Auto) 0.9 TH/MM3 (1.0-4.8) Total Protein 6.3 GM/DL (6.4-8.2) Albumin 2.3 GM/DL (3.4-5.0) Phosphorus Level 1.7 MG/DL (2.5-4.9) Potassium Level 3.3 MEQ/L (3.5-5.1) Estimat Glomerular Filtration Rate 78 ML/MIN (>89) 82 ML/MIN (>89) Imaging Last Impressions Chest X-Ray 07/10/17 0000 Signed Impressions: Service Date/Time: Monday, July 10, 2017 14:19 - CONCLUSION: Unchanged bibasilar infiltrates and tiny right effusion. Domingo Salinas Jr., MD Hospital Course 86-year-old male admitted with UTI and sepsis. Patient was seen and evaluated by infectious disease. He was initially on IV antibiotics and then transitioned to p.o. doxycycline. P patient with a PE that was diagnosed June 30 currently on Eliquis. He was seen and evaluated by pulmonology. Patient experienced hypotension during his hospitalization, he received several IV boluses in addition to as needed Levophed. His blood pressure stabilized. Chest x-ray was notable for infiltrate in left lower lung. This was covered with abx. Patient was stable to go home and was discharged. Insurance rejected [facility], family was appealing this decision. Patient had reached maximum benefit from being in the hospital. [facility] case management assisting. Pt Condition on Discharge: Stable Discharge Disposition: Discharge to SNF Discharge Instructions DIET: Follow Instructions for: Heart Healthy Diet Speech Therapy-Diet Recommenda: Mechanical Soft, [place] Thickened Liquids Activities you can perform: See Additionl Instruction Additional Activity Instructio: as per PT instructions OOB to chair with assistance only Follow up Referrals: PCP Follow-up - 2 Weeks New Medications: Acetylcysteine Liq/Neb (Acetylcysteine Liq/Neb) 100 mg/ml Soln 2 ML NEB Q6HR NEB for Shortness of Breath, #1 BOX Budesonide Neb (Pulmicort Respules) 0.5 Mg/2 Ml Neb 0.5 MG NEB Q12HR NEB for Shortness of Breath, #1 BOX Doxycycline Hyclate (Doxycycline Hyclate) 100 Mg Cap 100 MG PO BID for Infection for 3 Days, #6 CAP Sennosides-Docusate Sodium (Gnp Senna Plus 8.6-50 mg) 8.6 Mg-50 Mg Tab 1 TAB PO BID for constipation prevention, #62 TAB Continued Medications: Apixaban (Eliquis) 5 Mg Tab 5 MG PO BID for Blood Clot Prevention, #60 TAB 0 Refills To start on 07/13 Apixaban (Eliquis) 5 Mg Tab 10 MG PO BID for Blood Clot Prevention, #14 TAB 0 Refills until 07/12 Benzonatate (Tessalon Perles) 100 Mg Cap 200 MG PO TID PRN for cough interfering with rest for 10 Days, CAP Calcium Carbonate-Vitamin D (Calcium 600+D 200) 600-200 Mg-Unit Tab 1 TAB PO BID for Nutritional Supplement for 60 Days, #120 TAB 0 Refills Cholecalciferol (Vitamin D3) 2,000 Unit Cap 2000 UNITS PO DAILY for Nutritional Supplement, #60 CAP 0 Refills Citalopram (Citalopram) 10 Mg Tab 10 MG PO DAILY for Control Depression, #30 TAB 0 Refills Latanoprost Opth Drops (Latanoprost Opth Drops) 0.005% Drops 1 DROP EACH EYE HS for Glaucoma, #2.5 ML 0 Refills Refrigerate until opened. Levothyroxine (Levothyroxine) 100 Mcg Tab 100 MCG PO DAILY for Thyroid, #30 TAB 0 Refills Pantoprazole (Protonix) 20 Mg Tab 20 MG PO DAILY for 30 Days, TAB Ropinirole (Ropinirole) 5 Mg Tab 2.5 MG PO HS PRN for RESTLESSNESS, #30 TAB 0 Refills Tamsulosin (Flomax) 0.4 Mg Cap 0.8 MG PO HS for Manage Prostate Problems, #60 CAP 0 Refills Start date 04/23/17 [Albuterol-Ipratropium Neb] () 1 AMPULE NEBU 1 AMPULE NEB Q6HR NEB for 1 Day [Budeson-Formot 160-4.5 Mcg Inh] () 60 PUFF AERO 2 PUFF INH Q12HR for 30 Days [Petrolat-Zinc Barrier Oint] () 120 APPLIC/120 GM OINT 1 APPLIC TOPICAL BID for 10 Days Discontinued Medications: Piperacillin-Tazobactam Inj (Zosyn Inj) 3.375 Gram Inj 3.375 GM IV Q6HR for Infection for 7 Days, BAG 0 Refills Anali Wills MD Jul 14, 2017 14:53
--- NOTE | 2017-07-14 17:32 | HHI.PR ---
Subjective Remarks alert no distress on o2 by nc appetite good Objective Vital Signs Date Time Temp Pulse Resp B/P (MAP) Pulse Ox O2 Delivery O2 Flow Rate FiO2 07/14/17 16:00 80 07/14/17 15:22 92 Nasal Cannula 1.00 07/14/17 15:06 96 Room Air 07/14/17 15:06 97.9 77 18 105/60 (75) 96 07/14/17 15:00 77 07/14/17 14:00 88 07/14/17 13:03 88 07/14/17 12:18 86 07/14/17 11:22 97.7 92 18 106/55 (72) 97 07/14/17 11:22 97 Nasal Cannula 07/14/17 11:00 72 07/14/17 10:22 98 Nasal Cannula 1.00 07/14/17 10:00 82 07/14/17 09:00 78 07/14/17 08:00 78 07/14/17 07:59 97.6 77 18 113/60 (77) 98 07/14/17 07:59 Nasal Cannula 1.00 07/14/17 07:00 86 07/14/17 06:00 74 07/14/17 05:00 76 07/14/17 04:00 80 07/14/17 03:15 80 16 117/63 (81) 97 07/14/17 03:15 97 Nasal Cannula 2.00 07/14/17 03:10 94 Nasal Cannula 1.00 07/14/17 03:00 80 07/14/17 02:00 72 07/14/17 01:00 76 07/14/17 00:00 86 07/13/17 23:00 87 07/13/17 23:00 81 16 117/65 (82) 97 07/13/17 23:00 97 Nasal Cannula 2.00 07/13/17 22:00 76 07/13/17 21:00 80 07/13/17 20:20 97.8 87 16 109/60 (76) 98 07/13/17 20:20 98 Nasal Cannula 2.00 07/13/17 20:00 86 07/13/17 19:00 80 07/13/17 18:00 80 I/O 07/13/17 07/13/17 07/13/17 07/14/17 07/14/17 07/14/17 07:00 15:00 23:00 07:00 15:00 23:00 Intake Total 360 ml 720 ml 240 ml 1170 ml Output Total 750 ml 1150 ml 650 ml 1225 ml Balance -390 ml -430 ml -410 ml -55 ml Intake Oral 360 ml 720 ml 240 ml 1170 ml Output Urine Total 750 ml 1150 ml 650 ml 1225 ml # Bowel Movements 1 2 1 3 Result Diagram: 07/12/17 0452 07/14/17 0333 Objective Remarks GENERAL: SKIN: Warm and dry. HEAD: Atraumatic. Normocephalic. EYES: Pupils equal and round. No scleral icterus. No injection or drainage. ENT: No nasal bleeding or discharge. Mucous membranes pink and moist. NECK: Trachea midline. No JVD. CARDIOVASCULAR: Regular rate and rhythm. RESPIRATORY: No accessory muscle use. Clear to auscultation. Breath sounds equal bilaterally. GASTROINTESTINAL: Abdomen soft, non-tender, nondistended. Hepatic and splenic margins not palpable. MUSCULOSKELETAL: Extremities without clubbing, cyanosis, or edema. No obvious deformities. NEUROLOGICAL: Awake and alert. No obvious cranial nerve deficits. Motor grossly within normal limits. Five out of 5 muscle strength in the arms and legs. Normal speech. PSYCHIATRIC: Appropriate mood and affect; insight and judgment normal. Assessment and Plan Assessment and Plan RESPIRATORY FAILURE ATELECTASIS/PNA PE cxray stable PLAN O2 NEEDED ANTIBX PER ID F/U CXRAY Manish Hammond MD Jul 14, 2017 17:32
[2017-07-14] MEDS: LATANOPROST 0.005% OPHT SOLN 2.5 ML BTL EACH EYE SCH (21:48)
[2017-07-14] MEDS: TAMSULOSIN HCL 0.4 MG CAP PO SCH (21:52)
[2017-07-15] VITALS (31 sets, daily range): BP systolic 92–122; BP diastolic 52–66; PULSE 68–96; RESP 16–18; TEMP 97.1–97.9; O2SAT 94–99
[2017-07-15] MEDS: RESP: ALBUTEROL 2.5 MG/IPRATROPIUM 0.5 MG NEB (PRN) NEB ×3 (03:44→15:00)
[2017-07-15] MEDS: RESP: ACETYLCYSTEINE 10% 30 ML NEB NEB SCH ×4 (03:44→21:04)
[2017-07-15] MEDS: LEVOTHYROXINE SODIUM 100 MCG TAB PO SCH (06:11)
--- NOTE | 2017-07-15 07:39 | HHI.PR ---
Subjective Remarks Patient seen and examined this am. Vitals stable and afebrile. States he is breathing well. Eating breakfast. Slept well. No complaints or concerns today. Nurse requested PT and OT services for the patient has he has not had it in a few days. Objective Vital Signs Date Time Temp Pulse Resp B/P (MAP) Pulse Ox O2 Delivery O2 Flow Rate FiO2 07/15/17 06:00 74 07/15/17 05:00 82 07/15/17 04:15 98 Room Air 07/15/17 04:15 81 16 104/55 (71) 98 07/15/17 04:00 70 07/15/17 03:48 95 21 07/15/17 03:00 69 07/15/17 02:00 72 07/15/17 01:00 76 07/15/17 00:03 97.1 79 16 122/66 (84) 97 07/15/17 00:03 97 Room Air 07/15/17 00:00 72 07/14/17 23:00 71 07/14/17 22:00 78 07/14/17 21:00 78 07/14/17 20:00 80 07/14/17 19:55 98 Room Air 07/14/17 19:55 99.0 82 16 106/56 (73) 98 07/14/17 19:00 83 07/14/17 18:00 84 07/14/17 17:00 90 07/14/17 16:00 80 07/14/17 15:22 92 Nasal Cannula 1.00 07/14/17 15:06 96 Room Air 07/14/17 15:06 97.9 77 18 105/60 (75) 96 07/14/17 15:00 77 07/14/17 14:00 88 07/14/17 13:03 88 07/14/17 12:18 86 07/14/17 11:22 97.7 92 18 106/55 (72) 97 07/14/17 11:22 97 Nasal Cannula 07/14/17 11:00 72 07/14/17 10:22 98 Nasal Cannula 1.00 07/14/17 10:00 82 07/14/17 09:00 78 07/14/17 08:00 78 07/14/17 07:59 97.6 77 18 113/60 (77) 98 07/14/17 07:59 Nasal Cannula 1.00 I/O 07/14/17 07/14/17 07/14/17 07/15/17 07/15/17 07/15/17 07:00 15:00 23:00 07:00 15:00 23:00 Intake Total 240 ml 1170 ml 240 ml Output Total 650 ml 1225 ml 900 ml Balance -410 ml -55 ml -660 ml Intake Oral 240 ml 1170 ml 240 ml Output Urine Total 650 ml 1225 ml 900 ml # Bowel Movements 1 3 2 Result Diagram: 07/12/17 0452 07/14/17 0333 Imaging Last Impressions Chest X-Ray 07/10/17 0000 Signed Impressions: Service Date/Time: Monday, July 10, 2017 14:19 - CONCLUSION: Unchanged bibasilar infiltrates and tiny right effusion. Domingo Salinas Jr., MD Objective Remarks GENERAL: Well-appearing, no acute distress SKIN: Warm and dry. HEAD: Normocephalic. EYES: No scleral icterus. No injection or drainage. NECK: Supple, trachea midline. No JVD or lymphadenopathy. CARDIOVASCULAR: Regular rate and rhythm without murmurs, gallops, or rubs. RESPIRATORY: Breath sounds equal bilaterally. No accessory muscle use. GASTROINTESTINAL: Abdomen soft, non-tender, nondistended. MUSCULOSKELETAL: No cyanosis, or edema. A/P Problem List: (1) HTN (hypertension) ICD Code: I10 - Essential (primary) hypertension Status: Acute (2) CAD (coronary artery disease) ICD Code: I25.10 - Atherosclerotic heart disease of [place] coronary artery without angina pectoris Status: Chronic (3) UTI (lower urinary tract infection) ICD Code: N39.0 - UTI (lower urinary tract infection) Status: Resolved (4) Hypothyroidism ICD Code: E03.9 - Hypothyroidism Status: Chronic (5) PE (pulmonary thromboembolism) ICD Code: I26.99 - Other pulmonary embolism without acute cor pulmonale (6) Cough ICD Code: R05 - Cough Status: Acute (7) Sepsis ICD Code: A41.9 - Sepsis, unspecified organism Assessment and Plan 86 year old male admitted with UTI and Sepsis with hypotension Sepsis, UTI, h/o BPH Continue supportive care with oxygen Culture thus far negative. s/p IV Daptomyxin and IV Zosyn Appreciate infectious disease consult 07/10 Antibiotics as per ID. Sepsis clinically resolving. Patient currently on Zosyn IV, oral Zyvox. oral doxycycline. 07/12 Sepsis clinically resolved. Discussed with ID . Will DC on Doxy x5 days to rehab. (abx through 07/17, will need to adjust d/c order when d/c) LLL Pulmonary Embolism w/ Chronic cough Embolism diagnosed 06/30, treatment with theraputic Eliquis Continue Robitussin PRN, PRN Cepacol Continue oxygen as needed Appreciate Pulmonology Hypotension Coronary Artery Disease EF 55-60% and moderate concentric left ventricular hypertrophy IV Boluses as needed PRN Levophed currently stable History of CVA with residual left sided weakness Recent fall with left periprosthetic femur fracture s/p ORIF 04/05 Physical Deconditioning PT continued Anemia, chronic Stable, follow periodic CBC Hypothyroidism Synthroid Restless leg syndrome Home dose Requip Suspected HCAP CXR with infitrate on left lower lung. Continue antibiotics as per ID 07/13 DC to rehab on Doxy x 4 days. DVT Prophylaxis Eliquis Discharge Planning Patient discharged on July 14, 2017. PT OT while in hospital still. Placement pending Problem Qualifiers (1) Sepsis: Qualified Codes: A41.9 - Sepsis, unspecified organism Anali Wills MD Jul 15, 2017 07:39
[2017-07-15] MEDS: PANTOPRAZOLE SOD 20 MG DELAYED RELEASE TAB PO SCH (09:12)
[2017-07-15] MEDS: DOXYCYCLINE HYCLATE 100 MG CAP PO SCH ×2 (09:12→20:11)
[2017-07-15] MEDS: guaiFENesin E.R. 600 MG TAB PO SCH ×2 (09:12→20:11)
[2017-07-15] MEDS: CITALOPRAM HYDROBROMIDE 20 MG TAB PO SCH (09:12)
[2017-07-15] MEDS: SODIUM CHLORIDE 0.9% FLUSH 10 ML FLUSH IV FLUSH SCH ×2 (09:13→20:11)
[2017-07-15] MEDS: FUROSEMIDE 40 MG TAB PO SCH (09:13)
[2017-07-15] MEDS: DOCUSATE SODIUM 50 MG/SENNA 8.6 MG TAB PO SCH ×2 (09:13→20:11)
[2017-07-15] MEDS: PETROLATUM 49%/ZINC OXIDE 15% 4 OUNCE TUBE TOPICAL SCH ×2 (09:13→20:12)
[2017-07-15] MEDS: APIXABAN 5 MG TABLET PO SCH ×2 (09:13→20:11)
[2017-07-15] MEDS: RESP: BUDESONIDE 0.5 MG/2 ML NEB NEB SCH ×2 (10:01→21:03)
[2017-07-15] MEDS: TAMSULOSIN HCL 0.4 MG CAP PO SCH (20:10)
[2017-07-15] MEDS: LATANOPROST 0.005% OPHT SOLN 2.5 ML BTL EACH EYE SCH (20:16)
[2017-07-16] VITALS (37 sets, daily range): BP systolic 103–114; BP diastolic 60–68; PULSE 68–90; RESP 14–18; TEMP 97.8–98.3; O2SAT 95–99
[2017-07-16] MEDS: RESP: ACETYLCYSTEINE 10% 30 ML NEB NEB SCH (03:05)
[2017-07-16] MEDS: LEVOTHYROXINE SODIUM 100 MCG TAB PO SCH (05:03)
[2017-07-16] MEDS: RESP: BUDESONIDE 0.5 MG/2 ML NEB NEB SCH ×2 (08:08→19:35)
[2017-07-16] MEDS: DOCUSATE SODIUM 50 MG/SENNA 8.6 MG TAB PO SCH ×2 (09:00→21:00)
[2017-07-16] MEDS: PETROLATUM 49%/ZINC OXIDE 15% 4 OUNCE TUBE TOPICAL SCH ×2 (09:00→21:54)
[2017-07-16] MEDS: FUROSEMIDE 40 MG TAB PO SCH (09:06)
[2017-07-16] MEDS: guaiFENesin E.R. 600 MG TAB PO SCH ×2 (09:06→21:53)
[2017-07-16] MEDS: CITALOPRAM HYDROBROMIDE 20 MG TAB PO SCH (09:07)
[2017-07-16] MEDS: DOXYCYCLINE HYCLATE 100 MG CAP PO SCH ×2 (09:08→21:57)
[2017-07-16] MEDS: APIXABAN 5 MG TABLET PO SCH ×2 (09:09→21:53)
[2017-07-16] MEDS: PANTOPRAZOLE SOD 20 MG DELAYED RELEASE TAB PO SCH (09:09)
[2017-07-16] MEDS: SODIUM CHLORIDE 0.9% FLUSH 10 ML FLUSH IV FLUSH SCH ×2 (09:10→21:53)
--- NOTE | 2017-07-16 10:21 | HHI.PR ---
Subjective Remarks Patient seen earlier this morning. Was eating breakfast. Denies any chest pain , worsening shortness of breath, nausea or vomiting. Discussed with RN at bedside, no concerns. Objective Vitals Vital Signs Date Time Temp Pulse Resp B/P (MAP) Pulse Ox O2 Delivery O2 Flow Rate FiO2 07/16/17 08:43 98.3 85 16 105/60 (75) 96 07/16/17 08:19 95 21 07/16/17 07:00 70 07/16/17 06:00 81 07/16/17 05:00 76 07/16/17 04:00 86 07/16/17 04:00 Room Air 07/16/17 04:00 98.1 88 16 107/68 (81) 97 07/16/17 03:00 78 07/16/17 03:00 79 07/16/17 02:00 86 07/16/17 01:00 90 07/16/17 00:00 78 07/16/17 00:00 Room Air 07/16/17 00:00 97.8 86 18 103/63 (76) 97 07/15/17 23:00 82 07/15/17 22:00 82 07/15/17 21:00 84 07/15/17 20:11 Room Air 07/15/17 20:00 96 07/15/17 19:53 97.9 89 18 112/53 (72) 96 07/15/17 18:00 90 07/15/17 17:00 86 07/15/17 16:00 92 07/15/17 15:30 99 Room Air 07/15/17 15:30 97.8 81 18 92/56 (68) 99 07/15/17 15:00 94 Nasal Cannula 2.00 07/15/17 15:00 82 07/15/17 14:00 86 07/15/17 13:07 80 07/15/17 12:00 78 07/15/17 11:24 97 Room Air 07/15/17 11:24 97.4 90 18 110/58 (75) 97 07/15/17 11:00 89 I/O 07/15/17 07/15/17 07/15/17 07/16/17 07/16/17 07/16/17 07:00 15:00 23:00 07:00 15:00 23:00 Intake Total 240 ml 1200 ml 240 ml Output Total 900 ml 1200 ml 400 ml Balance -660 ml 0 ml -160 ml Intake Oral 240 ml 1200 ml 240 ml Output Urine Total 900 ml 1200 ml 400 ml # Bowel Movements 2 2 1 Result Diagram: 07/12/17 0452 07/14/17 0333 Imaging Last Impressions Chest X-Ray 07/10/17 0000 Signed Impressions: Service Date/Time: Monday, July 10, 2017 14:19 - CONCLUSION: Unchanged bibasilar infiltrates and tiny right effusion. Domingo Salinas Jr., MD Objective Remarks GENERAL: Eating breakfast CARDIOVASCULAR: Regular rate and rhythm with no murmurs. RESPIRATORY: Coarse BS throughout. Breath sounds equal bilaterally. No wheezing appreciated. ABDOMEN: Soft, non-tender, nondistended. EXTREMITIES: No edema. NEUROLOGICAL: Awake and alert. Normal speech. PSYCHIATRIC: Normal affect, calm and cooperative. A/P Problem List: (1) Sepsis ICD Code: A41.9 - Sepsis, unspecified organism (2) UTI (lower urinary tract infection) ICD Code: N39.0 - UTI (lower urinary tract infection) Status: Resolved (3) Cough ICD Code: R05 - Cough Status: Acute (4) PE (pulmonary thromboembolism) ICD Code: I26.99 - Other pulmonary embolism without acute cor pulmonale (5) Impaired mobility and activities of daily living ICD Code: Z74.09 - Other reduced mobility Status: Acute Assessment and Plan 86 year old male admitted with UTI and Sepsis with hypotension Sepsis, UTI, h/o BPH Oxygen as needed Culture thus far negative. s/p IV Daptomyxin and IV Zosyn. Appreciate infectious disease consult s/p Zosyn IV, oral Zyvox. Continue oral doxycycline until 07/17 per ID recommendations. LLL Pulmonary Embolism w/ Chronic cough Embolism diagnosed 06/30, treatment with theraputic Eliquis Continue Robitussin PRN, PRN Cepacol Appreciate Pulmonology Hypotension: Resolved. Coronary Artery Disease EF 55-60% and moderate concentric left ventricular hypertrophy s/p Levophed and IV Boluses as needed History of CVA with residual left sided weakness Recent fall with left periprosthetic femur fracture s/p ORIF 04/05 Physical Deconditioning PT continued Anemia, chronic Stable, follow periodic CBC Hypothyroidism Synthroid Restless leg syndrome Home dose Requip Suspected HCAP CXR with infitrate on left lower lung. Continue antibiotics as per ID. complete dose of doxy until 07/17 DVT Prophylaxis Eliquis Discharge Planning Patient discharged on July 14, 2017. PT/OT while in hospital still. Placement pending Problem Qualifiers (1) Sepsis: Qualified Codes: A41.9 - Sepsis, unspecified organism Irma Escoto MD Jul 16, 2017 10:21
--- NOTE | 2017-07-16 15:14 | HHI.PR ---
Subjective Remarks alert, UP IN CHAIR no distress on o2 by nc appetite good Objective Vital Signs Date Time Temp Pulse Resp B/P (MAP) Pulse Ox O2 Delivery O2 Flow Rate FiO2 07/16/17 14:46 97.9 87 14 108/65 (79) 99 07/16/17 14:00 87 07/16/17 13:00 87 07/16/17 12:00 80 07/16/17 11:55 98.3 88 14 114/62 (79) 97 07/16/17 11:54 Room Air 07/16/17 11:00 82 07/16/17 10:00 88 07/16/17 09:00 88 07/16/17 08:43 98.3 85 16 105/60 (75) 96 07/16/17 08:19 95 21 07/16/17 08:00 80 07/16/17 07:30 Room Air 07/16/17 07:00 70 07/16/17 06:00 81 07/16/17 05:00 76 07/16/17 04:00 86 07/16/17 04:00 Room Air 07/16/17 04:00 98.1 88 16 107/68 (81) 97 07/16/17 03:00 78 07/16/17 03:00 79 07/16/17 02:00 86 07/16/17 01:00 90 07/16/17 00:00 78 07/16/17 00:00 Room Air 07/16/17 00:00 97.8 86 18 103/63 (76) 97 07/15/17 23:00 82 07/15/17 22:00 82 07/15/17 21:00 84 07/15/17 20:11 Room Air 07/15/17 20:00 96 07/15/17 19:53 97.9 89 18 112/53 (72) 96 07/15/17 18:00 90 07/15/17 17:00 86 07/15/17 16:00 92 07/15/17 15:30 99 Room Air 07/15/17 15:30 97.8 81 18 92/56 (68) 99 I/O 07/15/17 07/15/17 07/15/17 07/16/17 07/16/17 07/16/17 07:00 15:00 23:00 07:00 15:00 23:00 Intake Total 240 ml 1200 ml 240 ml Output Total 900 ml 1200 ml 400 ml Balance -660 ml 0 ml -160 ml Intake Oral 240 ml 1200 ml 240 ml Output Urine Total 900 ml 1200 ml 400 ml # Bowel Movements 2 2 1 Result Diagram: 07/12/17 0452 07/14/17 0333 Objective Remarks GENERAL: SKIN: Warm and dry. HEAD: Atraumatic. Normocephalic. EYES: Pupils equal and round. No scleral icterus. No injection or drainage. ENT: No nasal bleeding or discharge. Mucous membranes pink and moist. NECK: Trachea midline. No JVD. CARDIOVASCULAR: Regular rate and rhythm. RESPIRATORY: No accessory muscle use. Clear to auscultation. Breath sounds equal bilaterally. GASTROINTESTINAL: Abdomen soft, non-tender, nondistended. Hepatic and splenic margins not palpable. MUSCULOSKELETAL: Extremities without clubbing, cyanosis, or edema. No obvious deformities. NEUROLOGICAL: Awake and alert. No obvious cranial nerve deficits. Motor grossly within normal limits. Five out of 5 muscle strength in the arms and legs. Normal speech. PSYCHIATRIC: Appropriate mood and affect; insight and judgment normal. Assessment and Plan Assessment and Plan RESPIRATORY FAILURE ATELECTASIS/PNA PE PLAN O2 NEEDED ANTIBX PER ID F/U CXRAY Manish Hammond MD Jul 16, 2017 15:14
--- NOTE | 2017-07-16 17:16 | RADRPT ---
EXAM DATE/TIME: 07/16/2017 16:20 [facility] COMPARISON: CT PULMONARY ANGIOGRAM, June 30, 2017, 20:42. CHEST SINGLE AP, July 04, 2017, 19:31. CHEST SINGLE AP, July 06, 2017, 11:13. CHEST SINGLE AP, July 10, 2017, 14:19. INDICATIONS : Atelectasis. MEDICAL HISTORY : Hypothyroidism. Cerebrovascular disease. Cardiovascular disease. CHF. Hypertension. Renal disease.Ski n ca. CVA. SURGICAL HISTORY : Eye prosthesis ENCOUNTER: Subsequent ACUITY: 4 - 6 days PAIN SCORE: 0/10 LOCATION: Bilateral chest FINDINGS: Frontal view of the chest demonstrating decreasing infiltrate/atelectasis at the right lung base. St able elevation of the right hemidiaphragm. The left lung is clear. The heart is upper limits normal size. CONCLUSION: Decreasing infiltrates at the right lung base adjacent to elevated diaphragm. Domingo Mcqueen MD on July 16, 2017 at 17:12 Board Certified Radiologist. This report was verified electronically.
[2017-07-16] MEDS: TAMSULOSIN HCL 0.4 MG CAP PO SCH (21:53)
[2017-07-16] MEDS: LATANOPROST 0.005% OPHT SOLN 2.5 ML BTL EACH EYE SCH (22:27)
[2017-07-17] VITALS (22 sets, daily range): BP systolic 103–122; BP diastolic 54–68; PULSE 64–88; RESP 14–18; TEMP 97.2–98.1; O2SAT 95–99
[2017-07-17] MEDS: LEVOTHYROXINE SODIUM 100 MCG TAB PO SCH (06:06)
[2017-07-17] MEDS: RESP: BUDESONIDE 0.5 MG/2 ML NEB NEB SCH ×2 (08:31→20:27)
[2017-07-17] MEDS: DOXYCYCLINE HYCLATE 100 MG CAP PO SCH ×2 (08:50→21:27)
[2017-07-17] MEDS: APIXABAN 5 MG TABLET PO SCH ×2 (08:50→21:27)
[2017-07-17] MEDS: PANTOPRAZOLE SOD 20 MG DELAYED RELEASE TAB PO SCH (08:51)
[2017-07-17] MEDS: CITALOPRAM HYDROBROMIDE 20 MG TAB PO SCH (08:51)
[2017-07-17] MEDS: FUROSEMIDE 40 MG TAB PO SCH ×2 (08:51→08:59)
[2017-07-17] MEDS: guaiFENesin E.R. 600 MG TAB PO SCH ×2 (08:51→21:27)
[2017-07-17] MEDS: DOCUSATE SODIUM 50 MG/SENNA 8.6 MG TAB PO SCH ×2 (08:52→21:00)
[2017-07-17] MEDS: SODIUM CHLORIDE 0.9% FLUSH 10 ML FLUSH IV FLUSH SCH ×2 (08:52→21:00)
[2017-07-17] MEDS: PETROLATUM 49%/ZINC OXIDE 15% 4 OUNCE TUBE TOPICAL SCH ×2 (09:00→21:28)
--- NOTE | 2017-07-17 10:11 | HHI.PR ---
Subjective Remarks Patient seen earlier this morning. Has no complaints. Denies any chest pain, shortness of breath, nausea or vomiting. Objective Vitals Vital Signs Date Time Temp Pulse Resp B/P (MAP) Pulse Ox O2 Delivery O2 Flow Rate FiO2 07/17/17 09:00 71 07/17/17 08:34 95 21 07/17/17 08:11 Room Air 07/17/17 08:00 80 07/17/17 07:11 97.3 80 14 104/54 (71) 07/17/17 07:00 68 07/17/17 06:00 70 07/17/17 05:00 70 07/17/17 04:00 98.1 75 18 103/55 (71) 95 07/17/17 04:00 77 07/17/17 04:00 Room Air 07/17/17 03:00 88 07/17/17 02:00 78 07/17/17 01:00 84 07/17/17 00:00 Room Air 07/17/17 00:00 78 07/17/17 00:00 97.8 83 18 107/65 (79) 97 07/16/17 23:00 78 07/16/17 22:00 70 07/16/17 21:00 68 07/16/17 20:00 83 07/16/17 20:00 98.0 86 18 107/60 (76) 97 07/16/17 20:00 Room Air 07/16/17 19:37 98 21 07/16/17 19:00 80 07/16/17 18:00 81 07/16/17 17:01 88 07/16/17 16:01 88 07/16/17 15:52 Room Air 07/16/17 15:48 97.9 87 14 108/65 (79) 99 07/16/17 15:00 89 07/16/17 14:46 97.9 87 14 108/65 (79) 99 07/16/17 14:01 88 07/16/17 13:01 88 07/16/17 12:01 88 07/16/17 11:55 98.3 88 14 114/62 (79) 97 07/16/17 11:54 Room Air 07/16/17 11:00 82 I/O 07/16/17 07/16/17 07/16/17 07/17/17 07/17/1707/17/18 07:00 15:00 23:00 07:00 15:00 23:00 Intake Total 240 ml 150 ml Output Total 400 ml 400 ml 250 ml Balance -160 ml -400 ml -100 ml Intake Oral 240 ml 150 ml Output Urine Total 400 ml 400 ml 250 ml # Voids 1 # Bowel Movements 1 1 Result Diagram: 07/14/17 0333 Imaging Last Impressions Chest X-Ray 07/16/17 0000 Signed Impressions: Service Date/Time: Sunday, July 16, 2017 16:20 - CONCLUSION: Decreasing infiltrates at the right lung base adjacent to elevated diaphragm. Domingo Mcqueen MD Objective Remarks GENERAL: Laying in bed CARDIOVASCULAR: Regular rate and rhythm with no murmurs. RESPIRATORY: Coarse BS at the bases. No wheezing appreciated. ABDOMEN: Soft, non-tender, nondistended. EXTREMITIES: No edema. NEUROLOGICAL: Awake and alert. Normal speech. PSYCHIATRIC: Normal affect, calm and cooperative. A/P Problem List: (1) Sepsis ICD Code: A41.9 - Sepsis, unspecified organism (2) UTI (lower urinary tract infection) ICD Code: N39.0 - UTI (lower urinary tract infection) Status: Resolved (3) Cough ICD Code: R05 - Cough Status: Acute (4) PE (pulmonary thromboembolism) ICD Code: I26.99 - Other pulmonary embolism without acute cor pulmonale (5) Impaired mobility and activities of daily living ICD Code: Z74.09 - Other reduced mobility Status: Acute Assessment and Plan Update in medical management 07/17/17: No change in current management. Patient will complete his dose of antibiotic today. Discussed with case management working on DC planning. Hopefully he can be discharged later today 86 year old male admitted with UTI and Sepsis with hypotension Sepsis, UTI, h/o BPH Oxygen as needed Culture thus far negative. s/p IV Daptomyxin and IV Zosyn. Appreciate infectious disease consult s/p Zosyn IV, oral Zyvox. Continue oral doxycycline until 07/17 per ID recommendations. LLL Pulmonary Embolism w/ Chronic cough Embolism diagnosed 06/30, treatment with theraputic Eliquis Continue Robitussin PRN, PRN Cepacol Appreciate Pulmonology Hypotension: Resolved. Coronary Artery Disease EF 55-60% and moderate concentric left ventricular hypertrophy s/p Levophed and IV Boluses as needed History of CVA with residual left sided weakness Recent fall with left periprosthetic femur fracture s/p ORIF 04/05 Physical Deconditioning PT continued Anemia, chronic Stable, follow periodic CBC Hypothyroidism Synthroid Restless leg syndrome Home dose Requip Suspected HCAP CXR with infitrate on left lower lung. Continue antibiotics as per ID. complete dose of doxy until 07/17 DVT Prophylaxis Eliquis Discharge Planning Patient discharged on July 14, 2017. PT/OT while in hospital still. Placement pending Problem Qualifiers (1) Sepsis: Qualified Codes: A41.9 - Sepsis, unspecified organism Irma Escoto MD July 17, 2017 10:11
--- NOTE | 2017-07-17 16:14 | HHI.PR ---
Subjective Remarks alert, no distress on o2 by nc appetite good Objective Vital Signs Date Time Temp Pulse Resp B/P (MAP) Pulse Ox O2 Delivery O2 Flow Rate FiO2 07/17/17 13:00 87 07/17/17 12:00 72 07/17/17 11:34 97.3 71 14 111/68 (82) 99 07/17/17 11:17 Room Air 07/17/17 11:00 64 07/17/17 10:00 68 07/17/17 09:00 71 07/17/17 08:34 95 21 07/17/17 08:11 Room Air 07/17/17 08:00 80 07/17/17 07:11 97.3 80 14 104/54 (71) 07/17/17 07:00 68 07/17/17 06:00 70 07/17/17 05:00 70 07/17/17 04:00 98.1 75 18 103/55 (71) 95 07/17/17 04:00 77 07/17/17 04:00 Room Air 07/17/17 03:00 88 07/17/17 02:00 78 07/17/17 01:00 84 07/17/17 00:00 Room Air 07/17/17 00:00 78 07/17/17 00:00 97.8 83 18 107/65 (79) 97 07/16/17 23:00 78 07/16/17 22:00 70 07/16/17 21:00 68 07/16/17 20:00 83 07/16/17 20:00 98.0 86 18 107/60 (76) 97 07/16/17 20:00 Room Air 07/16/17 19:37 98 21 07/16/17 19:00 80 07/16/17 18:00 81 07/16/17 17:01 88 I/O 07/16/17 07/16/17 07/16/17 07/17/17 07/17/17 07/17/17 07:00 15:00 23:00 07:00 15:00 23:00 Intake Total 240 ml 150 ml Output Total 400 ml 400 ml 250 ml Balance -160 ml -400 ml -100 ml Intake Oral 240 ml 150 ml Output Urine Total 400 ml 400 ml 250 ml # Voids 1 # Bowel Movements 1 1 Result Diagram: 07/14/17 0333 Objective Remarks GENERAL: SKIN: Warm and dry. HEAD: Atraumatic. Normocephalic. EYES: Pupils equal and round. No scleral icterus. No injection or drainage. ENT: No nasal bleeding or discharge. Mucous membranes pink and moist. NECK: Trachea midline. No JVD. CARDIOVASCULAR: Regular rate and rhythm. RESPIRATORY: No accessory muscle use. Clear to auscultation. Breath sounds equal bilaterally. GASTROINTESTINAL: Abdomen soft, non-tender, nondistended. Hepatic and splenic margins not palpable. MUSCULOSKELETAL: Extremities without clubbing, cyanosis, or edema. No obvious deformities. NEUROLOGICAL: Awake and alert. No obvious cranial nerve deficits. Motor grossly within normal limits. Five out of 5 muscle strength in the arms and legs. Normal speech. PSYCHIATRIC: Appropriate mood and affect; insight and judgment normal. Assessment and Plan Assessment and Plan RESPIRATORY FAILURE ATELECTASIS/ PNEUMONIA , RESOLVING PE PLAN O2 NEEDED ANTIBX PER ID INCREASE ACTIVITY Manish Hammond MD July 17, 2017 16:14
[2017-07-17] MEDS: TAMSULOSIN HCL 0.4 MG CAP PO SCH (21:26)
[2017-07-17] MEDS: LATANOPROST 0.005% OPHT SOLN 2.5 ML BTL EACH EYE SCH (21:29)
[2017-07-17] MEDS: ACETAMINOPHEN 325 MG TAB PO PRN (21:40)
[2017-07-18] VITALS (14 sets, daily range): BP systolic 99–125; BP diastolic 16–65; PULSE 67–87; RESP 16–19; TEMP 97.1–98; O2SAT 94–97
[2017-07-18] MEDS: LEVOTHYROXINE SODIUM 100 MCG TAB PO SCH (04:46)
[2017-07-18] MEDS: ACETAMINOPHEN 325 MG TAB PO PRN ×2 (04:47→22:23)
[2017-07-18] MEDS: RESP: BUDESONIDE 0.5 MG/2 ML NEB NEB SCH ×2 (08:26→19:52)
[2017-07-18] MEDS: SODIUM CHLORIDE 0.9% FLUSH 10 ML FLUSH IV FLUSH SCH ×2 (08:39→21:00)
[2017-07-18] MEDS: CITALOPRAM HYDROBROMIDE 20 MG TAB PO SCH (08:39)
[2017-07-18] MEDS: DOCUSATE SODIUM 50 MG/SENNA 8.6 MG TAB PO SCH ×2 (08:39→22:24)
[2017-07-18] MEDS: PANTOPRAZOLE SOD 20 MG DELAYED RELEASE TAB PO SCH (08:39)
[2017-07-18] MEDS: FUROSEMIDE 40 MG TAB PO SCH (08:40)
[2017-07-18] MEDS: APIXABAN 5 MG TABLET PO SCH ×2 (08:40→22:23)
[2017-07-18] MEDS: guaiFENesin E.R. 600 MG TAB PO SCH ×2 (08:40→22:23)
[2017-07-18] MEDS: PETROLATUM 49%/ZINC OXIDE 15% 4 OUNCE TUBE TOPICAL SCH ×2 (08:40→22:24)
--- NOTE | 2017-07-18 10:48 | HHI.PR ---
Subjective Remarks No overnight events, patient feels good. Not short of breath. No fever or chills. Doxycycline finished yesterday. Objective Vitals Vital Signs Date Time Temp Pulse Resp B/P (MAP) Pulse Ox O2 Delivery O2 Flow Rate FiO2 07/18/17 08:27 96 21 07/18/17 08:09 97.3 73 19 109/57 (74) 95 07/18/17 04:00 86 07/18/17 03:53 97.4 81 16 112/59 (76) 96 07/18/17 00:05 98.0 81 16 99/58 (72) 95 07/18/17 00:00 87 07/17/17 20:53 97.8 84 18 108/58 (75) 96 07/17/17 20:28 96 07/17/17 20:20 Room Air 07/17/17 18:09 97.3 86 18 122/64 (83) 96 07/17/17 16:00 87 07/17/17 14:00 97.2 85 18 119/63 (81) 96 07/17/17 13:00 87 07/17/17 12:00 72 07/17/17 11:34 97.3 71 14 111/68 (82) 99 07/17/17 11:17 Room Air 07/17/17 11:00 64 I/O 07/17/17 07/17/17 07/17/17 07/18/17 07/18/17 07/18/17 07:00 15:00 23:00 07:00 15:00 23:00 Intake Total 150 ml 120 ml Output Total 250 ml 0 ml Balance -100 ml 120 ml Intake Oral 150 ml 120 ml Output Urine Total 250 ml 0 ml # Voids 1 4 # Bowel Movements 1 0 Result Diagram: 07/14/17 0333 Objective Remarks GENERAL: Laying in bed, not in distress CARDIOVASCULAR: Regular rate and rhythm with no murmurs. RESPIRATORY: Coarse BS at the bases. No wheezing appreciated. ABDOMEN: Soft, non-tender, nondistended. EXTREMITIES: No edema. NEUROLOGICAL: Awake and alert, oriented 3.. Normal speech. A/P Problem List: (1) Sepsis ICD Code: A41.9 - Sepsis, unspecified organism (2) UTI (lower urinary tract infection) ICD Code: N39.0 - UTI (lower urinary tract infection) Status: Resolved (3) Cough ICD Code: R05 - Cough Status: Acute (4) PE (pulmonary thromboembolism) ICD Code: I26.99 - Other pulmonary embolism without acute cor pulmonale (5) Impaired mobility and activities of daily living ICD Code: Z74.09 - Other reduced mobility Status: Acute Assessment and Plan 86 year old male admitted with UTI and Sepsis with hypotension Sepsis, UTI, h/o BPH Oxygen as needed Culture thus far negative. s/p IV Daptomyxin and IV Zosyn. Appreciate infectious disease consult s/p Zosyn IV, oral Zyvox. Finished oral doxycycline until 07/17 per ID recommendations. LLL Pulmonary Embolism w/ Chronic cough Embolism diagnosed 06/30, treatment with theraputic Eliquis Continue Robitussin PRN, PRN Cepacol Appreciate Pulmonology Hypotension: Resolved. 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 Continue antibiotics as per ID. complete dose of doxy until 07/17 DVT Prophylaxis Eliquis Discharge Planning Discharge once placement ready, patient wants to go to [place] rehab. Problem Qualifiers (1) Sepsis: Qualified Codes: A41.9 - Sepsis, unspecified organism Akhil Ulrich MD July 18, 2017 10:47
--- NOTE | 2017-07-18 17:58 | HHI.PR ---
Subjective Remarks alert,sitting in chair no distress on o2 by nc appetite good Objective Vital Signs Date Time Temp Pulse Resp B/P (MAP) Pulse Ox O2 Delivery O2 Flow Rate FiO2 07/18/17 16:00 73 07/18/17 16:00 Room Air 07/18/17 12:00 Room Air 07/18/17 12:00 81 07/18/17 08:27 96 21 07/18/17 08:09 97.3 73 19 109/57 (74) 95 07/18/17 08:00 67 07/18/17 08:00 Room Air 07/18/17 04:00 86 07/18/17 03:53 97.4 81 16 112/59 (76) 96 07/18/17 00:05 98.0 81 16 99/58 (72) 95 07/18/17 00:00 87 07/17/17 20:53 97.8 84 18 108/58 (75) 96 07/17/17 20:28 96 07/17/17 20:20 Room Air 07/17/17 18:09 97.3 86 18 122/64 (83) 96 I/O 07/17/17 07/17/17 07/17/17 07/18/17 07/18/17 07/18/17 07:00 15:00 23:00 07:00 15:00 23:00 Intake Total 150 ml 120 ml Output Total 250 ml 0 ml Balance -100 ml 120 ml Intake Oral 150 ml 120 ml Output Urine Total 250 ml 0 ml # Voids 1 4 # Bowel Movements 1 0 Result Diagram: 07/14/17 0333 Objective Remarks GENERAL: SKIN: Warm and dry. HEAD: Atraumatic. Normocephalic. EYES: Pupils equal and round. No scleral icterus. No injection or drainage. ENT: No nasal bleeding or discharge. Mucous membranes pink and moist. NECK: Trachea midline. No JVD. CARDIOVASCULAR: Regular rate and rhythm. RESPIRATORY: No accessory muscle use. Clear to auscultation. Breath sounds equal bilaterally. GASTROINTESTINAL: Abdomen soft, non-tender, nondistended. Hepatic and splenic margins not palpable. MUSCULOSKELETAL: Extremities without clubbing, cyanosis, or edema. No obvious deformities. NEUROLOGICAL: Awake and alert. No obvious cranial nerve deficits. Motor grossly within normal limits. Five out of 5 muscle strength in the arms and legs. Normal speech. PSYCHIATRIC: Appropriate mood and affect; insight and judgment normal. Assessment and Plan Assessment and Plan RESPIRATORY FAILURE ATELECTASIS/ PNEUMONIA , RESOLVING PE PLAN O2 NEEDED ANTIBX PER ID INCREASE ACTIVITY cxray sagar Hammond,Manish Ross MD July 18, 2017 17:58
--- NOTE | 2017-07-18 19:55 | RADRPT ---
EXAM DATE/TIME: 07/18/2017 19:32 [facility] COMPARISON: CHEST SINGLE AP, July 16, 2017, 16:20. INDICATIONS : Short of breath. Pneumonia per order. MEDICAL HISTORY : Hypothyroidism. Cerebrovascular disease. Cardiovascular disease. CHF. HTN. Renal disease. Skin ca. CV A. SURGICAL HISTORY : Eye prosthesis ENCOUNTER: Subsequent ACUITY: 4 - 6 days PAIN SCORE: 0/10 LOCATION: Bilateral chest FINDINGS: A single view of the chest demonstrates bibasilar density and elevation right hemidiaphragm, stable. Heart mildly enlarged. Osseous structures are intact. CONCLUSION: Persistent right basilar density. Adam Griffin MD on July 18, 2017 at 19:52 Board Certified Radiologist. This report was verified electronically.
[2017-07-18] MEDS: LATANOPROST 0.005% OPHT SOLN 2.5 ML BTL EACH EYE SCH (21:00)
[2017-07-18] MEDS: TAMSULOSIN HCL 0.4 MG CAP PO SCH (22:23)
[2017-07-19] VITALS (9 sets, daily range): BP systolic 99–137; BP diastolic 16–62; PULSE 71–84; RESP 18–20; TEMP 97.3–98.6; O2SAT 93–99
[2017-07-19] MEDS: LEVOTHYROXINE SODIUM 100 MCG TAB PO SCH (05:46)
[2017-07-19] MEDS: RESP: BUDESONIDE 0.5 MG/2 ML NEB NEB SCH ×2 (08:12→19:57)
[2017-07-19] MEDS: PANTOPRAZOLE SOD 20 MG DELAYED RELEASE TAB PO SCH (08:52)
[2017-07-19] MEDS: FUROSEMIDE 40 MG TAB PO SCH (08:52)
[2017-07-19] MEDS: APIXABAN 5 MG TABLET PO SCH ×2 (08:52→20:26)
[2017-07-19] MEDS: CITALOPRAM HYDROBROMIDE 20 MG TAB PO SCH (08:52)
[2017-07-19] MEDS: guaiFENesin E.R. 600 MG TAB PO SCH ×2 (08:52→20:26)
[2017-07-19] MEDS: DOCUSATE SODIUM 50 MG/SENNA 8.6 MG TAB PO SCH ×2 (08:52→20:26)
--- NOTE | 2017-07-19 08:52 | HHI.PR ---
Subjective Remarks alert,sitting in chair no distress on o2 by nc appetite good Objective Vital Signs Date Time Temp Pulse Resp B/P (MAP) Pulse Ox O2 Delivery O2 Flow Rate FiO2 07/19/17 08:15 95 21 07/19/17 05:52 97.7 84 18 137/62 (87) 97 07/19/17 04:00 84 07/19/17 00:00 97.4 81 18 109/16 (47) 93 07/18/17 20:00 87 07/18/17 20:00 97.5 84 18 109/16 (47) 95 07/18/17 19:52 94 21 07/18/17 16:09 97.1 80 19 122/58 (79) 97 07/18/17 16:00 73 07/18/17 16:00 Room Air 07/18/17 12:09 97.4 83 19 125/65 (85) 97 07/18/17 12:00 Room Air 07/18/17 12:00 81 I/O 07/18/17 07/18/17 07/18/17 07/19/17 07/19/17 07/19/17 07:00 15:00 23:00 07:00 15:00 23:00 Intake Total 120 ml 360 ml Output Total 0 ml Balance 120 ml 360 ml Intake Oral 120 ml 360 ml Output Urine Total 0 ml # Voids 4 6 # Bowel Movements 0 1 Objective Remarks GENERAL: SKIN: Warm and dry. HEAD: Atraumatic. Normocephalic. EYES: Pupils equal and round. No scleral icterus. No injection or drainage. ENT: No nasal bleeding or discharge. Mucous membranes pink and moist. NECK: Trachea midline. No JVD. CARDIOVASCULAR: Regular rate and rhythm. RESPIRATORY: No accessory muscle use. Clear to auscultation. Breath sounds equal bilaterally. GASTROINTESTINAL: Abdomen soft, non-tender, nondistended. Hepatic and splenic margins not palpable. MUSCULOSKELETAL: Extremities without clubbing, cyanosis, or edema. No obvious deformities. NEUROLOGICAL: Awake and alert. No obvious cranial nerve deficits. Motor grossly within normal limits. Five out of 5 muscle strength in the arms and legs. Normal speech. PSYCHIATRIC: Appropriate mood and affect; insight and judgment normal. Assessment and Plan Assessment and Plan RESPIRATORY FAILURE ATELECTASIS/ PNEUMONIA , RESOLVING PE CXRAY RIGHT BASILAR DENSITY THE SAME PLAN O2 NEEDED ANTIBX PER ID INCREASE ACTIVITY Manish,Manish Wadie MD July 19, 2017 08:52
[2017-07-19] MEDS: SODIUM CHLORIDE 0.9% FLUSH 10 ML FLUSH IV FLUSH SCH ×2 (08:53→20:32)
[2017-07-19] MEDS: PETROLATUM 49%/ZINC OXIDE 15% 4 OUNCE TUBE TOPICAL SCH ×2 (08:56→20:27)
--- NOTE | 2017-07-19 13:38 | HHI.PR ---
Subjective Remarks Sleeping in bed No acute issue overnight, afebrile Awaiting placement Objective Vitals Vital Signs Date Time Temp Pulse Resp B/P (MAP) Pulse Ox O2 Delivery O2 Flow Rate FiO2 07/19/17 12:00 97.4 74 20 111/58 (75) 99 07/19/17 08:15 95 21 07/19/17 08:00 97.3 76 20 129/61 (83) 97 07/19/17 08:00 71 07/19/17 05:52 97.7 84 18 137/62 (87) 97 07/19/17 04:00 84 07/19/17 00:00 97.4 81 18 109/16 (47) 93 07/18/17 20:00 87 07/18/17 20:00 97.5 84 18 109/16 (47) 95 07/18/17 19:52 94 21 07/18/17 16:09 97.1 80 19 122/58 (79) 97 07/18/17 16:00 73 07/18/17 16:00 Room Air I/O 07/18/17 07/18/17 07/18/17 07/19/17 07/19/17 07/19/17 07:00 15:00 23:00 07:00 15:00 23:00 Intake Total 120 ml 360 ml Output Total 0 ml Balance 120 ml 360 ml Intake Oral 120 ml 360 ml Output Urine Total 0 ml # Voids 4 6 # Bowel Movements 0 1 Objective Remarks GENERAL: Patient resting in bed, no acute distress A/P Problem List: (1) Sepsis ICD Code: A41.9 - Sepsis, unspecified organism (2) UTI (lower urinary tract infection) ICD Code: N39.0 - UTI (lower urinary tract infection) Status: Resolved (3) Cough ICD Code: R05 - Cough Status: Acute (4) PE (pulmonary thromboembolism) ICD Code: I26.99 - Other pulmonary embolism without acute cor pulmonale (5) Impaired mobility and activities of daily living ICD Code: Z74.09 - Other reduced mobility Status: Acute Assessment and Plan 86 year old male admitted with UTI and Sepsis with hypotension Sepsis, UTI, h/o BPH Oxygen as needed Culture thus far negative. s/p IV Daptomyxin and IV Zosyn. Appreciate infectious disease consult s/p Zosyn IV, oral Zyvox. Finished oral doxycycline until 07/17 per ID recommendations. LLL Pulmonary Embolism w/ Chronic cough Embolism diagnosed 06/30, treatment with theraputic Eliquis Continue Robitussin PRN, PRN Cepacol Appreciate Pulmonology Hypotension: Resolved. 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 Continue antibiotics as per ID. complete dose of doxy until 07/17 DVT Prophylaxis Eliquis Discharge Planning Discharge once placement ready, patient wants to go to [place] re[facility]. Problem Qualifiers (1) Sepsis: Qualified Codes: A41.9 - Sepsis, unspecified organism Cain Torres MD July 19, 2017 13:38
[2017-07-19] MEDS: LATANOPROST 0.005% OPHT SOLN 2.5 ML BTL EACH EYE SCH (20:23)
[2017-07-19] MEDS: TAMSULOSIN HCL 0.4 MG CAP PO SCH (20:26)
[2017-07-20] VITALS (9 sets, daily range): BP systolic 95–123; BP diastolic 51–60; PULSE 69–89; RESP 16–22; TEMP 97–98.2; O2SAT 94–99
[2017-07-20] MEDS: LEVOTHYROXINE SODIUM 100 MCG TAB PO SCH (05:12)
[2017-07-20] MEDS: PANTOPRAZOLE SOD 20 MG DELAYED RELEASE TAB PO SCH (08:19)
[2017-07-20] MEDS: guaiFENesin E.R. 600 MG TAB PO SCH ×2 (08:19→22:30)
[2017-07-20] MEDS: DOCUSATE SODIUM 50 MG/SENNA 8.6 MG TAB PO SCH ×2 (08:19→21:00)
[2017-07-20] MEDS: SODIUM CHLORIDE 0.9% FLUSH 10 ML FLUSH IV FLUSH SCH ×2 (08:20→22:31)
[2017-07-20] MEDS: CITALOPRAM HYDROBROMIDE 20 MG TAB PO SCH (08:20)
[2017-07-20] MEDS: APIXABAN 5 MG TABLET PO SCH ×2 (08:21→22:30)
[2017-07-20] MEDS: FUROSEMIDE 40 MG TAB PO SCH (08:22)
[2017-07-20] MEDS: PETROLATUM 49%/ZINC OXIDE 15% 4 OUNCE TUBE TOPICAL SCH ×2 (08:23→22:29)
--- NOTE | 2017-07-20 09:23 | HHI.PR ---
Subjective Remarks alert, no distress on o2 by nc appetite good Objective Vital Signs Date Time Temp Pulse Resp B/P (MAP) Pulse Ox O2 Delivery O2 Flow Rate FiO2 07/20/17 08:00 97.6 77 22 114/57 (76) 96 07/20/17 04:28 97.0 76 16 104/51 (68) 94 07/20/17 04:00 89 07/20/17 00:13 97.9 80 18 123/60 (81) 97 07/20/17 00:00 69 07/19/17 20:25 Room Air 07/19/17 20:00 75 07/19/17 20:00 98.6 75 18 107/59 (75) 96 07/19/17 19:56 97 21 07/19/17 16:00 98.2 81 20 99/54 (69) 95 07/19/17 16:00 Room Air 07/19/17 16:00 73 07/19/17 12:00 75 07/19/17 12:00 97.4 74 20 111/58 (75) 99 07/19/17 12:00 Room Air I/O 07/19/17 07/19/17 07/19/17 07/20/17 07/20/17 07/20/17 07:00 15:00 23:00 07:00 15:00 23:00 Intake Total 680 ml Balance 680 ml Intake Oral 680 ml # Voids 1 2 4 # Bowel Movements 0 Objective Remarks GENERAL: SKIN: Warm and dry. HEAD: Atraumatic. Normocephalic. EYES: Pupils equal and round. No scleral icterus. No injection or drainage. ENT: No nasal bleeding or discharge. Mucous membranes pink and moist. NECK: Trachea midline. No JVD. CARDIOVASCULAR: Regular rate and rhythm. RESPIRATORY: No accessory muscle use. Clear to auscultation. Breath sounds equal bilaterally. GASTROINTESTINAL: Abdomen soft, non-tender, nondistended. Hepatic and splenic margins not palpable. MUSCULOSKELETAL: Extremities without clubbing, cyanosis, or edema. No obvious deformities. NEUROLOGICAL: Awake and alert. No obvious cranial nerve deficits. Motor grossly within normal limits. Five out of 5 muscle strength in the arms and legs. Normal speech. PSYCHIATRIC: Appropriate mood and affect; insight and judgment normal. Assessment and Plan Assessment and Plan RESPIRATORY FAILURE ATELECTASIS/ PNEUMONIA , RESOLVING PE CXRAY RIGHT BASILAR DENSITY THE SAME PLAN O2 NEEDED ANTIBX PER ID INCREASE ACTIVITY Manish Hammond MD July 20, 2017 09:23
[2017-07-20] MEDS: RESP: BUDESONIDE 0.5 MG/2 ML NEB NEB SCH ×2 (10:05→18:59)
--- NOTE | 2017-07-20 20:17 | HHI.PR ---
Subjective Remarks Resting comfortably in bed No event overnight Denied chest and or short of breath No fever or chills Objective Vitals Vital Signs Date Time Temp Pulse Resp B/P (MAP) Pulse Ox O2 Delivery O2 Flow Rate FiO2 07/20/17 18:59 98 21 07/20/17 16:00 76 07/20/17 16:00 98.2 76 22 113/56 (75) 97 07/20/17 12:00 78 07/20/17 12:00 97.4 81 22 95/60 (72) 97 07/20/17 08:00 71 07/20/17 08:00 97.6 77 22 114/57 (76) 96 07/20/17 08:00 Room Air 2.00 21 07/20/17 04:28 97.0 76 16 104/51 (68) 94 07/20/17 04:00 89 07/20/17 00:13 97.9 80 18 123/60 (81) 97 07/20/17 00:00 69 07/19/17 20:25 Room Air I/O 07/19/17 07/19/17 07/19/17 07/20/17 07/20/17 07/20/17 07:00 15:00 23:00 07:00 15:00 23:00 Intake Total 680 ml 480 ml Output Total 500 ml Balance 680 ml -20 ml Intake Oral 680 ml 480 ml Output Urine Total 500 ml # Voids 1 2 4 # Bowel Movements 0 1 Objective Remarks GENERAL: Patient resting in bed, no acute distress A/P Problem List: (1) Sepsis ICD Code: A41.9 - Sepsis, unspecified organism (2) UTI (lower urinary tract infection) ICD Code: N39.0 - UTI (lower urinary tract infection) Status: Resolved (3) Cough ICD Code: R05 - Cough Status: Acute (4) PE (pulmonary thromboembolism) ICD Code: I26.99 - Other pulmonary embolism without acute cor pulmonale (5) Impaired mobility and activities of daily living ICD Code: Z74.09 - Other reduced mobility Status: Acute Assessment and Plan 86 year old male admitted with UTI and Sepsis with hypotension 07/20: Continue current care, ongoing placement effort Sepsis, UTI, h/o BPH Oxygen as needed Culture thus far negative. s/p IV Daptomyxin and IV Zosyn. Appreciate infectious disease consult s/p Zosyn IV, oral Zyvox. Finished oral doxycycline until 07/17 per ID recommendations. LLL Pulmonary Embolism w/ Chronic cough Embolism diagnosed 06/30, treatment with theraputic Eliquis Continue Robitussin PRN, PRN Cepacol Appreciate Pulmonology Hypotension: Resolved. 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 Continue antibiotics as per ID. complete dose of doxy until 07/17 DVT Prophylaxis Eliquis Discharge Planning Discharge once placement ready, patient wants to go to [place] [facility]. Problem Qualifiers (1) Sepsis: Qualified Codes: A41.9 - Sepsis, unspecified organism Cain Torres MD July 20, 2017 20:17
[2017-07-20] MEDS: LATANOPROST 0.005% OPHT SOLN 2.5 ML BTL EACH EYE SCH (22:29)
[2017-07-20] MEDS: TAMSULOSIN HCL 0.4 MG CAP PO SCH (22:30)
[2017-07-21] VITALS (9 sets, daily range): BP systolic 91–125; BP diastolic 52–58; PULSE 71–89; RESP 18–20; TEMP 97.6–97.9; O2SAT 97–99
[2017-07-21] MEDS: LEVOTHYROXINE SODIUM 100 MCG TAB PO SCH (06:27)
[2017-07-21] MEDS: RESP: BUDESONIDE 0.5 MG/2 ML NEB NEB SCH ×2 (07:14→19:48)
[2017-07-21] MEDS: SODIUM CHLORIDE 0.9% FLUSH 10 ML FLUSH IV FLUSH SCH ×2 (09:00→20:33)
[2017-07-21] MEDS: PETROLATUM 49%/ZINC OXIDE 15% 4 OUNCE TUBE TOPICAL SCH ×2 (09:00→20:38)
[2017-07-21] MEDS: PANTOPRAZOLE SOD 20 MG DELAYED RELEASE TAB PO SCH (09:00)
[2017-07-21] MEDS: DOCUSATE SODIUM 50 MG/SENNA 8.6 MG TAB PO SCH ×2 (09:00→20:33)
[2017-07-21] MEDS: CITALOPRAM HYDROBROMIDE 20 MG TAB PO SCH (10:15)
[2017-07-21] MEDS: guaiFENesin E.R. 600 MG TAB PO SCH ×2 (10:15→20:33)
[2017-07-21] MEDS: APIXABAN 5 MG TABLET PO SCH ×2 (10:16→20:33)
[2017-07-21] MEDS: FUROSEMIDE 40 MG TAB PO SCH (10:16)
[2017-07-21] MEDS: ACETAMINOPHEN 325 MG TAB PO PRN (11:55)
--- NOTE | 2017-07-21 20:24 | HHI.PR ---
Subjective Remarks resting in bed no acute issues , awaiting placement Objective Vitals Vital Signs Date Time Temp Pulse Resp B/P (MAP) Pulse Ox O2 Delivery O2 Flow Rate FiO2 07/21/17 19:50 97 21 07/21/17 16:00 97.6 79 18 99/56 (70) 98 07/21/17 15:20 77 07/21/17 12:00 97.9 87 18 116/58 (77) 99 07/21/17 10:05 Room Air 07/21/17 10:05 84 07/21/17 08:00 97.6 77 18 125/58 (80) 97 07/21/17 07:14 Nasal Cannula 07/21/17 04:03 97.7 86 20 99/57 (71) 99 07/21/17 00:03 97.8 89 20 91/52 (65) 98 I/O 07/20/17 07/20/17 07/20/17 07/21/17 07/21/17 07/21/17 07:00 15:00 23:00 07:00 15:00 23:00 Intake Total 680 ml 480 ml 480 ml Output Total 500 ml Balance 680 ml -20 ml 480 ml Intake Oral 680 ml 480 ml 480 ml Output Urine Total 500 ml # Voids 4 1 4 # Bowel Movements 0 2 Objective Remarks GENERAL: Patient resting in bed, no acute distress A/P Problem List: (1) Sepsis ICD Code: A41.9 - Sepsis, unspecified organism (2) UTI (lower urinary tract infection) ICD Code: N39.0 - UTI (lower urinary tract infection) Status: Resolved (3) Cough ICD Code: R05 - Cough Status: Acute (4) PE (pulmonary thromboembolism) ICD Code: I26.99 - Other pulmonary embolism without acute cor pulmonale (5) Impaired mobility and activities of daily living ICD Code: Z74.09 - Other reduced mobility Status: Acute Assessment and Plan 86 year old male admitted with UTI and Sepsis with hypotension 07/21:resting in bed no acute issues , awaiting placement A/P: Sepsis, UTI, h/o BPH Oxygen as needed Culture thus far negative. s/p IV Daptomyxin and IV Zosyn. Appreciate infectious disease consult s/p Zosyn IV, oral Zyvox. Finished oral doxycycline until 07/17 per ID recommendations. LLL Pulmonary Embolism w/ Chronic cough Embolism diagnosed 06/30, treatment with theraputic Eliquis Continue Robitussin PRN, PRN Cepacol Appreciate Pulmonology Hypotension: Resolved. 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 Continue antibiotics as per ID. complete dose of doxy until 07/17 DVT Prophylaxis Eliquis Discharge Planning Discharge once placement ready, patient wants to go to [place] [facility]. Problem Qualifiers (1) Sepsis: Qualified Codes: A41.9 - Sepsis, unspecified organism Cain Torres MD July 21, 2017 20:24
[2017-07-21] MEDS: TAMSULOSIN HCL 0.4 MG CAP PO SCH (20:33)
[2017-07-21] MEDS: LATANOPROST 0.005% OPHT SOLN 2.5 ML BTL EACH EYE SCH (20:38)
[2017-07-22] VITALS (9 sets, daily range): BP systolic 102–123; BP diastolic 50–60; PULSE 66–97; RESP 16–20; TEMP 97.4–98.3; O2SAT 95–98
[2017-07-22] MEDS: LEVOTHYROXINE SODIUM 100 MCG TAB PO SCH (06:09)
--- NOTE | 2017-07-22 06:41 | RADRPT ---
EXAM DATE/TIME: 07/22/2017 05:09 [facility] COMPARISON: CHEST SINGLE AP, July 18, 2017, 19:32. INDICATIONS : Infiltrate. MEDICAL HISTORY : Hypothyroidism. Cerebrovascular disease. Cardiovascular disease. CHF. HTN. Renal disease. Skin ca. CV A. SURGICAL HISTORY : Eye prosthesis ENCOUNTER: Subsequent ACUITY: 4 - 6 days PAIN SCORE: Non-responsive. LOCATION: Left chest FINDINGS: Right base parenchymal opacity is unchanged. Left lung remains clear. Cardiac contours are stable. CONCLUSION: No significant change Kumar Ojeda MD on July 22, 2017 at 6:38 Board Certified Radiologist. This report was verified electronically.
[2017-07-22] MEDS: RESP: BUDESONIDE 0.5 MG/2 ML NEB NEB SCH ×2 (07:35→20:53)
[2017-07-22] MEDS: APIXABAN 5 MG TABLET PO SCH ×2 (08:43→21:27)
[2017-07-22] MEDS: CITALOPRAM HYDROBROMIDE 20 MG TAB PO SCH (08:43)
[2017-07-22] MEDS: DOCUSATE SODIUM 50 MG/SENNA 8.6 MG TAB PO SCH ×2 (08:43→21:27)
[2017-07-22] MEDS: guaiFENesin E.R. 600 MG TAB PO SCH ×2 (08:43→21:27)
[2017-07-22] MEDS: PANTOPRAZOLE SOD 20 MG DELAYED RELEASE TAB PO SCH (08:43)
[2017-07-22] MEDS: FUROSEMIDE 40 MG TAB PO SCH (08:43)
[2017-07-22] MEDS: PETROLATUM 49%/ZINC OXIDE 15% 4 OUNCE TUBE TOPICAL SCH ×2 (08:44→21:28)
[2017-07-22] MEDS: SODIUM CHLORIDE 0.9% FLUSH 10 ML FLUSH IV FLUSH SCH ×2 (08:44→21:00)
--- NOTE | 2017-07-22 18:08 | HHI.PR ---
Subjective Remarks no event over night, cont effort for placement Objective Vitals Vital Signs Date Time Temp Pulse Resp B/P (MAP) Pulse Ox O2 Delivery O2 Flow Rate FiO2 07/22/17 12:00 97.6 77 20 110/56 (74) 97 07/22/17 08:00 Room Air 07/22/17 08:00 97.4 75 20 115/60 (78) 97 07/22/17 07:35 95 21 07/22/17 05:00 98.3 80 20 113/58 (76) 97 07/22/17 03:57 68 07/22/17 00:00 98.1 73 20 102/59 (73) 98 07/22/17 00:00 66 07/21/17 22:30 Room Air 07/21/17 20:00 71 07/21/17 20:00 97.9 71 20 116/56 (76) 97 07/21/17 19:50 97 21 I/O 07/21/17 07/21/17 07/21/17 07/22/17 07/22/17 07/22/17 07:00 15:00 23:00 07:00 15:00 23:00 Intake Total 480 ml 120 ml Balance 480 ml 120 ml Intake Oral 480 ml 120 ml # Voids 4 3 Objective Remarks GENERAL: Patient resting in bed, no acute distress A/P Problem List: (1) Sepsis ICD Code: A41.9 - Sepsis, unspecified organism (2) UTI (lower urinary tract infection) ICD Code: N39.0 - UTI (lower urinary tract infection) Status: Resolved (3) Cough ICD Code: R05 - Cough Status: Acute (4) PE (pulmonary thromboembolism) ICD Code: I26.99 - Other pulmonary embolism without acute cor pulmonale (5) Impaired mobility and activities of daily living ICD Code: Z74.09 - Other reduced mobility Status: Acute Assessment and Plan 86 year old male admitted with UTI and Sepsis with hypotension 07/22: Continue current care, ongoing placement effort Sepsis, UTI, h/o BPH Oxygen as needed Culture thus far negative. s/p IV Daptomyxin and IV Zosyn. Appreciate infectious disease consult s/p Zosyn IV, oral Zyvox. Finished oral doxycycline until 07/17 per ID recommendations. LLL Pulmonary Embolism w/ Chronic cough Embolism diagnosed 06/30, treatment with theraputic Eliquis Continue Robitussin PRN, PRN Cepacol Appreciate Pulmonology Hypotension: Resolved. 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 Continue antibiotics as per ID. complete dose of doxy until 07/17 DVT Prophylaxis Eliquis Discharge Planning Discharge once placement ready, patient wants to go to [facility] [facility]. Problem Qualifiers (1) Sepsis: Qualified Codes: A41.9 - Sepsis, unspecified organism Cain Torres MD July 22, 2017 18:08
[2017-07-22] MEDS: TAMSULOSIN HCL 0.4 MG CAP PO SCH (21:27)
[2017-07-22] MEDS: ACETAMINOPHEN 325 MG TAB PO PRN (21:33)
[2017-07-22] MEDS: LATANOPROST 0.005% OPHT SOLN 2.5 ML BTL EACH EYE SCH (21:34)
[2017-07-23] VITALS (14 sets, daily range): BP systolic 99–120; BP diastolic 56–68; PULSE 72–109; RESP 16–18; TEMP 97.5–97.8; O2SAT 95–99
[2017-07-23] MEDS: LEVOTHYROXINE SODIUM 100 MCG TAB PO SCH (05:19)
[2017-07-23] MEDS: RESP: BUDESONIDE 0.5 MG/2 ML NEB NEB SCH ×2 (08:46→20:16)
[2017-07-23] MEDS: RESP: ALBUTEROL 2.5 MG/IPRATROPIUM 0.5 MG NEB (PRN) NEB (08:46)
[2017-07-23] MEDS: SODIUM CHLORIDE 0.9% FLUSH 10 ML FLUSH IV FLUSH SCH ×2 (09:00→21:10)
[2017-07-23] MEDS: PANTOPRAZOLE SOD 20 MG DELAYED RELEASE TAB PO SCH (09:14)
[2017-07-23] MEDS: DOCUSATE SODIUM 50 MG/SENNA 8.6 MG TAB PO SCH ×2 (09:14→21:10)
[2017-07-23] MEDS: CITALOPRAM HYDROBROMIDE 20 MG TAB PO SCH (09:14)
[2017-07-23] MEDS: FUROSEMIDE 40 MG TAB PO SCH (09:14)
[2017-07-23] MEDS: guaiFENesin E.R. 600 MG TAB PO SCH ×2 (09:14→21:10)
[2017-07-23] MEDS: APIXABAN 5 MG TABLET PO SCH ×2 (09:15→21:09)
[2017-07-23] MEDS: PETROLATUM 49%/ZINC OXIDE 15% 4 OUNCE TUBE TOPICAL SCH ×2 (09:17→21:10)
--- NOTE | 2017-07-23 14:24 | HHI.PR ---
Subjective Remarks Resting comfortably in bed No event overnight Denied chest and or short of breath No fever or chills Objective Vitals Vital Signs Date Time Temp Pulse Resp B/P (MAP) Pulse Ox O2 Delivery O2 Flow Rate FiO2 07/23/17 12:10 97.5 83 18 112/59 (76) 99 07/23/17 09:50 99 21 07/23/17 08:09 97.8 72 17 99/56 (70) 96 07/23/17 04:00 97.7 72 16 113/56 (75) 97 07/23/17 00:10 82 07/23/17 00:00 97.7 83 16 120/63 (82) 97 07/22/17 20:53 95 07/22/17 20:00 97.8 97 16 115/56 (75) 97 07/22/17 20:00 86 07/22/17 16:00 97.5 79 20 123/50 (74) 97 I/O 07/22/17 07/22/17 07/22/17 07/23/17 07/23/17 07/23/17 07:00 15:00 23:00 07:00 15:00 23:00 Intake Total 120 ml 480 ml 300 ml Balance 120 ml 480 ml 300 ml Intake Oral 120 ml 480 ml 300 ml # Voids 3 4 # Bowel Movements 1 Objective Remarks GENERAL: Patient resting in bed, no acute distress A/P Problem List: (1) Sepsis ICD Code: A41.9 - Sepsis, unspecified organism (2) UTI (lower urinary tract infection) ICD Code: N39.0 - UTI (lower urinary tract infection) Status: Resolved (3) Cough ICD Code: R05 - Cough Status: Acute (4) PE (pulmonary thromboembolism) ICD Code: I26.99 - Other pulmonary embolism without acute cor pulmonale (5) Impaired mobility and activities of daily living ICD Code: Z74.09 - Other reduced mobility Status: Acute Assessment and Plan 86 year old male admitted with UTI and Sepsis with hypotension 07/23: No acute event, continue current management, D/W case assistant regarding placement Sepsis, UTI, h/o BPH Oxygen as needed Culture thus far negative. s/p IV Daptomyxin and IV Zosyn. Appreciate infectious disease consult s/p Zosyn IV, oral Zyvox. Finished oral doxycycline until 07/17 per ID recommendations. LLL Pulmonary Embolism w/ Chronic cough Embolism diagnosed 06/30, treatment with theraputic Eliquis Continue Robitussin PRN, PRN Cepacol Appreciate Pulmonology Hypotension: Resolved. 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 Continue antibiotics as per ID. complete dose of doxy until 07/17 DVT Prophylaxis Eliquis Discharge Planning Discharge once placement ready, patient wants to go to [facility]. Problem Qualifiers (1) Sepsis: Qualified Codes: A41.9 - Sepsis, unspecified organism Cain Torres MD July 23, 2017 14:24
--- NOTE | 2017-07-23 14:52 | HHI.PR ---
Subjective Remarks alert, no distress on o2 by nc appetite good Objective Vital Signs Date Time Temp Pulse Resp B/P (MAP) Pulse Ox O2 Delivery O2 Flow Rate FiO2 07/23/17 12:10 97.5 83 18 112/59 (76) 99 07/23/17 09:50 99 21 07/23/17 08:09 97.8 72 17 99/56 (70) 96 07/23/17 04:00 97.7 72 16 113/56 (75) 97 07/23/17 00:10 82 07/23/17 00:00 97.7 83 16 120/63 (82) 97 07/22/17 20:53 95 07/22/17 20:00 97.8 97 16 115/56 (75) 97 07/22/17 20:00 86 07/22/17 16:00 97.5 79 20 123/50 (74) 97 I/O 07/22/17 07/22/17 07/22/17 07/23/17 07/23/17 07/23/17 07:00 15:00 23:00 07:00 15:00 23:00 Intake Total 120 ml 480 ml 300 ml Balance 120 ml 480 ml 300 ml Intake Oral 120 ml 480 ml 300 ml # Voids 3 4 # Bowel Movements 1 Objective Remarks GENERAL: SKIN: Warm and dry. HEAD: Atraumatic. Normocephalic. EYES: Pupils equal and round. No scleral icterus. No injection or drainage. ENT: No nasal bleeding or discharge. Mucous membranes pink and moist. NECK: Trachea midline. No JVD. CARDIOVASCULAR: Regular rate and rhythm. RESPIRATORY: No accessory muscle use. Clear to auscultation. Breath sounds equal bilaterally. GASTROINTESTINAL: Abdomen soft, non-tender, nondistended. Hepatic and splenic margins not palpable. MUSCULOSKELETAL: Extremities without clubbing, cyanosis, or edema. No obvious deformities. NEUROLOGICAL: Awake and alert. No obvious cranial nerve deficits. Motor grossly within normal limits. Five out of 5 muscle strength in the arms and legs. Normal speech. PSYCHIATRIC: Appropriate mood and affect; insight and judgment normal. Assessment and Plan Assessment and Plan RESPIRATORY FAILURE ATELECTASIS/ PNEUMONIA , RESOLVING PE CXRAY CXRAY 06/22 STABLE PLAN O2 NEEDED ANTIBX PER ID INCREASE ACTIVITY Manish,Manish Ross MD July 23, 2017 14:52
[2017-07-23] MEDS: ACETAMINOPHEN 325 MG TAB PO PRN (21:09)
[2017-07-23] MEDS: TAMSULOSIN HCL 0.4 MG CAP PO SCH (21:10)
[2017-07-23] MEDS: LATANOPROST 0.005% OPHT SOLN 2.5 ML BTL EACH EYE SCH (21:11)
[2017-07-24] VITALS (9 sets, daily range): BP systolic 102–137; BP diastolic 61–82; PULSE 68–100; RESP 17–19; TEMP 97.1–98.8; O2SAT 93–100
[2017-07-24] MEDS: LEVOTHYROXINE SODIUM 100 MCG TAB PO SCH (05:37)
[2017-07-24] MEDS: RESP: BUDESONIDE 0.5 MG/2 ML NEB NEB SCH ×2 (07:35→19:52)
--- NOTE | 2017-07-24 08:54 | HHI.PR ---
Subjective Remarks alert, no distress appetite good Objective Vital Signs Date Time Temp Pulse Resp B/P (MAP) Pulse Ox O2 Delivery O2 Flow Rate FiO2 07/24/17 07:36 97 21 07/24/17 04:00 98.8 68 18 118/82 (94) 93 07/24/17 04:00 70 07/24/17 00:08 73 07/24/17 00:00 97.7 76 17 110/67 (81) 93 07/23/17 23:26 Room Air 07/23/17 20:15 96 21 07/23/17 20:00 97.7 109 18 99/68 (78) 95 07/23/17 20:00 89 07/23/17 16:09 97.7 93 18 102/58 (73) 99 07/23/17 16:00 89 07/23/17 15:00 89 07/23/17 12:10 97.5 83 18 112/59 (76) 99 07/23/17 12:00 85 07/23/17 09:50 99 21 I/O 07/23/17 07/23/17 07/23/17 07/24/17 07/24/17 07/24/17 07:00 15:00 23:00 07:00 15:00 23:00 Intake Total 300 ml 600 ml 240 ml Output Total 800 ml 200 ml Balance 300 ml -200 ml 40 ml Intake Oral 300 ml 600 ml 240 ml Output Urine Total 800 ml 200 ml # Voids 3 # Bowel Movements 0 0 Objective Remarks GENERAL: SKIN: Warm and dry. HEAD: Atraumatic. Normocephalic. EYES: Pupils equal and round. No scleral icterus. No injection or drainage. ENT: No nasal bleeding or discharge. Mucous membranes pink and moist. NECK: Trachea midline. No JVD. CARDIOVASCULAR: Regular rate and rhythm. RESPIRATORY: No accessory muscle use. Clear to auscultation. Breath sounds equal bilaterally. GASTROINTESTINAL: Abdomen soft, non-tender, nondistended. Hepatic and splenic margins not palpable. MUSCULOSKELETAL: Extremities without clubbing, cyanosis, or edema. No obvious deformities. NEUROLOGICAL: Awake and alert. No obvious cranial nerve deficits. Motor grossly within normal limits. Five out of 5 muscle strength in the arms and legs. Normal speech. PSYCHIATRIC: Appropriate mood and affect; insight and judgment normal. Assessment and Plan Assessment and Plan RESPIRATORY FAILURE ATELECTASIS/ PNEUMONIA , RESOLVING PE PLAN O2 NEEDED ANTIBX PER ID INCREASE ACTIVITY Manish Hammond MD July 24, 2017 08:54
[2017-07-24] MEDS: SODIUM CHLORIDE 0.9% FLUSH 10 ML FLUSH IV FLUSH SCH ×2 (09:00→20:23)
[2017-07-24] MEDS: PETROLATUM 49%/ZINC OXIDE 15% 4 OUNCE TUBE TOPICAL SCH ×2 (09:00→20:23)
[2017-07-24] MEDS: guaiFENesin E.R. 600 MG TAB PO SCH ×2 (09:11→20:22)
[2017-07-24] MEDS: DOCUSATE SODIUM 50 MG/SENNA 8.6 MG TAB PO SCH ×2 (09:12→20:22)
[2017-07-24] MEDS: APIXABAN 5 MG TABLET PO SCH ×2 (09:12→20:22)
[2017-07-24] MEDS: PANTOPRAZOLE SOD 20 MG DELAYED RELEASE TAB PO SCH (09:12)
[2017-07-24] MEDS: CITALOPRAM HYDROBROMIDE 20 MG TAB PO SCH (09:12)
[2017-07-24] MEDS: FUROSEMIDE 40 MG TAB PO SCH (09:12)
[2017-07-24] MEDS: ACETAMINOPHEN 325 MG TAB PO PRN (14:16)
--- NOTE | 2017-07-24 15:50 | HHI.PR ---
Subjective Remarks Resting in bed, no complaint Objective Vitals Vital Signs Date Time Temp Pulse Resp B/P (MAP) Pulse Ox O2 Delivery O2 Flow Rate FiO2 07/24/17 12:04 98.6 100 18 137/61 (86) 100 07/24/17 08:00 97.5 70 18 102/62 (75) 98 07/24/17 07:36 97 21 07/24/17 04:00 98.8 68 18 118/82 (94) 93 07/24/17 04:00 70 07/24/17 00:08 73 07/24/17 00:00 97.7 76 17 110/67 (81) 93 07/23/17 23:26 Room Air 07/23/17 20:15 96 21 07/23/17 20:00 97.7 109 18 99/68 (78) 95 07/23/17 20:00 89 07/23/17 16:09 97.7 93 18 102/58 (73) 99 07/23/17 16:00 89 I/O 07/23/17 07/23/17 07/23/17 07/24/17 07/24/17 07/24/17 07:00 15:00 23:00 07:00 15:00 23:00 Intake Total 300 ml 600 ml 240 ml Output Total 800 ml 200 ml Balance 300 ml -200 ml 40 ml Intake Oral 300 ml 600 ml 240 ml Output Urine Total 800 ml 200 ml # Voids 3 # Bowel Movements 0 0 Objective Remarks GENERAL: Patient resting in bed, no acute distress A/P Problem List: (1) Sepsis ICD Code: A41.9 - Sepsis, unspecified organism (2) UTI (lower urinary tract infection) ICD Code: N39.0 - UTI (lower urinary tract infection) Status: Resolved (3) Cough ICD Code: R05 - Cough Status: Acute (4) PE (pulmonary thromboembolism) ICD Code: I26.99 - Other pulmonary embolism without acute cor pulmonale (5) Impaired mobility and activities of daily living ICD Code: Z74.09 - Other reduced mobility Status: Acute Assessment and Plan 86 year old male admitted with UTI and Sepsis with hypotension 07/24: Continue current care, discharge planning on going Sepsis, UTI, h/o BPH Oxygen as needed Culture thus far negative. s/p IV Daptomyxin and IV Zosyn. Appreciate infectious disease consult s/p Zosyn IV, oral Zyvox. Finished oral doxycycline until 07/17 per ID recommendations. LLL Pulmonary Embolism w/ Chronic cough Embolism diagnosed 06/30, treatment with theraputic Eliquis Continue Robitussin PRN, PRN Cepacol Appreciate Pulmonology Hypotension: Resolved. 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 Continue antibiotics as per ID. complete dose of doxy until 07/17 DVT Prophylaxis Eliquis Discharge Planning Discharge once placement ready Problem Qualifiers (1) Sepsis: Qualified Codes: A41.9 - Sepsis, unspecified organism Cain Torres MD July 24, 2017 15:50
[2017-07-24] MEDS: TAMSULOSIN HCL 0.4 MG CAP PO SCH (20:22)
[2017-07-24] MEDS: LATANOPROST 0.005% OPHT SOLN 2.5 ML BTL EACH EYE SCH (20:23)
[2017-07-25] VITALS (12 sets, daily range): BP systolic 97–121; BP diastolic 56–66; PULSE 64–90; RESP 16–20; TEMP 97.4–97.8; O2SAT 96–98
[2017-07-25] MEDS: LEVOTHYROXINE SODIUM 100 MCG TAB PO SCH (06:42)
[2017-07-25] MEDS: SODIUM CHLORIDE 0.9% FLUSH 10 ML FLUSH IV FLUSH SCH ×2 (07:38→20:44)
[2017-07-25] MEDS: RESP: BUDESONIDE 0.5 MG/2 ML NEB NEB SCH ×2 (08:06→19:36)
[2017-07-25] MEDS: CITALOPRAM HYDROBROMIDE 20 MG TAB PO SCH (08:26)
[2017-07-25] MEDS: guaiFENesin E.R. 600 MG TAB PO SCH ×2 (08:26→20:44)
[2017-07-25] MEDS: DOCUSATE SODIUM 50 MG/SENNA 8.6 MG TAB PO SCH ×2 (08:26→20:44)
[2017-07-25] MEDS: PANTOPRAZOLE SOD 20 MG DELAYED RELEASE TAB PO SCH (08:26)
[2017-07-25] MEDS: PETROLATUM 49%/ZINC OXIDE 15% 4 OUNCE TUBE TOPICAL SCH ×2 (08:26→20:44)
[2017-07-25] MEDS: FUROSEMIDE 40 MG TAB PO SCH (08:26)
[2017-07-25] MEDS: APIXABAN 5 MG TABLET PO SCH ×2 (08:26→20:44)
--- NOTE | 2017-07-25 16:17 | HHI.PR ---
Subjective Remarks alert, no distress Objective Vital Signs Date Time Temp Pulse Resp B/P (MAP) Pulse Ox O2 Delivery O2 Flow Rate FiO2 07/25/17 12:00 97.4 90 20 97/61 (73) 98 07/25/17 08:07 98 07/25/17 08:00 97.7 73 18 121/63 (82) 98 07/25/17 04:00 64 07/25/17 04:00 97.4 78 17 103/61 (75) 96 07/25/17 00:00 97.4 75 17 109/66 (80) 98 07/25/17 00:00 69 07/24/17 23:30 Room Air 07/24/17 20:00 79 07/24/17 20:00 97.8 81 19 112/66 (81) 98 07/24/17 19:52 98 21 I/O 07/24/17 07/24/17 07/24/17 07/25/17 07/25/17 07/25/17 07:00 15:00 23:00 07:00 15:00 23:00 Intake Total 240 ml 600 ml 240 ml Output Total 200 ml 550 ml Balance 40 ml 50 ml 240 ml Intake Oral 240 ml 600 ml 240 ml Output Urine Total 200 ml 550 ml # Voids 3 2 5 # Bowel Movements 0 2 2 Objective Remarks GENERAL: SKIN: Warm and dry. HEAD: Atraumatic. Normocephalic. EYES: Pupils equal and round. No scleral icterus. No injection or drainage. ENT: No nasal bleeding or discharge. Mucous membranes pink and moist. NECK: Trachea midline. No JVD. CARDIOVASCULAR: Regular rate and rhythm. RESPIRATORY: No accessory muscle use. Clear to auscultation. Breath sounds equal bilaterally. GASTROINTESTINAL: Abdomen soft, non-tender, nondistended. Hepatic and splenic margins not palpable. MUSCULOSKELETAL: Extremities without clubbing, cyanosis, or edema. No obvious deformities. NEUROLOGICAL: Awake and alert. No obvious cranial nerve deficits. Motor grossly within normal limits. Five out of 5 muscle strength in the arms and legs. Normal speech. PSYCHIATRIC: Appropriate mood and affect; insight and judgment normal. Assessment and Plan Assessment and Plan RESPIRATORY FAILURE, RESOLVED ATELECTASIS/ PNEUMONIA , RESOLVING PE PLAN O2 NEEDED ANTIBX PER ID INCREASE ACTIVITY Manish,Manish Ross MD July 25, 2017 16:17
--- NOTE | 2017-07-25 18:04 | HHI.PR ---
Subjective Remarks Resting comfortably in bed No event overnight Denied chest and or short of breath No fever or chills Objective Vitals Vital Signs Date Time Temp Pulse Resp B/P (MAP) Pulse Ox O2 Delivery O2 Flow Rate FiO2 07/25/17 12:00 97.4 90 20 97/61 (73) 98 07/25/17 08:07 98 07/25/17 08:00 97.7 73 18 121/63 (82) 98 07/25/17 04:00 64 07/25/17 04:00 97.4 78 17 103/61 (75) 96 07/25/17 00:00 97.4 75 17 109/66 (80) 98 07/25/17 00:00 69 07/24/17 23:30 Room Air 07/24/17 20:00 79 07/24/17 20:00 97.8 81 19 112/66 (81) 98 07/24/17 19:52 98 21 I/O 07/24/17 07/24/17 07/24/17 07/25/17 07/25/17 07/25/17 07:00 15:00 23:00 07:00 15:00 23:00 Intake Total 240 ml 600 ml 240 ml Output Total 200 ml 550 ml Balance 40 ml 50 ml 240 ml Intake Oral 240 ml 600 ml 240 ml Output Urine Total 200 ml 550 ml # Voids 3 2 5 # Bowel Movements 0 2 2 Objective Remarks GENERAL: Patient resting in bed, no acute distress A/P Problem List: (1) Sepsis ICD Code: A41.9 - Sepsis, unspecified organism (2) UTI (lower urinary tract infection) ICD Code: N39.0 - UTI (lower urinary tract infection) Status: Resolved (3) Cough ICD Code: R05 - Cough Status: Acute (4) PE (pulmonary thromboembolism) ICD Code: I26.99 - Other pulmonary embolism without acute cor pulmonale (5) Impaired mobility and activities of daily living ICD Code: Z74.09 - Other reduced mobility Status: Acute Assessment and Plan 86 year old male admitted with UTI and Sepsis with hypotension 07/25: Continue current care, discharge planning on going Sepsis, UTI, h/o BPH Oxygen as needed Culture thus far negative. s/p IV Daptomyxin and IV Zosyn. Appreciate infectious disease consult s/p Zosyn IV, oral Zyvox. Finished oral doxycycline until 07/17 per ID recommendations. LLL Pulmonary Embolism w/ Chronic cough Embolism diagnosed 06/30, treatment with theraputic Eliquis Continue Robitussin PRN, PRN Cepacol Appreciate Pulmonology Hypotension: Resolved. 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 Continue antibiotics as per ID. complete dose of doxy until 07/17 DVT Prophylaxis Eliquis Discharge Planning Discharge once placement ready Problem Qualifiers (1) Sepsis: Qualified Codes: A41.9 - Sepsis, unspecified organism Cain Torres MD July 25, 2017 18:04
[2017-07-25] MEDS: TAMSULOSIN HCL 0.4 MG CAP PO SCH (20:44)
[2017-07-25] MEDS: LATANOPROST 0.005% OPHT SOLN 2.5 ML BTL EACH EYE SCH (20:45)
[2017-07-26] VITALS (8 sets, daily range): BP systolic 108–125; BP diastolic 57–61; PULSE 79–93; RESP 18–20; TEMP 97.6–98.7; O2SAT 94–99
[2017-07-26] MEDS: ACETAMINOPHEN 325 MG TAB PO PRN ×2 (03:06→15:53)
[2017-07-26] MEDS: LEVOTHYROXINE SODIUM 100 MCG TAB PO SCH (06:50)
[2017-07-26] MEDS: RESP: BUDESONIDE 0.5 MG/2 ML NEB NEB SCH (08:14)
[2017-07-26] MEDS: RESP: ALBUTEROL 2.5 MG/IPRATROPIUM 0.5 MG NEB (PRN) NEB (08:14)
[2017-07-26] MEDS: SODIUM CHLORIDE 0.9% FLUSH 10 ML FLUSH IV FLUSH SCH (08:59)
[2017-07-26] MEDS: APIXABAN 5 MG TABLET PO SCH (09:00)
[2017-07-26] MEDS: guaiFENesin E.R. 600 MG TAB PO SCH (09:00)
[2017-07-26] MEDS: DOCUSATE SODIUM 50 MG/SENNA 8.6 MG TAB PO SCH (09:00)
[2017-07-26] MEDS: PANTOPRAZOLE SOD 20 MG DELAYED RELEASE TAB PO SCH (09:00)
[2017-07-26] MEDS: FUROSEMIDE 40 MG TAB PO SCH (09:01)
[2017-07-26] MEDS: CITALOPRAM HYDROBROMIDE 20 MG TAB PO SCH (09:01)
[2017-07-26] MEDS: PETROLATUM 49%/ZINC OXIDE 15% 4 OUNCE TUBE TOPICAL SCH (09:05)
--- NOTE | 2017-07-26 15:15 | HHI.PR ---
Subjective Remarks alert, no distress Objective Vital Signs Date Time Temp Pulse Resp B/P (MAP) Pulse Ox O2 Delivery O2 Flow Rate FiO2 07/26/17 12:24 98.4 86 18 108/61 (77) 99 07/26/17 12:00 88 07/26/17 08:17 94 21 07/26/17 08:09 98.7 90 18 125/60 (81) 95 07/26/17 08:00 82 07/26/17 08:00 Room Air 2.00 21 07/26/17 04:06 18 07/26/17 04:00 88 07/26/17 00:00 79 07/26/17 00:00 97.6 86 20 112/57 (75) 96 07/25/17 20:30 84 07/25/17 20:30 Room Air 21 07/25/17 20:00 97.8 78 16 106/56 (73) 98 07/25/17 19:36 97 21 07/25/17 16:00 97.6 84 18 108/57 (74) 97 07/25/17 15:38 84 I/O 07/25/17 07/25/17 07/25/17 07/26/17 07/26/17 07/26/17 07:00 15:00 23:00 07:00 15:00 23:00 Intake Total 240 ml 480 ml Balance 240 ml 480 ml Intake Oral 240 ml 480 ml # Voids 5 3 # Bowel Movements 2 2 Objective Remarks GENERAL: SKIN: Warm and dry. HEAD: Atraumatic. Normocephalic. EYES: Pupils equal and round. No scleral icterus. No injection or drainage. ENT: No nasal bleeding or discharge. Mucous membranes pink and moist. NECK: Trachea midline. No JVD. CARDIOVASCULAR: Regular rate and rhythm. RESPIRATORY: No accessory muscle use. Clear to auscultation. Breath sounds equal bilaterally. GASTROINTESTINAL: Abdomen soft, non-tender, nondistended. Hepatic and splenic margins not palpable. MUSCULOSKELETAL: Extremities without clubbing, cyanosis, or edema. No obvious deformities. NEUROLOGICAL: Awake and alert. No obvious cranial nerve deficits. Motor grossly within normal limits. Five out of 5 muscle strength in the arms and legs. Normal speech. PSYCHIATRIC: Appropriate mood and affect; insight and judgment normal. Assessment and Plan Assessment and Plan RESPIRATORY FAILURE, RESOLVED ATELECTASIS/ PNEUMONIA , RESOLVING PE PLAN O2 NEEDED ANTIBX PER ID INCREASE ACTIVITY Manish Hammond MD July 26, 2017 15:15
--- NOTE | 2017-07-26 15:55 | HHI.PR ---
Subjective Remarks No new issues. Patient accepted at [facility]. Objective Vitals Vital Signs Date Time Temp Pulse Resp B/P (MAP) Pulse Ox O2 Delivery O2 Flow Rate FiO2 07/26/17 12:24 98.4 86 18 108/61 (77) 99 07/26/17 12:00 88 07/26/17 08:17 94 21 07/26/17 08:09 98.7 90 18 125/60 (81) 95 07/26/17 08:00 82 07/26/17 08:00 Room Air 2.00 21 07/26/17 04:06 18 07/26/17 04:00 88 07/26/17 00:00 79 07/26/17 00:00 97.6 86 20 112/57 (75) 96 07/25/17 20:30 84 07/25/17 20:30 Room Air 21 07/25/17 20:00 97.8 78 16 106/56 (73) 98 07/25/17 19:36 97 21 07/25/17 16:00 97.6 84 18 108/57 (74) 97 I/O 07/25/17 07/25/17 07/25/17 07/26/17 07/26/17 07/26/17 07:00 15:00 23:00 07:00 15:00 23:00 Intake Total 240 ml 480 ml Balance 240 ml 480 ml Intake Oral 240 ml 480 ml # Voids 5 3 # Bowel Movements 2 2 A/P Problem List: (1) Sepsis ICD Code: A41.9 - Sepsis, unspecified organism (2) UTI (lower urinary tract infection) ICD Code: N39.0 - UTI (lower urinary tract infection) Status: Resolved (3) Cough ICD Code: R05 - Cough Status: Acute (4) PE (pulmonary thromboembolism) ICD Code: I26.99 - Other pulmonary embolism without acute cor pulmonale (5) Impaired mobility and activities of daily living ICD Code: Z74.09 - Other reduced mobility Status: Acute Problem Qualifiers (1) Sepsis: Qualified Codes: A41.9 - Sepsis, unspecified organism Leia Sen MD July 26, 2017 15:55
--- NOTE | 2017-07-26 23:15 | HHI.DS ---
Discharge Summary Admission Date Jul 06, 2017 at 21:30 Discharge Date: July 26, 2017 Admitting Diagnosis Sepsis, UTI . (1) Sepsis ICD Code: A41.9 - Sepsis, unspecified organism Diagnosis: Principal (2) UTI (lower urinary tract infection) ICD Code: N39.0 - UTI (lower urinary tract infection) Status: Resolved (3) Cough ICD Code: R05 - Cough Status: Acute (4) PE (pulmonary thromboembolism) ICD Code: I26.99 - Other pulmonary embolism without acute cor pulmonale (5) Impaired mobility and activities of daily living ICD Code: Z74.09 - Other reduced mobility Status: Acute Procedures None Brief History - From Admission HPI from the admitting physician. Mr. 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 Bowen on 04/12/17. He developed a Pseudomonas UTI, acute diastolic CHF, and respiratory failure with hypoxia requiring BiPAP postoperatively. He was d/c to SNF of 04/25. He returned to the hospital on 06/30 from SNF for pulmonary embolism despite treatment with Xarelto. He was switched to Eliquis and discharged to [facility] on 07/04/17 due to significant deconditioning. He is transferred back [facility] due to hypotension, tachycardia , and leukocytosis with suspected sepsis secondary to UTI (urine culture 07/05 with Group D Enterococcus). Patient is seen in the ICU. He is somewhat confused and tells me that he has been in the hospital since March due to a knee surgery. 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 He complains about physical deconditioning and chronic cough. He denies pain. He denies any recent fevers or chills. He is a limited historian given his age, the frequent hospital admissions and rehabilitation stays, and the time of night that I visited. PE at Discharge GENERAL: This is a well-nourished, well-developed patient, in no apparent distress. CARDIOVASCULAR: Regular rate and rhythm without murmurs, gallops, or rubs. RESPIRATORY: Clear to auscultation. Breath sounds equal bilaterally. No wheezes , rales, or rhonchi. GASTROINTESTINAL: Abdomen soft, non-tender, nondistended. Normal active bowel sounds MUSCULOSKELETAL: Extremities without clubbing, cyanosis, or edema. NEURO: Alert & Oriented x4 to person, place, time, situation. Moves all ext x4 Pt update on day of discharge No new issues. Patient states he is doing ok. He has been accepted to SNF. Hospital Course 86-year-old male admitted with UTI and sepsis. Patient was seen and evaluated by infectious disease. He was initially on IV antibiotics and then transitioned to p.o. doxycycline. P patient with a PE that was diagnosed June 30 currently on Eliquis. He was seen and evaluated by pulmonology. Patient experienced hypotension during his hospitalization, he received several IV boluses in addition to as needed Levophed. His blood pressure stabilized. Chest x-ray was notable for infiltrate in left lower lung. This was covered with abx. Patient was stable to go home and was discharged. Insurance rejected [facility], family was appealing this decision. Patient had reached maximum benefit from being in the hospital. He is discharged to SNF today. Pt Condition on Discharge: Stable Discharge Disposition: Discharge to SNF Discharge Time: > 30 minutes Discharge Instructions DIET: Follow Instructions for: Heart Healthy Diet Speech Therapy-Diet Recommends: Mechanical Soft, [place] Thickened Liquids Activities you can perform: See Additionl Instruction Other Activity Instructions: as per PT instructions OOB to chair with assistance only Follow up Referrals: PCP Follow-up - 2 Weeks SNF/FPC/ with [facility] New Medications: Acetylcysteine Liq/Neb (Acetylcysteine Liq/Neb) 100 mg/ml Soln 2 ML NEB Q6HR NEB for Shortness of Breath, #1 BOX Budesonide Neb (Pulmicort Respules) 0.5 Mg/2 Ml Neb 0.5 MG NEB Q12HR NEB for Shortness of Breath, #1 BOX Sennosides-Docusate Sodium (Gnp Senna Plus 8.6-50 mg) 8.6 Mg-50 Mg Tab 1 TAB PO BID for constipation prevention, #62 TAB Continued Medications: Apixaban (Eliquis) 5 Mg Tab 5 MG PO BID for Blood Clot Prevention, #60 TAB 0 Refills To start on 07/13 Apixaban (Eliquis) 5 Mg Tab 10 MG PO BID for Blood Clot Prevention, #14 TAB 0 Refills until 07/12 Benzonatate (Tessalon Perles) 100 Mg Cap 200 MG PO TID PRN for cough interfering with rest for 10 Days, CAP Calcium Carbonate-Vitamin D (Calcium 600+D 200) 600-200 Mg-Unit Tab 1 TAB PO BID for Nutritional Supplement for 60 Days, #120 TAB 0 Refills Cholecalciferol (Vitamin D3) 2,000 Unit Cap 2000 UNITS PO DAILY for Nutritional Supplement, #60 CAP 0 Refills Citalopram (Citalopram) 10 Mg Tab 10 MG PO DAILY for Control Depression, #30 TAB 0 Refills Latanoprost Opth Drops (Latanoprost Opth Drops) 0.005% Drops 1 DROP EACH EYE HS for Glaucoma, #2.5 ML 0 Refills Refrigerate until opened. Levothyroxine (Levothyroxine) 100 Mcg Tab 100 MCG PO DAILY for Thyroid, #30 TAB 0 Refills Pantoprazole (Protonix) 20 Mg Tab 20 MG PO DAILY for 30 Days, TAB Ropinirole (Ropinirole) 5 Mg Tab 2.5 MG PO HS PRN for RESTLESSNESS, #30 TAB 0 Refills Tamsulosin (Flomax) 0.4 Mg Cap 0.8 MG PO HS for Manage Prostate Problems, #60 CAP 0 Refills Start date 04/23/17 [Albuterol-Ipratropium Neb] () 1 AMPULE NEBU 1 AMPULE NEB Q6HR NEB for 1 Day [Budeson-Formot 160-4.5 Mcg Inh] () 60 PUFF AERO 2 PUFF INH Q12HR for 30 Days [Petrolat-Zinc Barrier Oint] () 120 APPLIC/120 GM OINT 1 APPLIC TOPICAL BID for 10 Days Discontinued Medications: Piperacillin-Tazobactam Inj (Zosyn Inj) 3.375 Gram Inj 3.375 GM IV Q6HR for Infection for 7 Days, BAG 0 Refills Leia Sen MD July 26, 2017 23:15
== END 2017-07-26 16:50 | DRG 871 ==
LOC: HIME 21:30 → HCIS 07-07 19:24 → N04A 07-17 14:22
PROVIDERS: ADMIT Family Medicine; ATTEND Family Medicine
DX: A41.9 Sepsis, unspecified organism (principal); I26.99 Other pulmonary embolism without acute cor pulmonale; J96.90 Respiratory failure, unspecified, unspecified whether with hypoxia or hypercapnia; I11.0 Hypertensive heart disease with heart failure; J18.9 Pneumonia, unspecified organism; I95.9 Hypotension, unspecified; I50.32 Chronic diastolic (congestive) heart failure; I69.354 Hemiplegia and hemiparesis following cerebral infarction affecting left non-dominant side; N39.0 Urinary tract infection, site not specified; J98.11 Atelectasis; J20.9 Acute bronchitis, unspecified; E03.9 Hypothyroidism, unspecified; I25.10 Atherosclerotic heart disease of native coronary artery without angina pectoris; R26.9 Unspecified abnormalities of gait and mobility; B95.2 Enterococcus as the cause of diseases classified elsewhere; M48.00 Spinal stenosis, site unspecified; Z96.652 Presence of left artificial knee joint; D64.9 Anemia, unspecified; G25.81 Restless legs syndrome; N40.1 Benign prostatic hyperplasia with lower urinary tract symptoms; R33.9 Retention of urine, unspecified; Z16.21 Resistance to vancomycin; Z88.5 Allergy status to narcotic agent; Z87.891 Personal history of nicotine dependence; Z87.440 Personal history of urinary (tract) infections; Z79.01 Long term (current) use of anticoagulants
CPT/HCPCS: 36600; 71045; 76937; 80048; 80053; 81001; 82805; 83605; 83735; 83880; 84100; 84145; 85025; 85027; 87040; 87086; 87641; 94150; 94640; 94664; J0878; J2543; J2920; J7030; J7040; J7608; J7626

== ENCOUNTER 2017-08-03 10:59 | Emergency (ER) | END 2017-08-03 17:46 | disposition home or self-care (01) | DX: S01.81XA Laceration without foreign body of other part of head, initial encounter (principal); N39.0 Urinary tract infection, site not specified; E03.9 Hypothyroidism, unspecified; I11.0 Hypertensive heart disease with heart failure; I50.9 Heart failure, unspecified; W05.0XXA Fall from non-moving wheelchair, initial encounter; Z23 Encounter for immunization; Z79.01 Long term (current) use of anticoagulants; Z87.891 Personal history of nicotine dependence | CPT/HCPCS: 12014; 70450; 70486; 71045; 72125; 73564; 80053; 81001; 84443; 85025; 85610; 85730; 87077; 87086; 87186; 90471; 90714; 96374; 99285; J0696 ==